=== PATIENT | female | born 1975 | race Caucasian/White ===

== ENCOUNTER 2018-05-02 17:11 | Inpatient (IN) | payer OTHER ==
[~2018-05-02] VITALS: Ht 149.9 cm; Wt 53.5 kg
[2018-05-02 17:30] VITALS: BP 193/86
--- NOTE | 2018-05-02 17:34 | NUR ---
EKG GIVEN TO DR GIANG, PT AMBULATES BACK TO THE LOBBY WITH FAMILY
[2018-05-02 17:59] LABS: BASOPHILS % (AUTO) 0.6 % (0.0-2.0); EOSINOPHILS # (AUTO) 0.2 K/uL (0-0.4); EOSINOPHILS % (AUTO) 3.8 % (0.0-4.0); HEMATOCRIT 40.3 % (36-48); LYMPHOCYTES # (AUTO) 1.2 K/uL (2.5-16.5); LYMPHOCYTES % (AUTO) 20.8 % (20.5-51.1); MEAN CORPUSCULAR HEMOGLOBIN 29 pg (27-31); MEAN CORPUSCULAR HGB CONC 32 g/dL (33-37); MEAN CORPUSCULAR VOLUME 90.2 fL (80-94); MONOCYTES # (AUTO) 0.2 K/uL (0.8-1.0); MONOCYTES % (AUTO) 2.8 % (1.7-9.3); NEUTROPHILS # (AUTO) 4.1 K/uL (1.8-7.7); PLATELET COUNT (AUTO) 260 K/uL (140-450); RED BLOOD CELL COUNT(AUTO) 4.47 MIL/uL (4.20-5.40); RED CELL DISTRIBUTION WIDTH 16.5 % (11.6-13.7); WHITE BLOOD COUNT (AUTO) 5.6 K/uL (4.8-10.8)
[2018-05-02 18:09] LABS: ANION GAP 23.5 (8-16); POTASSIUM 4.5 mmol/L (3.5-5.1)
[2018-05-02 18:14] LABS: CREATININE 8.7 mg/dL (0.6-1.3)
[2018-05-02 18:16] LABS: ALBUMIN 4.2 g/dL (3.4-5.0); TOTAL BILIRUBIN 0.4 mg/dL (0.0-1.0)
--- NOTE | 2018-05-02 18:49 | NUR ---
PT AMBULATES TO BED 1
--- NOTE | 2018-05-02 18:55 | NUR ---
BIB FAMILY WITH C/O MID CP 11/12 RADIATING TO THE BACK SINCE WEDNESDAY WITH NVD AND DIZZINESS AND HEAD ACHE 01/12. SPEAKING FULL SENTENCES, [facility] - FACIAL ASSYMETRY, DROOP, OR SLURRED SPEECH HX; PACEMAKER RX; CLONIDINE, TIZAMIDINE, AMLOPIDINE
--- NOTE | 2018-05-02 19:07 | NUR ---
PT STATES SHE IS HAVING PAIN IN THE VAGINAL REGION BUT CANNOT PEE OR PROVIDE URINE SAMPLE.
--- NOTE | 2018-05-02 19:15 | NUR ---
REPORT GIVEN TO MERRILL CARY AT THIS TIME FOR CONTINUITY OF CARE.
--- NOTE | 2018-05-02 19:20 | NUR ---
ASSUMED CARE FROM RENATO ACRY. PT IS IN 10/10 VAGINAL PAIN AT THIS TIME. DENIES C/P AT THIS TIME. PT STATES SHE HAS BEEN VOMITING SINCE YESTURDAY. MILD SWELLING TO PERINEAL AREA, NO REDNESS AT THIS TIME. LMP: 04/29/18; CURRENT MENSTRATING. AAOX4. SAFETY PRECAUTIONS IN PLACE. AT BEDSIDE. WILL CONTINUE TO MONITOR.
--- NOTE | 2018-05-02 19:34 | NUR ---
DR. BARAJAS AT BEDSIDE FOR EVALUATION.
[2018-05-02] MEDS ORDERED: ONDANSETRON 4 MG/2 ML VIAL IVP ONE (20:10)
[2018-05-02] MEDS ORDERED: MORPHINE SULFATE 4 MG/ML SYR IVP ONE (20:10)
[2018-05-02] MEDS ORDERED: TIZA4CAP PO ×2 (20:10→22:51)
[2018-05-02] MEDS ORDERED: CLON0.2T43 PO ×2 (20:13→22:51)
[2018-05-02] MEDS ORDERED: AMLO10TA PO ×2 (20:13→22:51)
[2018-05-02] MEDS ORDERED: FURO-570 PO ×2 (20:13→22:51)
--- NOTE | 2018-05-02 21:10 | NUR ---
Admited to Tele. Will go to room 114. Belongings list completed. Report to Nova CARY.
[2018-05-02] MEDS ORDERED: LORazepam 2 MG/ML VIAL IM/IVP PRN (21:30)
[2018-05-02] MEDS ORDERED: ZOLPIDEM 5 MG TAB PO PRN (21:30)
[2018-05-02] MEDS ORDERED: DOCUSATE SODIUM 100 MG GELCAP PO PRN (21:30)
[2018-05-02] MEDS ORDERED: ACETAMINOPHEN 325 MG TAB PO PRN (21:30)
[2018-05-02] MEDS ORDERED: HYDROcodone/APAP 5/325 MG 1 TAB TAB PO PRN (21:30)
[2018-05-02] MEDS ORDERED: ONDANSETRON 4 MG/2 ML VIAL IM/IVP PRN (21:30)
[2018-05-02 22:00] VITALS: BP 168/85
--- NOTE | 2018-05-02 22:00 | NUR ---
RECEIVED PT FROM ER VIA RAMSES PT IS AAOX4 AMBULATES WITH GLOBAL SUPPLY CHAIN VICE PRESIDENT LEFT UPPER ARM WITH AV SHUNT FOR HD AND RT AC HL GAUGE # 20 PATENT ON ABD PERITONEAL CATHETER DIALYSIS NOT WORKING PTMRSA KETURAH PROTOCOL DONE AND SENT TO LAB PT ORIENTED TO THE FLOOR CALL LIGHT WITHIN [facility]
[2018-05-02 22:12] LABS: PROTHROMBIN TIME 9.9 secs (10.8-13.4)
[2018-05-02 22:18] LABS: CHOL/HDL RATIO 3.4 (1-4.5); FREE T4 (FREE THYROXINE) 0.98 ng/dL (0.76-1.46); MAGNESIUM 2.5 mg/dL (1.8-2.4); PHOSPHORUS 8.4 mg/dL (2.5-4.9); THYROID STIMULATING HORMONE 2.68 uIU/mL (0.34-3.74)
[2018-05-02] MEDS ORDERED: DEXTROSE 50% 50 ML SYR IVP PRN (22:20)
--- NOTE | 2018-05-02 22:30 | NUR ---
DR FENTON IS HERE AND SEE THE PT
[2018-05-02] MEDS: NACL 0.9% 1,000 ML IV SCH (22:44)
[2018-05-02] MEDS: MORPHINE SULFATE 4 MG/ML SYR IVP PRN (22:46)
[2018-05-02] MEDS ORDERED: GABA100C PO (22:53)
[2018-05-02] MEDS ORDERED: INSU100S22 SUBQ (22:53)
[2018-05-02] MEDS ORDERED: cloNIDine 0.1 MG TAB PO SCH (22:55)
[2018-05-02] MEDS ORDERED: tiZANidine 4 MG TAB PO PRN (22:55)
[2018-05-02] MEDS ORDERED: FUROSEMIDE 40 MG/4 ML VIAL IVP SCH (22:55)
[2018-05-02] MEDS ORDERED: LISINOPRIL 5 MG TAB PO SCH (23:00)
[2018-05-02] MEDS ORDERED: NITROGLYCERIN 0.4 MG TAB SL PRN (23:00)
[2018-05-02] MEDS ORDERED: CALCIUM ACETATE 667 MG TAB PO SCH (23:25)
[2018-05-02] MEDS: GABAPENTIN 100 MG CAP PO SCH (23:31)
[2018-05-02] MEDS: METOPROLOL 25 MG TAB PO SCH (23:31)
[2018-05-02] MEDS: ASPIRIN 81 MG TAB.CHEW PO SCH (23:32)
[2018-05-02] MEDS: SIMVASTATIN 20 MG TAB PO SCH (23:32)
--- NOTE | 2018-05-03 | NUR ---
DR CLARK WAS CALLED TO NOTIFY PT ON HD TO BE ORDER
[2018-05-03 01:00] VITALS: BP 174/80
[2018-05-03 04:00] VITALS: BP 170/74
--- NOTE | 2018-05-03 04:00 | NUR ---
PT HAS BEEN MONITORIN CLOSE RENAL PT HIGH BP DR CLARK WILL COME TO SEE THE PT THIS AM ON TEL[facility]
[2018-05-03] MEDS ORDERED: LIDOCAINE 2% 100 MG/5 ML UJET TP ONE ×2 (04:35→09:00)
[2018-05-03] MEDS: MORPHINE SULFATE 4 MG/ML SYR IVP PRN ×2 (05:47→19:51)
[2018-05-03] MEDS: BLOOD GLUCOSE MONITORING 1 DEV DEV FS SCH ×4 (06:06→21:16)
[2018-05-03] MEDS: INSULIN LISPRO SLIDING SCALE 100 UNITS/ML VIAL SUBQ PRN ×2 (06:07→21:36)
[2018-05-03] MEDS ORDERED: hydrALAZINE 20 MG/ML VIAL IVP SCH (06:30)
--- NOTE | 2018-05-03 06:41 | NUR ---
BLOOD SUGAR TEST 176 COVERAGE WITH 2 UNITS HUMALOG SUBQ FOLLOW PROTOCOL
[2018-05-03 07:37] LABS: BASOPHILS % (AUTO) 0.6 % (0.0-2.0); EOSINOPHILS # (AUTO) 0.3 K/uL (0-0.4); HEMATOCRIT 38.2 % (36-48); HEMOGLOBIN 12.1 g/dL (12.0-16.0); LYMPHOCYTES # (AUTO) 1.4 K/uL (2.5-16.5); LYMPHOCYTES % (AUTO) 24.5 % (20.5-51.1); MEAN CORPUSCULAR HEMOGLOBIN 29 pg (27-31); MEAN CORPUSCULAR HGB CONC 32 g/dL (33-37); MEAN CORPUSCULAR VOLUME 91.6 fL (80-94); MONOCYTES # (AUTO) 0.3 K/uL (0.8-1.0); MONOCYTES % (AUTO) 4.5 % (1.7-9.3); NEUTROPHILS # (AUTO) 3.6 K/uL (1.8-7.7); NEUTROPHILS % (AUTO) 64.4 % (42.2-75.2); PLATELET COUNT (AUTO) 225 K/uL (140-450); RED BLOOD CELL COUNT(AUTO) 4.17 MIL/uL (4.20-5.40); RED CELL DISTRIBUTION WIDTH 16.2 % (11.6-13.7); WHITE BLOOD COUNT (AUTO) 5.6 K/uL (4.8-10.8)
--- NOTE | 2018-05-03 07:50 | NUR ---
PATIENT WAS SLEEPING COMFORTABLY, EASILY AROUSABLE BY NAME. RESPIRATION EVEN, UNLABOR ON ROOM AIR. SKIN DRY AND WARM. IV PATENT AND INTACT. COMPLAINED OF VAGINAL PAIN 10/, WILL MEDICATE PER ORDER. PLAN OF CARE WAS DISCUSSED WITH PATIENT. BED AT LOW POSITION, SIDE RAILS UP. CALL LIGHT WITHIN REACH
[2018-05-03 08:00] VITALS: BP 183/81
--- NOTE | 2018-05-03 08:14 | NUR ---
PATIENT HAS BEEN SCREENED AND CATEGORIZED MODERATE NUTRITION RISK. PATIENT WILL BE SEEN WITHIN 3-5 DAYS OF ADMISSION. 05/05/18SHELBI[address]OW[address]
[2018-05-03] MEDS: amLODIPine 5 MG TAB PO SCH (08:33)
[2018-05-03] MEDS: cloNIDine 0.1 MG TAB PO SCH ×4 (08:34→23:59)
[2018-05-03] MEDS: FUROSEMIDE 40 MG TAB PO SCH ×2 (08:35→21:00)
[2018-05-03] MEDS: ASPIRIN 81 MG TAB.CHEW PO SCH (08:35)
[2018-05-03] MEDS: GABAPENTIN 100 MG CAP PO SCH ×2 (08:35→21:26)
[2018-05-03] MEDS: METOPROLOL 25 MG TAB PO SCH ×3 (08:36→21:26)
[2018-05-03 08:42] LABS: POTASSIUM 5.3 mmol/L (3.5-5.1)
[2018-05-03 08:43] LABS: ANION GAP 22.5 (8-16); CARBON DIOXIDE 23.8 mmol/L (21-32); CREATININE 9.3 mg/dL (0.6-1.3)
[2018-05-03 08:50] LABS: MAGNESIUM 2.5 mg/dL (1.8-2.4); PHOSPHORUS 8.9 mg/dL (2.5-4.9)
--- NOTE | 2018-05-03 10:00 | NUR ---
PATIENT WAS EDUCATED ON STRICT I&O, AND FLUID RESTRICTION OF 1500 ML. PATIENT VERBALIZED UNDERSTANDING
--- NOTE | 2018-05-03 10:15 | NUR ---
PATIENT WAS AWAKE, ALERT. RESPIRATION EVEN, UNLABOR ON ROOM AIR. NO DISTRESS NOTED AT THIS TIME. CALL LIGHT WITHIN REACH.
[2018-05-03] MEDS ORDERED: LACTOBACILLUS RHAMNOSUS GG 1 EACH CAP PO SCH (10:55)
[2018-05-03 12:00] VITALS: BP 166/76
--- NOTE | 2018-05-03 12:00 | NUR ---
PATIENT IS NPO AT THIS TIME. HUMALOG IS HELD, WILL RECHECK BLOOD SUGAR.
--- NOTE | 2018-05-03 12:00 | NUR ---
PATIENT WAS AWAKE, ALERT. RESPIRATION EVEN, UNLABOR ON ROOM AIR. NO DISTRESS NOTED AT THIS TIME. DR. ATKINSON WAS AT BEDSIDE. CALL LIGHT WITHIN REACH
[2018-05-03] MEDS: CEFAZOLIN SODIUM 1 GM/D5W PM 50 ML IV SCH (12:15)
--- NOTE | 2018-05-03 14:10 | NUR ---
PATIENT WAS AWAKE, RESTING COMFORTABLY. RESPIRATION EVEN, UNLABOR ON ROOM AIR. FAMILY WAS AT BEDSIDE. NO DISTRESS NOTED AT THIS TIME. CALL LIGHT WITHIN REACH
[2018-05-03 16:00] VITALS: BP 152/72
--- NOTE | 2018-05-03 16:00 | NUR ---
PATIENT WAS RESTING COMFORTABLY. RESPIRATION EVEN, UNLABOR ON ROOM AIR. DENIED PAIN AT THIS TIME. NO DISTRESS NOTED. CALL LIGHT WITHIN REACH.
--- NOTE | 2018-05-03 18:40 | NUR ---
PATIENT WAS AWAKE, PLAYING WITH PHONE COMFORTABLY. IV PATENT AND INTACT. NO DISTRESS NOTED AT THIS TIME. CALL LIGHT WITHIN REACH
[2018-05-03] MEDS ORDERED: LIDOCAINE 1% 500 MG/50 ML VIAL INJ SCH ×2 (19:15→20:00)
--- NOTE | 2018-05-03 19:35 | NUR ---
ENDORSEMENT GIVEN TO ENVIRONMENTAL HEALTH AND SAFETY MANAGER NURSE. PATIENT IS STABLE AT THIS TIME
--- NOTE | 2018-05-03 19:35 | NUR ---
RECEIVED BEDSIDE REPORT FROM DAY SHIFT RN, PATIENT IN BED, SCHEDULED TO HAVE HD, DIALYSIS NURSE AT BEDSIDE. V/S TAKEN BP 164/84 HR 84. IV IN RIGHT HAND 20G AT 10 ML/HR, NOTED PERITONEAL CATH THAT CURRENTLY NOT BEING USED. PATIENT HAS LEFT UPPER ARM AV SHUNT. BLOOD GLUCOSE 159 WILL MEDICATED ACCORDING TO ORDER. PATIENT REQUEST ID LIDOCAINE FOR DIALYSIS. DIALYSIS NURSE PUT IN ORDER, CALLED PHARMACY TO VERIFY, CALLED HOUSE SUPERVIOSOR TO BRING THE LIDOCAINE TO THE UNIT.
--- NOTE | 2018-05-03 19:51 | NUR ---
PATIENT REQUESTED MORPHINE FOR PAIN, HD NURSE STATED SHE NEEDS TO START DIALYSIS SOON, OFFERED TO GIVE MORPHINE FOR PAIN, PATIENT SAID OKAY. PATIENT STATED OKAY TO START HD WITHOUT LIDOCAINE. STARTED HD.
[2018-05-03] MEDS ORDERED: LIDOCAINE 1% 500 MG/50 ML VIAL ONE (19:58)
[2018-05-03 20:00] VITALS: BP 164/84
--- NOTE | 2018-05-03 20:34 | NUR ---
PATIENT DIFFICULT TO WAKE UP, CHARGE NURSE CALLED RT. BLOOD GLUCOSE 159, DR ADAN AT BEDSIDE. ORDER FOR BIPAP, R/T AT BEDSIDE PLACING BIPAP. O2SAT FLUCTUATING 86-81% RR 14 BP 114/54 PRIOR TO BIPAP ADMINISTRATION. O2SAT NOW 92%-90% RR 30 ON BIPAP. WILL DO CHEST X RAY. Addendum: 05/03/18 at 2043 by Paty Segal RN WRONG PATIENT DISREGARD
--- NOTE | 2018-05-03 21:26 | NUR ---
PATENTS BP INCREASING TO 180'S ACCORDING TO HD NURSE. WILL GIVE METOPROLOL 25 MG. WILL CONTINUE TO MONITOR.
[2018-05-03] MEDS: SIMVASTATIN 20 MG TAB PO SCH (21:27)
[2018-05-03] MEDS: NACL 0.9% 1,000 ML IV SCH (21:27)
[2018-05-03] MEDS: INSULIN LANTUS 100 UNITS/ML 10 ML VIAL SUBQ SCH (21:32)
--- NOTE | 2018-05-03 22:20 | NUR ---
PATIENT C/O VAGINAL SPASMS. MEDICATED WITH ZANAFLEX.
--- NOTE | 2018-05-03 23:49 | NUR ---
HD STOPPED AT 2300 OUTPUT, BP 209/[address] ADAN SAID TO GIVE HELD CLONIDINE AND IVP HYDRALAZINE. WILL GIVE NOW.
[2018-05-04] VITALS: BP 209/75
[2018-05-04] MEDS ORDERED: hydrALAZINE 20 MG/ML VIAL IVP SCH
--- NOTE | 2018-05-04 01:00 | NUR ---
BP 120/75 HR 70. WILL CONTINUE TO MONITOR.
--- NOTE | 2018-05-04 01:30 | NUR ---
BP 116/67 HR 61. PATIENT RESTING COMFORTABLY IN BED. WILL CONTINUE TO MONITOR.
[2018-05-04 04:00] VITALS: BP 147/80
--- NOTE | 2018-05-04 04:00 | NUR ---
V/S TAKEN BP 147/80 HR 69 WILL CONTINUE TO MONITOR.
--- NOTE | 2018-05-04 05:30 | NUR ---
BLOOD SUGAR 54, GAVE APPLE JUICE AND SUGAR, BLOOD SUGAR NOW 80.
[2018-05-04] MEDS: BLOOD GLUCOSE MONITORING 1 DEV DEV FS SCH ×5 (06:18→22:11)
--- NOTE | 2018-05-04 07:21 | NUR ---
RECEIVED BEDSIDE REPORT FROM TOOLS PROGRAMMER RN. PATIENT IN SLEEPING IN BED. IV IN RIGHT HAND 20G AT 10 ML/HR, NOTED PERITONEAL CATH THAT CURRENTLY NOT BEING USED. PATIENT HAS LEFT UPPER ARM AV SHUNT. PT STABLE AT THIS TIME. NO COMPLAINTS OF PAIN. NO SOB OR DISTRESS NOTED. BED IN LOW POSITION, CALL LIGHT WITHIN REACH. WILL ROUND FREQUENTLY.
--- NOTE | 2018-05-04 07:29 | NUR ---
ENDORSED PATIENT TO DAY SHIFT NURSE. PATIENT STABLE.
[2018-05-04 07:33] LABS: BASOPHILS # (AUTO) 0.1 K/uL (0.00-0.22); BASOPHILS % (AUTO) 1.5 % (0.0-2.0); EOSINOPHILS # (AUTO) 0.3 K/uL (0-0.4); EOSINOPHILS % (AUTO) 7.2 % (0.0-4.0); HEMATOCRIT 40.3 % (36-48); LYMPHOCYTES # (AUTO) 0.8 K/uL (2.5-16.5); MEAN CORPUSCULAR HEMOGLOBIN 29 pg (27-31); MEAN CORPUSCULAR HGB CONC 32 g/dL (33-37); MEAN CORPUSCULAR VOLUME 91.2 fL (80-94); MONOCYTES # (AUTO) 0.1 K/uL (0.8-1.0); MONOCYTES % (AUTO) 3.3 % (1.7-9.3); NEUTROPHILS # (AUTO) 2.8 K/uL (1.8-7.7); PLATELET COUNT (AUTO) 236 K/uL (140-450); RED BLOOD CELL COUNT(AUTO) 4.42 MIL/uL (4.20-5.40); RED CELL DISTRIBUTION WIDTH 16.1 % (11.6-13.7); WHITE BLOOD COUNT (AUTO) 4.1 K/uL (4.8-10.8)
[2018-05-04 07:43] LABS: ANION GAP 9.7 (8-16); CARBON DIOXIDE 33.9 mmol/L (21-32); POTASSIUM 3.6 mmol/L (3.5-5.1)
[2018-05-04 07:46] LABS: PHOSPHORUS 5.6 mg/dL (2.5-4.9)
[2018-05-04 08:00] VITALS: BP 167/69
[2018-05-04 08:39] LABS: CREATININE 5.2 mg/dL (0.6-1.3)
[2018-05-04] MEDS ORDERED: cloNIDine 0.1 MG TAB PO SCH (08:56)
[2018-05-04] MEDS: ASPIRIN 81 MG TAB.CHEW PO SCH (08:59)
[2018-05-04] MEDS: amLODIPine 5 MG TAB PO SCH (09:00)
[2018-05-04] MEDS: GABAPENTIN 100 MG CAP PO SCH ×2 (09:01→20:10)
[2018-05-04] MEDS: LACTOBACILLUS RHAMNOSUS GG 1 EACH CAP PO SCH (09:02)
[2018-05-04] MEDS: FUROSEMIDE 40 MG TAB PO SCH (09:02)
[2018-05-04] MEDS: METOPROLOL 25 MG TAB PO SCH (09:03)
[2018-05-04] MEDS: VITAMIN B COMPLEX W/C 1 TAB PO SCH (09:03)
[2018-05-04] MEDS: MORPHINE SULFATE 4 MG/ML SYR IVP PRN ×3 (09:04→19:58)
--- NOTE | 2018-05-04 09:05 | NUR ---
ADMINISTERED SCHEDULED MEDS TO PT. PT TOLERATED MEDS WELL. PT ALSO COMPLAINING OF VAGINAL PAIN OF 7/10. MORPHINE GIVEN FOR RELIEF. WILL REASSESS FOR MED EFFECTIVENESS.
--- NOTE | 2018-05-04 11:23 | NUR ---
PT RESTING IN BED WATCHING TV. ALL NEEDS MET AT THIS TIME. BED IN LOW POSITION, CALL LIGHT WITHIN REACH.
[2018-05-04 12:00] VITALS: BP 171/71
--- NOTE | 2018-05-04 12:54 | NUR ---
PT COMPLAINING OF PAIN 10/12. GAVE MORPHINE 2MG ORDERED. WILL REASSESS FOR MED EFFECTIVENESS.
[2018-05-04] MEDS: CEFAZOLIN SODIUM 1 GM/D5W PM 50 ML IV SCH (12:55)
[2018-05-04] MEDS: cloNIDine 0.1 MG TAB PO SCH ×2 (12:55→18:03)
[2018-05-04 16:00] VITALS: BP 163/70
[2018-05-04] MEDS ORDERED: ATENOLOL 25 MG TAB PO SCH (17:00)
[2018-05-04] MEDS: CALCIUM ACETATE 667 MG TAB PO SCH (18:02)
[2018-05-04] MEDS: INSULIN LISPRO SLIDING SCALE 100 UNITS/ML VIAL SUBQ PRN (18:08)
--- NOTE | 2018-05-04 19:08 | NUR ---
DIALYSIS NURSE WAS PAGED TO NOTIFY ABOUT DIALYSIS TOMORROW MORNING. AWAITING CALL BACK
--- NOTE | 2018-05-04 19:45 | NUR ---
ENDORSED PT TO MAKE READY WORKER FOR CONTINUITY OF CARE. PT IN STABLE CONDITION.
--- NOTE | 2018-05-04 19:46 | NUR ---
RECEIVED REPORT FROM [facility] NURSE AT BEDSIDE FOR CONTINUITY OF CARE. PT AAOX4. PT IV NOTED RAC 20G NS 10ML/HR. NO SOB NO S/S OF DISTRESS ON RA. SHANEL AV SHUNT. DIALYSIS T TH S. DIALYSIS DUE TOMORROW. AMBULATORY. FLUID RESTRICTION 1500ML/DAY. BED LOWERED CALL LIGHT WITHIN REACH WILL CONTINUE TO MONITOR.
[2018-05-04 20:00] VITALS: BP 161/72
[2018-05-04] MEDS: SIMVASTATIN 20 MG TAB PO SCH (20:10)
[2018-05-04] MEDS: NACL 0.9% 1,000 ML IV SCH (21:29)
[2018-05-04] MEDS: INSULIN LANTUS 100 UNITS/ML 10 ML VIAL SUBQ SCH (22:11)
[2018-05-05] VITALS: BP 118/67
[2018-05-05] MEDS: MORPHINE SULFATE 4 MG/ML SYR IVP PRN ×4 (01:39→17:26)
[2018-05-05 04:00] VITALS: BP 160/67
[2018-05-05] MEDS: INSULIN LISPRO SLIDING SCALE 100 UNITS/ML VIAL SUBQ PRN ×2 (05:24→13:13)
[2018-05-05] MEDS: BLOOD GLUCOSE MONITORING 1 DEV DEV FS SCH ×3 (06:13→17:16)
--- NOTE | 2018-05-05 07:28 | NUR ---
ENDORSED REPORT TO DAYSHIFT NURSE AT BEDSIDE FOR CONTINUITY OF CARE.
--- NOTE | 2018-05-05 07:31 | NUR ---
RECEIVED BEDSIDE REPORT FROM VIDEO CAMERA OPERATOR RN. PATIENT IS RESTING IN BED. IV IN RIGHT HAND 20G AT 10 ML/HR, NOTED PERITONEAL CATH THAT CURRENTLY NOT BEING USED. PATIENT HAS LEFT UPPER ARM AV SHUNT, RESTRICTED LEFT LIMB SIGN POSTED. PT STABLE AT THIS TIME. NO COMPLAINTS OF PAIN. NO SOB OR DISTRESS NOTED. BED IN LOW POSITION, CALL LIGHT WITHIN REACH. WILL ROUND FREQUENTLY.
--- NOTE | 2018-05-05 07:56 | NUR ---
PT STATED THAT SHE'S FEELING DIZZY. BS CHECKED AND RESULT WAS 49. GAVE DEXTROSE NOW. WILL REASSESS BS IN 15MINS. FOR EFFECTIVENESS OF MED. NOTIFIED OF FINDING. PER 'S ORDER, IF HUMALOG NEEDED ONCE BS IS RECHECKED, ONLY HALF OF THE SLIDING SCALE IS TO BE GIVEN.
[2018-05-05 08:00] VITALS: BP 162/73
[2018-05-05 08:04] LABS: BASOPHILS % (AUTO) 0.5 % (0.0-2.0); EOSINOPHILS # (AUTO) 0.3 K/uL (0-0.4); HEMATOCRIT 38.6 % (36-48); HEMOGLOBIN 12.3 g/dL (12.0-16.0); LYMPHOCYTES # (AUTO) 1.4 K/uL (2.5-16.5); LYMPHOCYTES % (AUTO) 34.4 % (20.5-51.1); MEAN CORPUSCULAR HEMOGLOBIN 29 pg (27-31); MEAN CORPUSCULAR HGB CONC 32 g/dL (33-37); MEAN CORPUSCULAR VOLUME 91.2 fL (80-94); MONOCYTES # (AUTO) 0.2 K/uL (0.8-1.0); MONOCYTES % (AUTO) 5.1 % (1.7-9.3); NEUTROPHILS # (AUTO) 2.2 K/uL (1.8-7.7); PLATELET COUNT (AUTO) 224 K/uL (140-450); RED BLOOD CELL COUNT(AUTO) 4.23 MIL/uL (4.20-5.40); RED CELL DISTRIBUTION WIDTH 16.3 % (11.6-13.7); WHITE BLOOD COUNT (AUTO) 4.1 K/uL (4.8-10.8)
--- NOTE | 2018-05-05 08:17 | NUR ---
BS RECHECKED WITH RESULT OF 154. WILL GIVE 1 UNIT OF HUMALOG FOR COVERAGE.
[2018-05-05 08:18] LABS: CARBON DIOXIDE 29.4 mmol/L (21-32); POTASSIUM 4.4 mmol/L (3.5-5.1)
[2018-05-05 08:22] LABS: CREATININE 7.6 mg/dL (0.6-1.3)
--- NOTE | 2018-05-05 08:22 | NUR ---
RECEIVED CRITICAL VALUE OF CREATININE: 7.6. NOTIFIED BUT ELEVATED LEVEL EXPECTED DUE TO DIALYSIS DUE TODAY.
[2018-05-05 08:25] LABS: MAGNESIUM 2.1 mg/dL (1.8-2.4); PHOSPHORUS 8.2 mg/dL (2.5-4.9)
[2018-05-05] MEDS: LACTOBACILLUS RHAMNOSUS GG 1 EACH CAP PO SCH (08:39)
[2018-05-05] MEDS: GABAPENTIN 100 MG CAP PO SCH (08:40)
[2018-05-05] MEDS: VITAMIN B COMPLEX W/C 1 TAB PO SCH (08:40)
[2018-05-05] MEDS: ASPIRIN 81 MG TAB.CHEW PO SCH (08:41)
[2018-05-05] MEDS: cloNIDine 0.1 MG TAB PO SCH ×3 (08:41→16:18)
--- NOTE | 2018-05-05 08:41 | NUR ---
ADMINISTERED SCHEDULED MEDS TO PT. PT TOLERATED MEDS WELL. PT IS HAVING DIALYSIS TODAY SO i NOTIFIED THAT i WOULD HOLD ALL BP MEDS PER PROTOCOL. PER 'S ORDERS, HOLD ALL BP MEDS EXCEPT CLONIDINE. CLONIDINE GIVEN WITH OTHER SCHEDULED MEDS. ALL NEEDS MET AT THIS TIME. BED IN LOW POSITION, CALL LIGHT WITHIN REACH.
[2018-05-05] MEDS: amLODIPine 5 MG TAB PO SCH (08:42)
[2018-05-05] MEDS: CALCIUM ACETATE 667 MG TAB PO SCH ×2 (08:42→16:19)
[2018-05-05] MEDS ORDERED: ATENOLOL 50 MG TAB PO SCH (09:00)
[2018-05-05] MEDS ORDERED: ATENOLOL 25 MG TAB PO SCH (09:00)
[2018-05-05 12:00] VITALS: BP 171/69
--- NOTE | 2018-05-05 12:45 | NUR ---
PT STARTING DIALYSIS WITH SOOD DIALYSIS NURSE. PT STABLE AT THIS TIME. BP MEDS GIVEN PER 'S ORDERS.
[2018-05-05 16:00] VITALS: BP 187/84
[2018-05-05] MEDS ORDERED: ATEN50TA2 PO (16:04)
[2018-05-05] MEDS ORDERED: CLON0.2T43 PO (16:04)
[2018-05-05] MEDS ORDERED: EMLAC TP (16:04)
[2018-05-05] MEDS ORDERED: ATOR40TA PO (16:04)
[2018-05-05] MEDS ORDERED: ASPI81CT95 PO (16:04)
--- NOTE | 2018-05-05 16:28 | NUR ---
PT DIALYSIS COMPLETE. PT TOLERATED WELL. PT WILL BE DISCHARGED AFTER SHE HAS DINNER. ALL NEEDS MET AT THIS TIME. WILL CONTINUE TO MONITOR.
[2018-05-05] MEDS: CEFAZOLIN SODIUM 1 GM/D5W PM 50 ML IV SCH (17:26)
[2018-05-05 17:48] VITALS: BP 174/64
--- NOTE | 2018-05-05 19:34 | NUR ---
PT DISCHARGED HOME VIA PRIVATE VEHICLE. PT LEFT WITH FAMILY. PT IV REMOVED WITH TIP INTACT. WRISTBAND REMOVED. DISCHARGE PAPERWORK SIGNED BY PT. PT VERBALIZED UNDERSTANDING OF TEACHING AND FOLLOW-UP APPT. WITH HER PCP. PT TOOK ALL PERSONAL BELONGINGS WITH HER. PT IN STABLE CONDITION AT TIME OF DISCHARGE.
== END 2018-05-05 18:35 | disposition home or self-care (01) | DRG 682 ==
LOC: MED 17:11 → MTU 21:29
PROVIDERS: ADMIT General Practice; ATTEND General Practice
PROC: 5A1D70Z Performance of Urinary Filtration, Intermittent, Less than 6 Hours Per Day (ICD-10-PCS; principal; 2018-05-03)
PROC: 5A1D70Z Performance of Urinary Filtration, Intermittent, Less than 6 Hours Per Day (ICD-10-PCS; 2018-05-05)
DX: N17.0 Acute kidney failure with tubular necrosis (principal); I50.43 Acute on chronic combined systolic (congestive) and diastolic (congestive) heart failure; I13.2 Hypertensive heart and chronic kidney disease with heart failure and with stage 5 chronic kidney disease, or end stage renal disease; I16.1 Hypertensive emergency; D68.59 Other primary thrombophilia; M94.0 Chondrocostal junction syndrome [Tietze]; N18.6 End stage renal disease; E11.22 Type 2 diabetes mellitus with diabetic chronic kidney disease; E11.69 Type 2 diabetes mellitus with other specified complication; E87.8 Other disorders of electrolyte and fluid balance, not elsewhere classified; E87.5 Hyperkalemia; E11.40 Type 2 diabetes mellitus with diabetic neuropathy, unspecified; E83.51 Hypocalcemia; E83.39 Other disorders of phosphorus metabolism; E83.41 Hypermagnesemia; I25.10 Atherosclerotic heart disease of native coronary artery without angina pectoris; E78.00 Pure hypercholesterolemia, unspecified; N90.89 Other specified noninflammatory disorders of vulva and perineum; Z99.2 Dependence on renal dialysis; Z91.19 Patient's noncompliance with other medical treatment and regimen; Z79.4 Long term (current) use of insulin; Z79.899 Other long term (current) drug therapy; Z90.49 Acquired absence of other specified parts of digestive tract; Z98.51 Tubal ligation status
CPT/HCPCS: 36415; 71045; 80048; 80053; 82150; 82948; 83036; 83690; 83735; 83880; 84100; 84439; 84443; 84484; 85025; 85610; 85730; 87081; 90935; 96374; 96375; 99285; J0360; J0690; J1815; J1940; J2001; J2270; J2405; J7030; J7060

== ENCOUNTER 2018-06-21 08:44 | Inpatient (IN) | payer OTHER ==
[~2018-06-21] VITALS: Ht 152.4 cm; Wt 55.3 kg
[~2018-06-21 08:44] MED LIST: AMLO10TA PO; ASPI81CT95 PO; ATEN50TA2 PO; ATOR40TA PO; CLON0.2T43 PO; EMLAC TP; GABA100C PO; INSU100S22 SUBQ; TIZA4CAP PO
--- NOTE | 2018-06-21 08:50 | NUR ---
Patient ambulated to bed 2 at this time.
[2018-06-21 09:00] VITALS: BP 188/86
--- NOTE | 2018-06-21 09:08 | NUR ---
PT BIB SELF C/O N/V/D X6 DAYS. PT REPORTS 4 EPISODES OF BRIGHT GREEN EMESIS IN 24 HOUR PEROID, AND "NON-STOP WATERY DIARRHEA". PT REPORTS 8/10 CRAMPING PAIN TRHOOUGHOUT ENTIRE ABD. ABD IS SOFT, FLAT, NON-TENDER, AND BOWEL SOUNDS ACTIVE X4 QUADRANTS. PT STATES SHE HAS BEEN UNABLE TO KEEP MEDICATIONS DOWN. PT REPORTS PRESSURE HEADACHE AND BODY ACHES X6 DAYS. PT DENIES FEVER. PT HAS AV SHUNT ON L ARM. DIALYSIS ON TUESDAYS, THURSDAYS, AND SATURDAYS MEDHX:RENAL FAILURE, DIALYSIS, HTN, DM
--- NOTE | 2018-06-21 09:11 | NUR ---
DANIEL HERRERA AT BEDSIDE AT THIS TIME.
[2018-06-21] MEDS ORDERED: NACL 0.9% 500 ML IV SCH (09:16)
[2018-06-21] MEDS ORDERED: ONDANSETRON 4 MG/2 ML VIAL IVP ONE ×2 (09:20→11:35)
[2018-06-21] MEDS ORDERED: FAMOTIDINE 20 MG/2 ML VIAL IVP ONE (09:20)
[2018-06-21 09:38] LABS: BASOPHILS % (AUTO) 0.7 % (0.0-2.0); EOSINOPHILS # (AUTO) 0.4 K/uL (0-0.4); EOSINOPHILS % (AUTO) 7.8 % (0.0-4.0); HEMATOCRIT 42.1 % (36-48); HEMOGLOBIN 13.7 g/dL (12.0-16.0); LYMPHOCYTES % (AUTO) 21.3 % (20.5-51.1); MEAN CORPUSCULAR HEMOGLOBIN 30 pg (27-31); MEAN CORPUSCULAR HGB CONC 33 g/dL (33-37); MEAN CORPUSCULAR VOLUME 91.9 fL (80-94); MONOCYTES # (AUTO) 0.2 K/uL (0.8-1.0); MONOCYTES % (AUTO) 3.7 % (1.7-9.3); NEUTROPHILS # (AUTO) 3.2 K/uL (1.8-7.7); NEUTROPHILS % (AUTO) 66.5 % (42.2-75.2); PLATELET COUNT (AUTO) 213 K/uL (140-450); RED BLOOD CELL COUNT(AUTO) 4.59 MIL/uL (4.20-5.40); RED CELL DISTRIBUTION WIDTH 15.8 % (11.6-13.7); WHITE BLOOD COUNT (AUTO) 4.7 K/uL (4.8-10.8)
--- NOTE | 2018-06-21 09:42 | NUR ---
PT GOING TO CT AND X-RAY AT THIS TIME
[2018-06-21 09:56] LABS: ALBUMIN 3.7 g/dL (3.4-5.0); ANION GAP 23.6 (8-16); CARBON DIOXIDE 21.2 mmol/L (21-32); TOTAL BILIRUBIN 0.4 mg/dL (0.0-1.0)
[2018-06-21 10:00] LABS: CREATININE 9.2 mg/dL (0.6-1.3)
[2018-06-21 10:01] LABS: POTASSIUM 5.8 mmol/L (3.5-5.1)
[2018-06-21] MEDS ORDERED: SODIUM BICARBONATE 8.4% PFS 50 MEQ/50 ML SYR IVP ONE (10:10)
[2018-06-21] MEDS ORDERED: INSULIN REGULAR, HUMAN 100 UNIT/ML VIAL IVP ONE (10:10)
[2018-06-21] MEDS ORDERED: DEXTROSE 50% 50 ML SYR IVP ONE ×2 (10:10→11:45)
[2018-06-21 10:32] LABS: PROTHROMBIN TIME 9.9 secs (10.8-13.4)
[2018-06-21] MEDS ORDERED: NACL 0.9% 1,000 ML IV SCH (11:12)
[2018-06-21] MEDS ORDERED: HYDROcodone/APAP 5/325 MG 1 TAB TAB PO PRN (11:15)
[2018-06-21] MEDS ORDERED: MORPHINE SULFATE 2 MG/ML SYR IVP PRN (11:15)
[2018-06-21] MEDS ORDERED: DOCUSATE SODIUM 100 MG GELCAP PO PRN (11:15)
[2018-06-21] MEDS ORDERED: ACETAMINOPHEN 325 MG TAB PO PRN (11:15)
[2018-06-21] MEDS ORDERED: LORazepam 2 MG/ML VIAL IM/IVP PRN (11:15)
[2018-06-21] MEDS ORDERED: ONDANSETRON 4 MG/2 ML VIAL IM/IVP PRN (11:15)
[2018-06-21] MEDS ORDERED: DEXTROSE 50% 50 ML SYR IVP PRN (11:50)
--- NOTE | 2018-06-21 11:55 | NUR ---
Patient will be admitted to care of [facility]. Admited to TELE VIA TERI WITH VSS. Will go to room 114. Belongings list completed. Report to ANTONIO RN.
[2018-06-21 12:00] VITALS: BP 150/75
--- NOTE | 2018-06-21 12:00 | NUR ---
Admitted from ED, with chief complaint of N&V X3 DAYS, DIARRHEA 3X AT HOME, LIQUID STOOLS PER PT. PT IS A 43 y/o ,Female, Cooperative,oriented to call light, bed, phone,television, bathroom, smoking policy,visiting hours, procedures, ID bracelet on. Belongings list checked. PT AAOX4. NO SOB NOTED. NO C/O PAIN AT THIS TIME. IV TO RT AC PATENT AND INTACT. WITH LEFT UPPER ARM AV SHUNT, BRUITS AND THRILL FELT. CHEST CLEAR. ABDOMEN SOFT, BOWEL SOUNDS PRESENT. NO EDEMA NOTED. INSTRUCTED PT TO CALL FOR ASSISTANCE, CALL LIGHT WITHIN REACH, VERBALIZED UNDERSTANDING.
--- NOTE | 2018-06-21 13:00 | NUR ---
NO N&V NOTED. NPO MAINTAINED, PT VERBALIZED UNDERSTANDING.
[2018-06-21] MEDS: DEXT 5% / NACL 0.45% 1,000 ML IV SCH (13:07)
[2018-06-21] MEDS: metroNIDAZOLE 500 MG/NS PREMIX 100 ML IV SCH ×2 (13:07→20:05)
[2018-06-21] MEDS ORDERED: tiZANidine 4 MG TAB PO PRN (13:25)
[2018-06-21] MEDS ORDERED: LIDOCAINE/PRILOCAINE 2.5% 30 GM TUBE TP PRN (13:25)
[2018-06-21] MEDS ORDERED: LABETALOL 100 MG/20 ML VIAL IV SCH ×2 (13:52→13:56)
[2018-06-21 14:21] LABS: CHOL/HDL RATIO 2.8 (1-4.5); MAGNESIUM 2.6 mg/dL (1.8-2.4); THYROID STIMULATING HORMONE 5.61 uIU/mL (0.34-3.74)
--- NOTE | 2018-06-21 14:30 | NUR ---
HEMODIALYSIS CONSENT SIGNED BY PT. RISKS AND BENEFITS EXPLAINED, VERBALIZED UNDERSTANDING.
--- NOTE | 2018-06-21 15:20 | NUR ---
PT AWAKE. NO SOB NOTED. COMPLAINTS MADE. HD ON GOING AT THE BEDSIDE.
--- NOTE | 2018-06-21 15:20 | NUR ---
PATIENT HAS BEEN SCREENED AND CATEGORIZED HIGH NUTRITION RISK. PATIENT WILL BE SEEN WITHIN 1-2 DAYS OF ADMISSION. 06/21/18-06/22/[address]
[2018-06-21 16:50] VITALS: BP 202/91
--- NOTE | 2018-06-21 16:53 | NUR ---
PT BP IS ELEVATED 202/91 MMHG, HR 82/MIN, WITH ON GOING HD AT THE BEDSIDE. WILL ADMINISTER SCHEDULED CLONIDINE PO. WILL CONTINUE TO MONITOR PT.
[2018-06-21] MEDS: LACTOBACILLUS RHAMNOSUS GG 1 EACH CAP PO SCH (16:54)
[2018-06-21] MEDS: BLOOD GLUCOSE MONITORING 1 DEV DEV FS SCH ×2 (16:55→20:08)
[2018-06-21] MEDS: cloNIDine 0.1 MG TAB PO SCH (16:55)
--- NOTE | 2018-06-21 17:30 | NUR ---
HD COMPLETED. PT STABLE. NO SOB NOTED. NO COMPLAINTS MADE. 3 LITERS OUT PER HD NURSE.
--- NOTE | 2018-06-21 19:00 | NUR ---
PT AWAKE, ON THE PHONE. NO SOB NOTED. NO COMPLAINTS MADE. WILL ENDORSE TO NEXT SHIFT NURSE FOR CONTINUITY OF CARE.
--- NOTE | 2018-06-21 19:30 | NUR ---
RECEIVED BEDSIDE REPORT FROM RN YUNI, PATIENT IN BED NO SIGNS OF ACUTE DISTRESS, DENIES PAIN, ON RA, V/S TAKEN NOTED BP 180/91 HR 82. REPORTED THAT BP WAS IN THE 200'S DURING HD AND CLONIDINE WAS GIVEN. BG 192 WITH GIVE 2 UNITS HUMALOG. REPORTED THAT PATIENT DID NOT HAVE BM DURING DAY SHIFT. EXPLAINED PLAN OF CARE.
[2018-06-21 20:00] VITALS: BP 180/91
--- NOTE | 2018-06-21 20:00 | NUR ---
PATIENT C/O HAVING DIFFICULTY SLEEPING, WILL MEDICATE WITH AMBIEN.
[2018-06-21] MEDS: ZOLPIDEM 5 MG TAB PO PRN (20:04)
[2018-06-21] MEDS: INSULIN LANTUS 100 UNITS/ML 10 ML VIAL SUBQ SCH (20:08)
[2018-06-21] MEDS: INSULIN LISPRO SLIDING SCALE 100 UNITS/ML VIAL SUBQ PRN (20:08)
--- NOTE | 2018-06-21 20:23 | NUR ---
DR CLARK AT BEDSIDE. ORDER TO COLLECT C-DIFF. PUT IN ORDER, PLACED HAT IN TOILET. COLLECTION CUP AND COLLECTION SIGN AT BEDSIDE.
--- NOTE | 2018-06-21 21:20 | NUR ---
PATIENT RESTING IN BED NO SIGNS OF DISTRESS.
[2018-06-22] VITALS: BP 170/89
[2018-06-22] MEDS ORDERED: hydrALAZINE 20 MG/ML VIAL IVP ONE
[2018-06-22] MEDS ORDERED: cloNIDine 0.1 MG TAB PO ONE
--- NOTE | 2018-06-22 00:01 | NUR ---
BP 170/89 HR [address] MARTINS, WILL FOLLOW WITH MD ORDERS.
--- NOTE | 2018-06-22 00:24 | NUR ---
ADMINISTERED IVP HYDRALAZINE AND PO CLONIDINE. WILL REASSESS.
--- NOTE | 2018-06-22 01:25 | NUR ---
BP 152/62 HR 70 AFTER HYDRALAZINE AND CLONIDINE ADMINISTRATION.
--- NOTE | 2018-06-22 02:33 | NUR ---
CALL FROM SALES TRAINING MANAGER GLORIA. TOLD PATIENT SHOWS V-TACK ON TELE. PATIENT ASLEEP IN BED, BP 155/92 TOOK APICAL PULSE [address] MARTINS ORDERS FOR EKG TO R/O V-TACK
--- NOTE | 2018-06-22 03:00 | NUR ---
PATIENT SHOWS SR ON EKG. NOTIFIED DR MARTINS. TOLD PATIENT WILL FOLLOW UP OUTPATIENT FOR CHANGE IN CARDIAC RHYTHM.
[2018-06-22 03:51] VITALS: BP 155/92
--- NOTE | 2018-06-22 03:55 | NUR ---
PATIENT RESTING IN BED, SR ON MONITOR, HR IN LOW 70'S. WILL CONTINUE TO MONITOR.
[2018-06-22] MEDS: metroNIDAZOLE 500 MG/NS PREMIX 100 ML IV SCH ×3 (04:09→21:24)
--- NOTE | 2018-06-22 04:13 | NUR ---
DUE FLAGYL GIVEN
[2018-06-22 07:10] LABS: BASOPHILS % (AUTO) 0.8 % (0.0-2.0); EOSINOPHILS # (AUTO) 0.3 K/uL (0-0.4); EOSINOPHILS % (AUTO) 7.3 % (0.0-4.0); HEMATOCRIT 36.2 % (36-48); LYMPHOCYTES # (AUTO) 0.7 K/uL (2.5-16.5); LYMPHOCYTES % (AUTO) 19.3 % (20.5-51.1); MEAN CORPUSCULAR HEMOGLOBIN 31 pg (27-31); MEAN CORPUSCULAR HGB CONC 33 g/dL (33-37); MONOCYTES # (AUTO) 0.2 K/uL (0.8-1.0); MONOCYTES % (AUTO) 5.7 % (1.7-9.3); NEUTROPHILS # (AUTO) 2.6 K/uL (1.8-7.7); NEUTROPHILS % (AUTO) 66.9 % (42.2-75.2); PLATELET COUNT (AUTO) 189 K/uL (140-450); RED BLOOD CELL COUNT(AUTO) 3.93 MIL/uL (4.20-5.40); RED CELL DISTRIBUTION WIDTH 15.6 % (11.6-13.7); WHITE BLOOD COUNT (AUTO) 3.9 K/uL (4.8-10.8)
--- NOTE | 2018-06-22 07:21 | NUR ---
RECEIVED BEDSIDE REPORT FROM TOWER CRANE OPERATOR RN. PATIENT IN BED NO SIGNS OF ACUTE DISTRESS, DENIES PAIN, ON RA. REPORTED THAT PATIENT DID NOT HAVE BM DURING TOWER CRANE OPERATOR. EXPLAINED PLAN OF CARE TO PT. PT VERBALIZED UNDERSTANDING. WILL ROUND FREQUENTLY ON PT.
[2018-06-22] MEDS: BLOOD GLUCOSE MONITORING 1 DEV DEV FS SCH ×4 (07:30→21:22)
[2018-06-22 07:50] LABS: ANION GAP 13.7 (8-16); CARBON DIOXIDE 27.2 mmol/L (21-32); POTASSIUM 3.9 mmol/L (3.5-5.1)
[2018-06-22 08:00] VITALS: BP 161/70
--- NOTE | 2018-06-22 09:24 | NUR ---
ADMINISTERED MORNING MEDS TO PT. PT TOLERATED THEM WELL. ALL NEEDS MET AT THIS TIME. WILL CONTINUE T OROUND FREQUENTLY.
[2018-06-22] MEDS: ECOTRIN 81 MG TABEC PO SCH (09:31)
[2018-06-22] MEDS: amLODIPine 5 MG TAB PO SCH (09:31)
[2018-06-22] MEDS: GABAPENTIN 100 MG CAP PO SCH (09:32)
[2018-06-22] MEDS: VIT-B COMP/VIT-C/FOLIC ACID 1 TAB PO SCH (09:34)
[2018-06-22] MEDS: ATORVASTATIN 20 MG TAB PO SCH (09:34)
[2018-06-22] MEDS: cloNIDine 0.1 MG TAB PO SCH ×3 (09:34→16:44)
[2018-06-22] MEDS: ATENOLOL 50 MG TAB PO SCH (09:34)
[2018-06-22] MEDS: LACTOBACILLUS RHAMNOSUS GG 1 EACH CAP PO SCH ×2 (09:35→16:45)
[2018-06-22] MEDS: INSULIN LISPRO SLIDING SCALE 100 UNITS/ML VIAL SUBQ PRN ×2 (09:43→16:50)
--- NOTE | 2018-06-22 11:47 | NUR ---
PT RESTING IN BED. PT BS AT 55. MEAL TRAY WAS BROUGHT SO DR NOTIFIED AND BS WAS CONTROLLED WITH JUICE AND CRACKERS. PT BS CAME UP TO 100. ALL NEEDS MET A THIS TIME. WILL CONTINUE TO ROUND FREQUENTLY ON PT.
[2018-06-22 12:00] VITALS: BP 144/76
[2018-06-22] MEDS: DEXT 5% / NACL 0.45% 1,000 ML IV SCH (12:20)
--- NOTE | 2018-06-22 13:31 | NUR ---
06/22/18 RD INITIAL ASSESSMENT COMPLETED PLEASE REFER TO NUTRITION ASSESSMENT UNDER CARE ACTIVITY FOR ESTIMATED NUTRITIONAL NEEDS. 1. RECOMMEND RENAL CCHO DIET TOLERATED 2. RENAL DIET EDUCATION WAS PROVIDED 3. RD TO FOLLOW-UP 3-5 DAYS, MODERATE RISK SHELBIE BERKOWITZ RD
--- NOTE | 2018-06-22 14:26 | NUR ---
PT RESTING IN BED. SHE HAD ONE FORMED BM. NO SIGNS OF DIARRHEA FROM PT. PT STATES THAT SHE HAS NO DISCOMFORT. ALL NEEDS MET AT THIS TIME. WILL CONTINUE TO ROUND FREQUENTLY
[2018-06-22 16:00] VITALS: BP 146/70
--- NOTE | 2018-06-22 18:39 | NUR ---
PATIENT HD ORDERED BY FOR 06/23 AT 0800. SOOD THE DIALYSIS NURSE WAS PAGED AND NOTIFIED OF HD ORDER. PER SOOD, SHE WILL BE HERE IN THE MORNING FOR PATIENT SCHEDULED HD.
--- NOTE | 2018-06-22 19:23 | NUR ---
ENDORSED PT TO INTERNET DATABASE SPECIALIST FOR CONTINUITY OF CARE. PT IN STABLE CONDITION AT THIS TIME.
--- NOTE | 2018-06-22 19:23 | NUR ---
RECEIVED REPORT FROM ANTOINE CARY DAY SHIFT AT BEDSIDE FOR CONTINUITY OF CARE, PT IN STABLE CONDITION.
[2018-06-22 20:00] VITALS: BP 135/61
--- NOTE | 2018-06-22 20:00 | NUR ---
PT IS AOX4 IN LOW BED WITH SIDE RAILS UP X2. AV SHUNT ON LEFT ARM INTACT WITH THRILL AND BRUIT FELT. PT V/S FOLLOWS T 98.0 P 66 R 18 B/P 135/61 02 93% ON ROOM AIR. PT HAS NO C/O VOICED RIGHT AC 20 GUAGE INTACT AND FLUSHED PATENT.WILL CONTINUE TO MONITOR PT FOR ANY NEEDS /CONCERNS.
--- NOTE | 2018-06-22 21:00 | NUR ---
PT FINGERSTICK IS 129. PT CONCERNED THAT HER BLOOD SUGAR MAY BE DROPPING. PT HAD FINISHED ALL HER MEAL. PT REQUEST BLOOD SUGAR RETAKEN IN ABOUT AN HOUR AND 1/2. PRIMARY NURSE VERBALIZED AGREEMENT. PT GIVEN DUE MEDS OF LANTUS 20 UNITS ORDERED, WELL FLAGYL IV.
[2018-06-22] MEDS: INSULIN LANTUS 100 UNITS/ML 10 ML VIAL SUBQ SCH (21:37)
[2018-06-22] MEDS: ZOLPIDEM 5 MG TAB PO PRN (21:46)
--- NOTE | 2018-06-22 21:50 | NUR ---
PT REQUEST AND WAS GIVEN SLEEPING PILL AMBIEN 5MG PO/PRN . WILL MONITOR FOR EFFECT.
--- NOTE | 2018-06-22 22:30 | NUR ---
RETAKE OF FINGERSTICK IS 149. WILL CONTINUE TO MONITOR PT BLOOD SUGAR.
--- NOTE | 2018-06-22 23:30 | NUR ---
PT OFFERED SNACK , BUT WAS SLEEPING PEACEFULLY. POSITIVE EFFECT OF AMBIEN NOTED.
[2018-06-23] VITALS: BP 122/71
--- NOTE | 2018-06-23 01:15 | NUR ---
PT IN BED AWOKEN FROM IV PUMP BEEPING. PT IV SITE FLUSHED PATENT. PT GIVEN SNACK OF CRACKERS AND AND JUICE. V/S FOLLOWS T 98.3 P 60 R 18 B/P 103/64 02 97 % ON ROOM AIR. PT HAS NO C/O OF PAIN OR DISTRESS NOTED.
[2018-06-23] MEDS: metroNIDAZOLE 500 MG/NS PREMIX 100 ML IV SCH ×3 (05:00→13:58)
--- NOTE | 2018-06-23 05:49 | NUR ---
PT IN BED SLEEPING BUT AROUSABLE TO NAME. NO S/S OF PAIN OR DISTRESS NOTED. PT GIVEN ORDERED FLAGYL. PT MEDICATION EDUCATION PROVIDED. IV SITE ON RIGHT AC FLUSHED PATENT. BED LOW CALL MALDONADO IN REACH AND SIDE RAILS UP X2. PT DID NOT HAVE A BM OR HAS NO C/O OF NAUSEA AND VOMITING ALL SHIFT.
--- NOTE | 2018-06-23 05:53 | NUR ---
LABS DRAWN AT AT BEDSIDE.
--- NOTE | 2018-06-23 06:37 | NUR ---
PT F/S IS 53. PT SITTING UP AOX4 WITH NO C/O VOICED. PT GIVEN 2 APPLE JUICES AND CRACKERS, WILL RETAKE F/S SHORTLY. FLAGYL STILL RUNNING IV NEEDED TO BE FLUSHED X2.
[2018-06-23 06:59] LABS: BASOPHILS % (AUTO) 0.9 % (0.0-2.0); EOSINOPHILS # (AUTO) 0.3 K/uL (0-0.4); EOSINOPHILS % (AUTO) 8.8 % (0.0-4.0); HEMATOCRIT 37.4 % (36-48); HEMOGLOBIN 11.9 g/dL (12.0-16.0); LYMPHOCYTES # (AUTO) 1.1 K/uL (2.5-16.5); MEAN CORPUSCULAR HEMOGLOBIN 29 pg (27-31); MEAN CORPUSCULAR HGB CONC 32 g/dL (33-37); MONOCYTES # (AUTO) 0.3 K/uL (0.8-1.0); MONOCYTES % (AUTO) 7.3 % (1.7-9.3); NEUTROPHILS # (AUTO) 1.8 K/uL (1.8-7.7); PLATELET COUNT (AUTO) 177 K/uL (140-450); RED BLOOD CELL COUNT(AUTO) 4.06 MIL/uL (4.20-5.40); RED CELL DISTRIBUTION WIDTH 15.9 % (11.6-13.7); WHITE BLOOD COUNT (AUTO) 3.5 K/uL (4.8-10.8)
[2018-06-23] MEDS: BLOOD GLUCOSE MONITORING 1 DEV DEV FS SCH ×2 (06:59→11:55)
--- NOTE | 2018-06-23 07:11 | NUR ---
RECEIVED BEDSIDE REPORT FROM RAEANN DOE. PT STABLE, AWAKE, AND ALERT AND ORIENTED X4. NO SIGNS OF DISTRESS NOTED. DENIES PAIN OR SOB. NO REDNESS, SWELLING, OR INFLAMMATION NOTED ON IV SITE. CALL MALDONADO WITHIN REACH. BED IN LOWEST POSITION. SAFETY MEASURES IN PLACE. PLAN OF CARE REVIEWED.
--- NOTE | 2018-06-23 07:12 | NUR ---
F/S RETAKEN AND IS 106.
[2018-06-23 07:35] LABS: ANION GAP 18.6 (8-16); CARBON DIOXIDE 24.7 mmol/L (21-32); POTASSIUM 4.3 mmol/L (3.5-5.1)
--- NOTE | 2018-06-23 07:35 | NUR ---
CARE ENDORSED TO BISHOP AT BEDSIDE FOR CONTINUITY OF CARE, PT IN STABLE CONDITION.
[2018-06-23 07:37] LABS: CREATININE 7.3 mg/dL (0.6-1.3)
[2018-06-23 08:00] VITALS: BP 121/61
[2018-06-23] MEDS: GABAPENTIN 100 MG CAP PO SCH (08:28)
[2018-06-23] MEDS: VIT-B COMP/VIT-C/FOLIC ACID 1 TAB PO SCH (08:29)
[2018-06-23] MEDS: ATORVASTATIN 20 MG TAB PO SCH (08:29)
[2018-06-23] MEDS: CALCIUM ACETATE 667 MG TAB PO SCH ×2 (08:29→12:12)
[2018-06-23] MEDS: LACTOBACILLUS RHAMNOSUS GG 1 EACH CAP PO SCH (08:30)
[2018-06-23] MEDS: cloNIDine 0.1 MG TAB PO SCH ×2 (08:30→12:16)
[2018-06-23] MEDS: ECOTRIN 81 MG TABEC PO SCH (08:30)
[2018-06-23] MEDS: amLODIPine 5 MG TAB PO SCH (08:31)
[2018-06-23] MEDS: ATENOLOL 50 MG TAB PO SCH (08:31)
--- NOTE | 2018-06-23 08:33 | NUR ---
HELD SCHEDULED BP MEDICATIONS DUE TO PLANNED DIALYSIS TODAY, ADMINISTERED OTHER SCHEDULED MEDICATIONS. PT TOLERATED WELL. NO OTHER NEEDS AT THIS TIME.
--- NOTE | 2018-06-23 10:30 | NUR ---
DIALYSIS NURSE AT THE BEDSIDE.
[2018-06-23] MEDS ORDERED: ONDA8TAB PO (10:49)
[2018-06-23] MEDS: INSULIN LISPRO SLIDING SCALE 100 UNITS/ML VIAL SUBQ PRN (12:14)
[2018-06-23] MEDS: DEXT 5% / NACL 0.45% 1,000 ML IV SCH (12:17)
--- NOTE | 2018-06-23 12:22 | NUR ---
ADMINISTERED SCHEDULED MEDICATION AND 2 UNITS OF HUMALOG FOR BG 157. PT TOLERATED WELL.
--- NOTE | 2018-06-23 14:00 | NUR ---
DIALYSIS DONE, ADMINISTERED SCHEDULED FLAGYL. PT TOLERATED WELL.
--- NOTE | 2018-06-23 14:10 | NUR ---
PER DIALYSIS NURSE, 3L OUTPUT IN 3 HRS.
[2018-06-23] MEDS ORDERED: FAMOTIDINE 20 MG/2 ML VIAL IV SCH (15:30)
--- NOTE | 2018-06-23 15:38 | NUR ---
ADMINISTERED SCHEDULED MEDICATION, PT TOLERATED WELL.
--- NOTE | 2018-06-23 16:10 | NUR ---
D/C INSTRUCTIONS AND PAPERWORK GIVEN. PT VERBALIZED UNDERSTANDING. QUESTIONS AND CONCERNS WERE ANSWERED. D/C IV, CATHETER TIP INTACT, BLEEDING CONTROLLED. PT STABLE, BP 144/72 HR 67. VACCINES UP TO DATE, SKIN INTACT. PT AMBULATED WITH STEADY GAIT. PT ESCORTED TO THE LOBBY.
== END 2018-06-23 16:10 | disposition home or self-care (01) | DRG 917 ==
LOC: MED 08:44 → MTU 11:06
PROVIDERS: ADMIT Family Medicine; ATTEND Family Medicine
PROC: 5A1D70Z Performance of Urinary Filtration, Intermittent, Less than 6 Hours Per Day (ICD-10-PCS; principal; 2018-06-21)
PROC: 5A1D70Z Performance of Urinary Filtration, Intermittent, Less than 6 Hours Per Day (ICD-10-PCS; 2018-06-23)
DX: T62.91XA Toxic effect of unspecified noxious substance eaten as food, accidental (unintentional), initial encounter (principal); N17.0 Acute kidney failure with tubular necrosis; N18.6 End stage renal disease; I50.43 Acute on chronic combined systolic (congestive) and diastolic (congestive) heart failure; E87.1 Hypo-osmolality and hyponatremia; I13.2 Hypertensive heart and chronic kidney disease with heart failure and with stage 5 chronic kidney disease, or end stage renal disease; A04.9 Bacterial intestinal infection, unspecified; E87.5 Hyperkalemia; E11.65 Type 2 diabetes mellitus with hyperglycemia; E78.00 Pure hypercholesterolemia, unspecified; E83.39 Other disorders of phosphorus metabolism; I25.10 Atherosclerotic heart disease of native coronary artery without angina pectoris; E86.0 Dehydration; I16.0 Hypertensive urgency; E83.51 Hypocalcemia; M62.838 Other muscle spasm; I49.5 Sick sinus syndrome; A08.4 Viral intestinal infection, unspecified; E11.22 Type 2 diabetes mellitus with diabetic chronic kidney disease; Z99.2 Dependence on renal dialysis; Z79.82 Long term (current) use of aspirin; Z79.899 Other long term (current) drug therapy; Z79.4 Long term (current) use of insulin; Z90.49 Acquired absence of other specified parts of digestive tract; Z98.51 Tubal ligation status; Z83.3 Family history of diabetes mellitus; Z82.49 Family history of ischemic heart disease and other diseases of the circulatory system; Y92.89 Other specified places as the place of occurrence of the external cause
CPT/HCPCS: 36415; 71045; 80048; 80053; 82948; 83036; 83605; 83690; 83735; 83880; 84100; 84134; 84443; 84484; 85025; 85610; 85730; 87040; 87081; 90935; 93005; 96361; 96374; 96375; 96376; 99285; J0360; J1815; J2405; J3490; J7030; Q0092

== ENCOUNTER 2018-07-02 09:11 | Inpatient (IN) | payer OTHER ==
[~2018-07-02] VITALS: Ht 152.4 cm; Wt 62.1 kg
[~2018-07-02 09:11] MED LIST changes: +ONDA8TAB PO
--- NOTE | 2018-07-02 09:13 | NUR ---
PT BIBA ALS TO BED 10
[2018-07-02 09:15] VITALS: BP 192/95
--- NOTE | 2018-07-02 09:15 | NUR ---
BIBA FOR ALTERED MENTAL STATUS. PER [facility], FAMILY MEMBER FOUND HER COLLAPSED ON THE FLOOR. PT IS A&0X4. PT HAS PACEMAKER TO R SIDE AND DIALYSIS SHUNT TO L UPPER ARM, PT ALSO HAS PERITONEAL DIALYSIS CATHETER TO LLQ OF ABDOMEN. SKIN IS PINK/WARM/DRY; AAOX4, UNABLE TO AMBULATE. BS 172 UPON ARRIVAL. LUNGS CLEAR BL; HR EVEN AND REGULAR; PT DENIES ANY FEVER, CP, SOB, OR COUGH AT THIS TIME; PATIENT STATES PAIN OF 0/10 AT THIS TIME; PT BP IS ELEVATED 192/95, PER PT SHE TOOK HER PRESCRIBED AMLODIPINE TODAY, ERMD AWARE. PATIENT POSITIONED FOR COMFORT; HOB ELEVATED; BEDRAILS UP X2; BED DOWN. ER MD MADE AWARE OF PT STATUS.
[2018-07-02] MEDS ORDERED: NACL 0.9% 1,000 ML IV SCH (09:28)
[2018-07-02] MEDS ORDERED: PIPERACILLIN/TAZOBACTAM 3.375 GM in DEXT 5% MINI-BAG PLUS 50 ML IV ONE (09:30)
--- NOTE | 2018-07-02 09:36 | NUR ---
XRAY AT BEDSIDE
--- NOTE | 2018-07-02 09:40 | NUR ---
XRAY, LAB AND RESPIRATORY AT BEDSIDE
[2018-07-02] MEDS ORDERED: PIPERACILLIN/TAZOBACTAM 3.375 GM VIAL IV ONE (09:49)
--- NOTE | 2018-07-02 10:00 | NUR ---
PT IS ANURIC, UNABLE TO COLLECT URINE, ERMD AND CHARGE NURSE MADE AWARE
[2018-07-02 10:09] LABS: BASOPHILS % (AUTO) 0.6 % (0.0-2.0); EOSINOPHILS # (AUTO) 0.5 K/uL (0-0.4); EOSINOPHILS % (AUTO) 7.1 % (0.0-4.0); HEMATOCRIT 38.6 % (36-48); HEMOGLOBIN 12.2 g/dL (12.0-16.0); LYMPHOCYTES # (AUTO) 0.9 K/uL (2.5-16.5); LYMPHOCYTES % (AUTO) 14.1 % (20.5-51.1); MEAN CORPUSCULAR HEMOGLOBIN 30 pg (27-31); MEAN CORPUSCULAR HGB CONC 32 g/dL (33-37); MEAN CORPUSCULAR VOLUME 93.3 fL (80-94); MONOCYTES # (AUTO) 0.2 K/uL (0.8-1.0); MONOCYTES % (AUTO) 2.9 % (1.7-9.3); NEUTROPHILS # (AUTO) 4.8 K/uL (1.8-7.7); NEUTROPHILS % (AUTO) 75.3 % (42.2-75.2); PLATELET COUNT (AUTO) 234 K/uL (140-450); RED BLOOD CELL COUNT(AUTO) 4.14 MIL/uL (4.20-5.40); RED CELL DISTRIBUTION WIDTH 15.5 % (11.6-13.7); WHITE BLOOD COUNT (AUTO) 6.4 K/uL (4.8-10.8)
[2018-07-02 10:22] LABS: PROTHROMBIN TIME 10.2 secs (10.8-13.4)
[2018-07-02 10:36] LABS: ACETONE, SERUM NEGATIVE (NEGATIVE); ALBUMIN 3.6 g/dL (3.4-5.0); ANION GAP 19.9 (8-16); CARBON DIOXIDE 24.8 mmol/L (21-32); MAGNESIUM 2.2 mg/dL (1.8-2.4); POTASSIUM 5.7 mmol/L (3.5-5.1); TOTAL BILIRUBIN 0.4 mg/dL (0.0-1.0); URIC ACID 5.8 mg/dL (2.6-7.2)
[2018-07-02 10:38] LABS: CREATININE 7.7 mg/dL (0.6-1.3)
[2018-07-02] MEDS ORDERED: SODIUM POLYSTYRENE 15 GM/60 ML UDBTL PO ONE (10:40)
--- NOTE | 2018-07-02 11:02 | NUR ---
ERMD AT BEDSIDE
[2018-07-02] MEDS ORDERED: ACETAMINOPHEN 325 MG TAB PO PRN (11:55)
[2018-07-02] MEDS ORDERED: HYDROcodone/APAP 5/325 MG 1 TAB TAB PO PRN (11:55)
[2018-07-02] MEDS ORDERED: MORPHINE SULFATE 2 MG/ML SYR IVP PRN (11:55)
[2018-07-02] MEDS ORDERED: ONDANSETRON 4 MG/2 ML VIAL IM/IVP PRN (11:55)
[2018-07-02] MEDS ORDERED: LORazepam 2 MG/ML VIAL IM/IVP PRN (11:55)
[2018-07-02 12:12] LABS: MAGNESIUM 2.5 mg/dL (1.8-2.4); PHOSPHORUS 8.4 mg/dL (2.5-4.9)
--- NOTE | 2018-07-02 12:18 | NUR ---
PT RESTING IN BED, NO PAIN AT THIS TIME. FAMILY MEMBER AT BEDSIDE
[2018-07-02 12:55] LABS: THYROID STIMULATING HORMONE 5.39 uIU/mL (0.34-3.74)
[2018-07-02 13:10] VITALS: BP 159/69
--- NOTE | 2018-07-02 13:10 | NUR ---
Patient will be admitted to care of Kaleigh CARY. Admited to [facility]. Will go to room 114. Belongings list completed. Report to Kaleigh CARY.
--- NOTE | 2018-07-02 13:10 | NUR ---
RECEIVED PT FROM ER NURSE, ROBYN, PT IS AWAKE AND ALERT AND WEAK AND WAS PLACED ON A FALL RISK, SIDE RAILS WERE UP AND CALL LIGHT WITHIN REACH, BED ALARM ACTIVATED, ASSISTED TO THE BED AND MADE COMFORTABLE, INITIAL VITAL SIGNS TAKEN BP IS 159/69, TEMP IS 97.1, O2 SATURATION IS 100%, PULSE IS 62 AND RESPIRATION IS 18/MIN, PT HAS AN IV LINE ON THE RT AC G. 20 ON SALINE LOCK, PERITONEAL CATHETER IN PLACE ON THE LEFT LOWER ABDOMEN, INTACT. PT DENIES PAIN AND NO SOB NOTED. WILL CONTINUE TO MONITOR PT.
[2018-07-02] MEDS ORDERED: LIDOCAINE/PRILOCAINE 2.5% 30 GM TUBE TP PRN (14:20)
[2018-07-02] MEDS ORDERED: tiZANidine 4 MG TAB PO PRN (14:20)
[2018-07-02] MEDS ORDERED: ATORVASTATIN 20 MG TAB PO SCH (14:43)
[2018-07-02] MEDS ORDERED: LIDOCAINE/PRILOCAINE 2.5% 5 GM TUBE TP PRN (14:55)
--- NOTE | 2018-07-02 15:04 | NUR ---
CALLED DIALYSIS NURSEBARRIE AND INFORMED THAT PT HAS AN ORDER FOR DIALYSIS TODAY BY DR. BATISTA.
--- NOTE | 2018-07-02 15:07 | NUR ---
PT IS AWAKE AND LYING ON THE BED, ORAL MEDICATION WAS GIVEN AND PT TOLERATED IT, NO SIGN OF DISTRESS NOTED, WILL MONITOR PT.
[2018-07-02] MEDS ORDERED: DEXTROSE 50% 50 ML SYR IVP PRN (15:35)
[2018-07-02 16:00] VITALS: BP 146/76
[2018-07-02] MEDS: BLOOD GLUCOSE MONITORING 1 DEV DEV FS SCH ×2 (16:30→20:53)
--- NOTE | 2018-07-02 16:45 | NUR ---
PT IS AWAKE AND BLOOD GLUCOSE CHECK IS DONE AND RESULT IS 189 AND INSULIN 2 UNITS WAS GIVEN AND PT TOLERATED IT. NO SIGN OF DISTRESS, AND WILL MONITOR PT.
[2018-07-02] MEDS: cloNIDine 0.1 MG TAB PO SCH (17:00)
--- NOTE | 2018-07-02 17:00 | NUR ---
PT WAS OFF THE UNIT FOR A CT.
[2018-07-02] MEDS: INSULIN LISPRO SLIDING SCALE 100 UNITS/ML VIAL SUBQ PRN (17:37)
[2018-07-02] MEDS: CALCIUM ACETATE 667 MG TAB PO SCH (18:26)
--- NOTE | 2018-07-02 18:30 | NUR ---
CALLED DIALYSIS NURSEBARRIE AGAIN TO VERIFY THE TIME OF ARRIVAL OF DIALYSIS NURSE.
[2018-07-02] MEDS: NACL 0.9% 1,000 ML IV SCH (18:45)
--- NOTE | 2018-07-02 18:45 | NUR ---
IVF WAS STARTED TO PT NOW AT A RATE OF 10ML/HR OF NS.
--- NOTE | 2018-07-02 19:15 | NUR ---
ENDORSED PT TONIGHT SHIFT NURSELUCY FOR CONTINUITY OF CARE, PT IS STABLE WITH ON THE BEDSIDE.
--- NOTE | 2018-07-02 19:16 | NUR ---
RECEIVED BEDSIDE REPORT FROM HAN CARY. PT AAO X 4. ON BEDSIDE. DENIES ANY SOB OR PAIN. ON ROOM AIR. LEFT UPPER ARM FISTULA. HD TODAY MARINA ON HIS WAY. PT WITH DM ULCER ON 1ST DIGIT ON BOTH FEETS. GURWINDER. WOUND EVAL PENDING. IV ON R AC 20G NS AT 10ML/H. PLAN OF CARE DISCUSSED WITH PT. CALL LIGHT WITHIN REACH.
--- NOTE | 2018-07-02 19:45 | NUR ---
VS: 160/80 HR 65 94% ON ROOM AIR. DIALYSIS NURSE HERE. WILL CONTINUE TO MONITOR. Addendum: 07/02/18 at 2217 by Jacqueline Calles RN BLOOD GLUCOSE 152. WILL HOLD COVERAGE PT JUST FINISHED EATING WILL RECHECK IN MORNING.
[2018-07-02 20:00] VITALS: BP 160/80
--- NOTE | 2018-07-02 22:04 | NUR ---
PT IN STABLE CONDITION. STILL ON HD WITH DIALYSIS NURSE AT BEDSIDE. CALL LIGHT WITHIN REACH.
[2018-07-02] MEDS ORDERED: cloNIDine 0.1 MG TAB PO ONE (23:15)
[2018-07-02] MEDS: GABAPENTIN 100 MG CAP PO SCH (23:19)
[2018-07-02] MEDS ORDERED: amLODIPine 5 MG TAB PO SCH (23:25)
[2018-07-02] MEDS ORDERED: cloNIDine 0.1 MG TAB ONE (23:35)
--- NOTE | 2018-07-02 23:44 | NUR ---
ADMINISTERED CATAPRES AND NORVASC FOR HIGH B/P : 187/77 HR79. SAFETY MEASURES ARE IN PLACE. WILL CONTINUE TO MONITOR.
[2018-07-03] VITALS (8 sets, daily range): BP systolic 109–191; BP diastolic 67–89
[2018-07-03] MEDS ORDERED: ATENOLOL 50 MG TAB PO ONE (00:45)
[2018-07-03] MEDS ORDERED: hydrALAZINE 20 MG/ML VIAL IVP PRN (00:50)
--- NOTE | 2018-07-03 01:10 | NUR ---
ATENOLOL GIVEN. B/P: 176/73 HR 81 95%. ALL NEEDS MET AT THIS TIME. CALL LIGHT WITHIN REACH
--- NOTE | 2018-07-03 04:00 | NUR ---
PT RESTING COMFORTABLY IN BED. RESPIRATIONS ARE EQUAL AND UNLABORED. B/P ELEVATED 191/85 HR 75 WILL ADMINISTER PRN HYDRALAZINE.
--- NOTE | 2018-07-03 05:05 | NUR ---
RECHECKED B/P 154/89 HR 72. PT IN STABLE CONDITION. CALL LIGHT WITHIN REACH. WILL CONTINUE TO MONITOR.
[2018-07-03] MEDS: INSULIN LISPRO SLIDING SCALE 100 UNITS/ML VIAL SUBQ PRN ×2 (06:11→20:24)
[2018-07-03] MEDS: BLOOD GLUCOSE MONITORING 1 DEV DEV FS SCH ×4 (06:17→20:22)
[2018-07-03 06:40] LABS: BASOPHILS % (AUTO) 0.6 % (0.0-2.0); EOSINOPHILS # (AUTO) 0.4 K/uL (0-0.4); EOSINOPHILS % (AUTO) 8.7 % (0.0-4.0); HEMATOCRIT 35.9 % (36-48); HEMOGLOBIN 11.6 g/dL (12.0-16.0); LYMPHOCYTES % (AUTO) 22.2 % (20.5-51.1); MEAN CORPUSCULAR HEMOGLOBIN 30 pg (27-31); MEAN CORPUSCULAR HGB CONC 32 g/dL (33-37); MEAN CORPUSCULAR VOLUME 92.5 fL (80-94); MONOCYTES # (AUTO) 0.1 K/uL (0.8-1.0); NEUTROPHILS % (AUTO) 65.5 % (42.2-75.2); PLATELET COUNT (AUTO) 194 K/uL (140-450); RED BLOOD CELL COUNT(AUTO) 3.88 MIL/uL (4.20-5.40); RED CELL DISTRIBUTION WIDTH 15.5 % (11.6-13.7); WHITE BLOOD COUNT (AUTO) 4.6 K/uL (4.8-10.8)
[2018-07-03 06:55] LABS: ANION GAP 14.7 (8-16); POTASSIUM 3.7 mmol/L (3.5-5.1)
[2018-07-03 07:00] LABS: MAGNESIUM 2.1 mg/dL (1.8-2.4); PHOSPHORUS 6.3 mg/dL (2.5-4.9)
[2018-07-03 07:09] LABS: CHOL/HDL RATIO 2.7 (1-4.5)
--- NOTE | 2018-07-03 07:19 | NUR ---
GAVE BEDSIDE REPORT TO CORNELL CARY. PT ENDORSED IN STABLE CONDITION.
--- NOTE | 2018-07-03 07:21 | NUR ---
RECEIVED BEDSIDE REPORT FROM HAND SCREEN PRINTER NURSE. PT WAS SLEEPING IN THE BED, ROUSED BY NAME, OX4. NO SOB OR RESPIRATORY DISTRESS NOTED ON ROOM AIR. CAPILLARY CHECK LESS THAN 2SEC. LEFT UPPER ARM FISTULA FOR HD. PERITONEAL CATHETER IN PLACE ON THE LEFT LOWER ABDOMEN, INTACT. PT WITH BLACK SCAB ON 1ST DIGIT ON BOTH FEET, GURWINDER. IV ON R AC 20G NS AT 10ML/HR, PATENT AND ASYMPTOMATIC. POC DISCUSSED, PT VERBALIZED UNDERSTANDING. BOARD UPDATED. CALL LIGHT WITHIN REACH.
[2018-07-03 07:27] LABS: CREATININE 5.3 mg/dL (0.6-1.3)
[2018-07-03] MEDS: CALCIUM ACETATE 667 MG TAB PO SCH ×3 (08:35→16:37)
[2018-07-03] MEDS: ATORVASTATIN 20 MG TAB PO SCH (08:35)
[2018-07-03] MEDS: amLODIPine 5 MG TAB PO SCH (08:39)
[2018-07-03] MEDS: cloNIDine 0.1 MG TAB PO SCH ×3 (08:39→16:12)
[2018-07-03] MEDS: GABAPENTIN 100 MG CAP PO SCH ×2 (08:40→20:26)
[2018-07-03] MEDS: ASPIRIN 81 MG TAB.CHEW PO SCH (08:40)
[2018-07-03] MEDS: ATENOLOL 50 MG TAB PO SCH (08:40)
[2018-07-03] MEDS: INSULIN LANTUS 100 UNITS/ML 10 ML VIAL SUBQ SCH (08:49)
[2018-07-03] MEDS: NACL 0.9% 1,000 ML IV SCH (16:00)
--- NOTE | 2018-07-03 16:38 | NUR ---
PT IS AWAKE AND BLOOD GLUCOSE CHECK IS DONE AND RESULT IS 133 AND NO INSULIN GIVEN BASED ON SLIDING SCALE. PT TOLERATED IT. NO SIGN OF DISTRESS, AND WILL MONITOR PT.
--- NOTE | 2018-07-03 17:00 | NUR ---
PT SAT ON THE CHAIR. NO C/O. DENIES DIZZINESS. NO S/S OF DISTRESS ON RM AIR
[2018-07-03] MEDS ORDERED: CALCIUM ACETATE 667 MG TAB PO SCH (17:25)
[2018-07-03] MEDS ORDERED: CALCIUM GLUCONATE 10% 1,000 MG in NACL 0.9% 50 ML IV SCH (18:00)
[2018-07-03] MEDS ORDERED: CALCIUM GLUCONATE 10% 1000 MG/10 ML VIAL ONE (18:20)
--- NOTE | 2018-07-03 19:25 | NUR ---
ENDORSED PT TO RN MEDICARE RN. PT IN STABLE CONDITION.
--- NOTE | 2018-07-03 19:26 | NUR ---
RECEIVED BEDSIDE REPORT FROM CORNELL CARY. PT AAO X 4. ON BEDSIDE. DENIES ANY SOB OR PAIN. ON ROOM AIR. LEFT UPPER ARM FISTULA. HD YESTERDAY 07/02 3000ML OUTPUT. PT WITH DM ULCER ON 1ST DIGIT ON LEFT FOOT. R DM ULCER ON BOTTOM OF FOOT. GURWINDER. WOUND EVAL PENDING. IV ON R AC 20G CA GLUCONATE INFUSING PER ORDERS. PLAN OF CARE DISCUSSED WITH PT. CALL LIGHT WITHIN REACH. WILL CONTINUE TO MONITOR.
--- NOTE | 2018-07-03 20:26 | NUR ---
VITAL SIGNS ARE STABLE. ADMINISTERED 2U HUMALOG FOR BLOOD SUGAR 199. PT WITH SNACK AT BEDSIDE. DUE MEDICATIONS GIVEN PT TOLERATED. CALL LIGHT WITHIN REACH.
--- NOTE | 2018-07-03 22:04 | NUR ---
PT RESTING COMFORTABLY IN BED USING CELLPHONE. NO S/S OF DISTRESS. ALL NEEDS MET AT THIS TIME. CALL LIGHT WITHIN REACH.
[2018-07-04] VITALS: BP 141/80
--- NOTE | 2018-07-04 00:03 | NUR ---
VITAL SIGNS ARE STABLE: 141/80 HR 63 98% ON ROOM AIR. DENIES ANY SOB OR PAIN. ALL NEEDS MET AT THIS TIME. CALL LIGHT WITHIN REACH.
--- NOTE | 2018-07-04 02:00 | NUR ---
PT SLEEPING COMFORTABLY IN BED. NO S/S OF DISTRESS NOTED. CALL LIGHT WITHIN REACH. WILL CONTINUE TO MONITOR.
[2018-07-04 04:00] VITALS: BP 134/74
--- NOTE | 2018-07-04 04:00 | NUR ---
VITAL SIGNS ARE WITHIN NORMAL LIMITS. PT WITH HEADACHE 09/12 NORCO GIVEN. IV LINE INFILTRATED. WILL ATTEMPT TO START NEW IV. CALL LIGHT WITHIN REACH.
--- NOTE | 2018-07-04 04:47 | NUR ---
PT WITH ELEVATED HEART RATE FOR APPROX. ONE MINUTE. HIGHEST 200. CHECKED ON PT. WAS WASHING HER FACE. DENIES ANY PAIN OR DIZZINESS. PT WITH PACEMAKER HEART RATE BACK IN THE 60S BPM DR ZENDEJAS MADE AWARE. WILL CONTINUE TO MONITOR.
[2018-07-04] MEDS: BLOOD GLUCOSE MONITORING 1 DEV DEV FS SCH ×4 (05:51→20:14)
[2018-07-04 07:04] LABS: BASOPHILS % (AUTO) 0.8 % (0.0-2.0); EOSINOPHILS # (AUTO) 0.4 K/uL (0-0.4); HEMATOCRIT 38.2 % (36-48); HEMOGLOBIN 12.5 g/dL (12.0-16.0); LYMPHOCYTES % (AUTO) 23.4 % (20.5-51.1); MEAN CORPUSCULAR HEMOGLOBIN 30 pg (27-31); MEAN CORPUSCULAR HGB CONC 33 g/dL (33-37); MEAN CORPUSCULAR VOLUME 92.3 fL (80-94); MONOCYTES # (AUTO) 0.1 K/uL (0.8-1.0); MONOCYTES % (AUTO) 3.4 % (1.7-9.3); NEUTROPHILS # (AUTO) 2.7 K/uL (1.8-7.7); NEUTROPHILS % (AUTO) 63.4 % (42.2-75.2); PLATELET COUNT (AUTO) 219 K/uL (140-450); RED BLOOD CELL COUNT(AUTO) 4.14 MIL/uL (4.20-5.40); RED CELL DISTRIBUTION WIDTH 15.2 % (11.6-13.7); WHITE BLOOD COUNT (AUTO) 4.3 K/uL (4.8-10.8)
[2018-07-04 07:06] LABS: ANION GAP 17.3 (8-16); CARBON DIOXIDE 25.9 mmol/L (21-32); POTASSIUM 4.2 mmol/L (3.5-5.1)
[2018-07-04 07:10] LABS: MAGNESIUM 2.3 mg/dL (1.8-2.4); PHOSPHORUS 8.7 mg/dL (2.5-4.9)
--- NOTE | 2018-07-04 07:14 | NUR ---
GAVE BEDSIDE REPORT TO SHELLY AND BIENVENIDO CARY. PT ENDORSED IN STABLE CONDITION.
--- NOTE | 2018-07-04 07:20 | NUR ---
RECEIVED BEDSIDE REPORT FROM REGISTERED NURSE CARDIOVASCULAR ICU NURSE. PT AWAKE IN BED. RESTING. APPEARS IN NO APPARENT DISTRESS. WILL CONTINUE TO MONITOR.
[2018-07-04 08:00] VITALS: BP 165/76
--- NOTE | 2018-07-04 08:00 | NUR ---
PERFORMED MORNING ASSESSMENT AND VITALS, ADMINISTERED PTS MORNING MEDS. FAMILY AT BEDSIDE, PT STATED NO PAIN. PT APPEARED IN NO APPARENT DISTRESS, WILL CONTINUE TO MONITOR.
[2018-07-04] MEDS: cloNIDine 0.1 MG TAB PO SCH ×3 (08:14→16:19)
[2018-07-04] MEDS: ATORVASTATIN 20 MG TAB PO SCH (08:14)
[2018-07-04] MEDS: CALCIUM ACETATE 667 MG TAB PO SCH ×3 (08:14→16:19)
[2018-07-04] MEDS: ATENOLOL 50 MG TAB PO SCH (08:15)
[2018-07-04] MEDS: ASPIRIN 81 MG TAB.CHEW PO SCH (08:15)
[2018-07-04] MEDS: GABAPENTIN 100 MG CAP PO SCH ×2 (08:16→20:11)
[2018-07-04] MEDS: amLODIPine 5 MG TAB PO SCH (08:18)
--- NOTE | 2018-07-04 08:43 | NUR ---
PATIENT HAS BEEN SCREENED AND CATEGORIZED HIGH NUTRITION RISK. PATIENT WILL BE SEEN WITHIN 1-2 DAYS OF ADMISSION. 07/04/[address]
--- NOTE | 2018-07-04 09:05 | NUR ---
PT AMBULATING AROUND THE HALLWAY WITH PHYSICAL THERAPY.
--- NOTE | 2018-07-04 10:18 | NUR ---
PT AMBULATING IN HALLS WITH ASSISTANCE OF [employer]. STATED WEAKNESS BUT TOLERATED WALKING
--- NOTE | 2018-07-04 10:30 | NUR ---
WOUND CARE EVALUATION NOTES: REASON FOR EVALUATION: FOOT ULCERS SKIN ASSESSMENT DONE ON WITH THIS 43 Y/O FEMALE PATIENT TO [facility] WITH INITIAL DIAGNOSIS AMS. PAST MEDICAL HX INCLUDES ESRD WITH HD, HTN AND DM. PT IS AAX4, PT STATED FOOT WOUNDS STARTED WITH BLISTERS FROM NEW SHOES. PT. ALSO STATED THAT SHE FOLLOW HER PODIATRY CARE REGULARLY. PT. SKIN IS WARM TO TOUCH, NO EDEMA TO BLE AND PENDING STUDY PAD. INITIAL PLAN OF CARE DISCUSSED WITH PRIMARY RN AND PT. PT. VERBALIZES UNDERSTANDING INTEGUMENTARY: -DIABETIC ULCER UN-STAGEABLE TO LEFT FIRST METATARSAL 1X1CM 100 % BROWN ESCHAR TISSUE, MADISON-WOUND SKIN INTACT -DIABETIC ULCER UN-STAGEABLE TO LEFT 3RD DIGIT TOE 0.3X0.3 CM 100 % BROWN DRY SCAB, MADISON-WOUND SKIN INTACT -DIABETIC ULCER UN-STAGEABLE TO RIGHT FIRST METATARSAL 3X2CM 100 % DRY BROWN ESCHAR TISSUE MADISON-WOUND SKIN WITH HYPERKERATOTIC BORDER RECOMMENDATIONS: -PODIATRY CONSULT TO DIABETIC ULCER UN-STAGEABLE -X-RAY/ BONE SCAN TO RIGHT FIRST METATARSAL -PENDING PAD STUDY -APPLY SOAKED BETADINE 2X2 TO RIGHT AND LEFT FIRST METATARSALS COVER WITH DRY DRESSING OD AND PRN IF SOILING -PAINT LEFT 3RE DIGI TOE BROWN SCAB WITH BETADINE SOLUTION BID AND LEAVE IT OPEN TO AIR -OFFLOAD BILATERAL HEELS BY PLACING PILLOWS UNDER CALVES AT ALL TIMES, UNLESS OTHERWISE CONTRAINDICATED -KEEP SKIN CLEAN AND DRY AT ALL TIMES. RECOMMENDATIONS DISCUSSED WITH PRIMARY RN. WILL FOLLOW UP PATIENT Q 10 DAYS AND PRN. PLEASE CONTACT WOUND CARE NURSE FOR ANY QUESTIONS AND CHANGES IN SKIN CONDITION.
[2018-07-04] MEDS: INSULIN LANTUS 100 UNITS/ML 10 ML VIAL SUBQ SCH (10:44)
[2018-07-04 12:00] VITALS: BP 109/70
--- NOTE | 2018-07-04 12:00 | NUR ---
FINGER STICK GLUCOSE 198 2 UNITS HUMALOG GIVEN PER ORDERS PT ATE 90% OF HER LUNCH FAMILY AT BEDSIDE. PT APPEARS IN NO APPARENT DISTRESS WILL CONTINUE TO MONITOR
[2018-07-04] MEDS: INSULIN LISPRO SLIDING SCALE 100 UNITS/ML VIAL SUBQ PRN (12:21)
--- NOTE | 2018-07-04 13:00 | NUR ---
WOUND CARE ADMINISTERED TO BOTH GREAT TOES. SKIN INTACT BROWNISH/BLACK ESCHAR. CLEANSED WITH NS AND PROVIDED WOUND CARE PER ORDERED. PT TOLERATED WOUND CARE WITH NO PAIN. WILL CONTINUE TO MONITOR
[2018-07-04] MEDS: GAUZE TP SCH ×2 (13:28→13:29)
--- NOTE | 2018-07-04 13:45 | NUR ---
DR BATISTA PAGED AND CALLED BACK, HD ORDER CLARIFIED, HD TO BE DONE TOMORROW (WEDNESDAY) PER PT'S REGULAR SCHEDULE
--- NOTE | 2018-07-04 14:42 | NUR ---
07/04/18 RD INITIAL ASSESSMENT COMPLETED PLEASE REFER TO NUTRITION ASSESSMENT UNDER CARE ACTIVITY FOR ESTIMATED NUTRITIONAL NEEDS. 1. CONTINUE [facility] RENAL DIET TOLERATED 2. RECOMMEND VITAMIN C FOR WOUND HEALING 3. DIABETES EDUCATION WAS PROVIDED 4. RD TO FOLLOW-UP 5-7 DAYS, LOW RISK SHELBIE BERKOWITZ RD
--- NOTE | 2018-07-04 15:10 | NUR ---
SOOD CALLED AT [phone] TO INFORM HER OF HD ORDER FOR TOMORROW (07/05/2018).
--- NOTE | 2018-07-04 15:15 | NUR ---
FREQUENT ROUNDING ON PT PT STANDING AND WALKING AROUND ROOM. REPLACED TELE LEADS. PT APPEARS IN NO APPARENT DISTRESS, WILL CONTINUE TO MONITOR.
[2018-07-04 16:00] VITALS: BP 13/73
[2018-07-04] MEDS: NACL 0.9% 1,000 ML IV SCH (16:18)
--- NOTE | 2018-07-04 17:20 | NUR ---
FREQUENT ROUNDING PT SITTING IN BED FEET OVER SIDE OF BED. PT EATING DINNER. ON PHONE WITH FAMILY. PT APPEARS IN APPARENT DISTRESS. WILL CONTINUE TO MONITOR
--- NOTE | 2018-07-04 19:35 | NUR ---
RECEIVED PT SITTING ON BEDSIDE CHAIR TALKING TO FAMILY MEMBERS AT BEDSIDE, VITAL SIGNS STABLE, DENIES ANY PAIN, NO SOB NOTED, BILATERAL FOOT DRESSING DRY AND INTACT, LEFT AV SHUNT INTACT, PLAN OF CARE DISCUSS, FOR HEMODIALYSIS TOMORROW, AM NURSE ALREADY NOTIFIED SOOD, SAFETY MEASURES IN PLACE, CALL LIGHT WITHIN REACH.
--- NOTE | 2018-07-04 19:39 | NUR ---
ENDORSED BAR EXAMINER NURSE. PT SITTING IN CHAIR IN ROOM FAMILY IN THE BED. PATIENT APPEARS STABLE AND IN NO APPARENT DISTRESS.
[2018-07-04 20:00] VITALS: BP 148/70
--- NOTE | 2018-07-04 20:15 | NUR ---
BLOOD SUGAR CHECKED WITH 104 RESULT, SNACK PROVIDED, REINFORCE FLUID RESTRICTION 1L/DAILY, VERBALIZED UNDERSTANDING, ALL NEEDS ATTENDED.
--- NOTE | 2018-07-04 22:00 | NUR ---
PT SLEEPING, NO SIGNS OF DISTRESS, MONITORED CLOSELY.
[2018-07-05] VITALS: BP 155/71
[2018-07-05] MEDS: GAUZE TP SCH ×3 (00:25→13:00)
--- NOTE | 2018-07-05 00:25 | NUR ---
PT REQUESTING SLEEPING, DR MILLER WITH NEW ORDER, TRAZODONE PO GIVEN ORDERED, DRESSING TO BOTH FEET DRY AND INTACT, PER STUDIO CAMERA OPERATOR DRESSING CHANGE TO BE DONE DAILY STARTING 07/05/18, CONTINUE TO MONITOR CLOSELY.
[2018-07-05] MEDS ORDERED: traZODone 50 MG TAB PO SCH (01:00)
[2018-07-05 04:30] VITALS: BP 147/68
--- NOTE | 2018-07-05 04:30 | NUR ---
PT SLEEPING, EASILY AROUSABLE, VITAL SIGNS STABLE, DENIES ANY PAIN, PT WENT BACK TO SLEEP, MONITORED CLOSELY.
--- NOTE | 2018-07-05 05:48 | NUR ---
BLOOD SUGAR CHECKED WITH 75 RESULT, ASYMPTOMATIC, PT AAOX4, APPLE JUICE GIVEN, TOLERATED WELL, MONITORED CLOSELY.
[2018-07-05] MEDS: BLOOD GLUCOSE MONITORING 1 DEV DEV FS SCH ×2 (06:32→11:30)
[2018-07-05 06:47] LABS: BASOPHILS % (AUTO) 0.8 % (0.0-2.0); EOSINOPHILS # (AUTO) 0.4 K/uL (0-0.4); EOSINOPHILS % (AUTO) 8.5 % (0.0-4.0); HEMATOCRIT 35.5 % (36-48); HEMOGLOBIN 11.3 g/dL (12.0-16.0); LYMPHOCYTES # (AUTO) 1.3 K/uL (2.5-16.5); LYMPHOCYTES % (AUTO) 27.5 % (20.5-51.1); MEAN CORPUSCULAR HEMOGLOBIN 29 pg (27-31); MEAN CORPUSCULAR HGB CONC 32 g/dL (33-37); MEAN CORPUSCULAR VOLUME 92.3 fL (80-94); MONOCYTES # (AUTO) 0.2 K/uL (0.8-1.0); MONOCYTES % (AUTO) 3.7 % (1.7-9.3); NEUTROPHILS # (AUTO) 2.8 K/uL (1.8-7.7); NEUTROPHILS % (AUTO) 59.5 % (42.2-75.2); PLATELET COUNT (AUTO) 192 K/uL (140-450); RED BLOOD CELL COUNT(AUTO) 3.85 MIL/uL (4.20-5.40); RED CELL DISTRIBUTION WIDTH 15.6 % (11.6-13.7); WHITE BLOOD COUNT (AUTO) 4.8 K/uL (4.8-10.8)
[2018-07-05 07:06] LABS: ANION GAP 20.1 (8-16); CARBON DIOXIDE 22.3 mmol/L (21-32); POTASSIUM 4.4 mmol/L (3.5-5.1)
[2018-07-05 07:09] LABS: MAGNESIUM 2.4 mg/dL (1.8-2.4)
--- NOTE | 2018-07-05 07:20 | NUR ---
RECEIVED HAND OFF REPORT FROM NEWBORN HEARING SCREENER NURSE. PT AWAKE AND ALERT SITTING AT SIDE OF BED. PT IS AWARE OF CARE OF PLAN. WILL CONTINUE TO MONITOR
--- NOTE | 2018-07-05 07:26 | NUR ---
PT AWAKE SITTING ON SIDE OF BED, NO DISTRESS NOTED, REPORT GIVEN TO RN YUNI FOR CONTINUITY OF CARE.
[2018-07-05 07:31] LABS: CREATININE 8.5 mg/dL (0.6-1.3); PHOSPHORUS 9.6 mg/dL (2.5-4.9)
[2018-07-05 08:00] VITALS: BP 137/69
--- NOTE | 2018-07-05 08:02 | NUR ---
PT STATED SHE WAS EXPERIENCING SHAKINESS REQUESTED BLOOD GLUCOSE FINGERSTICK. BLOOD GLUCOSE WAS 57. BREAKFAST SERVED AND GAVE D50 PER PROTOCOL.
--- NOTE | 2018-07-05 08:40 | NUR ---
blood sugar rechecked: 152 mg/dl. no coverage given.
[2018-07-05] MEDS: ASPIRIN 81 MG TAB.CHEW PO SCH (08:45)
[2018-07-05] MEDS: CALCIUM ACETATE 667 MG TAB PO SCH ×2 (08:45→12:22)
[2018-07-05] MEDS: GABAPENTIN 100 MG CAP PO SCH (08:45)
[2018-07-05] MEDS: ATORVASTATIN 20 MG TAB PO SCH (08:45)
[2018-07-05] MEDS: cloNIDine 0.1 MG TAB PO SCH ×2 (08:46→12:22)
[2018-07-05] MEDS: amLODIPine 5 MG TAB PO SCH ×2 (08:50→13:38)
[2018-07-05] MEDS: INSULIN LANTUS 100 UNITS/ML 10 ML VIAL SUBQ SCH (08:50)
[2018-07-05] MEDS: ATENOLOL 50 MG TAB PO SCH (08:50)
--- NOTE | 2018-07-05 08:51 | NUR ---
ADMINISTERED MORNING MEDICATIONS. PT SITTING IN BED OH THE PHONE. PT FINGERSTICK GLUCOSE CHECK WAS 152. WITHHELD MORNING DOSE OF LANTUS BECAUSE OF THE 0730 GLUCOSE CHECK OF 57. WITHHELD MORNING DOSE OF ATENOLOL AND AMLODIPINE BECAUSE THE PT IS SCHEDULED TO HAVE DIALYSIS TODAY. MORNING BLOOD PRESSURE WAS 137/69. WILL CONTINUE TO MONITOR PT.
[2018-07-05] MEDS ORDERED: ASCORBIC ACID 500 MG TAB PO SCH (09:30)
--- NOTE | 2018-07-05 10:10 | NUR ---
DIALYSIS NURSE AT BEDSIDE PROVIDING LIDOCAINE AND ACCESSING THE PT RT AV SHUNT. Addendum: 07/05/18 at 1820 by Makenna Shah RN LEFT AV SHUNT
[2018-07-05] MEDS ORDERED: MELA5SGL PO (10:19)
[2018-07-05] MEDS ORDERED: LIDOCAINE/PRILOCAINE 2.5% 30 GM TUBE TP SCH (11:00)
[2018-07-05] MEDS ORDERED: LIDOCAINE/PRILOCAINE 2.5% 5 GM TUBE TP SCH (11:00)
[2018-07-05 12:00] VITALS: BP 182/72
--- NOTE | 2018-07-05 13:10 | NUR ---
DIALYSIS IS COMPLETE 2L REMOVED. PT IS STABLE BLOOD PRESSURE IS 182/72 WILL PROVIDE MORNING BLOOD PRESSURE MEDICATIONS.
--- NOTE | 2018-07-05 13:42 | NUR ---
PT BLOOD PRESSURE WAS 189/75 POST DIALYSIS. ADMINISTERED PTS MORNING MEDICATION OF AMLODIPINE 10MG WILL CONTINUE TO ASSESS.
--- NOTE | 2018-07-05 14:59 | NUR ---
PROVIDED WOUND CARE TO BOTH FOOT WOUNDS, TOOK PICTURES FOR DISCHARGE. REASSESSED PTS BLOOD PRESSURE. BP 191/75. WILL CONTINUE TO MONITOR Addendum: 07/05/18 at 1805 by Makenna Shah RN PT ASYMPTOMATIC WITH THE INCREASED BLOOD PRESSURE. PT STATED SHE HAD NO PAIN
--- NOTE | 2018-07-05 15:05 | NUR ---
PT DRESSED. REMOVED PTS ARM BANDS. REMOVED PT IV IN LEFT FOREARM. CATH TIP INTACT. PT WAS STABLE AND APPEARED TO BE IN NO DISTRESS. WENT OVER DISCHARGE INFORMATION AND INFORMED PT OF HER NEW PRESCRIPTION AND WHERE TO PICK IT UP. PT FAMILY PICKED HER UP AT THE FRONT OF THE HOSPITAL PT WAS ESCORTED VIA WHEELCHAIR BY RETAIL BUSINESS ANALYST. PT LEFT WITH ALL BELONGINGS Addendum: 07/05/18 at 1823 by Makenna Shah RN IV RT FOREARM
[2018-07-05 15:10] VITALS: BP 191/75
[2018-07-06] MEDS ORDERED: ASCORBIC ACID 500 MG TAB PO SCH (09:00)
== END 2018-07-05 16:25 | disposition home or self-care (01) | DRG 73 ==
LOC: MED 09:11 → MTU 11:55
PROVIDERS: ADMIT General Practice; ATTEND General Practice
DX: G90.8 Other disorders of autonomic nervous system (principal); N17.0 Acute kidney failure with tubular necrosis; N18.6 End stage renal disease; I12.0 Hypertensive chronic kidney disease with stage 5 chronic kidney disease or end stage renal disease; E87.1 Hypo-osmolality and hyponatremia; E11.22 Type 2 diabetes mellitus with diabetic chronic kidney disease; E11.65 Type 2 diabetes mellitus with hyperglycemia; E87.5 Hyperkalemia; E83.39 Other disorders of phosphorus metabolism; E83.51 Hypocalcemia; I16.0 Hypertensive urgency; E11.621 Type 2 diabetes mellitus with foot ulcer; L97.529 Non-pressure chronic ulcer of other part of left foot with unspecified severity; L97.519 Non-pressure chronic ulcer of other part of right foot with unspecified severity; E11.42 Type 2 diabetes mellitus with diabetic polyneuropathy; E11.51 Type 2 diabetes mellitus with diabetic peripheral angiopathy without gangrene; L84 Corns and callosities; E83.41 Hypermagnesemia; E02 Subclinical iodine-deficiency hypothyroidism; E87.6 Hypokalemia; D64.9 Anemia, unspecified; Z99.2 Dependence on renal dialysis; Z79.82 Long term (current) use of aspirin; Z79.899 Other long term (current) drug therapy; Z83.3 Family history of diabetes mellitus; Z79.4 Long term (current) use of insulin; Z90.49 Acquired absence of other specified parts of digestive tract; Z82.49 Family history of ischemic heart disease and other diseases of the circulatory system; Z98.51 Tubal ligation status
CPT/HCPCS: 36415; 36600; 70450; 71045; 73630; 74018; 80048; 80053; 82009; 82140; 82150; 82550; 82553; 82803; 82948; 83036; 83605; 83690; 83735; 83874; 83880; 84100; 84439; 84443; 84484; 84550; 85025; 85379; 85610; 85730; 87040; 87081; 90935; 93005; 93880; 93925; 93970; 96365; 97116; 99285; J0360; J0610; J1815; J2543; J7030; Q0092

== ENCOUNTER 2018-08-08 14:37 | Emergency (ER) | payer OTHER ==
[~2018-08-08] VITALS: Ht 157.5 cm; Wt 56.7 kg
[~2018-08-08 14:37] MED LIST changes: -EMLAC TP; +MELA5SGL PO
[2018-08-08 14:49] VITALS: BP 185/80
--- NOTE | 2018-08-08 14:58 | NUR ---
PT AMBULATED TO ER BED 07
[2018-08-08] MEDS ORDERED: ONDANSETRON 4 MG/2 ML VIAL IVP ONE (15:20)
--- NOTE | 2018-08-08 15:20 | NUR ---
PT BIB SELF FOR N/V/D X 5 DAYS. PT REPORTS 3 EPISODES OF YELLOW EMISES TODAY AND 3 EPISODES OF YELLOW WATERY DIARRHEA TODAY. PT REPORTS THROBING CONSTANT HEADACHE T 11/12. PT REPORTS ABD PAIN ONLY WHEN VOMITING. VSS. ER MD TO SEE PT. MEDHX:DM, KIDNEY FAILURE, HEMODIALYSIS (//WED), SARAHI
[2018-08-08 15:44] LABS: BASOPHILS % (AUTO) 0.7 % (0.0-2.0); EOSINOPHILS # (AUTO) 0.3 K/uL (0-0.4); EOSINOPHILS % (AUTO) 5.4 % (0.0-4.0); HEMOGLOBIN 14.5 g/dL (12.0-16.0); LYMPHOCYTES # (AUTO) 1.1 K/uL (2.5-16.5); LYMPHOCYTES % (AUTO) 21.7 % (20.5-51.1); MEAN CORPUSCULAR HEMOGLOBIN 30 pg (27-31); MEAN CORPUSCULAR HGB CONC 33 g/dL (33-37); MONOCYTES # (AUTO) 0.2 K/uL (0.8-1.0); MONOCYTES % (AUTO) 3.2 % (1.7-9.3); NEUTROPHILS # (AUTO) 3.5 K/uL (1.8-7.7); PLATELET COUNT (AUTO) 223 K/uL (140-450); RED BLOOD CELL COUNT(AUTO) 4.84 MIL/uL (4.20-5.40); RED CELL DISTRIBUTION WIDTH 15.6 % (11.6-13.7); WHITE BLOOD COUNT (AUTO) 5.1 K/uL (4.8-10.8)
--- NOTE | 2018-08-08 15:44 | NUR ---
PT IS ON DIALYSIS X3 PER WEEK, UNABLE TO MAKE URINE, DANIEL HERRERA NOTIFIED
[2018-08-08 15:53] LABS: ACETONE, SERUM NEGATIVE (NEGATIVE)
[2018-08-08 15:55] LABS: ANION GAP 17.6 (8-16); CARBON DIOXIDE 28.1 mmol/L (21-32); CHLORIDE 92 mmol/L (98-107); GFR ARICAN-AMERICAN 6 mL/min (>90); GLUCOSE 148 mg/dL (74-106); POTASSIUM 3.7 mmol/L (3.5-5.1); SODIUM SERUM 134 mmol/L (136-145); UREA NITROGEN, BLOOD 34 mg/dL (7-18)
[2018-08-08 16:01] LABS: CREATININE 9.1 mg/dL (0.6-1.3)
[2018-08-08 16:04] LABS: URIC ACID 5.2 mg/dL (2.6-7.2)
[2018-08-08 16:09] LABS: ALBUMIN 4.4 g/dL (3.4-5.0); AMYLASE 19 U/L (25-115); ASPARTATE AMINOTRANSFERASE 9 U/L (15-37); LIPASE 109 U/L (73-393); MAGNESIUM 2.4 mg/dL (1.8-2.4); TOTAL BILIRUBIN 0.6 mg/dL (0.0-1.0)
--- NOTE | 2018-08-08 17:30 | NUR ---
ABG DONE INSUFFICIENT AMOUNT OBTAINED FOR PROCESSING CARDIAC MONITOR TECHNICIAN TO ATTEMPT AT A LATER TIME
--- NOTE | 2018-08-08 17:50 | NUR ---
PATIENT REFUSED ABG AT THIS TIME, NOTIFY DR. ESTEVES OF PATIENT REFUSAL, PHYSICIAN STATED UNDERSTANDING
[2018-08-08] MEDS ORDERED: DEXT 5% /NACL 0.9% 1,000 ML IV SCH (19:19)
[2018-08-08] MEDS ORDERED: HYDROcodone/APAP 5/325 MG 1 TAB TAB PO PRN (19:20)
[2018-08-08] MEDS ORDERED: ONDANSETRON 4 MG/2 ML VIAL IM/IVP PRN (19:20)
[2018-08-08] MEDS ORDERED: LORazepam 2 MG/ML VIAL IM/IVP PRN (19:20)
[2018-08-08] MEDS ORDERED: ACETAMINOPHEN 325 MG TAB PO PRN (19:20)
[2018-08-08] MEDS ORDERED: MORPHINE SULFATE 2 MG/ML SYR IVP PRN (19:20)
[2018-08-08] MEDS ORDERED: INSULIN LISPRO SLIDING SCALE 100 UNITS/ML VIAL SUBQ PRN (19:20)
[2018-08-08] MEDS ORDERED: ZOLPIDEM 5 MG TAB PO PRN (19:20)
[2018-08-08] MEDS ORDERED: DEXTROSE 50% 50 ML SYR IVP PRN (19:20)
[2018-08-08] MEDS ORDERED: DOCUSATE SODIUM 100 MG GELCAP PO PRN (19:20)
[2018-08-08 19:43] VITALS: BP 190/91
--- NOTE | 2018-08-08 19:43 | NUR ---
Patient discharged with v/s stable. Patient acting appropriatly, patient states she is ready to go home. Patient states she is having dialysis tmrw and knows she will feel better after that, "I just want to go home now". Patient speaking in clear and complete sentences. TIP INTACT, PRESSURE AND BANDAGE APPLIED. BLEEDING CONTROLLED. SIGHT BENIGN. Written and verbal after care instructions given and explained. Patient alert, oriented and verbalized understanding of instructions. Ambulatory with steady gait. All questions addressed prior to discharge. ID band removed. Patient advised to follow up with PMD. Rx of Zofran given. Patient educated on indication of medication including possible reaction and side effects. Opportunity to ask questions provided and answered.
[2018-08-08] MEDS ORDERED: BLOOD GLUCOSE MONITORING 1 DEV DEV FS SCH (21:00)
== END 2018-08-08 19:43 | disposition home or self-care (01) ==
LOC: MED 14:37
DX: R11.10 Vomiting, unspecified (principal); R19.7 Diarrhea, unspecified; E86.0 Dehydration; N19 Unspecified kidney failure; E87.8 Other disorders of electrolyte and fluid balance, not elsewhere classified; E11.22 Type 2 diabetes mellitus with diabetic chronic kidney disease; I12.0 Hypertensive chronic kidney disease with stage 5 chronic kidney disease or end stage renal disease; N18.6 End stage renal disease; Z99.2 Dependence on renal dialysis; Z79.4 Long term (current) use of insulin; Z79.82 Long term (current) use of aspirin; Z79.899 Other long term (current) drug therapy
CPT/HCPCS: 36415; 80053; 82009; 82150; 83036; 83605; 83690; 83735; 84484; 84550; 84703; 85025; 93005; 96374; 99284; J2405

== ENCOUNTER 2018-09-23 08:12 | Emergency (ER) | payer OTHER ==
[~2018-09-23] VITALS: Ht 152.4 cm; Wt 55.3 kg
[2018-09-23 08:20] VITALS: BP 141/66
--- NOTE | 2018-09-23 08:21 | NUR ---
Patient ambulated to bed 4. RN evaluating patient at bedside.
--- NOTE | 2018-09-23 08:35 | NUR ---
BIB SELF. C/O COUGH WITH GREEN MUCUS PHLEGM X 2 DAYS, VOMITED X1 TODAY, R EAR PAIN 8/10. DIALYSIS- T, TH, SAT ---AV FISTULA TO L ARM PMH: HTN, DIALYSIS, DM . DENIES N/D; SKIN IS PINK/WARM/DRY; AAOX4 WITH EVEN AND STEADY GAIT; LUNGS CLEAR BL; HR EVEN AND REGULAR; PT DENIES ANY FEVER, CP, SOB, AT THIS TIME; PATIENT STATES PAIN OF RIGHT EAR 8/10 AT THIS TIME; VSS; PATIENT POSITIONED FOR COMFORT; HOB ELEVATED; BEDRAILS UP X2; BED DOWN. ER MD MADE AWARE OF PT STATUS.
[2018-09-23 09:00] VITALS: BP 135/67
--- NOTE | 2018-09-23 09:00 | NUR ---
Patient discharged with v/s stable. Written and verbal after care instructions given and explained. Patient alert, oriented and verbalized understanding of instructions. Ambulatory with steady gait. All questions addressed prior to discharge. ID band removed. Patient advised to follow up with PMD. Rx of MOTRIN,MUCINEX, AND PREDNISONE given. Patient educated on indication of medication including possible reaction and side effects. Opportunity to ask questions provided and answered.
== END 2018-09-23 09:00 | disposition home or self-care (01) ==
LOC: MED 08:12
DX: R05 Cough (principal); R50.9 Fever, unspecified; R07.9 Chest pain, unspecified; E11.9 Type 2 diabetes mellitus without complications; I10 Essential (primary) hypertension; Z90.49 Acquired absence of other specified parts of digestive tract; Z79.82 Long term (current) use of aspirin; Z79.899 Other long term (current) drug therapy; Z79.4 Long term (current) use of insulin; Z86.79 Personal history of other diseases of the circulatory system; Z87.448 Personal history of other diseases of urinary system
CPT/HCPCS: 82948; 99283

== ENCOUNTER 2018-10-02 13:14 | Inpatient (IN) | payer OTHER, MEDICAID ==
[~2018-10-02] VITALS: Ht 152.4 cm; Wt 58.1 kg
[2018-10-02 13:14] VITALS: BP 135/53
--- NOTE | 2018-10-02 13:14 | NUR ---
PATIENT AMBULATED TO ER BED 12.
--- NOTE | 2018-10-02 13:16 | NUR ---
43 Y FEMALE PT C/O CHEST PAIN X3 WEEKS NON-RADIATING AT REST. ALSO REPORTS NON-PRODUCTIVE COUGH. LUNGS CLEAR BILATERALLY. RR EVEN AND UNLABORED. R EAR PAIN AND VOMITING. WAS SEEN IN ED X2 WEEKS AGO AND GIVEN ANTIBIOTICS WITH NO RELIEF. PT SPEAKING IN FULL AND COMPLETE SENTENCES. VSS AT THIS TIME. PAIN 10/10, FACIAL GRIMACING. PT AA0X4. BED IS DOWN, LOCKED, BED RAIL X 1, ERMD TO SEE PT. PMH---DIALYSIS, L ARM SHUNT (//WED), HTN, PACEMAKER, DM NKA
--- NOTE | 2018-10-02 13:33 | NUR ---
DARIO EMT AT BEDSIDE FOR EKG
[2018-10-02] MEDS ORDERED: ONDA8TAB PO (13:49)
--- NOTE | 2018-10-02 13:59 | NUR ---
XRAY AT BEDSIDE.
[2018-10-02 14:03] LABS: BASOPHILS % (AUTO) 0.5 % (0.0-2.0); EOSINOPHILS # (AUTO) 0.3 K/uL (0-0.4); EOSINOPHILS % (AUTO) 3.9 % (0.0-4.0); HEMATOCRIT 32.7 % (36-48); HEMOGLOBIN 10.6 g/dL (12.0-16.0); LYMPHOCYTES % (AUTO) 15.8 % (20.5-51.1); MEAN CORPUSCULAR HEMOGLOBIN 29 pg (27-31); MEAN CORPUSCULAR HGB CONC 32 g/dL (33-37); MEAN CORPUSCULAR VOLUME 89.3 fL (80-94); MONOCYTES # (AUTO) 0.3 K/uL (0.8-1.0); MONOCYTES % (AUTO) 4.8 % (1.7-9.3); NEUTROPHILS # (AUTO) 4.9 K/uL (1.8-7.7); PLATELET COUNT (AUTO) 224 K/uL (140-450); RED BLOOD CELL COUNT(AUTO) 3.66 MIL/uL (4.20-5.40); RED CELL DISTRIBUTION WIDTH 15.4 % (11.6-13.7); WHITE BLOOD COUNT (AUTO) 6.5 K/uL (4.8-10.8)
--- NOTE | 2018-10-02 14:10 | NUR ---
RT AT BEDSIDE FOR INTERVENTION.
[2018-10-02 14:20] LABS: ANION GAP 19.3 (8-16); CARBON DIOXIDE 24.7 mmol/L (21-32); TOTAL BILIRUBIN 0.7 mg/dL (0.0-1.0)
[2018-10-02 14:23] LABS: CREATININE 6.1 mg/dL (0.6-1.3)
[2018-10-02 14:27] LABS: PROTHROMBIN TIME 9.8 secs (10.8-13.4)
[2018-10-02 14:30] LABS: ALBUMIN 3.7 g/dL (3.4-5.0)
--- NOTE | 2018-10-02 14:33 | NUR ---
DR SHEA ESTEVES REVIEWD ABG SAMPLE REPORT V.OGladys SANCHEZ MD SUPPLEMENTAL OXYGEN AT 15 LPM VIA NON REBREATHER
[2018-10-02] MEDS ORDERED: METO-485 PO (14:36)
[2018-10-02] MEDS ORDERED: BUMETANIDE (14:36)
[2018-10-02] MEDS ORDERED: METO100T14 PO (14:36)
[2018-10-02] MEDS ORDERED: ALEN70TA1 PO (14:36)
[2018-10-02] MEDS ORDERED: BUME1TAB92 PO (14:36)
[2018-10-02] MEDS ORDERED: METF500T PO (14:36)
[2018-10-02] MEDS ORDERED: AMOX500C25 PO (14:36)
[2018-10-02] MEDS ORDERED: FURO-570 PO (14:36)
[2018-10-02] MEDS ORDERED: SENN25TA PO (14:36)
[2018-10-02] MEDS ORDERED: VITD1000 PO (14:37)
[2018-10-02] MEDS ORDERED: CITA20TA15 PO (14:37)
[2018-10-02] MEDS ORDERED: CETI-32 PO (14:37)
[2018-10-02] MEDS ORDERED: ASPI-1718 PO (14:37)
[2018-10-02] MEDS ORDERED: NITR0.4T2 SL (14:37)
[2018-10-02] MEDS ORDERED: ATOR40TA PO (14:37)
[2018-10-02] MEDS ORDERED: MELO15TA11 PO (14:37)
[2018-10-02] MEDS ORDERED: ALBUTEROL 0.083% 2.5 MG/3 ML NEBU INH ONE (14:50)
[2018-10-02] MEDS ORDERED: methylPREDNISolone SS 125 MG/2 ML VIAL IVP ONE (14:50)
[2018-10-02 15:04] LABS: URIC ACID 4.3 mg/dL (2.6-7.2)
--- NOTE | 2018-10-02 15:15 | NUR ---
[facility] THERAPY AND RESPIRATORY GIVEN ORDERED ENCOURAGED PATIENT FOR INTERMITTENT DEEP BREATHING DURING THERAPY
--- NOTE | 2018-10-02 15:27 | NUR ---
PT ON 15 L NON-REBREATHER PER DR ESTEVES ORDER DUE TO ABG RESULTS. PT AA0X4.
--- NOTE | 2018-10-02 15:34 | NUR ---
PT ACTIVELY VOMITING GREEN EMESIS. REQUESTED ZOFRAN FROM DR ESTEVES
[2018-10-02] MEDS ORDERED: ONDANSETRON 4 MG/2 ML VIAL IVP ONE (15:40)
--- NOTE | 2018-10-02 15:46 | NUR ---
4 MG ZOFRAN ADMINISTERED IVP
[2018-10-02] MEDS ORDERED: ONDANSETRON 4 MG/2 ML VIAL ONE (15:51)
[2018-10-02] MEDS ORDERED: NACL 0.9% 1,000 ML IV SCH (15:59)
[2018-10-02] MEDS ORDERED: HYDROcodone/APAP 5/325 MG 1 TAB TAB PO PRN (16:00)
[2018-10-02] MEDS ORDERED: DOCUSATE SODIUM 100 MG GELCAP PO PRN (16:00)
[2018-10-02] MEDS ORDERED: ZOLPIDEM 5 MG TAB PO PRN (16:00)
[2018-10-02] MEDS ORDERED: ONDANSETRON 4 MG/2 ML VIAL IM/IVP PRN (16:00)
[2018-10-02] MEDS ORDERED: MORPHINE SULFATE 2 MG/ML SYR IVP PRN (16:00)
[2018-10-02] MEDS ORDERED: LORazepam 2 MG/ML VIAL IM/IVP PRN (16:00)
--- NOTE | 2018-10-02 16:28 | NUR ---
Patient will be admitted to care of DR JEAN-BAPTISTE. Admited to TELE. Will go to room 113. Belongings list completed. Report to PACO CARY. ASIM NOTIFIED OF PTS CRITICAL LABS. PER DR ESTEVES PT TO BE ON 15 L NON-REBREATHER. ASIM NOTIFIED OF PT BLOOD SUGAR. NO ORDERS PLACED BEFORE TRANSFR TO FLOOR TO CORRECT BS.
--- NOTE | 2018-10-02 16:30 | NUR ---
RECEIVED REPORT FROM ER NURSE PT IS BREATHING ON 15 L NON REBREATHER SHALLOW BUT NON LABORED BREATHING. PT AOX4 WITH 20 GAUGE RIGHT ANTECUBITAL IV THAT IS ASYMPTOMATIC AND PATENT. SAFETY MEASURES IN PLACE AND CALL LIGHT WITHIN REACH. PT FAMILY AT BEDSIDE INCLUDING . CONSENT FOR DIALYSIS SIGNED AND SPOKE TO DIALYSIS CENTER WHO ASKED ME TO HAVE CONSENT SIGNED.
[2018-10-02] MEDS ORDERED: DEXTROSE 50% 50 ML SYR IVP PRN (16:50)
[2018-10-02 16:55] LABS: CHOL/HDL RATIO 2.3 (1-4.5); FREE T4 (FREE THYROXINE) 1.03 ng/dL (0.76-1.46); PHOSPHORUS 5.2 mg/dL (2.5-4.9); THYROID STIMULATING HORMONE 7.25 uIU/mL (0.34-3.74)
[2018-10-02] MEDS ORDERED: NON-FORMULARY ITEM (Tizanidine HCl* (Zanaflex*) 4 MG) PO PRN (17:15)
[2018-10-02] MEDS: INSULIN LISPRO SLIDING SCALE 100 UNITS/ML VIAL SUBQ PRN ×2 (17:55→21:53)
--- NOTE | 2018-10-02 17:55 | NUR ---
GAVE INSULIN FOR BLOOD SUGAR 317 8 UNITS PER SLIDING SCALE. PT RESTING IN BED BREATHING UNLABORED
[2018-10-02] MEDS: ACETAMINOPHEN 325 MG TAB PO PRN ×2 (18:31→23:27)
[2018-10-02] MEDS: ALBUTEROL SULFATE/IPRATROPIU 3 ML SOL IH SCH (19:13)
--- NOTE | 2018-10-02 19:21 | NUR ---
GAVE BEDSIDE REPORT TO NIGHT NURSE PT IN STABLE CONDITION. ENDORSED WHAT DIALYSIS NURSE TOLD ME AT SAME TIME AN ORDER WILL BE PLACED TO DC FOR IV FLUIDS. Addendum: 10/02/18 at 1923 by Rob Toth RN ALSO ENDORSED NEED FOR PAIN REASSESSMENT
--- NOTE | 2018-10-02 19:22 | NUR ---
RECEIVED REPORT FROM DAY SHIFT NURSE ASIM-RN AT BEDSIDE. PT RESTING IN BED WITH HD IN PROGRESS AND FAMILY AT BEDSIDE. PT AOX4, ON NON-REBREATHER 15L, WITH LEFT ARM FISTULA AND RIGHT AC #20G- SL. DISCUSSED PLAN OF CARE AND PT VERBALIZED UNDERSTANDING. NO S/S OF RESPIRATORY DISTRESS OR DISCOMFORT NOTED AT THIS TIME. BED IN LOWEST POSITION, BED BREAKS ON, BOTH SIDE RAILS UP. BEDSIDE TABLE AND CALL LIGHT ARE WITHIN REACH. WILL CONTINUE TO MONITOR.
[2018-10-02 20:00] VITALS: BP 152/64
--- NOTE | 2018-10-02 20:32 | NUR ---
ENDORSED PT CARE TO CREATIVE SERVICES DESIGNER NURSE ANTHONY FOR CONTINUITY OF CARE. PT IN STABLE CONDITION.
--- NOTE | 2018-10-02 20:35 | NUR ---
RECEIVED PT SLEEPING, EASILY AROUSABLE TO VERBAL STIMULI, HEMODIALYSIS ON GOING, VITAL SIGNS TAKEN, BP SLIGHTLY ELEVATED, DENIES PAIN, SAT-100% ON O2 3L NC, SAFETY MEASURES IN PLACE AND CALL LIGHT WITHIN REACH.
[2018-10-02] MEDS ORDERED: SIMVASTATIN 40 MG TAB PO SCH (21:00)
[2018-10-02] MEDS: GABAPENTIN 100 MG CAP PO SCH (21:13)
[2018-10-02] MEDS: BLOOD GLUCOSE MONITORING 1 DEV DEV FS SCH (21:14)
--- NOTE | 2018-10-02 21:20 | NUR ---
PT'S HEART RHYTHM CHANGED FROM SR TO ACCELERATED IVR AT 103 BPM, PT SEEN SLEEPING, EASILY AROUSABLE, DENIES PAIN, NO SOB NOTED, VITAL SIGNS TAKEN:BP-148/66, HR-102, RR-18, SAT-99%, DR ADAN MADE AWARE, NO NEW ORDER AT THIS TIME AND STATED TO CONTINUE MONITOR PT, HEMODIALYSIS ON-GOING AT THIS TIME.
--- NOTE | 2018-10-02 21:38 | NUR ---
PT'S RHYTHM BACK TO SR-89 BPM, PT REQUESTING FOR SOMETHING TO EAT,DR ADAN ORDERED [facility], [place] [facility], WILL PROVIDE SANDWICH, BLOOD SUGAR CHECKED WITH 199 RESULT, COVERAGE WILL BE GIVEN, ALL NEEDS ATTENDED.
--- NOTE | 2018-10-02 22:20 | NUR ---
HEMODIALYSIS DONE WITH 3L OUTPUT, BP-161/64, HR-89, SAT-100%, ASYMPTOMATIC, DENIES ANY PAIN, NO SOB NOTED, MONITORED CLOSELY.
[2018-10-03] VITALS: BP 139/48
--- NOTE | 2018-10-03 | NUR ---
PT SLEEPING, EASILY AROUSABLE, VITAL SIGNS STABLE, COMPLAINING OF HEADACHE, MEDICATED PRN WITH TYLENOL, DRESSING TO LEFT UA SHUNT DRY AND INTACT, CONTINUE TO MONITOR CLOSELY.
[2018-10-03 04:00] VITALS: BP 147/55
--- NOTE | 2018-10-03 04:00 | NUR ---
PT SLEEPING, EASILY AROUSABLE, VITAL SIGNS STABLE, DENIES ANY PAIN, 97% ON 2L NC, NO SOB NOTED, CRACKERS PROVIDED PER REQUEST, MONITORED CLOSELY.
--- NOTE | 2018-10-03 05:50 | NUR ---
PT SEEN SITTING ON SIDE OF BED, DENIES ANY PAIN, BLOOD SUGAR CHECKED WITH 358 RESULT, ASYMPTOMATIC, COVERAGE WILL BE GIVEN, ORAL CARE DONE INDEPENDENTLY, MONITORED CLOSELY.
[2018-10-03] MEDS: INSULIN LISPRO SLIDING SCALE 100 UNITS/ML VIAL SUBQ PRN ×4 (05:58→20:18)
[2018-10-03] MEDS: BLOOD GLUCOSE MONITORING 1 DEV DEV FS SCH ×4 (06:33→20:11)
[2018-10-03 07:09] LABS: BASOPHILS % (AUTO) 0.1 % (0.0-2.0); HEMOGLOBIN 12.1 g/dL (12.0-16.0); LYMPHOCYTES # (AUTO) 0.8 K/uL (2.5-16.5); MEAN CORPUSCULAR HEMOGLOBIN 29 pg (27-31); MEAN CORPUSCULAR HGB CONC 33 g/dL (33-37); MEAN CORPUSCULAR VOLUME 89.7 fL (80-94); MONOCYTES # (AUTO) 0.2 K/uL (0.8-1.0); MONOCYTES % (AUTO) 1.6 % (1.7-9.3); NEUTROPHILS # (AUTO) 8.7 K/uL (1.8-7.7); NEUTROPHILS % (AUTO) 90.3 % (42.2-75.2); PLATELET COUNT (AUTO) 260 K/uL (140-450); RED BLOOD CELL COUNT(AUTO) 4.13 MIL/uL (4.20-5.40); RED CELL DISTRIBUTION WIDTH 15.9 % (11.6-13.7); WHITE BLOOD COUNT (AUTO) 9.7 K/uL (4.8-10.8)
[2018-10-03 07:16] LABS: ANION GAP 18.9 (8-16); CARBON DIOXIDE 27.9 mmol/L (21-32); POTASSIUM 3.8 mmol/L (3.5-5.1)
--- NOTE | 2018-10-03 07:16 | NUR ---
PT AWAKE, NO DISTRESS NOTED, REPORT GIVEN TO RAEANN FOOTE FOR CONTINUITY OF CARE. Addendum: 10/03/18 at 0724 by Min Hamm RN THIS IS RAEANN SCHAEFER
--- NOTE | 2018-10-03 07:20 | NUR ---
RECEIVED REPORT FROM MATERIALS TECHNICIAN NURSE. PT AWAKE, LYING IN BED, ORIENTED X4. RESPIRATIONS EVEN AND UNLABORED ON O2 2L VIA N/C. NO C/O PAIN AT THIS TIME. IV ON RT AC 20 GA ON HEPARIN LOCK, DRESSING CLEAN, INTACT AND DRY. RADIAL PULSE 78 REGULAR AND EVEN. BOWEL SOUNDS ACTIVE. SKIN COLOR IS APPROPRIATE TO ETHNICITY, WARM TO TOUCH, SKIN IS INTACT. NO EDEMA TO EXTREMITIES. REVIEWED POC WITH PT, PT VERBALIZED UNDERSTANDING. WILL CONTINUE TO MONITOR.
[2018-10-03 07:22] LABS: MAGNESIUM 2.1 mg/dL (1.8-2.4); PHOSPHORUS 4.1 mg/dL (2.5-4.9)
[2018-10-03 07:28] LABS: CREATININE 4.5 mg/dL (0.6-1.3)
[2018-10-03] MEDS: ALBUTEROL SULFATE/IPRATROPIU 3 ML SOL IH SCH ×3 (07:37→19:38)
[2018-10-03] MEDS ORDERED: tiZANidine 4 MG TAB PO PRN (07:40)
[2018-10-03 08:00] VITALS: BP 162/70
[2018-10-03] MEDS ORDERED: ATENOLOL 50 MG PO SCH (09:00)
[2018-10-03] MEDS ORDERED: NON-FORMULARY ITEM (Aspirin 81 MG) PO SCH (09:00)
[2018-10-03] MEDS: GABAPENTIN 100 MG CAP PO SCH ×2 (09:08→20:11)
[2018-10-03] MEDS: ATENOLOL 50 MG TAB PO SCH (09:09)
[2018-10-03] MEDS: ATORVASTATIN 20 MG TAB PO SCH (09:09)
[2018-10-03] MEDS: cloNIDine 0.1 MG TAB PO SCH ×4 (09:10→16:14)
[2018-10-03] MEDS: ASPIRIN 81 MG TAB.CHEW PO SCH (09:10)
[2018-10-03] MEDS: VIT-B COMP/VIT-C/FOLIC ACID 1 TAB PO SCH (09:10)
[2018-10-03] MEDS: amLODIPine 5 MG TAB PO SCH (09:19)
--- NOTE | 2018-10-03 09:23 | NUR ---
BS CHECKED AT 285. NO COVERAGE GIVEN, PT RECEIVED 10U OF HUMALOG AT 0558. NO NEW ORDERS RECEIVED.
--- NOTE | 2018-10-03 09:40 | NUR ---
PATIENT HAS BEEN SCREENED AND CATEGORIZED HIGH NUTRITION RISK. PATIENT WILL BE SEEN WITHIN 1-2 DAYS OF ADMISSION. 10/03/18-10/04/[address]
--- NOTE | 2018-10-03 11:25 | NUR ---
CHECKED BS AT 327, WILL PROVIDE COVERAGE PER ORDER. PT IS LYING IN BED WATCHING TV, NO SIGNS OF DISTRESS AT THIS TIME.
[2018-10-03 12:00] VITALS: BP 160/67
--- NOTE | 2018-10-03 15:50 | NUR ---
RADIOLOGY PERFORMED ULTRASOUND, PT TOLERATED PROCEDURE WELL. WILL CONTINUE TO MONITOR.
[2018-10-03 16:00] VITALS: BP 147/73
--- NOTE | 2018-10-03 16:37 | NUR ---
10/03/18 RD INITIAL ASSESSMENT COMPLETED 1. PATIENT WILL CONSUME >75% OF ESTIMATED KCAL AND PROTEIN NEEDS WITHIN 3-5 DAYS DIETITIAN WILL MONITOR PO INTAKE, NUTRITION-RELATED LABS TRENDING WNL, SKIN INTEGRITY, WEIGHTS, GI FUNCTION. DISCHARGE PLAN: PATIENT SHOULD BE ABLE TO CONTINUE WITH CCHO 60 GM, RENAL ,CARDIAC AND FLUID RESTRICTED 2,000 ML DIET UPON DISCHARGE. DEBBY SALINAS RD
--- NOTE | 2018-10-03 19:30 | NUR ---
ENDORSED PT TO CURTAIN STITCHER NURSE. NO SIGNS OF DISTRESS OR C/O PAIN AT THIS TIME.
[2018-10-03 20:02] VITALS: BP 145/66
--- NOTE | 2018-10-03 23:30 | NUR ---
PT INQUIRING IF PARACENTESIS WILL BE PERFORMED TOMORROW. PER DR. AVILA, PT WILL RECEIVE HEMODIALYSIS TOMORROW AND WILL BE ASSESSED FOR NEED OF PARACENTESIS. WILL ENDORSE TO AM NURSE.
[2018-10-04 00:02] VITALS: BP 146/71
--- NOTE | 2018-10-04 02:20 | NUR ---
ROUNDED ON PT. PT SLEEPING, BREATHING EQUAL AND UNLABORED. NO VISIBLE SIGNS OF DISCOMFORT. CALL LIGHT WITHIN REACH.
[2018-10-04 04:05] VITALS: BP 158/71
--- NOTE | 2018-10-04 04:20 | NUR ---
VITALS TAKEN. PT SLEEPING BUT AROUSABLE BY NAME. NO C/O DISCOMFORT. CALL LIGHT WITHIN REACH.
[2018-10-04] MEDS: INSULIN LISPRO SLIDING SCALE 100 UNITS/ML VIAL SUBQ PRN ×4 (05:57→20:58)
[2018-10-04] MEDS: BLOOD GLUCOSE MONITORING 1 DEV DEV FS SCH ×4 (06:00→20:54)
--- NOTE | 2018-10-04 06:06 | NUR ---
BLOOD GLUCOSE TAKEN 265 AT THIS TIME. INSULIN ADMINISTERED PER SLIDING SCALE. PT TOLERATED WELL.
[2018-10-04] MEDS: ALBUTEROL SULFATE/IPRATROPIU 3 ML SOL IH SCH ×3 (06:41→19:04)
--- NOTE | 2018-10-04 06:53 | NUR ---
RECEIVED PATIENT ON ROOM AIR, PULSE OX SAT 96%. SCHEDULED BREATHING TREATMENT ADMINISTERED. TOLERATED TX WELL; NO ADVERSE SIDE EFFECTS. NO RESPIRATORY DISTRESS NOTED AT THIS TIME. WILL CONTINUE TO MONITOR.
--- NOTE | 2018-10-04 07:20 | NUR ---
ENDORSED PT TO AM NURSE. PT IN STABLE CONDITION AT THIS TIME.
--- NOTE | 2018-10-04 07:21 | NUR ---
RECEIVED REPORT FROM SOFTWARE APPLICATIONS ENGINEER RN, JULY. PATIENT IN STABLE CONDITION. NO SIGNS OF DISTRESS ON RA. PATIENT SITTING AT EDGE OF BED, SPEECH CLEAR, NO C/O PAIN. ALL NEEDS MET AT THIS TIME.
[2018-10-04 08:00] VITALS: BP 145/62
[2018-10-04] MEDS: amLODIPine 5 MG TAB PO SCH (09:00)
[2018-10-04] MEDS: cloNIDine 0.1 MG TAB PO SCH ×3 (09:00→16:53)
[2018-10-04] MEDS: ATENOLOL 50 MG TAB PO SCH (09:00)
--- NOTE | 2018-10-04 09:09 | NUR ---
HELD BP MEDS, DIALYSIS IN PROGRESS, WILL RECHECK AFTER DIALYSIS FINISHES.
[2018-10-04] MEDS: ASPIRIN 81 MG TAB.CHEW PO SCH (09:13)
[2018-10-04] MEDS: VIT-B COMP/VIT-C/FOLIC ACID 1 TAB PO SCH (09:13)
[2018-10-04] MEDS: ATORVASTATIN 20 MG TAB PO SCH (09:13)
[2018-10-04] MEDS: CALCIUM ACETATE 667 MG TAB PO SCH ×3 (09:13→16:52)
[2018-10-04] MEDS: GABAPENTIN 100 MG CAP PO SCH ×2 (09:14→20:52)
[2018-10-04] MEDS: INSULIN LANTUS 100 UNITS/ML 10 ML VIAL SUBQ SCH (09:22)
--- NOTE | 2018-10-04 09:25 | NUR ---
GAVE SCHEDULED MEDICATIONS EXCEPT BP MEDS. DIALYSIS IN PROGRESS.
[2018-10-04 10:04] LABS: BASOPHILS % (AUTO) 0.5 % (0.0-2.0); EOSINOPHILS # (AUTO) 0.2 K/uL (0-0.4); EOSINOPHILS % (AUTO) 2.4 % (0.0-4.0); HEMATOCRIT 33.6 % (36-48); HEMOGLOBIN 10.9 g/dL (12.0-16.0); LYMPHOCYTES # (AUTO) 1.6 K/uL (2.5-16.5); LYMPHOCYTES % (AUTO) 19.6 % (20.5-51.1); MEAN CORPUSCULAR HEMOGLOBIN 29 pg (27-31); MEAN CORPUSCULAR HGB CONC 32 g/dL (33-37); MONOCYTES # (AUTO) 0.5 K/uL (0.8-1.0); MONOCYTES % (AUTO) 6.3 % (1.7-9.3); NEUTROPHILS # (AUTO) 5.6 K/uL (1.8-7.7); NEUTROPHILS % (AUTO) 71.2 % (42.2-75.2); PLATELET COUNT (AUTO) 247 K/uL (140-450); RED BLOOD CELL COUNT(AUTO) 3.74 MIL/uL (4.20-5.40); RED CELL DISTRIBUTION WIDTH 15.7 % (11.6-13.7); WHITE BLOOD COUNT (AUTO) 7.9 K/uL (4.8-10.8)
[2018-10-04 10:18] LABS: ALBUMIN 3.7 g/dL (3.4-5.0); ANION GAP 12.9 (8-16); CARBON DIOXIDE 28.8 mmol/L (21-32); CREATININE 3.6 mg/dL (0.6-1.3); PHOSPHORUS 2.7 mg/dL (2.5-4.9); POTASSIUM 3.7 mmol/L (3.5-5.1); TOTAL BILIRUBIN 0.5 mg/dL (0.0-1.0)
--- NOTE | 2018-10-04 11:30 | NUR ---
PATIENT RECEIVING HEMODIALYSIS, PATIENT RESTING, BUT WAKES EASILY. NO SIGNS OF DISTRESS ON RA. WILL CONTINUE TO MONITOR.
[2018-10-04 12:00] VITALS: BP 154/44
--- NOTE | 2018-10-04 13:00 | NUR ---
DIALYSIS COMPLETE 4L OUTPUT. BLOOD PRESSURE 158/81, HR 74. PARACENTESIS PENDING. WILL CONTINUE TO HOLD BP MEDS UNTIL ALL FLUID REMOVAL IS COMPLETE. PATIENT SHOWING NO SIGNS OF DISTRESS AND HAS NO C/O PAIN
--- NOTE | 2018-10-04 14:29 | NUR ---
SCHEDULED BREATHING TX ADMINISTERED. TOLERATED TX WELL WITHOUT ADVERSE SIDE EFFECTS. NO RESPIRATORY DISTRESS AT THIS TIME. WILL CONTINUE TO MONITOR
[2018-10-04 15:15] LABS: PROTHROMBIN TIME 10.1 secs (10.8-13.4)
[2018-10-04 16:00] VITALS: BP 145/68
--- NOTE | 2018-10-04 16:52 | NUR ---
ADMINISTERED SCHEDULED MEDICATIONS. PATIENT TOLERATED WELL.
[2018-10-04 17:19] LABS: BASOPHILS % (AUTO) 0.5 % (0.0-2.0); EOSINOPHILS # (AUTO) 0.2 K/uL (0-0.4); EOSINOPHILS % (AUTO) 2.6 % (0.0-4.0); HEMATOCRIT 38.4 % (36-48); HEMOGLOBIN 12.4 g/dL (12.0-16.0); LYMPHOCYTES # (AUTO) 1.7 K/uL (2.5-16.5); MEAN CORPUSCULAR HEMOGLOBIN 29 pg (27-31); MEAN CORPUSCULAR HGB CONC 32 g/dL (33-37); MEAN CORPUSCULAR VOLUME 90.3 fL (80-94); MONOCYTES # (AUTO) 0.5 K/uL (0.8-1.0); NEUTROPHILS # (AUTO) 5.8 K/uL (1.8-7.7); NEUTROPHILS % (AUTO) 69.9 % (42.2-75.2); PLATELET COUNT (AUTO) 281 K/uL (140-450); RED BLOOD CELL COUNT(AUTO) 4.25 MIL/uL (4.20-5.40); WHITE BLOOD COUNT (AUTO) 8.3 K/uL (4.8-10.8)
[2018-10-04 18:49] LABS: GLUCOSE,BODY FLUID 191 mg/dL
--- NOTE | 2018-10-04 19:15 | NUR ---
GAVE REPORT TO SURVEY INSTRUMENT OPERATOR RN, PATIENT IN STABLE CONDITION.
--- NOTE | 2018-10-04 19:16 | NUR ---
RECEIVED REPORT FROM AM NURSE. PT IN BED TALKING ON PHONE. NO C/O DISCOMFORT. PT ON ROOM AIR BREATHING EQUAL AND UNLABORED. SAFETY PRECAUTIONS IN PLACE, BED IN LOW POSITION. CALL LIGHT WITHIN REACH.
[2018-10-04 20:00] VITALS: BP 112/76
--- NOTE | 2018-10-04 20:52 | NUR ---
MEDICATIONS GIVEN, PT TOLERATED WELL.
[2018-10-04 21:14] LABS: ALBUMIN 2.8 g/dL (3.4-5.0); ALBUMIN,BODY FLUID 5.6 g/dL
[2018-10-05 00:15] VITALS: BP 163/64
--- NOTE | 2018-10-05 00:15 | NUR ---
VITALS TAKEN. PT SLEEPING BUT EASILY AWAKEN BY NAME. PT STATING THAT IV IN RIGHT AC BOTHERING HER. IV FLUSHED AND PATENT. PT ENCOURAGED TO KEEP HER ARM STRAIGHT. PT VERBALIZED THAT SHE WILL WAIT TILL 0400 VITALS TO SEE IF THE IV IS STILL BOTHERING HER.
[2018-10-05 04:30] VITALS: BP 169/76
[2018-10-05] MEDS: ACETAMINOPHEN 325 MG TAB PO PRN ×2 (04:39→23:36)
--- NOTE | 2018-10-05 04:39 | NUR ---
GAVE PT TYLENOL FOR HEADACHE 06/12
[2018-10-05] MEDS: INSULIN LISPRO SLIDING SCALE 100 UNITS/ML VIAL SUBQ PRN ×3 (05:50→20:49)
[2018-10-05] MEDS: BLOOD GLUCOSE MONITORING 1 DEV DEV FS SCH ×4 (06:18→20:47)
[2018-10-05] MEDS: ALBUTEROL SULFATE/IPRATROPIU 3 ML SOL IH SCH (06:49)
[2018-10-05 07:01] LABS: BASOPHILS % (AUTO) 0.5 % (0.0-2.0); EOSINOPHILS # (AUTO) 0.2 K/uL (0-0.4); EOSINOPHILS % (AUTO) 2.8 % (0.0-4.0); HEMATOCRIT 39.6 % (36-48); HEMOGLOBIN 12.9 g/dL (12.0-16.0); LYMPHOCYTES # (AUTO) 1.6 K/uL (2.5-16.5); LYMPHOCYTES % (AUTO) 22.5 % (20.5-51.1); MEAN CORPUSCULAR HEMOGLOBIN 29 pg (27-31); MEAN CORPUSCULAR HGB CONC 33 g/dL (33-37); MEAN CORPUSCULAR VOLUME 89.8 fL (80-94); MONOCYTES # (AUTO) 0.4 K/uL (0.8-1.0); MONOCYTES % (AUTO) 5.6 % (1.7-9.3); NEUTROPHILS # (AUTO) 4.8 K/uL (1.8-7.7); NEUTROPHILS % (AUTO) 68.6 % (42.2-75.2); PLATELET COUNT (AUTO) 252 K/uL (140-450); RED BLOOD CELL COUNT(AUTO) 4.41 MIL/uL (4.20-5.40); RED CELL DISTRIBUTION WIDTH 15.8 % (11.6-13.7)
--- NOTE | 2018-10-05 07:29 | NUR ---
ENDORSED PT TO AM NURSE. PT IN STABLE CONDITION AT THIS TIME.
--- NOTE | 2018-10-05 07:30 | NUR ---
RECEIVED REPORT FROM COOK MANAGER RN, JULY. PATIENT IN STABLE CONDITION, SITTING AT BEDSIDE SPEECH CLEAR, NO SIGNS OF DISTRESS, BED LOW, CALL LIGHT IN REACH. NO C/O PAIN AT THIS TIME. UPDATED PATIENT ON PLAN OF CARE. WILL CONTINUE TO MONITOR.
[2018-10-05] MEDS: CALCIUM ACETATE 667 MG TAB PO SCH ×3 (07:43→17:14)
[2018-10-05 08:00] VITALS: BP 141/68
[2018-10-05 08:12] LABS: ANION GAP 14.9 (8-16); CARBON DIOXIDE 29.5 mmol/L (21-32); POTASSIUM 4.4 mmol/L (3.5-5.1)
[2018-10-05 08:54] LABS: CREATININE 5.4 mg/dL (0.6-1.3)
[2018-10-05] MEDS ORDERED: ALBUTEROL SULFATE/IPRATROPIU 3 ML SOL IH PRN (09:55)
[2018-10-05] MEDS: ATORVASTATIN 20 MG TAB PO SCH (09:57)
[2018-10-05] MEDS: ASPIRIN 81 MG TAB.CHEW PO SCH (09:57)
[2018-10-05] MEDS: amLODIPine 5 MG TAB PO SCH (09:58)
[2018-10-05] MEDS: VIT-B COMP/VIT-C/FOLIC ACID 1 TAB PO SCH (09:58)
[2018-10-05] MEDS: ATENOLOL 50 MG TAB PO SCH (09:58)
[2018-10-05] MEDS: GABAPENTIN 100 MG CAP PO SCH ×2 (09:58→20:43)
[2018-10-05] MEDS: cloNIDine 0.1 MG TAB PO SCH ×3 (09:59→17:13)
--- NOTE | 2018-10-05 10:00 | NUR ---
ADMINISTERED SCHEDULED MEDICATIONS. PATIENT TOLERATED WELL. PATIENT C/O PAIN AT IV SITE, IT IS FLUSHING WELL, BUT PATIENT COMPLAINS OF PAIN AND WOULD LIKE A NEW IV INSERTED. WILL INSERT NEW IV AND DISCONTINUE CURRENT SITE.
[2018-10-05] MEDS: INSULIN LANTUS 100 UNITS/ML 10 ML VIAL SUBQ SCH (10:07)
[2018-10-05 10:20] LABS: LACTATE DEHYDROGENASE 226 IU/L (119-226)
[2018-10-05 12:00] VITALS: BP 163/75
--- NOTE | 2018-10-05 12:13 | NUR ---
WOUND CARE EVALUATION NOTES: REASON FOR EVALUATION: FOOT ULCERS SKIN ASSESSMENT DONE ON WITH THIS 43 Y/O FEMALE PATIENT TO [facility] WITH HX OF DIABETIC ULCER. PT. SKIN IS WARM TO TOUCH, NO EDEMA TO BLE. INITIAL PLAN OF CARE DISCUSSED WITH DR. MARTINEZ, PT. VERBALIZES UNDERSTANDING INTEGUMENTARY: -DIABETIC ULCER UN-STAGEABLE TO LEFT FIRST METATARSAL 1X1CM 100 % BROWN ESCHAR TISSUE, MADISON-WOUND SKIN INTACT -DIABETIC ULCER UN-STAGEABLE TO RIGHT FIRST METATARSAL 2X1CM 100 % DRY BROWN ESCHAR TISSUE MADISON-WOUND SKIN WITH HYPERKERATOTIC BORDER RECOMMENDATIONS: -PODIATRY CONSULT TO DIABETIC ULCER UN-STAGEABLE -APPLY SOAKED BETADINE 2X2 TO RIGHT AND LEFT FIRST METATARSALS COVER WITH DRY DRESSING OD AND PRN IF SOILING -OFFLOAD BILATERAL HEELS BY PLACING PILLOWS UNDER CALVES AT ALL TIMES, UNLESS OTHERWISE CONTRAINDICATED -KEEP SKIN CLEAN AND DRY AT ALL TIMES. RECOMMENDATIONS DISCUSSED WITH PRIMARY RN. WILL FOLLOW UP PATIENT Q 10 DAYS AND PRN. PLEASE CONTACT WOUND CARE NURSE FOR ANY QUESTIONS AND CHANGES IN SKIN CONDITION.
--- NOTE | 2018-10-05 12:34 | NUR ---
ADMINISTERED SCHEDULED MEDICATIONS. NO SIGNS FO DISTRESS OR C/O PAIN. PATIENT EAGER TO GO HOME.
--- NOTE | 2018-10-05 15:40 | NUR ---
PATIENT RESTING IN BED. WANTS TO GO HOME. NO DISTRESS. ALL NEEDS MET AT THIS TIME. WILL CONTINUE TO MONITOR.
[2018-10-05 16:00] VITALS: BP 120/64
--- NOTE | 2018-10-05 16:30 | NUR ---
GLUCOSE 149, NO COVERAGE NEEDED.
--- NOTE | 2018-10-05 17:13 | NUR ---
ADMINISTERED SCHEDULED MEDICATIONS. PATIENT TOLERATED WELL. BP ELEVATED BUT ADMINISTERING CATAPRES A T THIS TIME. WILL REASSESS IN 1 HR. NO SIGNS OF DISTRESS OR C/O PAIN.
--- NOTE | 2018-10-05 19:10 | NUR ---
ENDORSED PATIENT TO MOTOR ROOM CONTROLLER RNDENVER FOR CONTINUITY OF CARE. PATIENT IN STABLE CONDITION.
--- NOTE | 2018-10-05 19:15 | NUR ---
RECEIVED PT ON BED , AAOX4, ABLE TO MAKE NEEDS KNOWN, VITAL SIGNS STABLE, DENIES ANY PAIN, NO SOB NOTED, LEFT UA AV SHUNT INTACT, FOR HEMODIALYSIS TOMORROW, PT AWARE, DRESSING TO BOTH FEET DRY AND INTACT, PLAN OF CARE DISCUSSED, SAFETY MEASURES IN PLACE, CALL LIGHT WITHIN REACH.
[2018-10-05 20:00] VITALS: BP 128/64
--- NOTE | 2018-10-05 21:00 | NUR ---
BLOOD SUGAR CHECKED WITH 199 RESULT, COVERAGE GIVEN, SNACK PROVIDED, DUE MEDICATION ADMINISTERED, ALL NEEDS ATTENDED.
--- NOTE | 2018-10-05 23:40 | NUR ---
PT COMPLAINING OF HEADACHE, VITAL SIGNS STABLE, NO SOB NOTED, TYLENOL PO GIVEN, CONTINUE TO MONITOR CLOSELY.
[2018-10-06] VITALS: BP 127/68
[2018-10-06 04:00] VITALS: BP 150/68
--- NOTE | 2018-10-06 04:00 | NUR ---
PT SLEEPING, EASILY AROUSABLE, VITAL TAKEN, BP SLIGHTLY ELEVATED, DENIES ANY PAIN, NO SOB NOTED, MONITORED CLOSELY.
[2018-10-06] MEDS: INSULIN LISPRO SLIDING SCALE 100 UNITS/ML VIAL SUBQ PRN ×2 (06:03→12:58)
--- NOTE | 2018-10-06 06:05 | NUR ---
PT AWAKE, NO DISTRESS NOTED, BLOOD SUGAR CHECKED WITH 209 RESULT, COVER WITH SLIDING SCALE, FOR HEMODIALYSIS TODAY, MONITORED CLOSELY.
[2018-10-06] MEDS: BLOOD GLUCOSE MONITORING 1 DEV DEV FS SCH ×2 (06:36→11:30)
--- NOTE | 2018-10-06 07:10 | NUR ---
PT AWAKE, NO SIGNS OF DISTRESS, REPORT GIVEN TO RAEANN ROBERT FOR CONTINUITY OF CARE.
--- NOTE | 2018-10-06 07:13 | NUR ---
RECEIVED BEDSIDE REPORT FROM REVISING CLERK RNALEXANDREA. PATIENT AWAKE SITTING UP IN BED, NO DISTRESS NOTED, CALL LIGHT IN REACH. PATIENT EAGER TO GO HOME. DISCHARGE PENDING AFTER MORNING DIALYSIS. Addendum: 10/06/18 at 0715 by Erika Contreras RN REPORT RECEIVED FROM RAEANN GOFF.
[2018-10-06 07:28] LABS: ANION GAP 19.1 (8-16); CARBON DIOXIDE 26.7 mmol/L (21-32); POTASSIUM 4.8 mmol/L (3.5-5.1)
[2018-10-06 07:30] LABS: PHOSPHORUS 5.8 mg/dL (2.5-4.9)
[2018-10-06 07:31] LABS: BASOPHILS % (AUTO) 0.5 % (0.0-2.0); EOSINOPHILS # (AUTO) 0.3 K/uL (0-0.4); EOSINOPHILS % (AUTO) 4.3 % (0.0-4.0); HEMATOCRIT 36.3 % (36-48); HEMOGLOBIN 11.9 g/dL (12.0-16.0); LYMPHOCYTES # (AUTO) 1.6 K/uL (2.5-16.5); MEAN CORPUSCULAR HEMOGLOBIN 29 pg (27-31); MEAN CORPUSCULAR HGB CONC 33 g/dL (33-37); MEAN CORPUSCULAR VOLUME 89.7 fL (80-94); MONOCYTES # (AUTO) 0.3 K/uL (0.8-1.0); MONOCYTES % (AUTO) 4.9 % (1.7-9.3); NEUTROPHILS # (AUTO) 4.5 K/uL (1.8-7.7); NEUTROPHILS % (AUTO) 66.3 % (42.2-75.2); PLATELET COUNT (AUTO) 249 K/uL (140-450); RED BLOOD CELL COUNT(AUTO) 4.05 MIL/uL (4.20-5.40); RED CELL DISTRIBUTION WIDTH 15.7 % (11.6-13.7); WHITE BLOOD COUNT (AUTO) 6.8 K/uL (4.8-10.8)
[2018-10-06 08:00] VITALS: BP 125/64
[2018-10-06 08:21] LABS: CREATININE 7.5 mg/dL (0.6-1.3)
[2018-10-06] MEDS: ASPIRIN 81 MG TAB.CHEW PO SCH (08:35)
[2018-10-06] MEDS: VIT-B COMP/VIT-C/FOLIC ACID 1 TAB PO SCH (08:35)
[2018-10-06] MEDS: CALCIUM ACETATE 667 MG TAB PO SCH ×2 (08:35→12:50)
[2018-10-06] MEDS: ATORVASTATIN 20 MG TAB PO SCH (08:35)
[2018-10-06] MEDS: GABAPENTIN 100 MG CAP PO SCH (08:35)
[2018-10-06] MEDS: INSULIN LANTUS 100 UNITS/ML 10 ML VIAL SUBQ SCH (08:42)
--- NOTE | 2018-10-06 08:42 | NUR ---
ADMINISTERED SCHEDULED MEDICATIONS. HELD ALL BP MEDICATIONS. DIALYSIS IN PROGRESS. VITALS STABLE. CALL LIGHT IN REACH. WILL CONTINUE TO MONITOR.
[2018-10-06] MEDS: cloNIDine 0.1 MG TAB PO SCH (09:00)
[2018-10-06] MEDS: amLODIPine 5 MG TAB PO SCH (09:00)
[2018-10-06] MEDS: ATENOLOL 50 MG TAB PO SCH (09:00)
[2018-10-06] MEDS ORDERED: LANTUS SUBQ (09:22)
--- NOTE | 2018-10-06 10:30 | NUR ---
PATIENT RESTING IN BED, RECEIVING DIALYSIS. NO SIGNS OF DISTRESS ON RA, VITALS STABLE. CALL LIGHT IN REACH. BIOLOGY LECTURER AT BEDSIDE.
[2018-10-06 11:20] VITALS: BP 136/71
[2018-10-06 12:00] VITALS: BP 136/71
--- NOTE | 2018-10-06 12:00 | NUR ---
DIALYSIS COMPLETE, VITALS STABLE. NO SINGS OF DISTRESS OR C/O PAIN. WILL PROCESS DISCHARGER ORDER. PATIENT WILL CALL FAMILY FOR TRANSPORTATION.
--- NOTE | 2018-10-06 12:58 | NUR ---
ADMINISTERED SCHEDULED PHOS-LO AND PRN HUMALOG FOR GLUCOSE OF 253. PATIENT ATE LUNCH. PATIENT REFUSED CATAPRES, STATING SHE WILL CHECK HER BP AT HOME AND TAKE IT IF NEEDED. PATIENT EAGER TO DISCHARGE AND DOES NOT WANT TO STAY FOR THE REASSESSMENT. CURRENT BP IS 136/71. VITALS ARE STABLE.
--- NOTE | 2018-10-06 13:15 | NUR ---
PATIENT DISCHARGED HOME TRANSPORTED IN PRIVATE VEHICLE BY . PATIENT AMBULATED WITH STEADY GAIT. PATIENT WAS PROVIDED AN ORTHOPEDIC BOOT FOR DIABETIC FOOT ULCER BUT WAS NOT WEARING IT AT DISCHARGER. EDUCATED PATIENT ON PURPOSE OF THE BOOT, PATIENT STATED SHE WOULD PUT IT ON LATER. EDUCATED PATIENT ON FOLLOW UP APPOINTMENTS WITH PCP AND PODIATRY, AND DIABETIC FOOT CARE, PATIENT VERBALIZED UNDERSTANDING. NO SIGNS OF DISTRESS ON RA. REMOVED 22 G IV CATHETER FROM RIGHT FOREARM, TIP INTACT. REMOVED WRIST BANDS AND ESCORTED PATIENT OUT OF HOSPITAL.
[2018-10-08 10:08] LABS: LD1 FRACTION 24 % (17-32); LD2 FRACTION 32 % (25-40); LD3 FRACTION 22 % (17-27); LD4 FRACTION 9 % (5-13); LD5 FRACTION 13 % (4-20)
== END 2018-10-06 13:15 | disposition home or self-care (01) | DRG 166 ==
LOC: MED 13:14 → MTU 16:03
PROVIDERS: ADMIT General Practice; ATTEND General Practice
PROC: 5A1D70Z Performance of Urinary Filtration, Intermittent, Less than 6 Hours Per Day (ICD-10-PCS; 2018-10-02)
PROC: 5A1D70Z Performance of Urinary Filtration, Intermittent, Less than 6 Hours Per Day (ICD-10-PCS; 2018-10-04)
PROC: 0W9G3ZZ Drainage of Peritoneal Cavity, Percutaneous Approach (ICD-10-PCS; 2018-10-04)
PROC: 0JBQ0ZZ Excision of Right Foot Subcutaneous Tissue and Fascia, Open Approach (ICD-10-PCS; principal; 2018-10-05)
PROC: 5A1D70Z Performance of Urinary Filtration, Intermittent, Less than 6 Hours Per Day (ICD-10-PCS; 2018-10-06)
DX: J96.01 Acute respiratory failure with hypoxia (principal); N17.0 Acute kidney failure with tubular necrosis; I50.43 Acute on chronic combined systolic (congestive) and diastolic (congestive) heart failure; N18.6 End stage renal disease; I13.2 Hypertensive heart and chronic kidney disease with heart failure and with stage 5 chronic kidney disease, or end stage renal disease; I42.0 Dilated cardiomyopathy; E87.0 Hyperosmolality and hypernatremia; R18.8 Other ascites; D68.59 Other primary thrombophilia; M94.0 Chondrocostal junction syndrome [Tietze]; D63.8 Anemia in other chronic diseases classified elsewhere; E87.8 Other disorders of electrolyte and fluid balance, not elsewhere classified; E11.22 Type 2 diabetes mellitus with diabetic chronic kidney disease; E11.21 Type 2 diabetes mellitus with diabetic nephropathy; E11.51 Type 2 diabetes mellitus with diabetic peripheral angiopathy without gangrene; I25.10 Atherosclerotic heart disease of native coronary artery without angina pectoris; M62.838 Other muscle spasm; E11.40 Type 2 diabetes mellitus with diabetic neuropathy, unspecified; I50.9 Heart failure, unspecified; E78.00 Pure hypercholesterolemia, unspecified; L89.152 Pressure ulcer of sacral region, stage 2; E83.39 Other disorders of phosphorus metabolism; Z96.641 Presence of right artificial hip joint; Z99.2 Dependence on renal dialysis; Z90.49 Acquired absence of other specified parts of digestive tract; Z79.899 Other long term (current) drug therapy; Z79.82 Long term (current) use of aspirin; Z83.3 Family history of diabetes mellitus; Z82.49 Family history of ischemic heart disease and other diseases of the circulatory system
CPT/HCPCS: 36415; 36600; 49083; 71045; 73630; 76705; 80048; 80053; 82009; 82040; 82150; 82803; 82945; 82948; 83036; 83605; 83615; 83625; 83690; 83735; 83880; 84100; 84439; 84443; 84484; 84550; 85025; 85610; 85730; 87070; 87075; 87081; 87186; 87205; 90935; 93005; 93925; 93970; 94640; 96374; 96375; 99285; J1815; J2001; J2405; J2930; J7030; J7613; J7620; Q0092

== ENCOUNTER 2018-12-24 11:54 | Inpatient (IN) | payer MEDICAID, OTHER ==
[~2018-12-24] VITALS: Ht 152.4 cm; Wt 63.5 kg
[~2018-12-24 11:54] MED LIST changes: -INSU100S22 SUBQ; +LANTUS SUBQ; -MELA5SGL PO; -ONDA8TAB PO
[2018-12-24 11:57] VITALS: BP 157/53
[2018-12-24] MEDS ORDERED: ACETAMINOPHEN EXTRA STRENGTH 500 MG TAB PO ONE (12:25)
[2018-12-24] MEDS ORDERED: VANCOMYCIN 1,000 MG in DEXTROSE 5% 250 ML IV ONE (12:40)
[2018-12-24] MEDS ORDERED: PIPERACILLIN/TAZOBACTAM 2.25 GM in DEXTROSE 5% 50 ML IV ONE (12:40)
[2018-12-24] MEDS ORDERED: PIPERACILLIN/TAZOBACTAM 2.25 GM VIAL IV ONE (12:46)
[2018-12-24] MEDS ORDERED: VANCOMYCIN 1,000 MG VIAL ONE (12:47)
[2018-12-24 12:56] LABS: ANION GAP 18.7 (8-16); CARBON DIOXIDE 26.9 mmol/L (21-32); POTASSIUM 3.6 mmol/L (3.5-5.1); PROTHROMBIN TIME 11.1 secs (10.8-13.4)
[2018-12-24 13:02] LABS: ALBUMIN 3.6 g/dL (3.4-5.0); TOTAL BILIRUBIN 0.9 mg/dL (0.0-1.0)
[2018-12-24] MEDS: NACL 0.9% 1,000 ML IV SCH (13:26)
[2018-12-24] MEDS ORDERED: DOCUSATE SODIUM 100 MG GELCAP PO PRN (13:30)
[2018-12-24 13:34] LABS: BASOPHILS % (AUTO) 0.2 % (0.0-2.0); EOSINOPHILS % (AUTO) 0.3 % (0.0-4.0); HEMATOCRIT 35.2 % (36-48); HEMOGLOBIN 11.6 g/dL (12.0-16.0); LYMPHOCYTES # (AUTO) 0.4 K/uL (2.5-16.5); LYMPHOCYTES % (AUTO) 3.5 % (20.5-51.1); MEAN CORPUSCULAR HEMOGLOBIN 31 pg (27-31); MEAN CORPUSCULAR HGB CONC 33 g/dL (33-37); MEAN CORPUSCULAR VOLUME 95.7 fL (80-94); MONOCYTES # (AUTO) 0.1 K/uL (0.8-1.0); MONOCYTES % (AUTO) 1.4 % (1.7-9.3); NEUTROPHILS # (AUTO) 9.6 K/uL (1.8-7.7); NEUTROPHILS % (AUTO) 94.6 % (42.2-75.2); PLATELET COUNT (AUTO) 243 K/uL (140-450); RED BLOOD CELL COUNT(AUTO) 3.68 MIL/uL (4.20-5.40); RED CELL DISTRIBUTION WIDTH 14.2 % (11.6-13.7); WHITE BLOOD COUNT (AUTO) 10.2 K/uL (4.8-10.8)
[2018-12-24] MEDS ORDERED: VANCOMYCIN PER PHARMACY MC PRN (13:50)
[2018-12-24] MEDS ORDERED: DEXTROSE 50% 50 ML SYR IVP PRN (14:40)
[2018-12-24] MEDS ORDERED: tiZANidine 4 MG TAB PO PRN (14:40)
[2018-12-24] MEDS ORDERED: fentaNYL 0.05 MG/ML VIAL IVP SCH (14:43)
[2018-12-24 15:17] LABS: MAGNESIUM 1.9 mg/dL (1.8-2.4); PHOSPHORUS 4.3 mg/dL (2.5-4.9); THYROID STIMULATING HORMONE 4.08 uIU/mL (0.34-3.74)
[2018-12-24] MEDS ORDERED: SKINTEGRITY HYDROGEL TP SCH (15:53)
[2018-12-24] MEDS ORDERED: THERAHONEY GEL 42.5 GM TP SCH (15:53)
[2018-12-24 16:00] VITALS: BP 125/67
[2018-12-24] MEDS: BLOOD GLUCOSE MONITORING 1 DEV DEV FS SCH ×2 (16:49→21:00)
[2018-12-24] MEDS: cloNIDine 0.1 MG TAB PO SCH (17:06)
[2018-12-24] MEDS: INSULIN LISPRO SLIDING SCALE 100 UNITS/ML VIAL SUBQ PRN ×2 (17:06→22:10)
[2018-12-24 20:00] VITALS: BP 120/56
[2018-12-24] MEDS: HYDROcodone/APAP 5/325 MG 1 TAB TAB PO PRN (22:18)
[2018-12-24] MEDS: GABAPENTIN 100 MG CAP PO SCH (22:19)
[2018-12-24] MEDS: PIPERACILLIN/TAZOBACTAM 2.25 GM in DEXTROSE 5% 50 ML IV SCH (22:28)
[2018-12-25] VITALS (7 sets, daily range): BP systolic 106–135; BP diastolic 44–61
[2018-12-25] MEDS: ACETAMINOPHEN 325 MG TAB PO PRN ×3 (01:17→20:43)
[2018-12-25] MEDS: BLOOD GLUCOSE MONITORING 1 DEV DEV FS SCH ×4 (06:34→21:00)
[2018-12-25] MEDS: INSULIN LISPRO SLIDING SCALE 100 UNITS/ML VIAL SUBQ PRN ×3 (06:39→21:01)
[2018-12-25 07:31] LABS: BASOPHILS # (AUTO) 0.1 K/uL (0.00-0.22); BASOPHILS % (AUTO) 0.8 % (0.0-2.0); EOSINOPHILS # (AUTO) 0.1 K/uL (0-0.4); EOSINOPHILS % (AUTO) 1.4 % (0.0-4.0); HEMATOCRIT 30.5 % (36-48); HEMOGLOBIN 9.9 g/dL (12.0-16.0); LYMPHOCYTES # (AUTO) 1.2 K/uL (2.5-16.5); LYMPHOCYTES % (AUTO) 12.3 % (20.5-51.1); MEAN CORPUSCULAR HEMOGLOBIN 31 pg (27-31); MEAN CORPUSCULAR HGB CONC 32 g/dL (33-37); MEAN CORPUSCULAR VOLUME 96.7 fL (80-94); MONOCYTES # (AUTO) 0.5 K/uL (0.8-1.0); MONOCYTES % (AUTO) 5.2 % (1.7-9.3); NEUTROPHILS # (AUTO) 7.8 K/uL (1.8-7.7); NEUTROPHILS % (AUTO) 80.3 % (42.2-75.2); PLATELET COUNT (AUTO) 223 K/uL (140-450); RED BLOOD CELL COUNT(AUTO) 3.16 MIL/uL (4.20-5.40); RED CELL DISTRIBUTION WIDTH 14.1 % (11.6-13.7); WHITE BLOOD COUNT (AUTO) 9.8 K/uL (4.8-10.8)
[2018-12-25 07:59] LABS: ANION GAP 15.3 (8-16); CARBON DIOXIDE 26.5 mmol/L (21-32); POTASSIUM 3.8 mmol/L (3.5-5.1)
[2018-12-25 08:04] LABS: MAGNESIUM 2.1 mg/dL (1.8-2.4); PHOSPHORUS 6.2 mg/dL (2.5-4.9)
[2018-12-25 08:07] LABS: CHOL/HDL RATIO 4.7 (1-4.5)
[2018-12-25] MEDS: INSULIN LANTUS 100 UNITS/ML 10 ML VIAL SUBQ SCH (10:59)
[2018-12-25] MEDS: PIPERACILLIN/TAZOBACTAM 2.25 GM in DEXTROSE 5% 50 ML IV SCH ×2 (10:59→20:45)
[2018-12-25] MEDS: ATENOLOL 50 MG TAB PO SCH (11:00)
[2018-12-25] MEDS: GABAPENTIN 100 MG CAP PO SCH ×2 (11:00→20:43)
[2018-12-25] MEDS: LACTOBACILLUS RHAMNOSUS GG 1 EACH CAP PO SCH (11:00)
[2018-12-25] MEDS: ECOTRIN 81 MG TABEC PO SCH (11:00)
[2018-12-25] MEDS: ATORVASTATIN 20 MG TAB PO SCH (11:00)
[2018-12-25] MEDS: amLODIPine 5 MG TAB PO SCH (11:01)
[2018-12-25] MEDS: cloNIDine 0.1 MG TAB PO SCH ×3 (11:01→17:00)
[2018-12-25] MEDS: HYDROcodone/APAP 5/325 MG 1 TAB TAB PO PRN ×2 (11:15→18:49)
[2018-12-25] MEDS: NACL 0.9% 1,000 ML IV SCH (13:26)
[2018-12-25] MEDS: CALCIUM ACETATE 667 MG TAB PO SCH (17:52)
[2018-12-25] MEDS: ONDANSETRON 4 MG/2 ML VIAL IM/IVP PRN (18:52)
[2018-12-26] VITALS: BP 121/56
[2018-12-26] MEDS ORDERED: MELATONIN 3 MG TAB PO SCH (00:50)
[2018-12-26 04:00] VITALS: BP 111/47
[2018-12-26] MEDS: HYDROcodone/APAP 5/325 MG 1 TAB TAB PO PRN ×3 (05:09→21:35)
[2018-12-26] MEDS: ONDANSETRON 4 MG/2 ML VIAL IM/IVP PRN ×2 (05:11→08:28)
[2018-12-26] MEDS: BLOOD GLUCOSE MONITORING 1 DEV DEV FS SCH ×4 (06:32→22:42)
[2018-12-26] MEDS: INSULIN LISPRO SLIDING SCALE 100 UNITS/ML VIAL SUBQ PRN ×3 (06:34→17:43)
[2018-12-26 07:17] LABS: BASOPHILS % (AUTO) 0.4 % (0.0-2.0); EOSINOPHILS # (AUTO) 0.3 K/uL (0-0.4); EOSINOPHILS % (AUTO) 3.1 % (0.0-4.0); HEMATOCRIT 29.5 % (36-48); HEMOGLOBIN 9.5 g/dL (12.0-16.0); LYMPHOCYTES # (AUTO) 0.9 K/uL (2.5-16.5); LYMPHOCYTES % (AUTO) 11.5 % (20.5-51.1); MEAN CORPUSCULAR HEMOGLOBIN 31 pg (27-31); MEAN CORPUSCULAR HGB CONC 32 g/dL (33-37); MEAN CORPUSCULAR VOLUME 96.3 fL (80-94); MONOCYTES # (AUTO) 0.4 K/uL (0.8-1.0); MONOCYTES % (AUTO) 4.6 % (1.7-9.3); NEUTROPHILS # (AUTO) 6.6 K/uL (1.8-7.7); NEUTROPHILS % (AUTO) 80.4 % (42.2-75.2); PLATELET COUNT (AUTO) 238 K/uL (140-450); RED BLOOD CELL COUNT(AUTO) 3.06 MIL/uL (4.20-5.40); RED CELL DISTRIBUTION WIDTH 14.2 % (11.6-13.7); WHITE BLOOD COUNT (AUTO) 8.2 K/uL (4.8-10.8)
[2018-12-26 08:00] VITALS: BP 124/60
[2018-12-26 08:02] LABS: ANION GAP 20.2 (8-16); CARBON DIOXIDE 24.2 mmol/L (21-32); POTASSIUM 4.4 mmol/L (3.5-5.1)
[2018-12-26] MEDS: amLODIPine 5 MG TAB PO SCH (08:17)
[2018-12-26] MEDS: GABAPENTIN 100 MG CAP PO SCH ×2 (08:18→22:21)
[2018-12-26] MEDS: CALCIUM ACETATE 667 MG TAB PO SCH ×2 (08:18→17:40)
[2018-12-26] MEDS: ATORVASTATIN 20 MG TAB PO SCH (08:18)
[2018-12-26] MEDS: cloNIDine 0.1 MG TAB PO SCH ×3 (08:19→17:00)
[2018-12-26] MEDS: ECOTRIN 81 MG TABEC PO SCH (08:19)
[2018-12-26] MEDS: LACTOBACILLUS RHAMNOSUS GG 1 EACH CAP PO SCH (08:19)
[2018-12-26] MEDS: ATENOLOL 50 MG TAB PO SCH (08:20)
[2018-12-26] MEDS: INSULIN LANTUS 100 UNITS/ML 10 ML VIAL SUBQ SCH (08:23)
[2018-12-26] MEDS: PIPERACILLIN/TAZOBACTAM 2.25 GM in DEXTROSE 5% 50 ML IV SCH ×2 (08:25→22:21)
[2018-12-26] MEDS: SKINTEGRITY HYDROGEL TP SCH (08:25)
[2018-12-26] MEDS: THERAHONEY GEL 42.5 GM TP SCH (08:26)
[2018-12-26 08:31] LABS: MAGNESIUM 2.4 mg/dL (1.8-2.4); PHOSPHORUS 7.5 mg/dL (2.5-4.9)
[2018-12-26 08:35] LABS: CREATININE 8.4 mg/dL (0.6-1.3)
[2018-12-26 12:00] VITALS: BP 105/76
[2018-12-26] MEDS: NACL 0.9% 1,000 ML IV SCH (13:26)
[2018-12-26] MEDS ORDERED: HYDROGEN PEROXIDE 3% 240 ML BTL TP SCH (15:30)
[2018-12-26 16:00] VITALS: BP 100/58
[2018-12-26 20:00] VITALS: BP 121/60
[2018-12-26] MEDS: ASCORBIC ACID 500 MG TAB PO SCH (22:22)
[2018-12-27] VITALS: BP 127/57
[2018-12-27 04:00] VITALS: BP 116/60
[2018-12-27] MEDS: MORPHINE SULFATE 2 MG/ML SYR IVP PRN ×4 (04:22→23:56)
[2018-12-27] MEDS ORDERED: LOPERAMIDE 2 MG CAP PO ONE (04:25)
[2018-12-27] MEDS: BLOOD GLUCOSE MONITORING 1 DEV DEV FS SCH ×4 (06:17→19:56)
[2018-12-27] MEDS: ACETAMINOPHEN 325 MG TAB PO PRN (06:17)
[2018-12-27] MEDS: INSULIN LISPRO SLIDING SCALE 100 UNITS/ML VIAL SUBQ PRN ×3 (06:20→20:01)
[2018-12-27 08:00] VITALS: BP 124/62
[2018-12-27] MEDS: CALCIUM ACETATE 667 MG TAB PO SCH ×3 (08:00→16:34)
[2018-12-27] MEDS: cloNIDine 0.1 MG TAB PO SCH ×3 (08:55→16:36)
[2018-12-27] MEDS: LACTOBACILLUS RHAMNOSUS GG 1 EACH CAP PO SCH (08:56)
[2018-12-27] MEDS: GABAPENTIN 100 MG CAP PO SCH ×2 (08:57→21:17)
[2018-12-27] MEDS: ATORVASTATIN 20 MG TAB PO SCH (08:57)
[2018-12-27] MEDS: ATENOLOL 50 MG TAB PO SCH (08:57)
[2018-12-27] MEDS: amLODIPine 5 MG TAB PO SCH (08:57)
[2018-12-27] MEDS: ASCORBIC ACID 500 MG TAB PO SCH ×2 (08:58→21:17)
[2018-12-27] MEDS: HYDROcodone/APAP 5/325 MG 1 TAB TAB PO PRN ×2 (08:59→16:34)
[2018-12-27] MEDS: INSULIN LANTUS 100 UNITS/ML 10 ML VIAL SUBQ SCH (09:03)
[2018-12-27 09:17] LABS: BASOPHILS % (AUTO) 0.5 % (0.0-2.0); EOSINOPHILS # (AUTO) 0.3 K/uL (0-0.4); HEMOGLOBIN 10.1 g/dL (12.0-16.0); LYMPHOCYTES # (AUTO) 1.2 K/uL (2.5-16.5); LYMPHOCYTES % (AUTO) 15.8 % (20.5-51.1); MEAN CORPUSCULAR HEMOGLOBIN 31 pg (27-31); MEAN CORPUSCULAR HGB CONC 32 g/dL (33-37); MONOCYTES # (AUTO) 0.3 K/uL (0.8-1.0); MONOCYTES % (AUTO) 4.4 % (1.7-9.3); NEUTROPHILS # (AUTO) 5.8 K/uL (1.8-7.7); NEUTROPHILS % (AUTO) 75.3 % (42.2-75.2); PLATELET COUNT (AUTO) 277 K/uL (140-450); RED CELL DISTRIBUTION WIDTH 14.3 % (11.6-13.7); WHITE BLOOD COUNT (AUTO) 7.7 K/uL (4.8-10.8)
[2018-12-27 12:00] VITALS: BP 155/63
[2018-12-27] MEDS: PIPERACILLIN/TAZOBACTAM 2.25 GM in DEXTROSE 5% 50 ML IV SCH ×2 (12:15→21:17)
[2018-12-27] MEDS: NACL 0.9% 1,000 ML IV SCH (12:28)
[2018-12-27] MEDS ORDERED: VANCOMYCIN 750 MG in DEXTROSE 5% 250 ML IV SCH (15:00)
[2018-12-27 15:56] LABS: ANION GAP 27.6 (8-16); CARBON DIOXIDE 20.2 mmol/L (21-32); POTASSIUM 4.8 mmol/L (3.5-5.1)
[2018-12-27 16:00] VITALS: BP 147/65
[2018-12-27] MEDS: EPOETIN ALFA 10,000 UNITS/ML VIAL SUBQ SCH (19:51)
[2018-12-27 20:00] VITALS: BP 136/65
[2018-12-28] VITALS: BP 129/61
[2018-12-28] MEDS: ACETAMINOPHEN 325 MG TAB PO PRN (03:05)
[2018-12-28 04:00] VITALS: BP 131/68
[2018-12-28] MEDS: BLOOD GLUCOSE MONITORING 1 DEV DEV FS SCH ×4 (05:50→21:13)
[2018-12-28] MEDS: INSULIN LISPRO SLIDING SCALE 100 UNITS/ML VIAL SUBQ PRN ×2 (05:51→17:58)
[2018-12-28] MEDS ORDERED: BUPIVACAINE-MPF 0.5% 30 ML VIAL INJ ONE (07:18)
[2018-12-28] MEDS ORDERED: LIDOCAINE 1% 500 MG/50 ML VIAL ONE (07:18)
[2018-12-28 07:38] LABS: BASOPHILS % (AUTO) 0.7 % (0.0-2.0); EOSINOPHILS # (AUTO) 0.2 K/uL (0-0.4); EOSINOPHILS % (AUTO) 3.6 % (0.0-4.0); HEMATOCRIT 33.4 % (36-48); HEMOGLOBIN 10.7 g/dL (12.0-16.0); LYMPHOCYTES # (AUTO) 0.8 K/uL (2.5-16.5); LYMPHOCYTES % (AUTO) 17.5 % (20.5-51.1); MEAN CORPUSCULAR HEMOGLOBIN 31 pg (27-31); MEAN CORPUSCULAR HGB CONC 32 g/dL (33-37); MEAN CORPUSCULAR VOLUME 96.8 fL (80-94); MONOCYTES # (AUTO) 0.3 K/uL (0.8-1.0); MONOCYTES % (AUTO) 6.5 % (1.7-9.3); NEUTROPHILS # (AUTO) 3.5 K/uL (1.8-7.7); NEUTROPHILS % (AUTO) 71.7 % (42.2-75.2); PLATELET COUNT (AUTO) 293 K/uL (140-450); RED BLOOD CELL COUNT(AUTO) 3.45 MIL/uL (4.20-5.40); RED CELL DISTRIBUTION WIDTH 14.2 % (11.6-13.7); WHITE BLOOD COUNT (AUTO) 4.8 K/uL (4.8-10.8)
[2018-12-28] MEDS ORDERED: fentaNYL 0.05 MG/ML VIAL ONE (07:55)
[2018-12-28 08:00] VITALS: BP 138/53
[2018-12-28] MEDS ORDERED: PROPOFOL 200 MG/20 ML VIAL IV ONE (08:09)
[2018-12-28 08:15] LABS: ALBUMIN 2.9 g/dL (3.4-5.0); ANION GAP 16.6 (8-16); CARBON DIOXIDE 28.5 mmol/L (21-32); MAGNESIUM 2.1 mg/dL (1.8-2.4); PHOSPHORUS 5.4 mg/dL (2.5-4.9); POTASSIUM 4.1 mmol/L (3.5-5.1); TOTAL BILIRUBIN 0.4 mg/dL (0.0-1.0)
[2018-12-28 08:18] LABS: CREATININE 6.4 mg/dL (0.6-1.3)
[2018-12-28] MEDS ORDERED: HYDROmorphone 1 MG/ML AMP IVP PRN (08:35)
[2018-12-28] MEDS ORDERED: ONDANSETRON 4 MG/2 ML VIAL IVP PRN (08:35)
[2018-12-28] MEDS ORDERED: BLOOD GLUCOSE MONITORING 1 DEV DEV FS ONE (08:35)
[2018-12-28] MEDS: SKINTEGRITY HYDROGEL TP SCH (09:00)
[2018-12-28] MEDS: THERAHONEY GEL 42.5 GM TP SCH (09:00)
[2018-12-28] MEDS: ATENOLOL 50 MG TAB PO SCH (10:22)
[2018-12-28] MEDS: LACTOBACILLUS RHAMNOSUS GG 1 EACH CAP PO SCH (10:23)
[2018-12-28] MEDS: amLODIPine 5 MG TAB PO SCH (10:23)
[2018-12-28] MEDS: ATORVASTATIN 20 MG TAB PO SCH (10:23)
[2018-12-28] MEDS: ASCORBIC ACID 500 MG TAB PO SCH ×2 (10:23→21:13)
[2018-12-28] MEDS: GABAPENTIN 100 MG CAP PO SCH ×2 (10:23→21:13)
[2018-12-28] MEDS: CALCIUM ACETATE 667 MG TAB PO SCH ×3 (10:24→17:53)
[2018-12-28] MEDS: cloNIDine 0.1 MG TAB PO SCH ×3 (10:24→17:00)
[2018-12-28] MEDS: PIPERACILLIN/TAZOBACTAM 2.25 GM in DEXTROSE 5% 50 ML IV SCH ×2 (10:32→21:22)
[2018-12-28] MEDS: INSULIN LANTUS 100 UNITS/ML 10 ML VIAL SUBQ SCH (10:40)
[2018-12-28 12:00] VITALS: BP 142/60
[2018-12-28] MEDS: NACL 0.9% 1,000 ML IV SCH (12:28)
[2018-12-28] MEDS: MORPHINE SULFATE 2 MG/ML SYR IVP PRN (15:38)
[2018-12-28 16:00] VITALS: BP 124/55
[2018-12-28 20:00] VITALS: BP 121/42
[2018-12-28] MEDS ORDERED: PIPERACILLIN/TAZOBACTAM 2.25 GM VIAL IV ONE (21:19)
[2018-12-29] VITALS: BP 133/51
[2018-12-29 04:00] VITALS: BP 142/60
[2018-12-29] MEDS: BLOOD GLUCOSE MONITORING 1 DEV DEV FS SCH ×4 (05:50→21:01)
[2018-12-29] MEDS: INSULIN LISPRO SLIDING SCALE 100 UNITS/ML VIAL SUBQ PRN ×4 (05:51→21:27)
[2018-12-29 08:00] VITALS: BP 136/61
[2018-12-29] MEDS: ATENOLOL 50 MG TAB PO SCH (09:00)
[2018-12-29] MEDS: cloNIDine 0.1 MG TAB PO SCH ×3 (09:00→16:25)
[2018-12-29] MEDS: amLODIPine 5 MG TAB PO SCH (09:00)
[2018-12-29 09:02] LABS: BASOPHILS % (AUTO) 0.6 % (0.0-2.0); EOSINOPHILS # (AUTO) 0.2 K/uL (0-0.4); EOSINOPHILS % (AUTO) 3.9 % (0.0-4.0); HEMATOCRIT 29.8 % (36-48); HEMOGLOBIN 9.4 g/dL (12.0-16.0); LYMPHOCYTES # (AUTO) 1.1 K/uL (2.5-16.5); LYMPHOCYTES % (AUTO) 19.8 % (20.5-51.1); MEAN CORPUSCULAR HEMOGLOBIN 31 pg (27-31); MEAN CORPUSCULAR HGB CONC 32 g/dL (33-37); MEAN CORPUSCULAR VOLUME 96.7 fL (80-94); MONOCYTES # (AUTO) 0.4 K/uL (0.8-1.0); MONOCYTES % (AUTO) 7.3 % (1.7-9.3); NEUTROPHILS # (AUTO) 3.8 K/uL (1.8-7.7); NEUTROPHILS % (AUTO) 68.4 % (42.2-75.2); PLATELET COUNT (AUTO) 256 K/uL (140-450); RED BLOOD CELL COUNT(AUTO) 3.08 MIL/uL (4.20-5.40); RED CELL DISTRIBUTION WIDTH 14.3 % (11.6-13.7); WHITE BLOOD COUNT (AUTO) 5.6 K/uL (4.8-10.8)
[2018-12-29] MEDS ORDERED: VANCOMYCIN PER PHARMACY MC PRN (09:05)
[2018-12-29 09:19] LABS: PROTHROMBIN TIME 10.4 secs (10.8-13.4)
[2018-12-29 09:24] LABS: MAGNESIUM 1.9 mg/dL (1.8-2.4); PHOSPHORUS 3.7 mg/dL (2.5-4.9)
[2018-12-29 09:28] LABS: CREATININE 5.2 mg/dL (0.6-1.3)
[2018-12-29] MEDS: ASCORBIC ACID 500 MG TAB PO SCH ×2 (09:42→21:03)
[2018-12-29] MEDS: GABAPENTIN 100 MG CAP PO SCH ×2 (09:42→21:02)
[2018-12-29] MEDS: CALCIUM ACETATE 667 MG TAB PO SCH ×3 (09:43→16:21)
[2018-12-29] MEDS: ATORVASTATIN 20 MG TAB PO SCH (09:43)
[2018-12-29] MEDS: LACTOBACILLUS RHAMNOSUS GG 1 EACH CAP PO SCH (09:43)
[2018-12-29] MEDS: INSULIN LANTUS 100 UNITS/ML 10 ML VIAL SUBQ SCH (09:55)
[2018-12-29] MEDS: PIPERACILLIN/TAZOBACTAM 2.25 GM in DEXTROSE 5% 50 ML IV SCH ×2 (10:53→21:19)
[2018-12-29] MEDS: NACL 0.9% 1,000 ML IV SCH (12:34)
[2018-12-29] MEDS: MORPHINE SULFATE 2 MG/ML SYR IVP PRN (12:36)
[2018-12-29 16:00] VITALS: BP 107/65
[2018-12-29] MEDS: EPOETIN ALFA 10,000 UNITS/ML VIAL SUBQ SCH (21:05)
[2018-12-30 04:00] VITALS: BP 110/60
[2018-12-30] MEDS: BLOOD GLUCOSE MONITORING 1 DEV DEV FS SCH ×4 (06:48→20:54)
[2018-12-30] MEDS: INSULIN LISPRO SLIDING SCALE 100 UNITS/ML VIAL SUBQ PRN ×3 (06:52→17:19)
[2018-12-30 08:00] VITALS: BP 174/62
[2018-12-30] MEDS: CALCIUM ACETATE 667 MG TAB PO SCH ×3 (08:17→17:20)
[2018-12-30] MEDS: amLODIPine 5 MG TAB PO SCH (08:18)
[2018-12-30] MEDS: ASCORBIC ACID 500 MG TAB PO SCH (08:18)
[2018-12-30] MEDS: ATORVASTATIN 20 MG TAB PO SCH (08:18)
[2018-12-30] MEDS: GABAPENTIN 100 MG CAP PO SCH ×2 (08:18→20:40)
[2018-12-30] MEDS: LACTOBACILLUS RHAMNOSUS GG 1 EACH CAP PO SCH (08:18)
[2018-12-30] MEDS: ATENOLOL 50 MG TAB PO SCH (08:19)
[2018-12-30] MEDS: PIPERACILLIN/TAZOBACTAM 2.25 GM in DEXTROSE 5% 50 ML IV SCH ×2 (08:20→20:40)
[2018-12-30] MEDS: cloNIDine 0.1 MG TAB PO SCH ×3 (08:20→17:21)
[2018-12-30] MEDS: INSULIN LANTUS 100 UNITS/ML 10 ML VIAL SUBQ SCH (08:23)
[2018-12-30 09:21] LABS: BASOPHILS % (AUTO) 0.6 % (0.0-2.0); EOSINOPHILS # (AUTO) 0.3 K/uL (0-0.4); EOSINOPHILS % (AUTO) 5.7 % (0.0-4.0); HEMATOCRIT 32.4 % (36-48); HEMOGLOBIN 10.4 g/dL (12.0-16.0); LYMPHOCYTES # (AUTO) 1.3 K/uL (2.5-16.5); LYMPHOCYTES % (AUTO) 22.4 % (20.5-51.1); MEAN CORPUSCULAR HEMOGLOBIN 31 pg (27-31); MEAN CORPUSCULAR HGB CONC 32 g/dL (33-37); MEAN CORPUSCULAR VOLUME 97.2 fL (80-94); MONOCYTES # (AUTO) 0.3 K/uL (0.8-1.0); MONOCYTES % (AUTO) 4.6 % (1.7-9.3); NEUTROPHILS % (AUTO) 66.7 % (42.2-75.2); PLATELET COUNT (AUTO) 341 K/uL (140-450); RED BLOOD CELL COUNT(AUTO) 3.33 MIL/uL (4.20-5.40); RED CELL DISTRIBUTION WIDTH 14.3 % (11.6-13.7)
[2018-12-30 09:57] LABS: PROTHROMBIN TIME 10.4 secs (10.8-13.4)
[2018-12-30] MEDS ORDERED: VANCOMYCIN 750 MG in DEXTROSE 5% 250 ML IV SCH (10:00)
[2018-12-30 11:48] LABS: ANION GAP 16.8 (8-16); CARBON DIOXIDE 26.7 mmol/L (21-32); POTASSIUM 4.5 mmol/L (3.5-5.1)
[2018-12-30 11:50] LABS: CREATININE 6.4 mg/dL (0.6-1.3)
[2018-12-30 13:19] LABS: MAGNESIUM 2.1 mg/dL (1.8-2.4); PHOSPHORUS 4.6 mg/dL (2.5-4.9)
[2018-12-30] MEDS: NACL 0.9% 1,000 ML IV SCH (13:26)
[2018-12-30 16:00] VITALS: BP 167/72
[2018-12-31] VITALS: BP 155/64
[2018-12-31] MEDS: BLOOD GLUCOSE MONITORING 1 DEV DEV FS SCH ×2 (06:13→11:51)
[2018-12-31] MEDS: INSULIN LISPRO SLIDING SCALE 100 UNITS/ML VIAL SUBQ PRN (06:14)
[2018-12-31 08:25] VITALS: BP 167/66
[2018-12-31] MEDS: GABAPENTIN 100 MG CAP PO SCH (08:51)
[2018-12-31] MEDS: ATORVASTATIN 20 MG TAB PO SCH (08:52)
[2018-12-31] MEDS: CALCIUM ACETATE 667 MG TAB PO SCH ×2 (08:52→12:09)
[2018-12-31] MEDS: LACTOBACILLUS RHAMNOSUS GG 1 EACH CAP PO SCH (08:52)
[2018-12-31] MEDS: ATENOLOL 50 MG TAB PO SCH (09:00)
[2018-12-31] MEDS ORDERED: ASCORBIC ACID 500 MG TAB PO SCH (09:00)
[2018-12-31] MEDS: amLODIPine 5 MG TAB PO SCH (09:00)
[2018-12-31] MEDS: cloNIDine 0.1 MG TAB PO SCH (09:00)
[2018-12-31] MEDS: INSULIN LANTUS 100 UNITS/ML 10 ML VIAL SUBQ SCH (09:15)
[2018-12-31] MEDS ORDERED: LIDOCAINE JELLY 2% 30 ML TUBE TP SCH (09:30)
[2018-12-31] MEDS ORDERED: LIDOCAINE 2% 100 MG/5 ML UJET TP SCH (09:30)
[2018-12-31] MEDS ORDERED: LACT-81 PO (10:21)
[2018-12-31] MEDS ORDERED: CLIN300C2 PO (10:21)
[2018-12-31] MEDS ORDERED: CIPR500T4 PO (10:21)
[2018-12-31 10:29] LABS: BASOPHILS # (AUTO) 0.1 K/uL (0.00-0.22); BASOPHILS % (AUTO) 1.2 % (0.0-2.0); EOSINOPHILS # (AUTO) 0.3 K/uL (0-0.4); EOSINOPHILS % (AUTO) 4.9 % (0.0-4.0); HEMATOCRIT 28.8 % (36-48); HEMOGLOBIN 9.3 g/dL (12.0-16.0); LYMPHOCYTES # (AUTO) 1.2 K/uL (2.5-16.5); LYMPHOCYTES % (AUTO) 21.9 % (20.5-51.1); MEAN CORPUSCULAR HEMOGLOBIN 31 pg (27-31); MEAN CORPUSCULAR HGB CONC 32 g/dL (33-37); MEAN CORPUSCULAR VOLUME 96.3 fL (80-94); MONOCYTES # (AUTO) 0.2 K/uL (0.8-1.0); MONOCYTES % (AUTO) 3.8 % (1.7-9.3); NEUTROPHILS # (AUTO) 3.7 K/uL (1.8-7.7); NEUTROPHILS % (AUTO) 68.2 % (42.2-75.2); PLATELET COUNT (AUTO) 329 K/uL (140-450); RED BLOOD CELL COUNT(AUTO) 2.99 MIL/uL (4.20-5.40); RED CELL DISTRIBUTION WIDTH 14.3 % (11.6-13.7); WHITE BLOOD COUNT (AUTO) 5.5 K/uL (4.8-10.8)
[2018-12-31 10:42] LABS: ANION GAP 18.4 (8-16); CARBON DIOXIDE 25.4 mmol/L (21-32); POTASSIUM 4.8 mmol/L (3.5-5.1)
[2018-12-31 10:47] LABS: MAGNESIUM 2.1 mg/dL (1.8-2.4); PHOSPHORUS 4.6 mg/dL (2.5-4.9)
[2018-12-31 12:01] LABS: CREATININE 7.3 mg/dL (0.6-1.3)
[2018-12-31] MEDS: PIPERACILLIN/TAZOBACTAM 2.25 GM in DEXTROSE 5% 50 ML IV SCH (12:09)
[2018-12-31 12:55] VITALS: BP 167/66
== END 2018-12-31 13:55 | disposition home health service (06) | DRG 853 ==
LOC: MED 11:54 → MTU 13:49
PROVIDERS: ADMIT General Practice; ATTEND General Practice
PROC: 0JBR0ZZ Excision of Left Foot Subcutaneous Tissue and Fascia, Open Approach (ICD-10-PCS; principal; 2018-12-24)
PROC: 0JBQ0ZZ Excision of Right Foot Subcutaneous Tissue and Fascia, Open Approach (ICD-10-PCS; 2018-12-24)
PROC: 5A1D70Z Performance of Urinary Filtration, Intermittent, Less than 6 Hours Per Day (ICD-10-PCS; 2018-12-27)
PROC: 0QBR0ZZ Excision of Left Toe Phalanx, Open Approach (ICD-10-PCS; 2018-12-28)
PROC: 5A1D70Z Performance of Urinary Filtration, Intermittent, Less than 6 Hours Per Day (ICD-10-PCS; 2018-12-29)
PROC: 5A1D70Z Performance of Urinary Filtration, Intermittent, Less than 6 Hours Per Day (ICD-10-PCS; 2018-12-31)
DX: A41.9 Sepsis, unspecified organism (principal); N17.0 Acute kidney failure with tubular necrosis; N18.6 End stage renal disease; M86.8X7 Other osteomyelitis, ankle and foot; E87.1 Hypo-osmolality and hyponatremia; I13.2 Hypertensive heart and chronic kidney disease with heart failure and with stage 5 chronic kidney disease, or end stage renal disease; L03.116 Cellulitis of left lower limb; E11.621 Type 2 diabetes mellitus with foot ulcer; L97.529 Non-pressure chronic ulcer of other part of left foot with unspecified severity; E11.22 Type 2 diabetes mellitus with diabetic chronic kidney disease; E78.00 Pure hypercholesterolemia, unspecified; E83.39 Other disorders of phosphorus metabolism; I25.10 Atherosclerotic heart disease of native coronary artery without angina pectoris; L97.519 Non-pressure chronic ulcer of other part of right foot with unspecified severity; D63.1 Anemia in chronic kidney disease; E87.8 Other disorders of electrolyte and fluid balance, not elsewhere classified; E11.40 Type 2 diabetes mellitus with diabetic neuropathy, unspecified; L84 Corns and callosities; E11.51 Type 2 diabetes mellitus with diabetic peripheral angiopathy without gangrene; I87.2 Venous insufficiency (chronic) (peripheral); E02 Subclinical iodine-deficiency hypothyroidism; I50.9 Heart failure, unspecified; E11.69 Type 2 diabetes mellitus with other specified complication; Z99.2 Dependence on renal dialysis; Z90.49 Acquired absence of other specified parts of digestive tract; Z95.0 Presence of cardiac pacemaker; Z79.4 Long term (current) use of insulin; Z79.82 Long term (current) use of aspirin; Z79.899 Other long term (current) drug therapy; Z83.3 Family history of diabetes mellitus; Z82.49 Family history of ischemic heart disease and other diseases of the circulatory system
CPT/HCPCS: 36415; 71045; 73630; 80048; 80053; 80202; 82140; 82948; 83036; 83605; 83690; 83735; 83880; 84100; 84439; 84443; 84484; 84703; 85025; 85610; 85730; 87040; 87070; 87075; 87081; 87205; 88304; 88305; 88311; 93005; 93970; 96365; 99291; A6248; J0885; J1644; J1815; J2001; J2270; J2405; J2543; J2704; J3010; J3370; J3490; J7030; J7060; Q0092

== ENCOUNTER 2019-03-23 08:42 | Emergency (ER) | payer OTHER ==
[~2019-03-23] VITALS: Ht 149.9 cm; Wt 59.4 kg
[~2019-03-23 08:42] MED LIST changes: +CLIN300C2 PO; +LACT-81 PO
[2019-03-23 08:48] VITALS: BP 179/81
--- NOTE | 2019-03-23 08:54 | NUR ---
PATIENT AMBULATED STEADY GAIT TO BED 8.
--- NOTE | 2019-03-23 09:01 | NUR ---
43 Y/0 F C/O CHILLS/VOMITTING/DIAHREA X1 DAY. PT STATES VOMIT IS YELLOW/GREEN, NO BLOOD. PT UNABLE TO GIVE UA, DOESN'T MAKE URINE, ON DYALISIS X3 DAYS A WEEK. PT WAS DISCHARGED FROM [facility] X1 WEEK AGO FOR SAME SX AND LT BIG TOE AMPUTATION. PT POSITINED FOR COMFORT, BED RAIL X1 IN PLACE, BED LOWERED. SON AT BEDSIDE. ALLERGEIS: NKA MED HX: DM, HTN
--- NOTE | 2019-03-23 09:01 | NUR ---
PT TOOK HOME MEDICATION: ZOFRAN 4MG AT 8:30AM
--- NOTE | 2019-03-23 09:39 | NUR ---
LAB DRAWING ORDERED LAB WORK AT BEDSIDE.
--- NOTE | 2019-03-23 09:40 | NUR ---
EMT AT BEDSIDE PERFORMING EKG.
[2019-03-23] MEDS ORDERED: KETOROLAC 30 MG/ML VIAL IVP ONE (09:45)
[2019-03-23] MEDS ORDERED: ONDANSETRON 4 MG/2 ML VIAL IVP ONE (09:45)
--- NOTE | 2019-03-23 09:50 | NUR ---
X-RAY AT BEDSIDE.
[2019-03-23 10:01] LABS: BASOPHILS % (AUTO) 0.7 % (0.0-2.0); EOSINOPHILS # (AUTO) 0.2 K/uL (0-0.4); EOSINOPHILS % (AUTO) 3.8 % (0.0-4.0); HEMATOCRIT 27.7 % (36-48); HEMOGLOBIN 9.2 g/dL (12.0-16.0); LYMPHOCYTES # (AUTO) 0.8 K/uL (2.5-16.5); LYMPHOCYTES % (AUTO) 12.7 % (20.5-51.1); MEAN CORPUSCULAR HEMOGLOBIN 31 pg (27-31); MEAN CORPUSCULAR HGB CONC 33 g/dL (33-37); MEAN CORPUSCULAR VOLUME 93.5 fL (80-94); MONOCYTES # (AUTO) 0.2 K/uL (0.8-1.0); MONOCYTES % (AUTO) 2.4 % (1.7-9.3); NEUTROPHILS # (AUTO) 5.3 K/uL (1.8-7.7); NEUTROPHILS % (AUTO) 80.4 % (42.2-75.2); PLATELET COUNT (AUTO) 198 K/uL (140-450); RED BLOOD CELL COUNT(AUTO) 2.96 MIL/uL (4.20-5.40); RED CELL DISTRIBUTION WIDTH 14.7 % (11.6-13.7); WHITE BLOOD COUNT (AUTO) 6.6 K/uL (4.8-10.8)
[2019-03-23 10:05] LABS: ANION GAP 17.3 (8-16); CARBON DIOXIDE 30.8 mmol/L (21-32); POTASSIUM 4.1 mmol/L (3.5-5.1)
[2019-03-23 10:08] LABS: CREATININE 8.3 mg/dL (0.6-1.3); PROTHROMBIN TIME 10.1 secs (10.8-13.4)
[2019-03-23 10:11] LABS: ALBUMIN 3.9 g/dL (3.4-5.0); TOTAL BILIRUBIN 0.6 mg/dL (0.0-1.0)
--- NOTE | 2019-03-23 10:29 | NUR ---
PT STATES SHE IS FEELING LESS NAUSEA AND PAIN, 6/10. POSITINED FOR COMFORT, SIDE RAIL X2 IN PLACE.
--- NOTE | 2019-03-23 10:38 | NUR ---
PT PUT ON 2L NC, O2 KEPT FALLING BELOW 89.
--- NOTE | 2019-03-23 10:44 | NUR ---
PT TO X-RAY BY WHEELCHAIR.
--- NOTE | 2019-03-23 11:00 | NUR ---
PT RETURNED FROM X-RAY BY WHEELCHAIR.
--- NOTE | 2019-03-23 11:20 | NUR ---
pt states she is not feeling any pain, just soreness from vomitting. pt repositioned for comfort, iv site clean, dry. 02 running at 2l nc.
--- NOTE | 2019-03-23 12:21 | NUR ---
Patient discharged with v/s stable. Written and verbal after care instructions given and explained. Patient alert, oriented and verbalized understanding of instructions. Ambulatory with steady gait. All questions addressed prior to discharge. ID band removed. Patient advised to follow up with PMD. Rx of ZOFRAN given. Patient educated on indication of medication including possible reaction and side effects. Opportunity to ask questions provided and answered. PT STATES SHE WILL GO TO DIALYSIS NOW AFTER LEAVING ED.
[2019-03-23 12:22] VITALS: BP 180/80
== END 2019-03-23 12:21 | disposition home or self-care (01) ==
LOC: MED 08:42
DX: E11.43 Type 2 diabetes mellitus with diabetic autonomic (poly)neuropathy (principal); K31.84 Gastroparesis; E11.22 Type 2 diabetes mellitus with diabetic chronic kidney disease; I12.0 Hypertensive chronic kidney disease with stage 5 chronic kidney disease or end stage renal disease; N18.6 End stage renal disease; I10 Essential (primary) hypertension; Z79.4 Long term (current) use of insulin; Z95.0 Presence of cardiac pacemaker; Z89.412 Acquired absence of left great toe; Z98.890 Other specified postprocedural states; Z79.82 Long term (current) use of aspirin; Z79.899 Other long term (current) drug therapy; Z99.2 Dependence on renal dialysis
CPT/HCPCS: 36415; 71045; 74176; 80053; 82948; 83605; 83880; 84484; 84702; 85025; 85610; 85730; 87040; 93005; 96374; 96375; 99284; J1885; J2405; Q0092

== ENCOUNTER 2019-04-17 13:19 | Inpatient (IN) | payer OTHER ==
[~2019-04-17] VITALS: Ht 144.8 cm; Wt 58.1 kg
[2019-04-17 14:32] VITALS: BP 112/57
--- NOTE | 2019-04-17 14:35 | NUR ---
PATIENT AMBULATED TO BED 7
--- NOTE | 2019-04-17 14:47 | NUR ---
DIABETIC PT BIB DAUGHTER C/O SLURRED SPEECH, DIZZY, RT FACIAL PAIN, ABDOMINAL PAIN SINCE TODAY. DIALYSIS T TH SAT AND EXTRA YESTERDAY. per PT'S DAUGHTER, IT HAS BEEING A LONG TIME FOR HAVING SLURRED SPEECH. PT LOOKS DUSKY. OPENS EYES TO VOICE BUT FALL ASLEEP QUICKLY. HX: PACEMAKER, HTN, DM, ESRD . DENIES N/V/D; PATIENT STATES PAIN OF 6/10 AT THIS TIME; PATIENT POSITIONED FOR COMFORT; HOB ELEVATED; BEDRAILS UP X2; BED DOWN. ER MD MADE AWARE OF PT STATUS.DAUGHTER AT BEDSIDE. BP 123/55. HR 60.
--- NOTE | 2019-04-17 14:55 | NUR ---
PT O2 SATS DECREASED TO 87%, GAVE PT O2 NC 2L/MIN INCREASED TO 95-97%.
--- NOTE | 2019-04-17 16:00 | NUR ---
PT ESRD, DOES NOT HAVE URINE.
[2019-04-17 16:18] LABS: BASOPHILS % (AUTO) 0.3 % (0.0-2.0); EOSINOPHILS # (AUTO) 0.1 K/uL (0-0.4); HEMATOCRIT 27.7 % (36-48); HEMOGLOBIN 9.1 g/dL (12.0-16.0); LYMPHOCYTES # (AUTO) 0.9 K/uL (2.5-16.5); MEAN CORPUSCULAR HEMOGLOBIN 31 pg (27-31); MEAN CORPUSCULAR HGB CONC 33 g/dL (33-37); MEAN CORPUSCULAR VOLUME 94.4 fL (80-94); MONOCYTES # (AUTO) 0.3 K/uL (0.8-1.0); NEUTROPHILS # (AUTO) 8.5 K/uL (1.8-7.7); NEUTROPHILS % (AUTO) 86.7 % (42.2-75.2); PLATELET COUNT (AUTO) 247 K/uL (140-450); RED BLOOD CELL COUNT(AUTO) 2.94 MIL/uL (4.20-5.40); RED CELL DISTRIBUTION WIDTH 14.6 % (11.6-13.7); WHITE BLOOD COUNT (AUTO) 9.7 K/uL (4.8-10.8)
[2019-04-17 17:14] LABS: SALICYLATE < 2.8 mg/dL (2.8-20.0)
[2019-04-17 17:15] LABS: ANION GAP 16.3 (8-16); CARBON DIOXIDE 28.1 mmol/L (21-32); CHLORIDE 88 mmol/L (98-107); GLUCOSE 298 mg/dL (74-106); POTASSIUM 4.4 mmol/L (3.5-5.1); SODIUM SERUM 128 mmol/L (136-145)
[2019-04-17 17:16] LABS: ASPARTATE AMINOTRANSFERASE 10 U/L (15-37); GFR ARICAN-AMERICAN 7 mL/min (>90); TOTAL BILIRUBIN 0.5 mg/dL (0.0-1.0); UREA NITROGEN, BLOOD 39 mg/dL (7-18)
[2019-04-17 17:17] LABS: ACETAMINOPHEN < 0.5 ug/ml (10-30); ALBUMIN 3.2 g/dL (3.4-5.0)
[2019-04-17] MEDS ORDERED: cefTRIAXone 1,000 MG VIAL ONE ×2 (18:20→18:23)
--- NOTE | 2019-04-17 18:34 | NUR ---
PT RESTING IN BED. AND DAUGHTER AT BEDSIDE. Addendum: 04/17/19 at 1835 by TASHIA PT STATED SHE FEELS BETTER.
[2019-04-17] MEDS ORDERED: ONDANSETRON 4 MG/2 ML VIAL IVP PRN (18:35)
--- NOTE | 2019-04-17 19:07 | NUR ---
endorsed pt to PM shift RN.
--- NOTE | 2019-04-17 19:07 | NUR ---
RECEIVED REPORT FROM RAEANN BOLAÑOS.
[2019-04-17] MEDS: NACL 0.9% 1,000 ML IV SCH (19:33)
[2019-04-17 19:38] LABS: PROTHROMBIN TIME 10.3 secs (10.8-13.4)
[2019-04-17 19:40] LABS: FREE T4 (FREE THYROXINE) 1.04 ng/dL (0.76-1.46); MAGNESIUM 2.1 mg/dL (1.8-2.4); PHOSPHORUS 6.7 mg/dL (2.5-4.9); THYROID STIMULATING HORMONE 3.86 uIU/mL (0.34-3.74)
[2019-04-17] MEDS ORDERED: INSU100S22 SUBQ (19:47)
[2019-04-17] MEDS ORDERED: TIZA4TAB11 PO (19:48)
--- NOTE | 2019-04-17 20:06 | NUR ---
PATIENT TRANSFERRED TO [facility] BED 120 B VIA GURNEY. ALERT AND ORIENTED x4. CONNECTED TO TELE MONITOR AND NASAL CANNULA TO 2LPM. RECEIVED REPORT FROM ER NURSE. PERIPHERAL IV SITE TO RIGHT AC, 20G, FLUSHED AND PATENT. SKIN WARM AND DRY, AFEBRILE. SKIN NOT INTACT, LEFT FOOT BIG TOE AMPUTATION-03/13/19 BANDAGE DRY AND INTACT, AND A DIME SIZED SCAB ON BOTTOM OF RIGHT FOOT, OPEN TO AIR. LUNG SOUNDS CLEAR, BREATHING IS EVEN AND UNLABORED. ABDOMEN IS SOFT AND NONTENDER WITH ACTIVE BOWEL SOUNDS. POSITIVE S1S2. POSITIVE ROM TO BUE BLE BUT MILD WEAKNESS NOTED.SAFETY ALARMS IN PLACE. SIDERAILS UPx3, ORIENTED TO CALL LIGHT AND WITHIN REACH. WILL CONTINUE TO MONITOR.
--- NOTE | 2019-04-17 20:12 | NUR ---
Will go to room 120 B. Belongings list completed. Report to RAEANN OSORIO .
--- NOTE | 2019-04-17 20:20 | NUR ---
CAME TO BEDSIDE.
[2019-04-17] MEDS: DOCUSATE SODIUM 100 MG GELCAP PO SCH (22:07)
[2019-04-17] MEDS ORDERED: DEXTROSE 50% 50 ML SYR IVP PRN (22:25)
--- NOTE | 2019-04-17 22:28 | NUR ---
LAB CALLED. NO URINE TO GIVE. PATIENT STATES LAST TIME SHE URINATED WAS 3 YEARS AGO. MRSA SWABS COLLECTED AND SENT TO LAB
--- NOTE | 2019-04-17 23:13 | NUR ---
MD AT BEDSIDE. SPOKE WITH PATIENT ABOUT POSSIBLE CHEST XRAY AND UNKNOWN IF PNA OR NOT. WILL GIVE ABTS PROP. NOTIFIED HIM OF PACEMAKER ON RIGHT UPPER SIDE. AND FISTULA FOR DIALYSIS ON LEFT UPPER ARM. STATED TUBES TIED. HX YIN, DM, DIALYSIS . ABLE TO MAKE NEEDS KNOWN ABLE TO OBEY COMMANDS. PATIENT CALM. DENIES PAIN AT THIS TIME. MD AWARE OF AMPUTATED LEFT BIG TOE AND SCAB SEEN ON RIGHT BELOW TOE ON BOTTOM OF FOOT. STATED SHE HAD IT OVER 3 MONTHS. NO LEAKING. MD STATES CT NEG. WILL CALL [facility] PER MD. R AC 20 G RUNNING IVF AT THIS TIME. DENIES ALLERGIES. WILL CONTINUE TO MONITOR.
[2019-04-17] MEDS ORDERED: MECLIZINE 25 MG TAB PO PRN (23:35)
[2019-04-18] VITALS: BP 142/42
--- NOTE | 2019-04-18 00:30 | NUR ---
PATIENT STATES SHE WENT TO BATHROOM AND HAD BM. NO INJURIES NOTED. PATIENT STATES NORMAL BM FOR HERSELF. "COLD" SO GIVEN BLANKET.
--- NOTE | 2019-04-18 01:00 | NUR ---
MONITORING PATIENT FOR PAIN REASSESSMENT. PATIENT STATES I FEEL BETTER
[2019-04-18] MEDS: metroNIDAZOLE 500 MG/NS PREMIX 100 ML IV SCH ×3 (01:32→18:12)
[2019-04-18] MEDS: NACL 0.9% 1,000 ML IV SCH (01:33)
[2019-04-18] MEDS: HYDROcodone/APAP 7.5/325 MG 1 TAB PO PRN ×4 (03:14→23:55)
[2019-04-18 04:00] VITALS: BP 138/60
--- NOTE | 2019-04-18 04:15 | NUR ---
MONITORING PAIN REASSESSMENT. STATES STILL FEELING BETTER. WILL CONTINUE TO MONITOR. CALL LIGHT BY BEDSIDE. DENIES NEEDING HELP TO RESTROOM.
--- NOTE | 2019-04-18 05:47 | NUR ---
"IM NOT COLD" PATIENT REFUSES NEEDING TO USE THE RESTROOM AT THIS TIME NO SOB OR DISTRESS NOTED. CALL LIGHT WITHIN REACH. ABLE TO MAKE NEEDS KNOWN. ABLE TO OBEY COMMANDS. AAOX4. STATES STILL NOT HUNGRY AT THIS TIME.
[2019-04-18 06:27] LABS: ANION GAP 16.4 (8-16); POTASSIUM 4.4 mmol/L (3.5-5.1)
[2019-04-18 06:32] LABS: PHOSPHORUS 7.3 mg/dL (2.5-4.9)
--- NOTE | 2019-04-18 06:33 | NUR ---
BS TAKEN BY NURSE OSORIO. 137. RACHELE CASTILLO
[2019-04-18 06:34] LABS: BASOPHILS % (AUTO) 0.2 % (0.0-2.0); EOSINOPHILS # (AUTO) 0.1 K/uL (0-0.4); EOSINOPHILS % (AUTO) 0.9 % (0.0-4.0); HEMATOCRIT 25.9 % (36-48); HEMOGLOBIN 8.5 g/dL (12.0-16.0); LYMPHOCYTES # (AUTO) 0.7 K/uL (2.5-16.5); LYMPHOCYTES % (AUTO) 8.5 % (20.5-51.1); MEAN CORPUSCULAR HEMOGLOBIN 31 pg (27-31); MEAN CORPUSCULAR HGB CONC 33 g/dL (33-37); MEAN CORPUSCULAR VOLUME 94.8 fL (80-94); MONOCYTES # (AUTO) 0.3 K/uL (0.8-1.0); MONOCYTES % (AUTO) 3.1 % (1.7-9.3); NEUTROPHILS # (AUTO) 7.6 K/uL (1.8-7.7); NEUTROPHILS % (AUTO) 87.3 % (42.2-75.2); PLATELET COUNT (AUTO) 215 K/uL (140-450); RED BLOOD CELL COUNT(AUTO) 2.73 MIL/uL (4.20-5.40); WHITE BLOOD COUNT (AUTO) 8.7 K/uL (4.8-10.8)
[2019-04-18 06:38] LABS: CREATININE 8.8 mg/dL (0.6-1.3)
[2019-04-18] MEDS: BLOOD GLUCOSE MONITORING 1 DEV DEV FS SCH ×4 (06:55→20:51)
[2019-04-18 07:00] LABS: CHOL/HDL RATIO 3.3 (1-4.5)
--- NOTE | 2019-04-18 07:37 | NUR ---
PATIENT SITTING UP IN BED. STABLE. NO SOB NO DISTRESS NOTED. NO QUESTIONS AT THIS TIME
--- NOTE | 2019-04-18 07:38 | NUR ---
RECEIVED BEDSIDE REPORT FROM DIRECTOR OF STRATEGIC MARKETING NURSE. PATIENT IS AWAKE, ALERT AND ORIENTEDX4. NO SIGNS OF DISTRESS ON RA. SKIN HAS SCAB ON BOTTOM OF R BIG TOE, S/P L BIG TOE AMPUTATION, HEALED. R AC 20G TKO. CLEAN, DRY AND INTACT. AMBULATE W ASSIST. BED IN LOW POSITION. CALL LIGHT WITHIN REACH. WILL CONTINUE TO MONITOR THE PATIENT.
[2019-04-18 08:00] VITALS: BP 113/53
[2019-04-18] MEDS: ATENOLOL 50 MG TAB PO SCH (09:00)
[2019-04-18] MEDS: amLODIPine 5 MG TAB PO SCH (09:00)
[2019-04-18] MEDS: DOCUSATE SODIUM 100 MG GELCAP PO SCH ×2 (09:00→20:49)
[2019-04-18] MEDS: cloNIDine 0.1 MG TAB PO SCH ×3 (09:00→18:17)
--- NOTE | 2019-04-18 09:21 | NUR ---
PATIENT HAS BEEN SCREENED AND CATEGORIZED HIGH NUTRITION RISK. PATIENT WILL BE SEEN WITHIN 1-2 DAYS OF ADMISSION. 04/18/19-04/19/[address]
[2019-04-18] MEDS: ASPIRIN 81 MG TAB.CHEW PO SCH (09:38)
--- NOTE | 2019-04-18 09:46 | NUR ---
PATIENT IS CRYING. SHE SAID HER WHOLE BODY ACHES. GAVE HER PRN PAIN MED AND UMU MEDS. HELD COLACE, PATIENT SAID SHE HAS LOOSE STOOLS. EDUCATED ON MEDS. PATIENT TOLERATED WELL. WILL CONTINUE TO MONITOR THE PATIENT
[2019-04-18 12:00] VITALS: BP 134/59
[2019-04-18] MEDS: INSULIN LISPRO SLIDING SCALE 100 UNITS/ML VIAL SUBQ PRN ×2 (12:51→18:25)
--- NOTE | 2019-04-18 14:00 | NUR ---
DIALYSIS NURSE AT BEDSIDE. CONSENT FOR DIALYSIS SIGNED. WILL CONTINUE TO MONITOR THE PATIENT.
[2019-04-18] MEDS ORDERED: LOPERAMIDE 2 MG CAP PO ONE (14:10)
--- NOTE | 2019-04-18 14:19 | NUR ---
VALDEMAR assessment/discharge plan High Risk DC Screen Yes Name: [facility] Home Relationship: Pre-Admission Living Arrangements: Lives with Other Other: [facility] Prior ADL Independent Current Dialysis Name/Tel: [facility] Mejias/Thkaren/Sat 9:30am Healthcare Decision Maker: Patient Advance Directive No Information Taught: Advance Directive Community Resources Person Taught: Patient Teaching Tools: Community Resources Computer Generated Print Verbal Factors Affecting Learning: None Participation Level: Active Evaluation: Gestures Understanding Verbalizes Understanding Educator: VALDEMAR Trujillo Tentative Discharge Plan Summary: Patient is a 43 year old female admitted for metabolic encephalopathy and ESRD. I met with patient at bedside. Patient alert and oriented x4. Patient lives at home with her Howard Stokes and plans to return home upon discharge. She follows up with her pcp regularly. She does not have any difficulty filling her prescriptions. Her mother Indigo Shaikh takes her to [facility]. She suffers from anxiety and depression. She is not taking medication for anxiety or depression. She denied SI and HI. She denied alcohol/substance abuse. I provided her with education on [facility] www.[facility].org for community resources including counseling/mental health services. Director Of Conservation and/or Architectural Associate will follow up as needed. Signature: VALDEMAR Trujillo Date: Apr 18, 2019
[2019-04-18 16:00] VITALS: BP 124/84
--- NOTE | 2019-04-18 16:10 | NUR ---
DC PLANNIN YRS OLD FEMALE PATIENT WAS ADMITTED FROM HOME WITH A DX OF METABOLIC ENCEPHALOPATHY ,ESRD. PT HAS A HX OF HTN, DM AND ESRD HD ON ,,WED,WED WITH DR RONQUILLO.CT HEAD (-) ,FALL PRECAUTION, PT EVAL ,CONSULT NEPHROLOGY , BLOOD CULTURE PENDING, CXR DECREASED LUNG VOLUME, STARTED IV ABX ROCEPHIN AND FLAGYL . DC PLADN TO GO HOME WHEN STABLE CM TO FOLLOW.
--- NOTE | 2019-04-18 16:10 | NUR ---
04/18/19 RD INITIAL ASSESSMENT COMPLETED PLEASE REFER TO NUTRITION ASSESSMENT UNDER CARE ACTIVITY FOR ESTIMATED NUTRITIONAL NEEDS. 1. RECOMMEND RENAL, [address] WILL PROVIDE RENAL DIET & PHOSPHOROUS NUTRITION EDUCATION 3. RD TO FOLLOW-UP 3-5 DAYS, MODERATE RISK SHELBIE BERKOWITZ, RD
--- NOTE | 2019-04-18 19:05 | NUR ---
GAVE BEDSIDE REPORT TO DRUM HANDLER NURSE. PATIENT ENDORSED IN STABLE CONDITION. ANTIBIOTICS GIVEN LATE D/T DIALYSIS, ENDORSED TO DRUM HANDLER NURSE AUGUSTUS.
--- NOTE | 2019-04-18 19:06 | NUR ---
RECEIVED REPORT FROM DAYSHIFT NURSE AT PATIENTS BEDSIDE. PATIENT AWAKE AND ALERT. RIGHT AC 20G INFUSING IV ANTIBIOTICS. PATIENT COMPLAINING OF GENERALIZED PAIN, MEDICATED AT 1814, WILL FOLLOWUP WITH OTHER PRN MEDS. LEFT UPPER ARM AV SHUNT, WITH SIGNS IN PLACE TO AVOID LAB DRAW AND BP MEASURE TO LEFT UPPER EXTREMITY. RIGHT UPPER CHEST PACEMAKER IN PLACE. LUNG SOUNDS SLIGHTLY DIMINISHED, ON ROOM AIR, DENIES SOB, NO DISTRESS NOTED. S1S2. ABDOMEN SOFT WITH ACTIVE BOWEL SOUNDS, PATIENT IS CONTINENT AND ORIENTED TO CALL LIGHT, WITHIN REACH. PATIENT UPDATED ON CARE PLAN.VERBALIZES UNDERSTANDING. WILL CONTINUE TO MONITOR,.
[2019-04-18 20:00] VITALS: BP 123/62
--- NOTE | 2019-04-18 20:40 | NUR ---
SPOKE WITH RESIDENT DOCTOR, PATIENTS SUGAR IS 118 AND HAS SCHEDULED LANTUS 21 UNITS, OK TO HOLD LANTUS THIS TIME.
[2019-04-18] MEDS: ACETAMINOPHEN 325 MG TAB PO PRN (20:48)
[2019-04-18] MEDS: ATORVASTATIN 20 MG TAB PO SCH (20:48)
[2019-04-18] MEDS: INSULIN LANTUS 100 UNITS/ML 10 ML VIAL SUBQ SCH (20:51)
[2019-04-19] VITALS: BP 125/56
--- NOTE | 2019-04-19 | NUR ---
PATIENT COMPLAINING OF PAIN AND BECOMING RESTLESS, NOT ABLE TO FALL ASLEEP. REPORTS SHE TAKES A DAILY MEDICATION TO HELP WITH SLEEP. RESIDENT MD MADE AWARE, MD IN TO ASSESS PATIENT. WILL FOLLOWUP WITH NEW ORDERS .
[2019-04-19] MEDS ORDERED: tiZANidine 4 MG TAB PO SCH (00:15)
--- NOTE | 2019-04-19 01:00 | NUR ---
STANDING UP AT BEDSIDE TO MAKE BED. PATIENT HAS A STEADY GAIT BUT USES FURNITURE TO WALK ASSISTANCE. IV ANTIBIOTICS COMPLETE. FLUSHED IV SITE AT RIGHT AC, PATENT WITHOUT SYMPTOMS, SALINE LOCKED. ALL NEEDS MET AT THIS TIME. CALL LIGHT WITHIN REACH
--- NOTE | 2019-04-19 03:30 | NUR ---
PATIENT SEEN RESTING WELL IN BED, EQUAL CHEST RISE AND FALL. ON ROOM AIR, FLACC 0. SAFETY ALARMS ACTIVATED .
[2019-04-19 04:00] VITALS: BP 128/52
--- NOTE | 2019-04-19 04:15 | NUR ---
PHLEB AT BEDSIDE TO DRAW LABS, RESTRICTED EXTREMITY WRISTBAND IN PLACE TO LEFT UPPER EXRTEMITY FOR LEFT AV SHUNT. NO COMPLAINTS AT THIS TIME.
[2019-04-19 06:00] LABS: BASOPHILS % (AUTO) 0.6 % (0.0-2.0); EOSINOPHILS # (AUTO) 0.1 K/uL (0-0.4); EOSINOPHILS % (AUTO) 2.3 % (0.0-4.0); HEMATOCRIT 27.1 % (36-48); HEMOGLOBIN 8.8 g/dL (12.0-16.0); LYMPHOCYTES % (AUTO) 22.1 % (20.5-51.1); MEAN CORPUSCULAR HEMOGLOBIN 31 pg (27-31); MEAN CORPUSCULAR HGB CONC 33 g/dL (33-37); MEAN CORPUSCULAR VOLUME 94.8 fL (80-94); MONOCYTES # (AUTO) 0.3 K/uL (0.8-1.0); MONOCYTES % (AUTO) 7.1 % (1.7-9.3); NEUTROPHILS # (AUTO) 2.9 K/uL (1.8-7.7); NEUTROPHILS % (AUTO) 67.9 % (42.2-75.2); PLATELET COUNT (AUTO) 234 K/uL (140-450); RED BLOOD CELL COUNT(AUTO) 2.86 MIL/uL (4.20-5.40); WHITE BLOOD COUNT (AUTO) 4.3 K/uL (4.8-10.8)
[2019-04-19 06:06] LABS: ANION GAP 16.9 (8-16); POTASSIUM 3.9 mmol/L (3.5-5.1)
[2019-04-19 06:07] LABS: CREATININE 6.1 mg/dL (0.6-1.3)
[2019-04-19 06:14] LABS: MAGNESIUM 1.9 mg/dL (1.8-2.4); PHOSPHORUS 6.3 mg/dL (2.5-4.9)
[2019-04-19] MEDS: BLOOD GLUCOSE MONITORING 1 DEV DEV FS SCH ×4 (06:16→21:44)
[2019-04-19] MEDS: INSULIN LISPRO SLIDING SCALE 100 UNITS/ML VIAL SUBQ PRN ×2 (06:53→18:04)
--- NOTE | 2019-04-19 07:30 | NUR ---
RECEIVED BEDSIDE REPORT FROM WASHER OPERATOR NURSE. PATIENT IS AWAKE, ALERT AND ORIENTEDX4. NO SIGNS OF DISTRESS ON RA. SKIN HAS HX L GREAT TOE AMPUTATION. R AC 20G SL. CLEAN, DRY AND INTACT. TELE MONITOR IN PLACE. ABLE TO MAKE NEEDS KNOWN. AMBULATORY W ASSIST. FALL RISK PROTOCOL IN PLACE. CONTENT. WILL CONTINUE TO MONITOR
[2019-04-19 08:00] VITALS: BP 128/61
[2019-04-19 08:08] LABS: FOLIC ACID 3.9 ng/mL (>3.0)
[2019-04-19] MEDS ORDERED: EPOETIN ALFA 10,000 UNITS/ML VIAL SUBQ SCH (09:00)
[2019-04-19] MEDS: ASPIRIN 81 MG TAB.CHEW PO SCH (09:55)
[2019-04-19] MEDS: ATENOLOL 50 MG TAB PO SCH (09:55)
[2019-04-19] MEDS: CALCIUM ACETATE 667 MG TAB PO SCH ×3 (09:55→17:58)
[2019-04-19] MEDS: amLODIPine 5 MG TAB PO SCH (09:55)
[2019-04-19] MEDS: VIT-B COMP/VIT-C/FOLIC ACID 1 TAB PO SCH (09:56)
[2019-04-19] MEDS: cloNIDine 0.1 MG TAB PO SCH ×3 (09:56→17:00)
[2019-04-19] MEDS: LACTOBACILLUS RHAMNOSUS GG 1 EACH CAP PO SCH (09:56)
[2019-04-19] MEDS: DOCUSATE SODIUM 100 MG GELCAP PO SCH ×2 (09:57→21:00)
[2019-04-19] MEDS: metroNIDAZOLE 500 MG/NS PREMIX 100 ML IV SCH ×3 (09:57→18:01)
[2019-04-19] MEDS: HYDROcodone/APAP 7.5/325 MG 1 TAB PO PRN ×2 (10:03→21:39)
--- NOTE | 2019-04-19 10:09 | NUR ---
ADMINISTERED MEDS AND PRN PAIN MED. EDUCATED ON SIDE EFFECTS. PATIENT TOLERATED WELL. WILL CONTINUE TO MONITOR
--- NOTE | 2019-04-19 10:29 | NUR ---
WOUND CONSULT NO NEEDED AT THIS TIME. LEFT GREAT TOE S/P AMPUTATION , HEALED SCAR NO OPEN ACTIVE WOUND. PER. PT. SHE FOLLOWS HER PODIATRY REGULAR FOR FOOT CARE.
[2019-04-19 12:00] VITALS: BP 122/59
--- NOTE | 2019-04-19 13:38 | NUR ---
ADMINISTERED MEDS. PATIENT TOLERATED WELL. EDUCATED ON MEDS. WILL CONTINUE TO MONITOR
[2019-04-19 16:00] VITALS: BP 130/64
--- NOTE | 2019-04-19 16:12 | NUR ---
PATIENT LAYING IN BED. NO SIGNS OF DISTRESS
--- NOTE | 2019-04-19 18:05 | NUR ---
ADMINISTERED MEDS. PATIENT TOLERATED WELL.
--- NOTE | 2019-04-19 19:10 | NUR ---
RECEIVED REPORT FROM DAY SHIFT NURSE. AA0X4. DENIES PAIN OR SOB. ON ROOM AIR. IV TO RIGHT FA #22G, PATENT AND INTACT. AV SHUNT TO LEFT ARM. LEFT BIG TOE AMPUTATED, RIGHT TOE SCAB. DISCUSSED PLAN OF CARE, PT VERBALIZED UNDERSTANDING. SAFETY PRECAUTION IN PLACE. CALL LIGHT WITHIN REACH.
--- NOTE | 2019-04-19 19:22 | NUR ---
GAVE BEDSIDE REPORT TO RN TEAM LEADER NURSE. PATIENT ENDORSED IN STABLE CONDITION
--- NOTE | 2019-04-19 21:00 | NUR ---
PT' S BLOOD SUGAR 131. NO INSULIN COVERAGE.
[2019-04-19] MEDS: NACL 0.9% 1,000 ML IV SCH (21:33)
[2019-04-19] MEDS: INSULIN LANTUS 100 UNITS/ML 10 ML VIAL SUBQ SCH (21:34)
[2019-04-19] MEDS: ATORVASTATIN 20 MG TAB PO SCH (21:40)
[2019-04-20] VITALS: BP 139/68
[2019-04-20] MEDS ORDERED: tiZANidine 4 MG TAB PO SCH
--- NOTE | 2019-04-20 00:01 | NUR ---
PT C/O UNABLE TO SLEEP. DR. CASTELLANOS ORDERED ZANAFLEX 4 MFG PO.
[2019-04-20] MEDS: metroNIDAZOLE 500 MG/NS PREMIX 100 ML IV SCH ×2 (01:54→08:32)
--- NOTE | 2019-04-20 02:00 | NUR ---
REPORT RECEIVED FROM MARIO FOR CONTINUITY OF CARE. PT IN STABLE CONDITION.
--- NOTE | 2019-04-20 02:05 | NUR ---
ENDORSED PT TO ANOTHER WOOL GRADER NURSE. PT IN STABLE CONDITION.
--- NOTE | 2019-04-20 03:45 | NUR ---
PT SLEEPING COMFORTABLY BUT AROUSABLE. NO S/S OF DISTRESS NOTED. NO COMPLAINTS OF PAIN. NO SOB. AFEBRILE. WILL CONTINUE TO MONITOR.
[2019-04-20] MEDS: ACETAMINOPHEN 325 MG TAB PO PRN (05:23)
--- NOTE | 2019-04-20 05:23 | NUR ---
TYL GIVEN FOR HEADACHE. BS 76. NO INSULIN COVERAGE NEEDED.
[2019-04-20] MEDS: BLOOD GLUCOSE MONITORING 1 DEV DEV FS SCH ×2 (05:30→12:06)
--- NOTE | 2019-04-20 06:45 | NUR ---
PT AWAKE AND ALERT WATCHING TV. PT IN STABLE CONDITION.
[2019-04-20 07:32] LABS: BASOPHILS % (AUTO) 0.8 % (0.0-2.0); EOSINOPHILS # (AUTO) 0.1 K/uL (0-0.4); EOSINOPHILS % (AUTO) 2.6 % (0.0-4.0); HEMATOCRIT 27.9 % (36-48); HEMOGLOBIN 9.1 g/dL (12.0-16.0); LYMPHOCYTES # (AUTO) 1.2 K/uL (2.5-16.5); LYMPHOCYTES % (AUTO) 23.5 % (20.5-51.1); MEAN CORPUSCULAR HEMOGLOBIN 31 pg (27-31); MEAN CORPUSCULAR HGB CONC 33 g/dL (33-37); MEAN CORPUSCULAR VOLUME 93.9 fL (80-94); MONOCYTES # (AUTO) 0.3 K/uL (0.8-1.0); MONOCYTES % (AUTO) 5.9 % (1.7-9.3); NEUTROPHILS # (AUTO) 3.5 K/uL (1.8-7.7); NEUTROPHILS % (AUTO) 67.2 % (42.2-75.2); PLATELET COUNT (AUTO) 263 K/uL (140-450); RED BLOOD CELL COUNT(AUTO) 2.97 MIL/uL (4.20-5.40); RED CELL DISTRIBUTION WIDTH 14.1 % (11.6-13.7); WHITE BLOOD COUNT (AUTO) 5.2 K/uL (4.8-10.8)
--- NOTE | 2019-04-20 07:38 | NUR ---
RECEIVED BEDSIDE REPORT FROM PM RN PT AWAKE IN BED PT APPEARS STABLE AND IN NO APPARENT DISTRESS. ALL SAFETY MEASURES ARE IN PLACE WILL CONTINUE TO MONITOR.
[2019-04-20] MEDS: DOCUSATE SODIUM 100 MG GELCAP PO SCH (08:20)
[2019-04-20] MEDS: CALCIUM ACETATE 667 MG TAB PO SCH ×2 (08:20→12:13)
[2019-04-20] MEDS: LACTOBACILLUS RHAMNOSUS GG 1 EACH CAP PO SCH (08:20)
[2019-04-20] MEDS: ASPIRIN 81 MG TAB.CHEW PO SCH (08:20)
[2019-04-20] MEDS: VIT-B COMP/VIT-C/FOLIC ACID 1 TAB PO SCH (08:21)
[2019-04-20] MEDS: amLODIPine 5 MG TAB PO SCH (08:24)
[2019-04-20 08:25] VITALS: BP 137/64
[2019-04-20] MEDS: cloNIDine 0.1 MG TAB PO SCH ×2 (08:30→12:17)
[2019-04-20] MEDS: ATENOLOL 50 MG TAB PO SCH (08:30)
--- NOTE | 2019-04-20 08:30 | NUR ---
P.T. NOTES UNABLE TO SEE FOR THERAPY SERVICES DUE TO PATIENT IS CURRENTLY BEING PREPARED TO HAVE HER HEMO DIALYSIS TREATMENT. PLAN: WE'LL FOLLOW UP AGAIN TOMORROW IF SHE REMAINS IN THIS HOSPITAL.
--- NOTE | 2019-04-20 09:16 | NUR ---
FREQUENT ROUNDING ON PT PT APPEARS STABLE AND IN NO APPARENT DISTRESS. ALL SAFETY MEASURES ARE IN PLACE WILL CONTINUE TO MONITOR.
[2019-04-20] MEDS: HYDROcodone/APAP 7.5/325 MG 1 TAB PO PRN (10:26)
[2019-04-20 11:01] LABS: ANION GAP 19.2 (8-16); CARBON DIOXIDE 26.6 mmol/L (21-32); POTASSIUM 3.8 mmol/L (3.5-5.1)
[2019-04-20 11:04] LABS: CREATININE 8.2 mg/dL (0.6-1.3); MAGNESIUM 2.1 mg/dL (1.8-2.4); PHOSPHORUS 7.3 mg/dL (2.5-4.9)
--- NOTE | 2019-04-20 11:34 | NUR ---
FREQUENT ROUNDING ON PT PT APPEARS STABLE AND IN NO APPARENT DISTRESS. ALL SAFETY MEASURES ARE IN PLACE WILL CONTINUE TO MONITOR.
[2019-04-20] MEDS: INSULIN LISPRO SLIDING SCALE 100 UNITS/ML VIAL SUBQ PRN (12:14)
--- NOTE | 2019-04-20 13:46 | NUR ---
FREQUENT ROUNDING ON PT PT APPEARS STABLE AND IN NO APPARENT DISTRESS. ALL SAFETY MEASURES ARE IN PLACE WILL CONTINUE TO MONITOR.
--- NOTE | 2019-04-20 14:29 | NUR ---
REVIEWED DISCHARGE INSTRUCTIONS WITH PATIENT INFORMED HER OF HER FOLLOW UP APPOINTMENT. REVIEWED CHANGES IN MEDICATIONS. ANSWERED ALL OF PTS QUESTIONS. REMOVED IV IV TIP INTACT. REMOVED ID BAND. PT AMBULATED OFF THE UNIT WITH ALL PERSONAL BELONGINGS.
== END 2019-04-20 13:30 | disposition home or self-care (01) | DRG 682 ==
LOC: MED 13:19 → MTU 18:39
PROVIDERS: ADMIT General Practice; ATTEND General Practice
PROC: 5A1D70Z Performance of Urinary Filtration, Intermittent, Less than 6 Hours Per Day (ICD-10-PCS; principal; 2019-04-18)
PROC: 5A1D70Z Performance of Urinary Filtration, Intermittent, Less than 6 Hours Per Day (ICD-10-PCS; 2019-04-20)
DX: N17.0 Acute kidney failure with tubular necrosis (principal); G93.41 Metabolic encephalopathy; E87.1 Hypo-osmolality and hyponatremia; I12.0 Hypertensive chronic kidney disease with stage 5 chronic kidney disease or end stage renal disease; J98.11 Atelectasis; R18.8 Other ascites; E44.1 Mild protein-calorie malnutrition; E87.8 Other disorders of electrolyte and fluid balance, not elsewhere classified; N18.6 End stage renal disease; E11.22 Type 2 diabetes mellitus with diabetic chronic kidney disease; E83.39 Other disorders of phosphorus metabolism; E11.42 Type 2 diabetes mellitus with diabetic polyneuropathy; E11.51 Type 2 diabetes mellitus with diabetic peripheral angiopathy without gangrene; E02 Subclinical iodine-deficiency hypothyroidism; E78.5 Hyperlipidemia, unspecified; D53.9 Nutritional anemia, unspecified; D63.8 Anemia in other chronic diseases classified elsewhere; E78.00 Pure hypercholesterolemia, unspecified; I25.10 Atherosclerotic heart disease of native coronary artery without angina pectoris; Z99.2 Dependence on renal dialysis; Z90.49 Acquired absence of other specified parts of digestive tract; Z98.51 Tubal ligation status; Z98.891 History of uterine scar from previous surgery; Z89.412 Acquired absence of left great toe; Z79.899 Other long term (current) drug therapy; Z83.3 Family history of diabetes mellitus; Z82.49 Family history of ischemic heart disease and other diseases of the circulatory system; Z68.27 Body mass index [BMI] 27.0-27.9, adult
CPT/HCPCS: 36415; 70450; 71045; 71046; 74018; 76705; 80048; 80053; 82140; 82150; 82550; 82607; 82728; 82746; 82948; 83036; 83540; 83605; 83690; 83735; 83880; 84100; 84439; 84443; 84484; 84703; 85025; 85045; 85610; 85730; 87040; 87070; 87081; 87804; 89055; 90935; 93005; 93880; 97110; 97112; 97116; 97161-GP; 97530; 99285; G0480; G0482; J0696; J0885; J1644; J1815; J3490; J7030; J7060; Q0092

== ENCOUNTER 2019-05-14 13:46 | Inpatient (IN) | payer OTHER, MEDICAID ==
[~2019-05-14] VITALS: Ht 152.4 cm; Wt 58.1 kg
[~2019-05-14 13:46] MED LIST changes: -CLIN300C2 PO; +INSU100S22 SUBQ; -LACT-81 PO; -LANTUS SUBQ; -TIZA4CAP PO; +TIZA4TAB11 PO
[2019-05-14 14:39] VITALS: BP 140/74
--- NOTE | 2019-05-14 14:45 | NUR ---
PT WHEELCHAIRED TO BED 02
--- NOTE | 2019-05-14 14:55 | NUR ---
BIB C/O N/V, INTERMITTENT GENERAIZED ABDOMINAL PAIN X 2 DAYS. SHANEL SHUNT. ANURIA X 4 YEARS. STATES SOME DIARRHEA. STATES CHILLS. AFEBRILE AT TRIAGE. STATES UNABLE TO TOLERATE ANY LIQUIDS OR FOODS. MED HX: DM, ESRD ON HEMODIALYSIS , , SAT (LAST HD YESTERDAY).
--- NOTE | 2019-05-14 15:02 | NUR ---
DR HERNANDEZ EVALUATING PT AT BEDSIDE
[2019-05-14] MEDS ORDERED: ONDANSETRON 4 MG/2 ML VIAL IVP ONE (15:20)
[2019-05-14] MEDS ORDERED: MORPHINE SULFATE 2 MG/ML SYR IVP ONE (15:20)
--- NOTE | 2019-05-14 15:45 | NUR ---
NOTIFIED DR HERNANDEZ THAT PT IS ANURIC X 4 YEARS
--- NOTE | 2019-05-14 15:52 | NUR ---
MORPHINE AND ZOFRAN IVP ADMINISTERED
[2019-05-14 15:57] LABS: BASOPHILS % (AUTO) 0.6 % (0.0-2.0); EOSINOPHILS # (AUTO) 0.1 K/uL (0-0.4); EOSINOPHILS % (AUTO) 1.3 % (0.0-4.0); HEMOGLOBIN 10.8 g/dL (12.0-16.0); LYMPHOCYTES # (AUTO) 1.4 K/uL (2.5-16.5); LYMPHOCYTES % (AUTO) 19.7 % (20.5-51.1); MEAN CORPUSCULAR HEMOGLOBIN 30 pg (27-31); MEAN CORPUSCULAR HGB CONC 33 g/dL (33-37); MEAN CORPUSCULAR VOLUME 92.9 fL (80-94); MONOCYTES # (AUTO) 0.4 K/uL (0.8-1.0); MONOCYTES % (AUTO) 6.4 % (1.7-9.3); NEUTROPHILS # (AUTO) 4.9 K/uL (1.8-7.7); PLATELET COUNT (AUTO) 272 K/uL (140-450); RED BLOOD CELL COUNT(AUTO) 3.55 MIL/uL (4.20-5.40); RED CELL DISTRIBUTION WIDTH 14.1 % (11.6-13.7); WHITE BLOOD COUNT (AUTO) 6.9 K/uL (4.8-10.8)
[2019-05-14 16:31] LABS: ALBUMIN 3.5 g/dL (3.4-5.0); ANION GAP 17.1 (8-16); CARBON DIOXIDE 33.5 mmol/L (21-32); POTASSIUM 3.6 mmol/L (3.5-5.1); PROTHROMBIN TIME 10.4 secs (10.8-13.4); TOTAL BILIRUBIN 0.5 mg/dL (0.0-1.0)
[2019-05-14 16:34] LABS: CREATININE 6.5 mg/dL (0.6-1.3)
--- NOTE | 2019-05-14 16:35 | NUR ---
REPORTED CREATININE 6.[address] HERNANDEZ
[2019-05-14] MEDS ORDERED: metroNIDAZOLE 500 MG/NS PREMIX 100 ML IV ONE (17:45)
[2019-05-14] MEDS ORDERED: ONDANSETRON 4 MG/2 ML VIAL IM/IVP PRN (18:50)
[2019-05-14] MEDS ORDERED: FAMOTIDINE 20 MG/2 ML VIAL IV PRN (18:50)
[2019-05-14] MEDS ORDERED: DOCUSATE SODIUM 100 MG GELCAP PO PRN (18:50)
[2019-05-14] MEDS ORDERED: ACETAMINOPHEN 325 MG TAB PO PRN (18:50)
--- NOTE | 2019-05-14 19:20 | NUR ---
Patient will be admitted to care of DR JEAN-BAPTISTE. Admited to TELE. Will go to room 116. Belongings list completed. Report to DENVER CARY.
--- NOTE | 2019-05-14 19:25 | NUR ---
ADMITTED THIS 44 YEAR OLD FEMALE FROM ER PER RAMSES WITH CC OF ABDOMINAL PAIN, N/V AND DIARRHEA X2 DAYS, AMBULATED TO BED WITH STANDBY ASSIST, ASSESSMENT DONE, VITAL SIGNS TAKEN, BP ELEVATED, DENIES CHEST PAIN OR SOB BUT COMPLAINING OF ABDOMINAL PAIN, WILL MEDICATE PRN, WILL NOTIFY DR ORTIZ ABOUT ELEVATED BP, ORIENTED TO ROOM AND CALL LIGHT, WITH LEFT UA AV SHUNT IN PLACE, HD SCHEDULE OF T-S, RT FOOT PLANTAR SCAB NOTED, FREQUENT ROUNDS WILL BE MADE, CALL LIGHT WITHIN REACH.
[2019-05-14] MEDS: HYDROcodone/APAP 5/325 MG 1 TAB TAB PO PRN (19:31)
[2019-05-14 19:40] VITALS: BP 189/79
[2019-05-14] MEDS ORDERED: DEXTROSE 50% 50 ML SYR IVP PRN (20:25)
[2019-05-14] MEDS ORDERED: GLUCAGON 1 MG VIAL IVP PRN (20:25)
[2019-05-14] MEDS ORDERED: INSULIN LISPRO SLIDING SCALE 100 UNITS/ML VIAL SUBQ PRN (20:25)
[2019-05-14] MEDS: traZODone 50 MG TAB PO SCH (20:36)
[2019-05-14] MEDS: GABAPENTIN 100 MG CAP PO SCH (20:37)
[2019-05-14] MEDS: tiZANidine 4 MG TAB PO SCH (20:37)
[2019-05-14] MEDS: ATORVASTATIN 20 MG TAB PO SCH (20:37)
--- NOTE | 2019-05-14 20:40 | NUR ---
PER PT DIDN'T TAKE HER HOME MEDS TODAY INCLUDING BP MEDS, DR ORTIZ ORDERED 1ST DOSE OF HOME MEDS TONIGHT, ADMINISTERED ORDERED, BLOOD SUGAR CHECKED WITH 107 RESULT, PER DR DIANA TIDWELL TO GIVE DUE LANTUS 21 UNITS, JELLO AND JUICE PROVIDED, TOLERATED WELL, ALL NEEDS ATTENDED.
[2019-05-14] MEDS: INSULIN LANTUS 100 UNITS/ML 10 ML VIAL SUBQ SCH (20:49)
[2019-05-14] MEDS: BLOOD GLUCOSE MONITORING 1 DEV DEV FS SCH (20:50)
[2019-05-14] MEDS ORDERED: cloNIDine 0.1 MG TAB PO SCH (21:00)
[2019-05-14] MEDS ORDERED: amLODIPine 5 MG TAB PO SCH (21:00)
[2019-05-14] MEDS ORDERED: ATENOLOL 50 MG TAB PO SCH (21:00)
[2019-05-14 21:22] LABS: CHOL/HDL RATIO 2.7 (1-4.5); FREE T4 (FREE THYROXINE) 1.39 ng/dL (0.76-1.46); MAGNESIUM 2.1 mg/dL (1.8-2.4); PHOSPHORUS 4.8 mg/dL (2.5-4.9); THYROID STIMULATING HORMONE 2.77 uIU/mL (0.34-3.74)
[2019-05-14] MEDS ORDERED: cefTRIAXone 1,000 MG VIAL ONE (21:38)
--- NOTE | 2019-05-14 22:30 | NUR ---
PT SLEEPING, EASILY AROUSABLE, BLOOD PRESSURE RECHECKED-152/71, HR-68, DENIES ANY PAIN, ROCEPHIN IVPB INFUSING WELL, MONITORED CLOSELY.
[2019-05-14] MEDS ORDERED: LEVO0.024 PO (23:23)
[2019-05-15] VITALS: BP 142/67
[2019-05-15] MEDS: metroNIDAZOLE 500 MG/NS PREMIX 100 ML IV SCH ×3 (01:19→17:24)
[2019-05-15] MEDS: HYDROcodone/APAP 5/325 MG 1 TAB TAB PO PRN (02:58)
--- NOTE | 2019-05-15 03:05 | NUR ---
PT AWAKE FEELING LIGHTHEADED, COMPLAINING OF ABDOMINAL PAIN AND NAUSEA WITH NO VOMITING, BLOOD SUGAR CHECKED WITH 57 RESULT, MEDICATED WITH NORCO AND ZOFRAN, PUDDING X2 AND APPLE JUICE PROVIDED, TOLERATED WELL, WILL RECHECKED BLOOD SUGAR, MONITORED CLOSELY.
--- NOTE | 2019-05-15 03:51 | NUR ---
BLOOD SUGAR RECHECKED WITH 100 RESULT, PER PT HAD BM WITH SOFT STOOL BUT FORGOT TO USE SPECIMEN CONTAINER, REINFORCE TO USE SPECIMEN CONTAINER ON THE NEXT BM, VERBALIZED UNDERSTANDING.
[2019-05-15 04:00] VITALS: BP 141/69
--- NOTE | 2019-05-15 04:30 | NUR ---
PT AMBULATED TO BR WITH STANDBY ASSIST, BM WITH WATERY BROWN STOOL SMALL AMOUNT, SPECIMEN SENT TO LAB, PUT ON ISOLATION TO R/O C-DIFF, MONITORED CLOSELY.
--- NOTE | 2019-05-15 05:45 | NUR ---
BLOOD SUGAR CHECKED WITH 96 RESULT, DUE SYNTHROID ADMINISTERED, DENIES ANY PAIN, NO SOB NOTED, CONSENT SIGNED FOR HEMODIALYSIS, MONITORED CLOSELY.
[2019-05-15] MEDS: LEVOTHYROXINE 0.025 MG TAB PO SCH (05:51)
[2019-05-15] MEDS: BLOOD GLUCOSE MONITORING 1 DEV DEV FS SCH ×4 (06:37→21:29)
--- NOTE | 2019-05-15 07:30 | NUR ---
PT AWAKE, NO SIGNS OF DISTRESS, REPORT GIVEN TO RN EBONY FOR CONTINUITY IF CARE.
--- NOTE | 2019-05-15 07:31 | NUR ---
RECEIVED REPORT FROM FACULTY HEAD NURSE. PT IS AWAKE AND ALERT. PT HAS LEFT UPPER ARM SHUNT AND RIGHT FOREARM 22G SAKINE LOCK. PT IS ON FULL LIQUID. ON ROOM AIR. CALL LIGHT WITHIN PT'S REACH, BED ON LOW, SIDE RAILS UP. WILL CONTINUE TO MONITOR
[2019-05-15 07:52] LABS: BASOPHILS # (AUTO) 0.1 K/uL (0.00-0.22); EOSINOPHILS # (AUTO) 0.2 K/uL (0-0.4); HEMATOCRIT 35.8 % (36-48); HEMOGLOBIN 11.5 g/dL (12.0-16.0); LYMPHOCYTES # (AUTO) 1.2 K/uL (2.5-16.5); LYMPHOCYTES % (AUTO) 20.3 % (20.5-51.1); MEAN CORPUSCULAR HEMOGLOBIN 31 pg (27-31); MEAN CORPUSCULAR HGB CONC 32 g/dL (33-37); MONOCYTES # (AUTO) 0.3 K/uL (0.8-1.0); MONOCYTES % (AUTO) 5.3 % (1.7-9.3); NEUTROPHILS # (AUTO) 4.1 K/uL (1.8-7.7); NEUTROPHILS % (AUTO) 69.4 % (42.2-75.2); PLATELET COUNT (AUTO) 293 K/uL (140-450); RED BLOOD CELL COUNT(AUTO) 3.77 MIL/uL (4.20-5.40); RED CELL DISTRIBUTION WIDTH 14.6 % (11.6-13.7); WHITE BLOOD COUNT (AUTO) 5.9 K/uL (4.8-10.8)
[2019-05-15 07:55] LABS: ANION GAP 16.6 (8-16); CARBON DIOXIDE 34.2 mmol/L (21-32); POTASSIUM 3.8 mmol/L (3.5-5.1)
[2019-05-15 07:57] LABS: MAGNESIUM 2.4 mg/dL (1.8-2.4); PHOSPHORUS 6.3 mg/dL (2.5-4.9)
[2019-05-15 08:00] VITALS: BP 145/68
--- NOTE | 2019-05-15 08:15 | NUR ---
NURSE NING STARTED DIALYSIS ON THE PT.
--- NOTE | 2019-05-15 08:18 | NUR ---
PATIENT HAS BEEN SCREENED AND CATEGORIZED HIGH NUTRITION RISK. PATIENT WILL BE SEEN WITHIN 1-2 DAYS OF ADMISSION. 05/15/19-05/16/[address]
[2019-05-15 08:24] LABS: CREATININE 7.5 mg/dL (0.6-1.3)
[2019-05-15] MEDS ORDERED: cloNIDine 0.1 MG TAB PO SCH (09:00)
[2019-05-15] MEDS ORDERED: LIDOCAINE 2% 100 MG/5 ML UJET TP SCH (09:00)
--- NOTE | 2019-05-15 09:40 | NUR ---
BLOOD PRESSURE MEDS AND FLAGYL ON HOLD. PT IS UNDERGOING DIALYSIS. OTHER SCHEDULED MEDS GIVEN. WILL CONTINUE TO MONITOR
[2019-05-15] MEDS: LACTOBACILLUS RHAMNOSUS GG 1 EACH CAP PO SCH (10:55)
--- NOTE | 2019-05-15 11:15 | NUR ---
DIALYSIS DONE. OUTPUT IS 3L ACCORDING TO NING. BP IS 167/66
[2019-05-15 12:00] VITALS: BP 172/73
--- NOTE | 2019-05-15 12:30 | NUR ---
V/S TAKE. BP IS 172/73. MORNING BP MEDS GIVEN. PT TOLERATED WELL. WILL CONTINUE TO MONITOR
[2019-05-15] MEDS: cloNIDine 0.1 MG TAB PO SCH ×4 (12:37→17:00)
[2019-05-15] MEDS: amLODIPine 5 MG TAB PO SCH (12:38)
[2019-05-15] MEDS: ATENOLOL 50 MG TAB PO SCH (12:39)
--- NOTE | 2019-05-15 14:27 | NUR ---
SCHEDULED MEDS GIVEN. PT IS AWAKE, NO SIGNS OF DISTRESS, CALL LIGHT WITHIN PT'S REACH
[2019-05-15 16:00] VITALS: BP 163/68
--- NOTE | 2019-05-15 16:28 | NUR ---
DC [age] YRS OLD FEMALE PATIENT WAS ADMITTED FROM HOME WITH A DX OF FLUID OVERLOAD , INFLAMMATORY BOWEL . PT HAS A HX OF ESRD HEMODIALYSIS TTHS WITH DR CLARK, DM HYPOTHYROIDISM DIABETIC NEUROPATHY. CT ABD/PELVIS SHOWED MILD ASCITES STARTED ON FLAGYL STOOL FOR C-DIFF AND WBC GI, AND NEPHRO CONSULTED , CONTINUE HOME MEDS . DC PLAN TO GO HOME WHEN STABLE.
--- NOTE | 2019-05-15 16:30 | NUR ---
FREQUENT ROUNDING DONE. PT IS AWAKE AND STABLE. SCHEDULED MEDS GIVEN GLUCOSE CHECKED 105. NO INSULIN COVERAGE
--- NOTE | 2019-05-15 19:09 | NUR ---
REPORT GIVEN TO DUMP OPERATOR NURSE FOR CONTINUITY OF CARE. PT IS STABLE. CALL LIGHT WITHIN PT'S REACH.
--- NOTE | 2019-05-15 19:10 | NUR ---
RECEIVED PATIENT FROM AM SHIFT NURSE IN STABLE CONDITION FOR CONTINUITY OF CARE. ABLE TO MAKE NEEDS KNOWN. RESPIRATIONS EVEN, UNLABORED. LEFT UPPER ARM SHUNT, THRILL AND BRUIT NOTED. SALINE LOCK TO RIGHT FOR ARM 22G PATENT/INTACT. ISOLATION PRECAUTIONS OBSERVED. CALL LIGHT WITHIN REACH. WILL CONTINUE TO MONITOR.
[2019-05-15 20:00] VITALS: BP 155/76
[2019-05-15] MEDS: tiZANidine 4 MG TAB PO SCH (21:06)
[2019-05-15] MEDS: ATORVASTATIN 20 MG TAB PO SCH (21:06)
[2019-05-15] MEDS: GABAPENTIN 100 MG CAP PO SCH (21:06)
[2019-05-15] MEDS: traZODone 50 MG TAB PO SCH (21:07)
--- NOTE | 2019-05-15 21:10 | NUR ---
MADE ROUNDS. PATIENT CONTINUES IN STABLE CONDITION. NO C/O PAIN. NO S/SX ACUTE DISTRESS NOTED. CALL LIGHT WITHIN REACH. WILL CONTINUE TO MONITOR.
[2019-05-15] MEDS: INSULIN LANTUS 100 UNITS/ML 10 ML VIAL SUBQ SCH (21:31)
--- NOTE | 2019-05-15 23:10 | NUR ---
MADE ROUNDS. PATIENT CONTINUES IN STABLE CONDITION. NO C/O PAIN. NO S/SX ACUTE DISTRESS NOTED. CALL LIGHT WITHIN REACH. WILL CONTINUE TO MONITOR.
[2019-05-16] VITALS: BP 152/64
--- NOTE | 2019-05-16 01:14 | NUR ---
PATIENT IS ASLEEP AND IN STABLE CONDITION. NO C/O PAIN. NO S/SX ACUTE DISTRESS. CALL LIGHT WITHIN REACH. WILL CONTINUE TO MONITOR.
[2019-05-16] MEDS: metroNIDAZOLE 500 MG/NS PREMIX 100 ML IV SCH ×3 (02:19→18:14)
[2019-05-16] MEDS: HYDROcodone/APAP 5/325 MG 1 TAB TAB PO PRN (02:20)
--- NOTE | 2019-05-16 02:20 | NUR ---
PATIENT C/O ACHING BACK PAIN 09/12. MEDICATED ORDERED. LOW STIMULI ENVIRONMENT TO ASSIST WITH PAIN RELIEF. CALL LIGHT WITHIN REACH. WILL CONTINUE TO MONITOR.
--- NOTE | 2019-05-16 03:20 | NUR ---
REASSESSED PATIENT'S PAIN LEVEL AT 0/10. PATIENT IS SLEEPING WELL. NO S/SX ACUTE DISTRESS. CALL LIGHT WITHIN REACH. WILL CONTINUE TO MONITOR.
[2019-05-16 04:00] VITALS: BP 153/67
--- NOTE | 2019-05-16 04:25 | NUR ---
PATIENT IS ASLEEP AND IN STABLE CONDITION. NO C/O PAIN. NO S/SX ACUTE DISTRESS. CALL LIGHT WITHIN REACH. WILL CONTINUE TO MONITOR.
[2019-05-16] MEDS: LEVOTHYROXINE 0.025 MG TAB PO SCH (05:32)
--- NOTE | 2019-05-16 07:12 | NUR ---
RECEIVED REPORT FROM [employer] INTERMODAL TRUCK DRIVER NURSE. PT IS AWAKE AND ALERT. PT HAS NO SIGNS OF DISTRESS. PT HAS RIGHT FA 22G SALINE LOCK. ON ROOM AIR. WILL CONTINUE TO MONITOR
--- NOTE | 2019-05-16 08:51 | NUR ---
[facility] CALLED FOR CRITICAL VALUE OF CREATININE 5.7
--- NOTE | 2019-05-16 08:54 | NUR ---
INFORMED MINGO REGARDING CRITICAL VALUE.
[2019-05-16] MEDS: amLODIPine 5 MG TAB PO SCH (09:00)
[2019-05-16] MEDS: LACTOBACILLUS RHAMNOSUS GG 1 EACH CAP PO SCH (09:00)
[2019-05-16] MEDS: ATENOLOL 50 MG TAB PO SCH (09:00)
--- NOTE | 2019-05-16 09:30 | NUR ---
SCHEDULED MED GIVEN. PT TOLERATED WELL. WILL CONTINUE TO MONITOR
[2019-05-16 10:33] LABS: FOLIC ACID 5.9 ng/mL (>3.0)
[2019-05-16 10:53] LABS: MAGNESIUM 2.1 mg/dL (1.8-2.4); PHOSPHORUS 5.2 mg/dL (2.5-4.9)
[2019-05-16 10:54] LABS: BASOPHILS % (AUTO) 0.9 % (0.0-2.0); EOSINOPHILS # (AUTO) 0.2 K/uL (0-0.4); EOSINOPHILS % (AUTO) 5.4 % (0.0-4.0); HEMOGLOBIN 10.6 g/dL (12.0-16.0); LYMPHOCYTES # (AUTO) 1.3 K/uL (2.5-16.5); LYMPHOCYTES % (AUTO) 29.9 % (20.5-51.1); MEAN CORPUSCULAR HEMOGLOBIN 31 pg (27-31); MEAN CORPUSCULAR HGB CONC 32 g/dL (33-37); MEAN CORPUSCULAR VOLUME 95.3 fL (80-94); MONOCYTES # (AUTO) 0.2 K/uL (0.8-1.0); MONOCYTES % (AUTO) 5.7 % (1.7-9.3); NEUTROPHILS # (AUTO) 2.5 K/uL (1.8-7.7); NEUTROPHILS % (AUTO) 58.1 % (42.2-75.2); PLATELET COUNT (AUTO) 243 K/uL (140-450); RED BLOOD CELL COUNT(AUTO) 3.47 MIL/uL (4.20-5.40); RED CELL DISTRIBUTION WIDTH 14.7 % (11.6-13.7); WHITE BLOOD COUNT (AUTO) 4.4 K/uL (4.8-10.8)
[2019-05-16 12:11] LABS: ANION GAP 14.5 (8-16); CARBON DIOXIDE 28.4 mmol/L (21-32); CREATININE 5.7 mg/dL (0.6-1.3); POTASSIUM 3.9 mmol/L (3.5-5.1)
--- NOTE | 2019-05-16 12:11 | NUR ---
BLOOD GLUCOSE CHECKED = 67. GAVE SNACKS AND JUICE. WILL CONTINUE TO MONITOR
[2019-05-16] MEDS: BLOOD GLUCOSE MONITORING 1 DEV DEV FS SCH ×3 (12:17→21:41)
--- NOTE | 2019-05-16 12:30 | NUR ---
PT IS NOW ON RENAL DIET. TRANSFERRED TO MS. INSTRUCTED PT TO COLLECT URINE AND INFORM US ONCE SAMPLE IS COLLECTED. URINE BOTTLE LEFT AT BEDSIDE.
[2019-05-16] MEDS: cloNIDine 0.1 MG TAB PO SCH ×2 (13:00→18:14)
--- NOTE | 2019-05-16 13:29 | NUR ---
05/16/19 RD INITIAL ASSESSMENT COMPLETED PLEASE REFER TO NUTRITION ASSESSMENT UNDER CARE ACTIVITY FOR ESTIMATED NUTRITIONAL NEEDS. 1. RECOMMEND CCHO 60GM AND RENAL DIET TOLERATED 2. ENCOURAGE PO INTAKE 3. RD PROVIDED NUTRITION EDUCATION ON RENAL AND CCHO DIET. PT ACCEPTED 4. RD TO FOLLOW-UP 3-5 DAYS, MODERATE RISK SHELBIE BERKOWITZ RD
[2019-05-16 16:00] VITALS: BP 175/69
--- NOTE | 2019-05-16 18:18 | NUR ---
SCHEDULED MEDS GIVEN. PT TOLERATED WELL. WILL CONTINUE TO MONITOR
--- NOTE | 2019-05-16 19:08 | NUR ---
REPORT GIVEN TO STACK ATTENDANT NURSE FOR CONTINUITY OF CARE. PT IS STABLE. CALL LIGHT WITHIN PT'S REACH. BED ON LOW, SIDERAILS UP.
--- NOTE | 2019-05-16 19:14 | NUR ---
RECEIVED PATIENT FROM AM SHIFT NURSE FOR CONTINUITY OF CARE. RESPIRATIONS EVEN. UNLABORED. AT BEDSIDE. NO C/O PAIN. NO S/SX ACUTE DISTRESS. SALINE LOCK TO RIGHT AC 20 PATENT/INTACT. ISOLATION PRECAUTIONS OBSERVED. CALL LIGHT WITHIN REACH. WILL CONTINUE TO MONITOR.
[2019-05-16] MEDS: GABAPENTIN 100 MG CAP PO SCH (20:17)
[2019-05-16] MEDS: tiZANidine 4 MG TAB PO SCH (20:17)
[2019-05-16] MEDS: ATORVASTATIN 20 MG TAB PO SCH (20:17)
[2019-05-16] MEDS: traZODone 50 MG TAB PO SCH (20:18)
[2019-05-16] MEDS: INSULIN LANTUS 100 UNITS/ML 10 ML VIAL SUBQ SCH (20:31)
--- NOTE | 2019-05-16 21:15 | NUR ---
PATIENT AWAKE AND IN STABLE CONDITION. NO C/O PAIN. NO S/SX ACUTE DISTRESS. CALL LIGHT WITHIN REACH. WILL CONTINUE TO MONITOR.
--- NOTE | 2019-05-16 23:09 | NUR ---
PATIENT ASLEEP AND IN STABLE CONDITION. NO C/O PAIN. NO S/SX ACUTE DISTRESS. CALL LIGHT WITHIN REACH. WILL CONTINUE TO MONITOR.
[2019-05-17] VITALS: BP 156/71
--- NOTE | 2019-05-17 01:30 | NUR ---
PATIENT STATED THAT SHE FELT A LITTLE SHAKY. BLOOD GLUCOSE WAS 56 MG/DL. ORANGE WAS GIVEN AND PATIENT WAS CLOSELY MONITORED. BLOOD GLUCOSE IS NOW 86 MG/DL. PATIENT IS NO LONGER EXCITING ANY S/SX HYPOGLYCEMIA. NO S/SX ACUTE DISTRESS. NO C/O PAIN. CALL LIGHT WITHIN REACH. WILL CONTINUE TO MONITOR.
[2019-05-17] MEDS: metroNIDAZOLE 500 MG/NS PREMIX 100 ML IV SCH ×2 (02:09→10:19)
--- NOTE | 2019-05-17 03:00 | NUR ---
PATIENT ASLEEP AND IN STABLE CONDITION. NO C/O PAIN. NO S/SX ACUTE DISTRESS. CALL LIGHT WITHIN REACH. WILL CONTINUE TO MONITOR.
--- NOTE | 2019-05-17 05:09 | NUR ---
MADE ROUNDS. PATIENT IS ASLEEP AND IN STABLE CONDITION. NO C/O PAIN. NO S/SX ACUTE DISTRESS. CALL LIGHT WITHIN REACH. WILL CONTINUE TO MONITOR.
[2019-05-17] MEDS: LEVOTHYROXINE 0.025 MG TAB PO SCH (05:44)
[2019-05-17] MEDS: HYDROcodone/APAP 5/325 MG 1 TAB TAB PO PRN (06:15)
--- NOTE | 2019-05-17 06:15 | NUR ---
PATIENT C/O ACHING PAIN 09/12. MEDICATED ORDERED. CALL LIGHT WITHIN REACH. WILL CONTINUE TO MONITOR.
[2019-05-17 06:59] LABS: BASOPHILS % (AUTO) 0.8 % (0.0-2.0); EOSINOPHILS # (AUTO) 0.2 K/uL (0-0.4); EOSINOPHILS % (AUTO) 4.5 % (0.0-4.0); HEMOGLOBIN 10.2 g/dL (12.0-16.0); LYMPHOCYTES # (AUTO) 1.4 K/uL (2.5-16.5); LYMPHOCYTES % (AUTO) 26.6 % (20.5-51.1); MEAN CORPUSCULAR HEMOGLOBIN 31 pg (27-31); MEAN CORPUSCULAR HGB CONC 33 g/dL (33-37); MEAN CORPUSCULAR VOLUME 94.2 fL (80-94); MONOCYTES # (AUTO) 0.2 K/uL (0.8-1.0); NEUTROPHILS # (AUTO) 3.4 K/uL (1.8-7.7); NEUTROPHILS % (AUTO) 64.1 % (42.2-75.2); PLATELET COUNT (AUTO) 221 K/uL (140-450); RED BLOOD CELL COUNT(AUTO) 3.29 MIL/uL (4.20-5.40); RED CELL DISTRIBUTION WIDTH 14.5 % (11.6-13.7); WHITE BLOOD COUNT (AUTO) 5.3 K/uL (4.8-10.8)
--- NOTE | 2019-05-17 07:08 | NUR ---
ENDORSED PATIENT IN STABLE CONDITION TO AM SHIFT NURSE FOR CONTINUITY OF CARE.
--- NOTE | 2019-05-17 07:19 | NUR ---
RECEIVED REPORT FROM NIGHT NURSE. PT AAOX4, SITTING IN BED, NO DISTRESS NOTED, DENIES PAIN AT THIS TIME. RESPIRATIONS EVEN AND UNLABORED ON ROOM AIR, CLEAR BREATH SOUNDS. IV IN PLACE IN R FA PATENT AND ASYMPTOMATIC, SALINE LOCKED. L UA SHUNT IN PLACE. R PLANTAR SCAB PRESENT, KEEP FACETER. SAFETY MEASURES IN PLACE, CALL LIGHT WITHIN REACH, BED IN LOW POSITION, WILL CONTINUE TO MONITOR.
[2019-05-17 07:48] LABS: MAGNESIUM 2.1 mg/dL (1.8-2.4); PHOSPHORUS 6.4 mg/dL (2.5-4.9)
[2019-05-17 07:53] VITALS: BP 149/66
[2019-05-17 07:57] LABS: ANION GAP 18.4 (8-16); CARBON DIOXIDE 25.3 mmol/L (21-32); POTASSIUM 4.7 mmol/L (3.5-5.1)
[2019-05-17 07:58] LABS: CREATININE 7.3 mg/dL (0.6-1.3)
[2019-05-17 08:00] VITALS: BP 149/66
[2019-05-17] MEDS: BLOOD GLUCOSE MONITORING 1 DEV DEV FS SCH ×2 (08:02→11:49)
--- NOTE | 2019-05-17 08:46 | NUR ---
MEDICATIONS ADMINISTERED PER ORDER. PT TOLERATED WELL. NO DISTRESS NOTED. SAFETY MEASURES IN PLACE. CALL LIGHT WITHIN REACH. WILL CONTINUE TO MONITOR.
[2019-05-17] MEDS: LACTOBACILLUS RHAMNOSUS GG 1 EACH CAP PO SCH (08:49)
[2019-05-17] MEDS: ATENOLOL 50 MG TAB PO SCH (08:49)
[2019-05-17] MEDS: amLODIPine 5 MG TAB PO SCH (08:49)
[2019-05-17] MEDS: cloNIDine 0.1 MG TAB PO SCH ×2 (08:50→13:30)
--- NOTE | 2019-05-17 10:20 | NUR ---
MEDICATIONS ADMINISTERED PER ORDER, PT TOLERATED WELL, NO DISTRESS NOTED. WILL CONTINUE TO MONITOR.
[2019-05-17] MEDS ORDERED: LACT-81 PO (12:28)
--- NOTE | 2019-05-17 12:31 | NUR ---
PT SITTING IN BED DOING CROSSWORD PUZZLES. DENIES PAIN. NO DISTRESS NOTED. SAFETY MEASURES IN PLACE. CALL LIGHT WITHIN REACH, WILL CONTINUE TO MONITOR.
[2019-05-17] MEDS ORDERED: CALCIUM ACETATE 667 MG TAB PO SCH (13:00)
[2019-05-17 13:30] VITALS: BP 133/63
--- NOTE | 2019-05-17 14:45 | NUR ---
PT TO BE DISCHARGED HOME AT THIS TIME. DISCHARGE, MEDICATION AND FOLLOWUP TEACHING GIVEN TO PT, VERBALIZED UNDERSTANDING. DISCHARGE PAPERWORK SIGNED BY PT. IV SITE REMOVED WITH MINIMAL BLOOD LOSS AND LUMEN INTACT. ID BANDS REMOVED. PHOTOGRAPH TAKEN OF R FOOT DIABETIC ULCER, AND PLACED IN CHART. PT FLU AND PNA VACCINES UP TO DATE. VITAL SIGNS STABLE UPON DISCHARGE, RESPIRATIONS EVEN AND UNLABORED ON ROOM AIR, CLEAR BREATH SOUNDS. PT ESCORTED OFF THE UNIT ON FOOT AND PICKED UP IN A PRIVATE VEHICLE BY FAMILY MEMBER.
== END 2019-05-17 14:45 | disposition home or self-care (01) | DRG 393 ==
LOC: MED 13:46 → MTU 18:37
PROVIDERS: ADMIT General Practice; ATTEND General Practice
PROC: 5A1D70Z Performance of Urinary Filtration, Intermittent, Less than 6 Hours Per Day (ICD-10-PCS; principal; 2019-05-15)
DX: K92.89 Other specified diseases of the digestive system (principal); N17.0 Acute kidney failure with tubular necrosis; E43 Unspecified severe protein-calorie malnutrition; I50.43 Acute on chronic combined systolic (congestive) and diastolic (congestive) heart failure; N18.6 End stage renal disease; I13.2 Hypertensive heart and chronic kidney disease with heart failure and with stage 5 chronic kidney disease, or end stage renal disease; J98.11 Atelectasis; R18.8 Other ascites; N12 Tubulo-interstitial nephritis, not specified as acute or chronic; A08.4 Viral intestinal infection, unspecified; E11.22 Type 2 diabetes mellitus with diabetic chronic kidney disease; G47.00 Insomnia, unspecified; E11.51 Type 2 diabetes mellitus with diabetic peripheral angiopathy without gangrene; E03.9 Hypothyroidism, unspecified; E11.40 Type 2 diabetes mellitus with diabetic neuropathy, unspecified; L97.519 Non-pressure chronic ulcer of other part of right foot with unspecified severity; F32.9 Major depressive disorder, single episode, unspecified; R25.2 Cramp and spasm; E78.00 Pure hypercholesterolemia, unspecified; I25.10 Atherosclerotic heart disease of native coronary artery without angina pectoris; E83.39 Other disorders of phosphorus metabolism; K31.84 Gastroparesis; E11.43 Type 2 diabetes mellitus with diabetic autonomic (poly)neuropathy; E11.621 Type 2 diabetes mellitus with foot ulcer; Z68.25 Body mass index [BMI] 25.0-25.9, adult; Z79.82 Long term (current) use of aspirin; Z79.899 Other long term (current) drug therapy; Z79.4 Long term (current) use of insulin; Z90.49 Acquired absence of other specified parts of digestive tract; Z95.0 Presence of cardiac pacemaker; Z99.2 Dependence on renal dialysis; Z98.51 Tubal ligation status; Z89.422 Acquired absence of other left toe(s); Z83.3 Family history of diabetes mellitus; Z82.49 Family history of ischemic heart disease and other diseases of the circulatory system
CPT/HCPCS: 36415; 71045; 76770; 80048; 80053; 82140; 82150; 82272; 82607; 82728; 82746; 82948; 83036; 83540; 83605; 83615; 83690; 83735; 83880; 84100; 84439; 84443; 84484; 85025; 85045; 85610; 85730; 87040; 87045; 87070; 87081; 87804; 89055; 93005; 93925; 96365; 96375; 99285; J0696; J1644; J1815; J2270; J2405; J3490; J7030; J7060; Q0092

== ENCOUNTER 2019-05-24 16:03 | Emergency (ER) | payer OTHER, MEDICAID ==
[~2019-05-24] VITALS: Ht 152.4 cm; Wt 55.8 kg
[~2019-05-24 16:03] MED LIST changes: +LACT-81 PO; +LEVO0.024 PO
[2019-05-24 16:10] VITALS: BP 164/72
--- NOTE | 2019-05-24 16:15 | NUR ---
Note undone in EDM - 05/24/19 at 1620 by [email or web address] 44/F BIB SELF C/O R SHOULDER PAIN S/P FALL X 2 DAYS.MED HX: DM, HTN, ESRD WITH HEMODIALYSIS , SHANEL SHUNT, ANURIA X 4 YRS. PATIENT STATES PAIN OF 9/10 AT THIS TIME. PATIENT POSITIONED FOR COMFORT; HOB ELEVATED; BEDRAILS UP X1; BED DOWN. ER MADE AWARE OF PT STATUS.
--- NOTE | 2019-05-24 16:15 | NUR ---
44/F BIB SELF C/O R ELBOW & R SHOULDER PAIN S/P FALL X 2 DAYS.MED HX: DM, HTN, ESRD WITH HEMODIALYSIS , SHANEL SHUNT, ANURIA X 4 YRS. PATIENT STATES PAIN OF 9/10 AT THIS TIME. PATIENT POSITIONED FOR COMFORT; HOB ELEVATED; BEDRAILS UP X1; BED DOWN. ER MD MADE AWARE OF PT STATUS.
[2019-05-24] MEDS ORDERED: ACETAMINOPHEN 325 MG TAB PO ONE (16:55)
[2019-05-24 16:57] VITALS: BP 164/73
--- NOTE | 2019-05-24 17:25 | NUR ---
SLING APPLIED TO RIGHT ARM.
== END 2019-05-24 17:31 | disposition home or self-care (01) ==
LOC: MED 16:03
DX: S46.811A Strain of other muscles, fascia and tendons at shoulder and upper arm level, right arm, initial encounter (principal); E11.9 Type 2 diabetes mellitus without complications; I10 Essential (primary) hypertension; E11.22 Type 2 diabetes mellitus with diabetic chronic kidney disease; I12.0 Hypertensive chronic kidney disease with stage 5 chronic kidney disease or end stage renal disease; N18.6 End stage renal disease; Z95.0 Presence of cardiac pacemaker; Z99.2 Dependence on renal dialysis; Z79.4 Long term (current) use of insulin; Z79.899 Other long term (current) drug therapy; W01.0XXA Fall on same level from slipping, tripping and stumbling without subsequent striking against object, initial encounter; Y93.89 Activity, other specified; Y92.89 Other specified places as the place of occurrence of the external cause; Y99.8 Other external cause status
CPT/HCPCS: 73030; 73080; 99284

== ENCOUNTER 2019-06-19 22:02 | Inpatient (IN) | payer OTHER ==
[~2019-06-19] VITALS: Ht 154.9 cm; Wt 55.8 kg
--- NOTE | 2019-06-19 22:11 | NUR ---
PT TAKEN TO BED 6
[2019-06-19 22:20] VITALS: BP 162/71
--- NOTE | 2019-06-19 22:30 | NUR ---
44 YEAR OLD FEMALE COMPLAINS OF SWEATING, HEADACHES, SHAKING, AND BODYACHES X 2 DAYS. PATIENT GCS 15, AOX4, BREATHING EVEN AND UNLABORED, SKIN WARM AND DRY. BS 113. PATIENT VISIBLY SHAKING. BED IN LOWEST POSITION, LOCKED, BED RAIL UPX1. PT PLACED ON BEDSIDE MONITOR, DENIES OTHER SYMPTOMS AT THIS TIME. DR GIBSON MADE AWARE OF PT. PMH - KIDNEY FAILURE, DIALYSIS, HTN, DM ALLERGIES - NKA
[2019-06-19] MEDS ORDERED: KETOROLAC 30 MG/ML VIAL IVP ONE (22:50)
--- NOTE | 2019-06-19 23:00 | NUR ---
FLU SWAB COLLECTED
--- NOTE | 2019-06-19 23:00 | NUR ---
UNABLE TO OBTAIN IV FROM PATIENT AFTER 2 ATTEMPTS, CHARGE NURSE NOTIFIED
--- NOTE | 2019-06-19 23:15 | NUR ---
X-Ray at bedside.
--- NOTE | 2019-06-19 23:25 | NUR ---
JO CARY AT BEDSIDE ATTEMPTING TO PLACE IV
[2019-06-19 23:32] LABS: BASOPHILS % (AUTO) 0.8 % (0.0-2.0); EOSINOPHILS # (AUTO) 0.1 K/uL (0-0.4); EOSINOPHILS % (AUTO) 2.8 % (0.0-4.0); HEMATOCRIT 31.2 % (36-48); HEMOGLOBIN 10.2 g/dL (12.0-16.0); LYMPHOCYTES # (AUTO) 0.9 K/uL (2.5-16.5); LYMPHOCYTES % (AUTO) 18.7 % (20.5-51.1); MEAN CORPUSCULAR HEMOGLOBIN 31 pg (27-31); MEAN CORPUSCULAR HGB CONC 33 g/dL (33-37); MEAN CORPUSCULAR VOLUME 95.4 fL (80-94); MONOCYTES # (AUTO) 0.2 K/uL (0.8-1.0); MONOCYTES % (AUTO) 4.9 % (1.7-9.3); NEUTROPHILS # (AUTO) 3.7 K/uL (1.8-7.7); NEUTROPHILS % (AUTO) 72.8 % (42.2-75.2); PLATELET COUNT (AUTO) 216 K/uL (140-450); RED BLOOD CELL COUNT(AUTO) 3.27 MIL/uL (4.20-5.40); RED CELL DISTRIBUTION WIDTH 15.4 % (11.6-13.7); WHITE BLOOD COUNT (AUTO) 5.1 K/uL (4.8-10.8)
[2019-06-19 23:56] LABS: ALBUMIN 3.4 g/dL (3.4-5.0); ANION GAP 15.6 (8-16); ASPARTATE AMINOTRANSFERASE 19 U/L (15-37); CARBON DIOXIDE 31.9 mmol/L (21-32); CHLORIDE 98 mmol/L (98-107); GLUCOSE 110 mg/dL (74-106); LIPASE 167 U/L (73-393); SODIUM SERUM 139 mmol/L (136-145); TOTAL BILIRUBIN 0.4 mg/dL (0.0-1.0); UREA NITROGEN, BLOOD 51 mg/dL (7-18)
[2019-06-20 00:24] LABS: CREATINE KINASE MB 1.7 ng/mL (0-3.6)
[2019-06-20 00:45] LABS: POTASSIUM 6.5 mmol/L (3.5-5.1)
[2019-06-20 00:46] LABS: CREATININE 8.6 mg/dL (0.6-1.3)
[2019-06-20] MEDS ORDERED: ASPIRIN 325 MG TAB PO ONE (00:50)
[2019-06-20] MEDS ORDERED: CALCIUM GLUCONATE 10% 1000 MG/10 ML VIAL IVP ONE (00:55)
[2019-06-20] MEDS ORDERED: ALBUTEROL 0.083% 2.5 MG/3 ML NEBU INH ONE (00:55)
[2019-06-20] MEDS ORDERED: INSULIN REGULAR, HUMAN 100 UNIT/ML VIAL IVP ONE (00:55)
[2019-06-20] MEDS ORDERED: DEXTROSE 50% 50 ML SYR IVP ONE (00:55)
[2019-06-20] MEDS ORDERED: SODIUM ZIRCONIUM CYCLOSILICATE 10 GM POWD.PACK PO ONE (00:55)
--- NOTE | 2019-06-20 00:58 | NUR ---
Respiratory Therapist at bedside for respiratory intervention.
[2019-06-20] MEDS ORDERED: ONDANSETRON 4 MG/2 ML VIAL IVP PRN (02:00)
[2019-06-20] MEDS ORDERED: ACETAMINOPHEN 325 MG TAB PO PRN (02:00)
[2019-06-20] MEDS ORDERED: HYDROcodone/APAP 7.5/325 MG 1 TAB PO PRN (02:00)
--- NOTE | 2019-06-20 02:07 | NUR ---
PATIENTS O2 SATURATION WOULD DROP TO 92%, PLACED ON 2L O2 NC. PATIENT O2 SATURATION 100%, RR 12.
[2019-06-20] MEDS ORDERED: MORPHINE SULFATE 4 MG/ML SYR IVP ONE (02:10)
[2019-06-20 02:25] LABS: MAGNESIUM 2.6 mg/dL (1.8-2.4); PHOSPHORUS 7.2 mg/dL (2.5-4.9)
[2019-06-20 02:30] VITALS: BP 148/75
--- NOTE | 2019-06-20 02:30 | NUR ---
RECEIVED BEDSIDE REPORT FROM ER NURSE, MICHELLE. PT CAME IN [facility] AND ABLE TO AMBULATE TO [facility] BED. PT BREATHING EVEN AND UNLABORED WITH 2LPM O2 VIA NC. SKIN INTACT, WARM AND DRY TO TOUCH. IV SITE ON RFA, 20G, PATENT, INTACT, AND ASYMPTOMATIC. DX:HYPERKALEMIA. AV SHUNT ON LEFT UA. HD ON TTHSAT. MRSA SWAB DONE, VS CHECKED, WITHIN PT'S BASELINE. ALL SAFETY MEASUREMENT ARE MET. BED IN LOW POSITION, CALL LIGHT WITHIN REACH.
[2019-06-20] MEDS ORDERED: HUM SUBQ (02:32)
--- NOTE | 2019-06-20 02:45 | NUR ---
Patient will be admitted to care of Dr Sexton. Admited to TELE. Will go to room 118. Belongings list completed. Report to ARTUR CARY.
[2019-06-20] MEDS: NACL 0.9% 1,000 ML IV SCH (03:00)
[2019-06-20 04:00] VITALS: BP 138/71
--- NOTE | 2019-06-20 05:19 | NUR ---
PT SLEEPING IN BED COMFORTABLY. NO ACUTE DISTRESS NOTED.
[2019-06-20] MEDS ORDERED: MELA5TAB6 PO (05:20)
[2019-06-20] MEDS ORDERED: GABA100C PO (05:20)
[2019-06-20] MEDS ORDERED: MECO10005 PO (05:20)
[2019-06-20] MEDS ORDERED: ONDA4TAB12 PO (05:20)
[2019-06-20] MEDS ORDERED: CLON0.2T43 PO (05:20)
--- NOTE | 2019-06-20 06:18 | NUR ---
BS CHECKED, 109. NO INSULIN COVERAGE NEEDED.
--- NOTE | 2019-06-20 06:50 | NUR ---
PT IN STABLE CONDITION, WILL ENDORSE PT TO DAY SHIFT NURSE FOR CONTINUOUS CARE.
[2019-06-20 06:57] LABS: ANION GAP 17.6 (8-16); CARBON DIOXIDE 28.3 mmol/L (21-32); POTASSIUM 4.9 mmol/L (3.5-5.1)
[2019-06-20 06:59] LABS: BASOPHILS % (AUTO) 0.8 % (0.0-2.0); EOSINOPHILS # (AUTO) 0.1 K/uL (0-0.4); EOSINOPHILS % (AUTO) 2.2 % (0.0-4.0); HEMATOCRIT 27.3 % (36-48); HEMOGLOBIN 8.9 g/dL (12.0-16.0); LYMPHOCYTES % (AUTO) 18.8 % (20.5-51.1); MEAN CORPUSCULAR HEMOGLOBIN 31 pg (27-31); MEAN CORPUSCULAR HGB CONC 33 g/dL (33-37); MONOCYTES # (AUTO) 0.3 K/uL (0.8-1.0); MONOCYTES % (AUTO) 5.2 % (1.7-9.3); PLATELET COUNT (AUTO) 202 K/uL (140-450); RED BLOOD CELL COUNT(AUTO) 2.84 MIL/uL (4.20-5.40); RED CELL DISTRIBUTION WIDTH 15.3 % (11.6-13.7); WHITE BLOOD COUNT (AUTO) 5.5 K/uL (4.8-10.8)
[2019-06-20 07:05] LABS: MAGNESIUM 2.5 mg/dL (1.8-2.4); PHOSPHORUS 6.6 mg/dL (2.5-4.9)
--- NOTE | 2019-06-20 07:15 | NUR ---
RECEIVED PT FROM JERSEY KNITTER NURSE, ARTUR, PT IS AWAKE, ALERT AND SEATED ON THE BED WITH IV LINE ON THE RT FA G. 20 WITH NS AT TKO, PT HAS A LEFT AV SHUNT FOR DIALYSIS ACCESS, DIALYSIS EVERY T--WED, NO SIGN OF DISTRESS NOTED, PT AMBULATING TOWARDS THE SICK AND BRUSHING HER TEETH, WILL MONITOR PT.
[2019-06-20 08:00] VITALS: BP 169/75
[2019-06-20] MEDS: LEVOTHYROXINE 0.025 MG TAB PO SCH (08:00)
--- NOTE | 2019-06-20 08:00 | NUR ---
DUE MEDS GIVEN. TOLERATED WELL. BLOOD SUGAR CHECK DONE 98. NO SLIDING SCALE GIVEN.
[2019-06-20] MEDS: BLOOD GLUCOSE MONITORING 1 DEV DEV FS SCH ×4 (08:01→20:23)
[2019-06-20] MEDS: DOCUSATE SODIUM 100 MG GELCAP PO SCH ×2 (08:20→21:33)
[2019-06-20] MEDS: ASPIRIN 81 MG TAB.CHEW PO SCH (08:21)
[2019-06-20] MEDS: ATORVASTATIN 20 MG TAB PO SCH (08:21)
--- NOTE | 2019-06-20 08:35 | NUR ---
PATIENT HAS BEEN SCREENED AND CATEGORIZED MODERATE NUTRITION RISK. PATIENT WILL BE SEEN WITHIN 3-5 DAYS OF ADMISSION. 06/22/19 06/24/[address]
--- NOTE | 2019-06-20 08:40 | NUR ---
DIALYSIS WAS STARTED TO PT NOW.
[2019-06-20] MEDS: ATENOLOL 50 MG TAB PO SCH (09:00)
[2019-06-20] MEDS: amLODIPine 5 MG TAB PO SCH (09:00)
[2019-06-20] MEDS: cloNIDine 0.1 MG TAB PO SCH ×2 (09:00→21:35)
[2019-06-20] MEDS ORDERED: MECOBALAMIN 500 MCG PO SCH (09:00)
--- NOTE | 2019-06-20 11:19 | NUR ---
Parachute Crown Sewer Note: Patient is a 44-year-old female admitted for chest pain, hyperkalemia. Patient has PMHX of HTN, DM, ESRD on hemodialysis, hypothyroidism, diabetic neuropathy, diabetic retinopathy, and ascites. Patient was admitted from home. SW attempted to conduct assessment but patient was receiving dialysis. Patient requested for SW to return at a later time. SW will follow up.
--- NOTE | 2019-06-20 11:27 | NUR ---
HEMODIALYSIS DONE WITH 3L OUTPUT. IN STABLE CONDITION
[2019-06-20] MEDS ORDERED: hydrALAZINE 20 MG/ML VIAL IVP PRN (11:40)
--- NOTE | 2019-06-20 11:44 | NUR ---
WITH C/O HEADACHE. TYLENOL 650 MG PO PRN GIVEN ORDERED. WILL REASSESS IN 1 HOUR
--- NOTE | 2019-06-20 11:50 | NUR ---
BP 188/78, HR 88. HYDRALAZINE 10MG IVP PRN GIVEN ORDERED. WILL RECHECK BP IN 1 HOUR
[2019-06-20] MEDS: INSULIN LISPRO SLIDING SCALE 100 UNITS/ML VIAL SUBQ PRN ×2 (11:57→21:45)
[2019-06-20 12:00] VITALS: BP 188/78
--- NOTE | 2019-06-20 12:00 | NUR ---
BLOOD SUGAR CHECK DONE = 167. 2 UNITS SLIDING SCALE GIVEN ORDERED
[2019-06-20] MEDS ORDERED: APAP/BUTAL/CAFF 325/50/40 MG 1 TAB PO PRN (13:00)
[2019-06-20] MEDS ORDERED: APAP/BUTAL/CAFF 325/50/40 MG 1 TAB PO SCH (13:08)
--- NOTE | 2019-06-20 13:25 | NUR ---
PT VERBALIZED NOW THAT HEADACHE IS GONE AND SCHEDULED FIORICET IS NOT NEEDED.
[2019-06-20] MEDS ORDERED: cloNIDine 0.1 MG TAB PO SCH (14:00)
[2019-06-20] MEDS ORDERED: amLODIPine 5 MG TAB PO SCH (14:05)
[2019-06-20 15:41] VITALS: BP 153/79
--- NOTE | 2019-06-20 16:21 | NUR ---
DISCHARGE PLANNING: THIS IS A 44 YEAR OLD FEMALE PATIENT FROM HOME, WHO CAME IN DUE TO CHEST PAIN. PAST MEDICAL HISTORY INCLUDE HTN, DM, ESRD ON DIALYSIS, PAD AND DIABETIC RETINOPATHY AND NEUROPATHY. INITIAL DIAGNOSIS OF CHEST PAIN/HYPERKALEMIA. CURRENT LABS INCLUDE WBC 5.5, H/H 8.9/27.3, NA/K 139/4.9, BUN/CREA 55/9.0 AND MAG 2.6. CARDIO AND NEPHRO CONSULTS IN PLACE. DC PLAN BACK TO HOME ONCE STABLE. IN PATIENT POST STABILIZATION FORM FAXED TO [facility] [phone].
[2019-06-20] MEDS: CALCIUM ACETATE 667 MG TAB PO SCH (16:30)
--- NOTE | 2019-06-20 19:05 | NUR ---
GAVE REPORT TO INFORMATICIST NURSE. PT IN STABLE CONDITION
--- NOTE | 2019-06-20 19:06 | NUR ---
RECEIVED BEDSIDE SHIFT REPORT FROM DAYSHIFT NURSE FOR CONTINUITY OF CARE. PT RESTING IN BED. EASILY AROUSABLE. NO SIGNS OF DISTRESS NOTED RESPIRATIONS EVEN AND UNLABORED. TELE MONITOR IN PLACE. SAFETY MEASURES IN PLACE AND CALL LIGHT WITHIN REACH
[2019-06-20 20:00] VITALS: BP 161/67
[2019-06-20] MEDS ORDERED: INSULIN GLARGINE HUM REC ANLOG 21 UNIT SUBQ SCH (21:00)
[2019-06-20] MEDS ORDERED: NON-FORMULARY ITEM (Melatonin (Melatonin) 1 TAB) PO SCH (21:00)
[2019-06-20] MEDS ORDERED: INSULIN LANTUS 100 UNITS/ML 10 ML VIAL SUBQ SCH (21:00)
[2019-06-20] MEDS: GABAPENTIN 100 MG CAP PO SCH (21:33)
[2019-06-20] MEDS: tiZANidine 4 MG TAB PO SCH (21:34)
[2019-06-20] MEDS: MELATONIN 5MG TAB PO SCH (21:35)
--- NOTE | 2019-06-20 21:43 | NUR ---
ADMINISTERED 2100 MEDICATION TO PATIENT. PO AND SUBQ. PATIENT TOLERATED WELL. NO SIGNS OF DISTRESS NOTED. RESPIRATIONS EVEN AND UNLABORED ON ROOM AIR. TELE MONITOR ATTACHED. SAFETY MEASURES IN PLACE. CALL-LIGHT WITHIN REACH. WILL CONTINUE TO MONITOR
[2019-06-21] VITALS: BP 150/71
--- NOTE | 2019-06-21 00:06 | NUR ---
ADMINISTERED PRN MEDICATION FOR HEADACHE. PT STATES SHE HAS 10/10 PAIN ACHING SEVERE.
--- NOTE | 2019-06-21 01:06 | NUR ---
REASSESSED PT FOR PAIN. PT STATES MEDICATION HELPED HER HEADACHE. SHE STATES SHE IS NOW A 0/10 PAIN
[2019-06-21] MEDS: NACL 0.9% 1,000 ML IV SCH (01:57)
--- NOTE | 2019-06-21 03:50 | NUR ---
PT CALLED FOR THE NURSE. STATED SHE FELT SHAKY BP TAKEN BS WAS 33. ADMINISTERED 50% DEXTROSE ORDERED. AND GAVE 3 APPLE JUICE. REASSESSED BS 173. WILL CONTINUE TO MONITOR PATIENT
[2019-06-21 04:00] VITALS: BP 152/63
[2019-06-21] MEDS: DEXTROSE 50% 50 ML SYR IVP PRN ×2 (04:29→06:51)
[2019-06-21] MEDS: BLOOD GLUCOSE MONITORING 1 DEV DEV FS SCH ×4 (06:10→21:24)
[2019-06-21] MEDS: LEVOTHYROXINE 0.025 MG TAB PO SCH (06:37)
--- NOTE | 2019-06-21 06:51 | NUR ---
FOLLOWED UP ON PATIENT. PATIENT APPEARED LETHARGIC OBTAINED BS 54. GAVE DEXTROSE 50 PRN PER MD ORDER AND APPLESAUCE AND ORANGE JUICE PER MD VELAZQUEZ RECOMMENDATION. PT TOLERATED WELL. WILL ENDORSE TO AM NURSE TO REASSESS BS
[2019-06-21 07:06] LABS: BASOPHILS % (AUTO) 0.8 % (0.0-2.0); EOSINOPHILS # (AUTO) 0.1 K/uL (0-0.4); EOSINOPHILS % (AUTO) 4.1 % (0.0-4.0); HEMATOCRIT 29.7 % (36-48); HEMOGLOBIN 9.7 g/dL (12.0-16.0); LYMPHOCYTES # (AUTO) 0.7 K/uL (2.5-16.5); LYMPHOCYTES % (AUTO) 21.5 % (20.5-51.1); MEAN CORPUSCULAR HEMOGLOBIN 31 pg (27-31); MEAN CORPUSCULAR HGB CONC 33 g/dL (33-37); MEAN CORPUSCULAR VOLUME 95.5 fL (80-94); MONOCYTES # (AUTO) 0.2 K/uL (0.8-1.0); MONOCYTES % (AUTO) 6.6 % (1.7-9.3); NEUTROPHILS # (AUTO) 2.2 K/uL (1.8-7.7); PLATELET COUNT (AUTO) 199 K/uL (140-450); RED BLOOD CELL COUNT(AUTO) 3.11 MIL/uL (4.20-5.40); RED CELL DISTRIBUTION WIDTH 15.3 % (11.6-13.7); WHITE BLOOD COUNT (AUTO) 3.2 K/uL (4.8-10.8)
[2019-06-21 07:10] LABS: MAGNESIUM 2.1 mg/dL (1.8-2.4); PHOSPHORUS 5.7 mg/dL (2.5-4.9)
[2019-06-21 07:11] LABS: ANION GAP 12.6 (8-16); CARBON DIOXIDE 31.2 mmol/L (21-32); POTASSIUM 4.8 mmol/L (3.5-5.1)
--- NOTE | 2019-06-21 07:20 | NUR ---
RECEIVED PT. FROM TE[employer] NURSEMIA. PT. IS ASLEEP AND IN BED. IV ON THE RIGHT FOREARM 20G WITH NS RUNNING AT 10ML/HR. SKIN INTACT. AV SHUNT ON THE LEFT UPPER ARM, BRUIT AND THRILL PRESENT. DIALYSIS ON WEDNESDAY, WEDNESDAY AND WEDNESDAY. PACEMAKER PRESENT ON THE RIGHT CHEST. PT. IS AMBULATORY. NO SIGNS OF DISTRESS AND VERBALIZES NO PAIN. CALL LIGHT WITHIN REACH. WILL CONTINUE TO MONITOR.
--- NOTE | 2019-06-21 07:30 | NUR ---
RECEIVED CRITICAL VALUE OF CREATININE 6, BUN 32, AND CALCIUM 7.[address] WHELAN, NO NEW ORDERS OBTAINED.
[2019-06-21 08:00] VITALS: BP 141/69
[2019-06-21 08:35] LABS: CHOL/HDL RATIO 2.6 (1-4.5)
[2019-06-21] MEDS ORDERED: EPOETIN ALFA 10,000 UNITS/ML VIAL SUBQ SCH (09:00)
[2019-06-21] MEDS: DOCUSATE SODIUM 100 MG GELCAP PO SCH ×2 (09:48→21:18)
[2019-06-21] MEDS: ATENOLOL 50 MG TAB PO SCH (09:51)
[2019-06-21] MEDS: VIT-B COMP/VIT-C/FOLIC ACID 1 TAB PO SCH (09:52)
[2019-06-21] MEDS: ATORVASTATIN 20 MG TAB PO SCH (09:52)
[2019-06-21] MEDS: amLODIPine 5 MG TAB PO SCH (09:52)
[2019-06-21] MEDS: ASPIRIN 81 MG TAB.CHEW PO SCH (09:53)
[2019-06-21] MEDS: cloNIDine 0.1 MG TAB PO SCH ×2 (09:53→21:20)
[2019-06-21] MEDS: LORATADINE 10 MG TAB PO SCH (09:53)
[2019-06-21] MEDS: CALCIUM ACETATE 667 MG TAB PO SCH ×3 (09:56→16:35)
--- NOTE | 2019-06-21 10:00 | NUR ---
BLOOD PRESSURE MEDICATIONS GIVEN WITH BP OF 183/85, HR 88 AND O2 OF 97%. NO SIGNS OF DISTRESS AND PT VERBALIZES NO PAIN. WILL CONTINUE TO MONITOR.
--- NOTE | 2019-06-21 10:03 | NUR ---
MORNING MEDICATIONS GIVEN. NO SIGNS OF DISTRESS NOTED. WILL CONTINUE TO MONITOR.
[2019-06-21 12:00] VITALS: BP 143/74
--- NOTE | 2019-06-21 13:31 | NUR ---
SLIVER MACHINE OPERATOR DC PLAN ASSESSMENT [facility] Patient: Sindy Stokes : 1975 Age/Sex: 44/F Unit#: [id number] Room/Bed: 118/A User: Yaa Marquez CM Date: 06/21/19 13:24 Type: CM: Discharge Planning Basic Screen: Yes Name: Howard Stokes Relationship: Luisito Pre-Admission Living Arrangements: Lives with Other Current Home Health Name/Tel: N/A Current /02 Name/Tel: N/A Current Hospice Name/Tel: N/A Current Dialysis Name/Tel: [facility] Healthcare Decision Maker: Patient Advance Directive No Physician Orders for Life Sustaining Treatment Form No Tentative Discharge Plan/Destination: No Needs Identified Will require assistance post discharge: No Referred to Supervisor Assembly Stock: No Tentative Discharge Plan Summary: 44 y/o female pt admitted for dana pain. Pt with hx of hypertension, DM, ESRD. Sw met with pt at the bedside. Pt was a&o x4, mood and affect appropriate with the situation. Pt reported she lives at home with family; pt stated she's independent with ambulation and ADLs. Pt hasn't had HH services or SNF placement in the last 6 month. Pt receives outpatient dialysis at [facility] on Wednesday, , Wednesday at 9:30am. Pt stated she sometimes drive herself to HD or family. Pt donesn't have an AD, POLST or living will. Pt stated that if needed, family will be making decisions on her behalf. DC plan to home once medically cleared. No needs identified. SW/CM will continue following up as needed. Signature: Yaa Marquez LCSW Date: Jun 21, 2019
--- NOTE | 2019-06-21 14:10 | NUR ---
AFTERNOON MEDICATIONS GIVEN, NO SIGNS OF DISTRESS NOTED. BLOOD SUGAR TAKEN WITH VALUE OF 82, NO INSULIN COVERAGE NEEDED. WILL CONTINUE TO MONITOR.
[2019-06-21 16:00] VITALS: BP 122/71
--- NOTE | 2019-06-21 16:35 | NUR ---
BLOOD SUGAR CHECK WITH A VALUE OF 91. NO INSULIN COVERAGE NEEDED. WILL CONTINUE TO MONITOR.
--- NOTE | 2019-06-21 19:15 | NUR ---
ENDORSED PT. TO SALES VENDOR NURSE, MIA, FOR CONTINUITY OF CARE.
--- NOTE | 2019-06-21 19:16 | NUR ---
RECEIVED ENDORSEMENT AT BEDSIDE FROM AM SHIFT RN. PATIENT IS ON BED. AOX4. ON ROOM AIR. RESPIRATION EVEN AND UNLABORED. IV SITE ON RFA GAUGE 20. SHANEL AV SHUNT. NO SOB NOTED. NO C/O PAIN/DISCOMFORT. TELE MONITOR ATTACHED. PACEMAKER ON RU CHEST NOTED. SAFETY MEASURES IN PLACED. CALL LIGHT WITHIN REACH.
[2019-06-21 20:00] VITALS: BP 148/75
[2019-06-21] MEDS: GABAPENTIN 100 MG CAP PO SCH (21:16)
[2019-06-21] MEDS: tiZANidine 4 MG TAB PO SCH (21:17)
--- NOTE | 2019-06-21 21:18 | NUR ---
ADMINISTERED DUE MEDS ORDERED. TOLERATED WELL. MED ED PROVIDED. DENIES PAIN/DISCOMFORT. CALL LIGHT WITHIN REACH.
[2019-06-21] MEDS: MELATONIN 5MG TAB PO SCH (21:57)
--- NOTE | 2019-06-21 23:10 | NUR ---
PATIENT IS SLEEPING. NOT IN ANY ACUTE DISTRESS. SAFETY MEASURES IN PLACE. CALL LIGHT WITHIN REACH.
[2019-06-22] VITALS: BP 159/76
--- NOTE | 2019-06-22 | NUR ---
VITAL SIGNS TAKEN AND RECORDED. NO SOB NOTED. WILL CONTINUE TO MONITOR.
[2019-06-22] MEDS: NACL 0.9% 1,000 ML IV SCH (01:57)
--- NOTE | 2019-06-22 02:16 | NUR ---
PATIENT IS SLEEPING. RESPIRATION EVEN AND UNLABORED. NO PAIN NOTED.
[2019-06-22 04:00] VITALS: BP 134/58
--- NOTE | 2019-06-22 04:30 | NUR ---
VITAL SIGNS TAKEN AND RECORDED. PATIENT IS SLEEPING, EASILY AROUSABLE THROUGH VERBAL STIMULI. DENIES PAIN.
[2019-06-22] MEDS: LEVOTHYROXINE 0.025 MG TAB PO SCH (06:48)
--- NOTE | 2019-06-22 06:55 | NUR ---
PATIENT IS STANDING IN FRONT OS THE SINK DOING ORAL CARE. ADMINISTERED AM MED ORDERED. TOLERATED WELL. NO ACUTE DISTRESS NOTED. DENIES PAIN/DISCOMFORT. SAFETY MEASURES IN PLACE. CALL LIGHT WITHIN REACH. WILL ENDORSE TO AM SHIFT RN FOR PATIENTS CONTINUITY OF CARE.
[2019-06-22 06:56] LABS: BASOPHILS % (AUTO) 0.7 % (0.0-2.0); EOSINOPHILS # (AUTO) 0.2 K/uL (0-0.4); EOSINOPHILS % (AUTO) 5.7 % (0.0-4.0); HEMATOCRIT 26.2 % (36-48); HEMOGLOBIN 8.7 g/dL (12.0-16.0); LYMPHOCYTES # (AUTO) 1.2 K/uL (2.5-16.5); LYMPHOCYTES % (AUTO) 33.6 % (20.5-51.1); MEAN CORPUSCULAR HEMOGLOBIN 32 pg (27-31); MEAN CORPUSCULAR HGB CONC 33 g/dL (33-37); MEAN CORPUSCULAR VOLUME 94.9 fL (80-94); MONOCYTES # (AUTO) 0.2 K/uL (0.8-1.0); MONOCYTES % (AUTO) 5.1 % (1.7-9.3); NEUTROPHILS # (AUTO) 1.9 K/uL (1.8-7.7); NEUTROPHILS % (AUTO) 54.9 % (42.2-75.2); PLATELET COUNT (AUTO) 188 K/uL (140-450); RED BLOOD CELL COUNT(AUTO) 2.76 MIL/uL (4.20-5.40); RED CELL DISTRIBUTION WIDTH 15.2 % (11.6-13.7); WHITE BLOOD COUNT (AUTO) 3.4 K/uL (4.8-10.8)
[2019-06-22 06:59] LABS: MAGNESIUM 2.2 mg/dL (1.8-2.4); PHOSPHORUS 6.5 mg/dL (2.5-4.9)
--- NOTE | 2019-06-22 07:25 | NUR ---
RECEIVED ENDORSEMENT AT BEDSIDE FROM [employer]ER[employer]ES INSURANCE AGENT NURSE. PATIENT IS ON BED. AOX4. ON ROOM AIR. NO C/O PAIN/DISCOMFORT. RESPIRATION EVEN AND UNLABORED. ON RENAL, CCHO DIET. AMBULATORY IV SITE ON RIGHT AC 20G. SHANEL AV SHUNT. CALL LIGHT WITHIN REACH. WILL CONT TO MONITOR
[2019-06-22] MEDS: BLOOD GLUCOSE MONITORING 1 DEV DEV FS SCH ×2 (07:31→11:25)
[2019-06-22 07:49] LABS: CARBON DIOXIDE 28.9 mmol/L (21-32); POTASSIUM 5.9 mmol/L (3.5-5.1)
[2019-06-22 08:00] VITALS: BP 154/75
[2019-06-22 08:06] LABS: CREATININE 7.8 mg/dL (0.6-1.3)
[2019-06-22] MEDS: CALCIUM ACETATE 667 MG TAB PO SCH ×2 (08:16→11:33)
[2019-06-22] MEDS: ATENOLOL 50 MG TAB PO SCH (08:16)
[2019-06-22] MEDS: ATORVASTATIN 20 MG TAB PO SCH (08:17)
[2019-06-22] MEDS: amLODIPine 5 MG TAB PO SCH (08:17)
[2019-06-22] MEDS: cloNIDine 0.1 MG TAB PO SCH (08:18)
[2019-06-22] MEDS: LORATADINE 10 MG TAB PO SCH (08:19)
[2019-06-22] MEDS: DOCUSATE SODIUM 100 MG GELCAP PO SCH (08:19)
[2019-06-22] MEDS: VIT-B COMP/VIT-C/FOLIC ACID 1 TAB PO SCH (08:19)
[2019-06-22] MEDS: ASPIRIN 81 MG TAB.CHEW PO SCH (08:19)
--- NOTE | 2019-06-22 08:23 | NUR ---
DUE MORNING MEDS GIVEN TOLERATED WELL.
--- NOTE | 2019-06-22 10:00 | NUR ---
PT WILL HAVE HEMODIALYSIS BEFORE DISCHARGE TODAY PER DR. GRISSOM. ALSO VERIFIED ORDER FOR DIALYSIS WITH DR. CLARK.
--- NOTE | 2019-06-22 10:49 | NUR ---
FOLLOWED UP WITH DIALYSIS NURSE BARRIE FOR TIME OF HEMODIALYSIS. WILL CALL BACK
--- NOTE | 2019-06-22 11:00 | NUR ---
DIALYSIS WAS STARTED NOW.
[2019-06-22] MEDS: INSULIN LISPRO SLIDING SCALE 100 UNITS/ML VIAL SUBQ PRN (11:28)
[2019-06-22 12:00] VITALS: BP 156/77
[2019-06-22] MEDS ORDERED: HUMSLIDE SUBQ (12:08)
--- NOTE | 2019-06-22 14:25 | NUR ---
DIALYSIS IS FINISHED NOW, PT DENIES PAIN.
--- NOTE | 2019-06-22 15:30 | NUR ---
DISCHARGED PT TO HOME WITH DAUGHTER, DISCHARGED TEACHINGS AND INSTRUCTIONS GIVEN TO PT, APPOINTMENT FOLLOW UP WAS DISCUSSED AND PT VERBALIZED UNDERSTANDING, IV LINE AND ARM BAND REMOVED, PT DENIES PAIN AND IS STABLE NOW.
== END 2019-06-22 15:30 | disposition home or self-care (01) | DRG 205 ==
LOC: MED 22:02 → MTU 06-20 02:07
PROVIDERS: ADMIT General Practice; ATTEND General Practice
PROC: 5A1D70Z Performance of Urinary Filtration, Intermittent, Less than 6 Hours Per Day (ICD-10-PCS; principal; 2019-06-20)
DX: M94.0 Chondrocostal junction syndrome [Tietze] (principal); N17.0 Acute kidney failure with tubular necrosis; N18.6 End stage renal disease; I12.0 Hypertensive chronic kidney disease with stage 5 chronic kidney disease or end stage renal disease; R18.8 Other ascites; E11.22 Type 2 diabetes mellitus with diabetic chronic kidney disease; E87.5 Hyperkalemia; E03.9 Hypothyroidism, unspecified; E11.40 Type 2 diabetes mellitus with diabetic neuropathy, unspecified; E11.319 Type 2 diabetes mellitus with unspecified diabetic retinopathy without macular edema; E11.51 Type 2 diabetes mellitus with diabetic peripheral angiopathy without gangrene; D64.9 Anemia, unspecified; E83.39 Other disorders of phosphorus metabolism; E83.41 Hypermagnesemia; K29.70 Gastritis, unspecified, without bleeding; I25.10 Atherosclerotic heart disease of native coronary artery without angina pectoris; E11.649 Type 2 diabetes mellitus with hypoglycemia without coma; Z99.2 Dependence on renal dialysis; Z83.3 Family history of diabetes mellitus; Z82.49 Family history of ischemic heart disease and other diseases of the circulatory system; Z90.49 Acquired absence of other specified parts of digestive tract
CPT/HCPCS: 36415; 71045; 80048; 80053; 82150; 82550; 82553; 82948; 83690; 83735; 83880; 84100; 84484; 85025; 85610; 85730; 87040; 87081; 87804; 93970; 96374; 96375; 99285; J0360; J0610; J0885; J1815; J1885; J2270; J2405; J7030; J7613; Q0092

== ENCOUNTER 2019-10-25 13:11 | Emergency (ER) | payer OTHER ==
[~2019-10-25] VITALS: Ht 152.4 cm; Wt 58.5 kg
[~2019-10-25 13:11] MED LIST changes: +HUMSLIDE SUBQ; -INSU100S22 SUBQ; -LACT-81 PO
[2019-10-25 13:24] VITALS: BP 124/58
[2019-10-25] MEDS ORDERED: ACETAMINOPHEN EXTRA STRENGTH 500 MG TAB PO ONE (13:30)
--- NOTE | 2019-10-25 13:45 | NUR ---
44 YEAR OLD FEMALE COMPLAINS OF HEADACHE AND FOOT PAIN X 4 MONTHS. PT STATES THAT HER BLISTER ON HER FOOT TURNED INTO WOUND X4 MONTHS AGO AND HAS NOT HEALED. PT STATES SHE HAS JUST CAME BACK FROM HER DOCTOR REGARDING WOUND. PT AOX4, BREATHING EVEN AND UNLABORED, SKIN WARM AND DRY. BED IN LOWEST POSIITON, LOCKED, BED RAIL UPX1. PMH - DM2, DIALYSIS, HTN, RIGHT EYE BLIND, HYSTERECTOMY, GB REMOVAL, PACEMAKER ALLERGIES - NKA
[2019-10-25] MEDS ORDERED: ACETAMINOPHEN 325 MG TAB ONE (13:47)
[2019-10-25] MEDS ORDERED: LABETALOL 100 MG/20 ML VIAL IVP ONE (14:20)
[2019-10-25 15:17] LABS: BASOPHILS % (AUTO) 0.4 % (0.0-2.0); EOSINOPHILS # (AUTO) 0.3 K/uL (0-0.4); EOSINOPHILS % (AUTO) 3.5 % (0.0-4.0); HEMATOCRIT 34.4 % (36-48); HEMOGLOBIN 10.9 g/dL (12.0-16.0); LYMPHOCYTES # (AUTO) 0.8 K/uL (2.5-16.5); LYMPHOCYTES % (AUTO) 9.4 % (20.5-51.1); MEAN CORPUSCULAR HEMOGLOBIN 31 pg (27-31); MEAN CORPUSCULAR HGB CONC 32 g/dL (33-37); MEAN CORPUSCULAR VOLUME 97.9 fL (80-94); MONOCYTES # (AUTO) 0.5 K/uL (0.8-1.0); MONOCYTES % (AUTO) 5.6 % (1.7-9.3); NEUTROPHILS # (AUTO) 6.6 K/uL (1.8-7.7); NEUTROPHILS % (AUTO) 81.1 % (42.2-75.2); PLATELET COUNT (AUTO) 181 K/uL (140-450); RED BLOOD CELL COUNT(AUTO) 3.52 MIL/uL (4.20-5.40); RED CELL DISTRIBUTION WIDTH 16.3 % (11.6-13.7); WHITE BLOOD COUNT (AUTO) 8.1 K/uL (4.8-10.8)
--- NOTE | 2019-10-25 15:34 | NUR ---
PT ALERT AND AWAKE, BREATHING EVEN AND UNLABORED
--- NOTE | 2019-10-25 15:34 | NUR ---
LEFT FOOT WITH WOUND UNDER TOE AREA, PEDAL PULSE +2, CAP REFILL < 3 SEC. WOUND COVERED WITH DRESSING
[2019-10-25 15:45] LABS: POTASSIUM 4.8 mmol/L (3.5-5.1)
[2019-10-25 15:46] LABS: ANION GAP 14.7 (8-16); CARBON DIOXIDE 33.1 mmol/L (21-32); TOTAL BILIRUBIN 0.5 mg/dL (0.0-1.0)
[2019-10-25 15:48] LABS: CREATININE 7.2 mg/dL (0.6-1.3)
--- NOTE | 2019-10-25 16:34 | NUR ---
PT ALERT AND AWAKE, BREATHING EVEN AND UNLABORED
--- NOTE | 2019-10-25 17:09 | NUR ---
DRESSING ON LEFT FOOT REPLACED BY EMT
--- NOTE | 2019-10-25 17:13 | NUR ---
APPLIED DRESSING TO RIGHT FOOT WIHTOUT ANY ISSUES
[2019-10-25 17:29] VITALS: BP 125/71
--- NOTE | 2019-10-25 17:30 | NUR ---
Patient discharged with v/s stable. Written and verbal after care instructions given and explained. Patient alert, oriented and verbalized understanding of instructions. Ambulatory with steady gait. All questions addressed prior to discharge. ID band removed. Patient advised to follow up with PMD. Rx of BACTRIM,KEFLEX given. Patient educated on indication of medication including possible reaction and side effects. Opportunity to ask questions provided and answered.
--- NOTE | 2019-10-26 12:06 | NUR ---
COVID RESULTS RECEIVED FROM LAB. COVID RESULTS- NEGATIVE. HARD COPY REQUESTED FROM LAB. COPY OF RESULT PLACED IN INFECTION CONTROL'S MAILBOX.
[2019-11-15] MEDS ORDERED: AZIT250T3 PO (16:16)
[2019-11-15] MEDS ORDERED: DEXT118S25 PO (16:16)
[2019-11-15] MEDS ORDERED: DEC4 PO (16:17)
== END 2019-10-25 17:30 | disposition home or self-care (01) ==
LOC: MED 13:11
DX: S91.301D Unspecified open wound, right foot, subsequent encounter (principal); Z20.828 Contact with and (suspected) exposure to other viral communicable diseases; R05 Cough; R11.2 Nausea with vomiting, unspecified; R50.9 Fever, unspecified; E11.22 Type 2 diabetes mellitus with diabetic chronic kidney disease; I12.0 Hypertensive chronic kidney disease with stage 5 chronic kidney disease or end stage renal disease; N18.6 End stage renal disease; H54.61 Unqualified visual loss, right eye, normal vision left eye; Z99.2 Dependence on renal dialysis; Z95.0 Presence of cardiac pacemaker; Z90.710 Acquired absence of both cervix and uterus; Z79.4 Long term (current) use of insulin; Z79.899 Other long term (current) drug therapy; Z79.82 Long term (current) use of aspirin; X58.XXXD Exposure to other specified factors, subsequent encounter
CPT/HCPCS: 36415; 73630; 80053; 83605; 85025; 85651; 86140; 87040; 99284; U0003

== ENCOUNTER 2019-10-25 21:22 | Emergency (ER) | payer OTHER, SELFPAY ==
[~2019-10-25] VITALS: Ht 152.4 cm; Wt 58.5 kg
[2019-10-25 21:58] VITALS: BP 149/67
[2019-10-25] MEDS ORDERED: ONDANSETRON 4 MG ODT PO ONE ×2 (22:10→23:35)
--- NOTE | 2019-10-25 23:26 | NUR ---
PT ASSESSED AND EVALUATED BY ELIZABEHT GIANG.
--- NOTE | 2019-10-25 23:26 | NUR ---
ELIZABETH GIANG EVALUATING PT.
[2019-10-25] MEDS ORDERED: MORPHINE SULFATE 4 MG/ML SYR IM ONE (23:35)
[2019-10-26 00:16] VITALS: BP 149/67
--- NOTE | 2019-10-26 00:16 | NUR ---
Patient discharged with v/s stable. Written and verbal after care instructions given and explained. Patient alert, oriented and verbalized understanding of instructions. Ambulatory with steady gait. All questions addressed prior to discharge. ID band removed. Patient advised to follow up with PMD. Rx of ILEANA VARGHESE given. Patient educated on indication of medication including possible reaction and side effects. Opportunity to ask questions provided and answered.
[2019-11-15] MEDS ORDERED: DEXT118S25 PO (16:16)
[2019-11-15] MEDS ORDERED: AZIT250T3 PO (16:16)
[2019-11-15] MEDS ORDERED: DEC4 PO (16:17)
== END 2019-10-26 00:16 | disposition home or self-care (01) ==
LOC: MED 21:22
DX: M79.10 Myalgia, unspecified site (principal); R11.2 Nausea with vomiting, unspecified; E11.9 Type 2 diabetes mellitus without complications; I10 Essential (primary) hypertension; I51.89 Other ill-defined heart diseases; N28.9 Disorder of kidney and ureter, unspecified; Z90.49 Acquired absence of other specified parts of digestive tract; Z98.890 Other specified postprocedural states; Z79.899 Other long term (current) drug therapy; Z95.0 Presence of cardiac pacemaker
CPT/HCPCS: 96372; 99283; J2270; Q0162

== ENCOUNTER 2019-10-27 15:07 | Inpatient (IN) | payer OTHER, SELFPAY ==
[~2019-10-27] VITALS: Ht 152.4 cm; Wt 64.9 kg
[2019-10-27 15:19] VITALS: BP_SYST 110; BP_SYST 147; BP_DIAS 51; BP_DIAS 56
--- NOTE | 2019-10-27 15:40 | NUR ---
PT CYNDY FRO HOME WITH C/O HALLUCINATIONS OF "SEEING LITTLE CHILDREN UP THERE AND HEARING VOICES TO TELLING HER TO HURT HERSELF." PT ALSO REPORTS HAVING N/V/D FOR 3 DAYS. HD IS ON LEFT UPPER ARM, SKIN IS INTACT. DIALYSIS ON /WED. PT STATES SHE DID DIALYSIS YESTERDAY AND TOOK ALL THE HOME MEDS TODAY.
--- NOTE | 2019-10-27 16:23 | NUR ---
LABS DRAWN VIA IV RAC #20 AND HANDED TO PANEL LAMINATOR
[2019-10-27 16:30] LABS: BASOPHILS # (AUTO) 0.1 K/uL (0.00-0.22); BASOPHILS % (AUTO) 0.8 % (0.0-2.0); EOSINOPHILS # (AUTO) 0.2 K/uL (0-0.4); EOSINOPHILS % (AUTO) 1.5 % (0.0-4.0); HEMATOCRIT 35.1 % (36-48); HEMOGLOBIN 11.3 g/dL (12.0-16.0); LYMPHOCYTES # (AUTO) 0.8 K/uL (2.5-16.5); MEAN CORPUSCULAR HEMOGLOBIN 31 pg (27-31); MEAN CORPUSCULAR HGB CONC 32 g/dL (33-37); MEAN CORPUSCULAR VOLUME 97.2 fL (80-94); MONOCYTES # (AUTO) 0.3 K/uL (0.8-1.0); MONOCYTES % (AUTO) 2.6 % (1.7-9.3); NEUTROPHILS # (AUTO) 8.9 K/uL (1.8-7.7); NEUTROPHILS % (AUTO) 87.1 % (42.2-75.2); PLATELET COUNT (AUTO) 173 K/uL (140-450); RED BLOOD CELL COUNT(AUTO) 3.61 MIL/uL (4.20-5.40); WHITE BLOOD COUNT (AUTO) 10.2 K/uL (4.8-10.8)
[2019-10-27 16:44] LABS: ACETAMINOPHEN < 0.5 ug/ml (10-30); ALBUMIN 2.7 g/dL (3.4-5.0); ASPARTATE AMINOTRANSFERASE 19 U/L (15-37); CARBON DIOXIDE 31.7 mmol/L (21-32); CHLORIDE 90 mmol/L (98-107); GFR ARICAN-AMERICAN 8 mL/min (>90); GLUCOSE 237 mg/dL (74-106); POTASSIUM 4.7 mmol/L (3.5-5.1); SODIUM SERUM 131 mmol/L (136-145); TOTAL BILIRUBIN 0.4 mg/dL (0.0-1.0); UREA NITROGEN, BLOOD 35 mg/dL (7-18)
[2019-10-27 16:51] LABS: CREATININE 6.9 mg/dL (0.6-1.3); SALICYLATE < 2.8 mg/dL (2.8-20.0)
[2019-10-27] MEDS ORDERED: MORPHINE SULFATE 4 MG/ML SYR IVP ONE ×2 (17:40→21:40)
--- NOTE | 2019-10-27 18:05 | NUR ---
PT IS RESTING IN THE BED AND ON THE MONITOR. WILL CONTINUE MONITORING PT'S VITAL SIGNS.
--- NOTE | 2019-10-27 18:14 | NUR ---
Telepsychiatry consultation ordered as requested by Dr. Gerardo.
--- NOTE | 2019-10-27 18:35 | NUR ---
Dr. Drake is evaluating the patient via telepsychiatry.
--- NOTE | 2019-10-27 19:09 | NUR ---
Pt report given to RAEANN Izaguirre. Transfer of care at this time.
--- NOTE | 2019-10-27 19:11 | NUR ---
PT ENDORSEMENT GIVEN BY SAPPHIRE CARY. TRANSFER OF CARE AT THIS TIME.
--- NOTE | 2019-10-27 21:30 | NUR ---
REPORTS OF INCREASED PAIN 09/12. ELIZABETH GIANG MADE AWARE OF PT REQUEST FOR PAIN MEDS.
[2019-10-27] MEDS ORDERED: MORPHINE SULFATE 2 MG/ML SYR IVP PRN (22:35)
[2019-10-27] MEDS ORDERED: DEXTROSE 50% 50 ML SYR IVP PRN (22:35)
[2019-10-27] MEDS ORDERED: LORazepam 2 MG/ML VIAL IVP PRN (22:35)
[2019-10-27] MEDS ORDERED: POTASSIUM CHLORIDE 10 MEQ TABER PO PRN (22:35)
[2019-10-27] MEDS ORDERED: MAG SULF 2000 MG/WATER PREMIX 50 ML IV PRN (22:35)
--- NOTE | 2019-10-27 23:10 | NUR ---
PT HELPED INTO BEDPAN TO URINATE. NO COMPLICATIONS.
--- NOTE | 2019-10-28 | NUR ---
PT PROVIDED EXTRA BLANKET PER REQUEST
--- NOTE | 2019-10-28 02:31 | NUR ---
MD JEAN-BAPTISTE MADE AWARE OF TRENDING UP CRITICAL VALUE LACTIC 3.7.
--- NOTE | 2019-10-28 04:15 | NUR ---
PT ASLEEP IN BED. NO FURTHER NEEDS AT THIS TIME. VISIBLE CHEST RISE AND FALL. AROUSABLE TO VOICE. PROVIDED EXTRA BLANKET.
--- NOTE | 2019-10-28 05:47 | NUR ---
PT IN BED ASLEEP NO FURTHER NEEDS AT THIS TIME. BED LOWEST AND LOCKED. RAILS X 2.
[2019-10-28] MEDS: ONDANSETRON 4 MG/2 ML VIAL IVP PRN ×3 (06:05→20:07)
--- NOTE | 2019-10-28 06:06 | NUR ---
PT CURRENTLY HAVING EPISODES OF VOMITING. CONSENTED TO BE MEDICATED WITH PRN MED FOR N/V
[2019-10-28] MEDS: LEVOTHYROXINE 0.025 MG TAB PO SCH (06:25)
[2019-10-28] MEDS: BLOOD GLUCOSE MONITORING 1 DEV DEV FS SCH ×4 (07:06→21:00)
--- NOTE | 2019-10-28 07:06 | NUR ---
BLOOD SUGAR 112. NO INSULIN COVERAGE AT THIS TIME.
--- NOTE | 2019-10-28 07:20 | NUR ---
PT ARRIVED ON FLOOR VIA WHEELCHAIR. PT AMBULATED TO BED WITH ASSISTANCE. PATIENT AOX4, NO COMPLAINT OF NAUSEA, DIZZINESS AT THIS TIME. VOMIT BAG AT SIDE NEEDED. DENIES PAIN. IV SITES INTACT, ASYMPTOMATIC, SALINE LOCKED. RESPIRATIONS EVEN AND UNLABORED ON 2L O2 VIA NC. ORIENTED PATIENT TO ROOM, CALL LIGHT, BATHROOM, TV. VERBALIZED PLAN OF CARE, SHE VERBALIZED UNDERSTANDING. SAFETY PRECAUTIONS IN PLACE, CALL LIGHT WITHIN REACH, WILL CONTINUE TO MONITOR PATIENT.
--- NOTE | 2019-10-28 07:25 | NUR ---
PT ADMITTED TO THE CARE OF DR JEAN-BAPTISTE. ADMITTED TO MED-SURG ROOM 124B. REPORT GIVEN TO JOSHUA CARY
[2019-10-28 07:30] VITALS: BP 110/56
[2019-10-28] MEDS: ATORVASTATIN 20 MG TAB PO SCH (08:37)
--- NOTE | 2019-10-28 08:40 | NUR ---
ORDERED MEDICATION GIVEN. WITHHOLDING BP MEDS AND ANTICOAGULANTS BECAUSE PATIENT GETTING HD TODAY. PATIENT TOLERATING MEDICATION WELL. PAGED DR. CLARK PER DR. KAY REQUEST FOR CONSULT. DR. BATISTA MECHANICAL TECHNICAL SERVICE SPECIALIST FOR DR. CLARK. WAITING FOR HIS CALL BACK. PATIENT DID NOT RECEIVE HER TRAY YET. CALLED DIETARY TO FOLLOW UP. PT HAS NO COMPLAINTS AT THIS TIME. WILL CONTINUE TO MONITOR PATIENT.
[2019-10-28] MEDS: atenoloL 50 MG TAB PO SCH (09:00)
[2019-10-28] MEDS: amLODIPine 5 MG TAB PO SCH (09:00)
[2019-10-28] MEDS: CLONIDINE HYDROCHLORIDE 0.1 MG TAB PO SCH ×2 (09:00→21:00)
[2019-10-28] MEDS: ASPIRIN 81 MG TAB.CHEW PO SCH (09:00)
[2019-10-28 10:55] LABS: BASOPHILS % (AUTO) 0.4 % (0.0-2.0); EOSINOPHILS % (AUTO) 0.3 % (0.0-4.0); HEMOGLOBIN 9.8 g/dL (12.0-16.0); LYMPHOCYTES # (AUTO) 0.9 K/uL (2.5-16.5); MEAN CORPUSCULAR HEMOGLOBIN 31 pg (27-31); MEAN CORPUSCULAR HGB CONC 32 g/dL (33-37); MEAN CORPUSCULAR VOLUME 96.8 fL (80-94); MONOCYTES # (AUTO) 0.4 K/uL (0.8-1.0); MONOCYTES % (AUTO) 3.7 % (1.7-9.3); NEUTROPHILS # (AUTO) 10.2 K/uL (1.8-7.7); NEUTROPHILS % (AUTO) 87.6 % (42.2-75.2); PLATELET COUNT (AUTO) 142 K/uL (140-450); RED CELL DISTRIBUTION WIDTH 16.1 % (11.6-13.7); WHITE BLOOD COUNT (AUTO) 11.6 K/uL (4.8-10.8)
--- NOTE | 2019-10-28 11:05 | NUR ---
CALLED [facility] TO INFORM THEM ABOUT PATIENT'S HD ORDER FROM DR. BATISTA. DR. ALEXANDER, CONCRETE LAYER, IN TO SEE PATIENT. WILL CONTINUE TO MONITOR PATIENT.
[2019-10-28 12:29] LABS: ANION GAP 19.9 (8-16); CARBON DIOXIDE 26.2 mmol/L (21-32); POTASSIUM 5.1 mmol/L (3.5-5.1)
[2019-10-28 12:35] LABS: CREATININE 7.7 mg/dL (0.6-1.3)
[2019-10-28] MEDS: ACETAMINOPHEN 325 MG TAB PO PRN (12:35)
--- NOTE | 2019-10-28 13:45 | NUR ---
HD CONSENT OBTAINED. CONSENT FOR I&D SCHEDULED FOR Wednesday10/30/19 SIGNED. PATIENT HAS NO COMPLAINTS AT THIS TIME. WILL CONTINUE TO MONITOR PATIENT.
[2019-10-28 16:00] VITALS: BP 124/80
[2019-10-28] MEDS: METOCLOPRAMIDE 10 MG/2 ML INJ VIAL IVP PRN (17:59)
--- NOTE | 2019-10-28 17:59 | NUR ---
PATIENT CURRENTLY GETTING HD. STARTED DRY HEAVING AND FEELING NAUSEOUS, PRN ZOFRAN NOT DUE YET. CALLED DR. KAY, INFORM HER OF SITUATION. NEW ORDER IN FOR PRN REGLAN 5MG Q6H. CALLED PHARMACY TO GET VERIFICATION SO CAN GIVE TO PATIENT. ORDER VERIFIED. PRN REGLAN GIVEN. PATIENT TOLERATING IT. NO OTHER COMPLAINTS AT THIS TIME. CALL LIGHT WITHIN REACH, WILL CONTINUE TO MONITOR PATIENT.
--- NOTE | 2019-10-28 19:00 | NUR ---
PATIENT HAD BM. FINISHED HD, 3L REMOVED. WILL CONTINUE TO MONITOR PATIENT.
--- NOTE | 2019-10-28 19:25 | NUR ---
REPORT GIVEN TO CONSTRUCTION MANAGEMENT ASSISTANT NURSE AT BEDSIDE. PATIENT IN STABLE CONDITION.
[2019-10-28] MEDS: GABAPENTIN 100 MG CAP PO SCH (21:37)
[2019-10-28] MEDS: INSULIN LISPRO SLIDING SCALE 100 UNITS/ML VIAL SUBQ PRN (22:50)
[2019-10-29] VITALS: BP 115/71
[2019-10-29] MEDS: LEVOTHYROXINE 0.025 MG TAB PO SCH (06:23)
[2019-10-29] MEDS: BLOOD GLUCOSE MONITORING 1 DEV DEV FS SCH ×4 (06:23→20:26)
[2019-10-29 06:37] LABS: BASOPHILS % (AUTO) 0.4 % (0.0-2.0); EOSINOPHILS % (AUTO) 0.1 % (0.0-4.0); HEMATOCRIT 32.3 % (36-48); HEMOGLOBIN 10.2 g/dL (12.0-16.0); LYMPHOCYTES # (AUTO) 0.9 K/uL (2.5-16.5); LYMPHOCYTES % (AUTO) 7.6 % (20.5-51.1); MEAN CORPUSCULAR HEMOGLOBIN 31 pg (27-31); MEAN CORPUSCULAR HGB CONC 32 g/dL (33-37); MEAN CORPUSCULAR VOLUME 98.5 fL (80-94); MONOCYTES # (AUTO) 0.5 K/uL (0.8-1.0); NEUTROPHILS # (AUTO) 10.5 K/uL (1.8-7.7); NEUTROPHILS % (AUTO) 87.9 % (42.2-75.2); PLATELET COUNT (AUTO) 142 K/uL (140-450); RED BLOOD CELL COUNT(AUTO) 3.28 MIL/uL (4.20-5.40); RED CELL DISTRIBUTION WIDTH 16.2 % (11.6-13.7)
--- NOTE | 2019-10-29 07:06 | NUR ---
PATIENT HAS BEEN SCREENED AND CATEGORIZED MODERATE NUTRITION RISK. PATIENT WILL BE SEEN WITHIN 3-5 DAYS OF ADMISSION. 10/30/19 11/01/[address]
--- NOTE | 2019-10-29 07:15 | NUR ---
RECEIVED PATIENT FROM PM SHIFT RN. PATIENT AOX4, NO COMPLAINT OF NAUSEA, DIZZINESS AT THIS TIME. VOMIT BAG AT SIDE NEEDED. DENIES PAIN. IV SITE INTACT, ASYMPTOMATIC, SALINE LOCKED. RESPIRATIONS EVEN AND UNLABORED ON 2L O2 VIA NC. SAFETY PRECAUTIONS IN PLACE, CALL LIGHT WITHIN REACH, WILL CONTINUE TO MONITOR PATIENT.
[2019-10-29 07:54] LABS: ANION GAP 16.6 (8-16); CARBON DIOXIDE 28.9 mmol/L (21-32); POTASSIUM 3.5 mmol/L (3.5-5.1)
--- NOTE | 2019-10-29 07:55 | NUR ---
PATIENT OFF OXYGEN FOR 30 MIN, AMBULATED TO BATHROOM, DID AM CARE. O2 SATURATION AT 87-88% ON ROOM AIR. PATIENT NOW BACK ON 2L O2 VIA NC, O2 SATURATION 96-97%. INFORM PATIENT ABOUT NEED FOR OXYGEN. CALL LIGHT WITHIN REACH, WILL CONTINUE TO MONITOR PATIENT.
[2019-10-29 08:00] VITALS: BP 100/56
[2019-10-29 08:50] LABS: CREATININE 5.2 mg/dL (0.6-1.3)
[2019-10-29] MEDS: amLODIPine 5 MG TAB PO SCH (09:00)
[2019-10-29] MEDS: CLONIDINE HYDROCHLORIDE 0.1 MG TAB PO SCH ×2 (09:00→21:00)
[2019-10-29] MEDS: atenoloL 50 MG TAB PO SCH (09:00)
[2019-10-29] MEDS: ATORVASTATIN 20 MG TAB PO SCH (09:40)
[2019-10-29] MEDS: ASPIRIN 81 MG TAB.CHEW PO SCH (09:40)
--- NOTE | 2019-10-29 09:41 | NUR ---
SCHEDULED MEDICATIONS GIVEN. BP WITHHELD AT THIS TIME, BP 100/56, HR 60. PATIENT TOLERATING MEDS WELL. NO COMPLAINTS OF PAIN, NAUSEA AT THIS TIME. CALL LIGHT WITHIN REACH, WILL CONTINUE TO MONITOR PATIENT.
[2019-10-29] MEDS: INSULIN LISPRO SLIDING SCALE 100 UNITS/ML VIAL SUBQ PRN ×2 (12:14→17:03)
--- NOTE | 2019-10-29 12:15 | NUR ---
BLOOD SUGAR 222, COVERAGE GIVEN. PATIENT NOW SITTING ON SIDE OF BED EATING LUNCH, NO COMPLAINTS AT THIS TIME. CALL LIGHT WITHIN REACH, WILL CONTINUE TO MONITOR PATIENT.
[2019-10-29] MEDS: ACETAMINOPHEN 325 MG TAB PO PRN (14:14)
[2019-10-29 16:00] VITALS: BP 138/61
[2019-10-29] MEDS ORDERED: VANCOMYCIN PER PHARMACY MC PRN (16:45)
[2019-10-29] MEDS: HYDROmorphone 1 MG/ML AMP IVP PRN (17:02)
--- NOTE | 2019-10-29 17:03 | NUR ---
BLOOD SUGAR 167, COVERAGE GIVEN. PT C/O GENERALIZED BODY PAIN, PRN PAIN MEDICATION GIVEN. PATIENT TOLERATED IT WELL. NO COMPLAINTS AT THIS TIME. FACETIMING WITH FAMILY MEMBERS ON CELL PHONE. CALL LIGHT WITHIN REACH, WILL CONTINUE TO MONITOR PATIENT.
[2019-10-29] MEDS ORDERED: VANCOMYCIN HCL 1,250 MG in NACL 0.9% 250 ML IV SCH (19:10)
--- NOTE | 2019-10-29 19:26 | NUR ---
RECEIVED PATIENT FROM AM SHIFT RAEANN GUZMÁN. PATIENT AOX4, NO COMPLAINT OF NAUSEA, DIZZINESS AT THIS TIME. VOMIT BAG AT SIDE NEEDED. DENIES PAIN. IV SITE INTACT ON THE RIGHT F.A G 18, ASYMPTOMATIC, SALINE LOCKED. RESPIRATIONS EVEN AND UNLABORED ON 2L O2 VIA NC. SAFETY PRECAUTIONS IN PLACE, CALL LIGHT WITHIN REACH, WILL CONTINUE TO MONITOR PATIENT.
[2019-10-29 20:00] VITALS: BP 109/67
--- NOTE | 2019-10-29 21:00 | NUR ---
CATAPRES NON-ADMINISTERED DUE BP= 109/67 ; HR 64
[2019-10-29] MEDS: VANCOMYCIN 1,000 MG VIAL ONE ×2 (22:52→22:55)
[2019-10-29] MEDS: GABAPENTIN 100 MG CAP PO SCH (23:02)
[2019-10-30] MEDS: HYDROmorphone 1 MG/ML AMP IVP PRN ×3 (01:13→17:32)
--- NOTE | 2019-10-30 03:20 | NUR ---
PT FOR SURGERY WILL ORDER PT/PTT AND DR. MARC LANIER
--- NOTE | 2019-10-30 04:47 | NUR ---
CANCELLED UA ORDER PT IS ANURIC. AWARE; PT IS ON DIALYSIS
[2019-10-30] MEDS: ONDANSETRON 4 MG/2 ML VIAL IVP PRN ×3 (04:53→17:32)
--- NOTE | 2019-10-30 04:53 | NUR ---
PT C/O OF PAIN 8/10 AT THE BACK AND FEELING NAUSEA, GIVEN DILAUDID AND ONDASETRON
--- NOTE | 2019-10-30 04:53 | NUR ---
PT C.O OF NAUSEA GIVEN ZOFRAN; C/O PAIN AT THE BACK AND GENERALIZED BODY PARTS GIVEN DILAUDID
--- NOTE | 2019-10-30 05:00 | NUR ---
PT FOR SURGERY KEPT NPO SINCE MIDNIGHT , PT TOLERATING WELL, SURGICAL CHECKLIST DONE; PT HAS NO URINE OUTPUT THIS NO UA SHALL BE TAKEN. PT/PTT PENDING W/ ORDER
[2019-10-30] MEDS: BLOOD GLUCOSE MONITORING 1 DEV DEV FS SCH ×4 (06:07→21:00)
[2019-10-30 06:20] LABS: BASOPHILS % (AUTO) 0.4 % (0.0-2.0); EOSINOPHILS # (AUTO) 0.2 K/uL (0-0.4); EOSINOPHILS % (AUTO) 1.7 % (0.0-4.0); HEMOGLOBIN 9.4 g/dL (12.0-16.0); LYMPHOCYTES # (AUTO) 1.1 K/uL (2.5-16.5); LYMPHOCYTES % (AUTO) 11.6 % (20.5-51.1); MEAN CORPUSCULAR HEMOGLOBIN 31 pg (27-31); MEAN CORPUSCULAR HGB CONC 33 g/dL (33-37); MEAN CORPUSCULAR VOLUME 96.6 fL (80-94); MONOCYTES # (AUTO) 0.2 K/uL (0.8-1.0); MONOCYTES % (AUTO) 2.5 % (1.7-9.3); NEUTROPHILS # (AUTO) 8.3 K/uL (1.8-7.7); NEUTROPHILS % (AUTO) 83.8 % (42.2-75.2); PLATELET COUNT (AUTO) 154 K/uL (140-450); RED CELL DISTRIBUTION WIDTH 16.6 % (11.6-13.7); WHITE BLOOD COUNT (AUTO) 9.9 K/uL (4.8-10.8)
[2019-10-30] MEDS: LEVOTHYROXINE 0.025 MG TAB PO SCH (06:30)
--- NOTE | 2019-10-30 07:09 | NUR ---
ENDORSED TO NEXT SHIFT FOR CONTINUITY OF CARE, PT IN STABLE CONDITION
--- NOTE | 2019-10-30 07:10 | NUR ---
RECEIVED REPORT FROM SHODDY MILL WORKER NURSE REGARDING PATIENT CONDITION AND PLAN OF CARE. PATIENT IS RESTING IN BED, IN NO S/S OF ACUTE RESPIRATORY DISTRESS AT THIS TIME. PATIENT DOES NOT APPEAR TO BE IN ANY PAIN AT THIS TIME. ALL NEEDS MET, CALL LIGHT WITHIN REACH, WILL CONTINUE TO MONITOR.
[2019-10-30 08:00] VITALS: BP 143/69
[2019-10-30] MEDS: ASPIRIN 81 MG TAB.CHEW PO SCH (09:00)
[2019-10-30] MEDS: VIT-B COMP/VIT-C/FOLIC ACID 1 TAB PO SCH (09:13)
[2019-10-30] MEDS: CLONIDINE HYDROCHLORIDE 0.1 MG TAB PO SCH ×2 (09:14→22:14)
[2019-10-30] MEDS: amLODIPine 5 MG TAB PO SCH (09:14)
[2019-10-30] MEDS: atenoloL 50 MG TAB PO SCH (09:15)
[2019-10-30] MEDS: ATORVASTATIN 20 MG TAB PO SCH (09:15)
--- NOTE | 2019-10-30 09:30 | NUR ---
PT A&O X 4, COMPLAINING OF NAUSEA, STATES SHE THREW UP A BIT ALREADY INTO THE SINK. ZOFRAN GIVEN. PATIENT MEDICATIONS ALSO EXPLAINED AND GIVEN. BP IS 143/69 HR 102. HEPARIN AND ASPIRIN HELD PATIENT IS HAVING SURGERY TODAY. PATIENT NON EDEMATOUS, NON CYANOTIC, NO PALLOR NOTED. IN NO ACUTE S/S RESPIRATORY DISTRESS. DENIES PAIN AT THIS TIME, COMPLAINS MAINLY OF NAUSEA. WARM WATER AND WARM TOWEL GIVEN NONPHARMACOLOGICAL MANAGEMENT OF NAUSEA. ALL NEEDS MET, CALL LIGHT WITHIN REACH. WILL CONTINUE TO MONITOR.
[2019-10-30 10:25] LABS: ANION GAP 19.9 (8-16); CARBON DIOXIDE 28.8 mmol/L (21-32); POTASSIUM 3.7 mmol/L (3.5-5.1)
[2019-10-30 10:26] LABS: CREATININE 6.2 mg/dL (0.6-1.3)
--- NOTE | 2019-10-30 10:40 | NUR ---
DR MILTON MADE AWARE OF PATIENT CREATININE LEVEL 6.2 TODAY, YESTERDAY WAS 5.2. GAVE NO NEW ORDERS AT THIS TIME.
[2019-10-30 11:11] LABS: PROTHROMBIN TIME 11.6 secs (10.8-13.4)
--- NOTE | 2019-10-30 11:30 | NUR ---
PATIENT TAKEN TO OR FOR I&D AND AMPUTATION SURGERY.
[2019-10-30] MEDS ORDERED: BUPIVACAINE-MPF 0.5% 30 ML VIAL INJ ONE (12:35)
[2019-10-30] MEDS ORDERED: LIDOCAINE 1% 500 MG/50 ML VIAL ONE (12:51)
[2019-10-30] MEDS ORDERED: LIDOCAINE 2% 100 MG/5 ML SYR IVP ONE (13:11)
[2019-10-30] MEDS ORDERED: ONDANSETRON 4 MG/2 ML VIAL ONE (13:11)
[2019-10-30] MEDS ORDERED: fentaNYL citrate 0.05 MG/ML VIAL ONE (13:11)
[2019-10-30] MEDS ORDERED: MIDAZOLAM 2 MG/2 ML VIAL ONE (13:11)
[2019-10-30] MEDS ORDERED: SEVOFLURANE 250 ML BTL INH ONE (13:11)
[2019-10-30] MEDS ORDERED: PROPOFOL 200 MG/20 ML VIAL IV ONE (13:11)
--- NOTE | 2019-10-30 13:44 | NUR ---
ODD BUNDLE WORKER NOTE: SW ATTEMPTED TO COMPLETE ASSESSMENT WITH PATIENT. PER INSURANCE ACCOUNT EXECUTIVEEDUARDO BARRIOS, PATIENT IS IN OR. SW WILL FOLLOW UP WITH PATIENT.
[2019-10-30] MEDS ORDERED: BLOOD GLUCOSE MONITORING 1 DEV DEV FS SCH (14:25)
[2019-10-30] MEDS ORDERED: ONDANSETRON 4 MG/2 ML VIAL IVP PRN (14:25)
[2019-10-30] MEDS ORDERED: HYDROmorphone 1 MG/ML AMP IVP PRN (14:25)
[2019-10-30] MEDS ORDERED: diphenhydrAMINE 50 MG/ML VIAL IVP PRN (14:25)
[2019-10-30] MEDS ORDERED: METOCLOPRAMIDE 10 MG/2 ML INJ VIAL IVP PRN (14:25)
[2019-10-30] MEDS: HYDROmorphone PFS 2 MG/ML SYR ONE ×2 (15:01→15:11)
--- NOTE | 2019-10-30 15:10 | NUR ---
10/30/19 RD INITIAL ASSESSMENT COMPLETED PLEASE REFER TO NUTRITION ASSESSMENT UNDER CARE ACTIVITY FOR ESTIMATED NUTRITIONAL NEEDS. 1. CONTINUE RENAL AND CCHO 60GM DIET WHEN MEDICALLY STABLE 2. RD RECOMMEND GILBERTO BID FOR WOUND HEALING 3. RD TO FOLLOW-UP 3-5 DAYS, MODERATE RISK SHELBIE BERKOWITZ, RD
--- NOTE | 2019-10-30 15:36 | NUR ---
PATIENT RETURNED FROM OR, REPORT GIVEN BY OR NURSE. PATIENT PLACED ON 2L NC, OXYGEN 95%. PATIENT PLACED ON FURNACE INSTALLER. VS TAKEN STABLE, ALL NEEDS MET, CALL LIGHT WITHIN REACH, WILL CONTINUE TO MONITOR.
[2019-10-30 16:00] VITALS: BP 111/49
--- NOTE | 2019-10-30 17:32 | NUR ---
PATIENT IN NO S/S RESPIRATORY DISTRESS, COMPLAINS OF PAIN IN RIGHT FOOT PAIN AND NAUSEA , DILAUDID AND ZOFRAN GIVEN. WILL CONTINUE TO MONITOR. NO S/S OF BLEEDING FROM DRAINAGE SITE. ALL NEEDS MET, CALL LIGHT WITHIN REACH, WILL CONTINUE TO MONITOR.
--- NOTE | 2019-10-30 19:25 | NUR ---
BEDSIDE REPORT RECEIVED BY AM RN FOR CONTINUITY OF CARE. PT IS SEMI-FOWLERS POSITION. REPORTED SOME DISCOMFORT AND WAS GIVEN TYLENOL BY AM SHIFT. NO BLEEDING ON RIGHT FOOT DRESSING. PT ASSESSED BY SURGEON WILL CONTINUE WITH POC.
--- NOTE | 2019-10-30 19:25 | NUR ---
BEDSIDE REPORT GIVEN TO ROLLOFF TRUCK DRIVER NURSE, PATIENT IS STABILIZED AT THIS TIME. IN NO S/S RESPIRATORY DISTRESS, COMPLAINS OF PAIN IN RIGHT FOOT. TYLENOL GIVEN. SURGEON AND ROLLOFF TRUCK DRIVER NURSE BY BEDSIDE.
[2019-10-30] MEDS: ACETAMINOPHEN 325 MG TAB PO PRN (19:26)
[2019-10-30 20:00] VITALS: BP 149/81
--- NOTE | 2019-10-30 21:45 | NUR ---
2100 MEDICATION AND ACCU CHECK DONE. BS 120 NO COVERAGE NEEDED. PT. ON THE PHONE WITH FAMILY IN [employer] DENIES ANY DISCOMFORT OR NEEDS AT THIS TIME
[2019-10-30] MEDS: GABAPENTIN 100 MG CAP PO SCH (22:15)
[2019-10-30 23:44] VITALS: BP 105/61
--- NOTE | 2019-10-30 23:45 | NUR ---
PT RESTING IN BED WITH EYES CLOSED IN NO DISTRESS. SAFETY MEASURES IN PLACE.
--- NOTE | 2019-10-31 01:10 | NUR ---
DURING ROUNDS PT. O2 NOTICED IN THE MID TO HIGH 80'S, HOB WAS ELEVATED AND PT EASILY AROUSABLE. O2 WENT UP HOWEVER REMAINED BELOW 90% PT. WAS PUT BACK ON O2 AND IS NOW AT 96-97% ON 2 L NC. REMAINS ON CONTINUOUS O2 MONITORING.
--- NOTE | 2019-10-31 01:30 | NUR ---
PROVIDED BEDSIDE COMMODE PER MD ORDER.
--- NOTE | 2019-10-31 02:30 | NUR ---
MADE ROUNDS. PT ASLEEP. O2 SAT 96%. WILL CONTINUE TO MONITOR.
--- NOTE | 2019-10-31 04:15 | NUR ---
PT RESTING IN BED WITH EYES CLOSED. V/S: 98.5, 67, 16, 105/62, 99 % ON 1L NC. DENIES ANY PAIN 0/10. SAFETY MEASURES IN PLACE.
[2019-10-31] MEDS: LEVOTHYROXINE 0.025 MG TAB PO SCH (05:38)
[2019-10-31] MEDS: DOCUSATE SODIUM 100 MG GELCAP PO PRN (05:39)
[2019-10-31] MEDS: BLOOD GLUCOSE MONITORING 1 DEV DEV FS SCH ×4 (06:16→21:32)
--- NOTE | 2019-10-31 06:30 | NUR ---
IV ACCESS ON THE RT AC G#20 INFILTRATED. DISCONTINUED, STARTED A NEW IV ACCESS ON THE RT FAG#22. CLEAR AND PATENT.
[2019-10-31] MEDS: ONDANSETRON 4 MG/2 ML VIAL IVP PRN ×2 (06:38→16:49)
[2019-10-31] MEDS: HYDROmorphone 1 MG/ML AMP IVP PRN ×3 (06:39→16:57)
--- NOTE | 2019-10-31 07:20 | NUR ---
BEDSIDE REPORT GIVEN TO AM SHIFT RN FOR CONTINUITY OF CARE. PT IS STABLE
--- NOTE | 2019-10-31 07:25 | NUR ---
BEDSIDE REPORT GIVEN TO AM RN FOR CONTINUITY OF CARE. PT IS STABLE
--- NOTE | 2019-10-31 07:30 | NUR ---
RECEIVED REPORT FROM PM RN. PT ON THE 10/27/19. C/O HALLUCINATIONS. DX: ACUTE PHYSCHOSIS. NKA, PACEMAKER. FULL CODE. RT FOREARM 22G. HX: DM, HTN, LAV SHUNT. PT WILL HAVE DIALYSIS TODAY. DIET CCHO 60GS. LIGHT WEIGHT BARING ACTIVITY. SKIN IS INTACT. AMPUTATION ON RT TOE. PHYSICIAN WILL MORENO DRESSING.
[2019-10-31 08:00] VITALS: BP 111/63
[2019-10-31] MEDS: CLONIDINE HYDROCHLORIDE 0.1 MG TAB PO SCH ×2 (09:00→21:00)
[2019-10-31] MEDS: amLODIPine 5 MG TAB PO SCH (09:00)
[2019-10-31] MEDS: atenoloL 50 MG TAB PO SCH (09:00)
--- NOTE | 2019-10-31 09:30 | NUR ---
PASSED MEDS TO PT. HELD BLOOD PRESSURE MEDICATIONS PER DIALYSIS.
[2019-10-31] MEDS: ASPIRIN 81 MG TAB.CHEW PO SCH (09:42)
[2019-10-31] MEDS: ATORVASTATIN 20 MG TAB PO SCH (09:42)
[2019-10-31] MEDS: VIT-B COMP/VIT-C/FOLIC ACID 1 TAB PO SCH (09:42)
[2019-10-31] MEDS: EPOETIN ALFA 10,000 UNITS/ML VIAL SUBQ SCH (09:45)
[2019-10-31 11:27] LABS: BASOPHILS % (AUTO) 0.4 % (0.0-2.0); EOSINOPHILS # (AUTO) 0.1 K/uL (0-0.4); EOSINOPHILS % (AUTO) 1.4 % (0.0-4.0); HEMATOCRIT 23.8 % (36-48); HEMOGLOBIN 7.6 g/dL (12.0-16.0); LYMPHOCYTES # (AUTO) 0.7 K/uL (2.5-16.5); LYMPHOCYTES % (AUTO) 9.8 % (20.5-51.1); MEAN CORPUSCULAR HEMOGLOBIN 31 pg (27-31); MEAN CORPUSCULAR HGB CONC 32 g/dL (33-37); MEAN CORPUSCULAR VOLUME 96.4 fL (80-94); MONOCYTES # (AUTO) 0.4 K/uL (0.8-1.0); MONOCYTES % (AUTO) 5.6 % (1.7-9.3); NEUTROPHILS % (AUTO) 82.8 % (42.2-75.2); PLATELET COUNT (AUTO) 146 K/uL (140-450); RED BLOOD CELL COUNT(AUTO) 2.47 MIL/uL (4.20-5.40); RED CELL DISTRIBUTION WIDTH 16.3 % (11.6-13.7); WHITE BLOOD COUNT (AUTO) 7.2 K/uL (4.8-10.8)
[2019-10-31 11:37] LABS: ANION GAP 14.4 (8-16); CARBON DIOXIDE 25.8 mmol/L (21-32); POTASSIUM 3.2 mmol/L (3.5-5.1)
[2019-10-31 11:42] LABS: CREATININE 4.1 mg/dL (0.6-1.3)
--- NOTE | 2019-10-31 13:06 | NUR ---
LOAN SERVICES PROFESSIONAL NOTE: Patient's Orientation Person Situation Place Time Information Provided By PATIENT Comments SW MET PATIENT AT BEDSIDE TO VERIFY DEMOGRAPHICS. Wad Impregnator, Realtionship and Phone Number CEDRIC CUNNINGHAM [phone] Healthcare Power of Industrial Staff Nurse No Does Patient Have a POLST No Identifying Problems No Social Work Triggers Is A Social Work Consult Needed No Mandate Report Filed No Explanation Of Identifying Problems PATIENT IS A 44-YEAR-OLD FEMALE ADMITTED FOR ACUTE PSYCHOSIS. PATIENT HAS PMHX OF HTN AND ARRHYTHMIA. Admitted From Home Home Health Provider [facility] Pre-Admission Level Of Functioning Status Independent With DME Prior Resources/Services Used In Last 12 Months Home Health Care Prior DME [facility] [place] [facility] Out[facility] Outpatient Time 900 Mode Of Transportation to Dialysis [facility] Living Situation Apartment Lives With Family Patient Had Caregiver No Home Support No Caregiver Issues Financial Issues No Known Financial Issue Factors/Needs No D/C Needs Identified Pt/Rep Participated In Discharge Plan Yes Patient/Family Agress With Discharge Plan Yes Discharge Plan Comments TENTATIVE DISCHARGE PLAN IS FOR PATIENT TO BE DISCHARGED TO MOTHER'S HOME: [id number] [id number] [place] Plan Status Initiated
--- NOTE | 2019-10-31 13:30 | NUR ---
GAVE PAIN MED. PT COMPLAINTS OF 8/10 PAIN.
[2019-10-31] MEDS: INSULIN LISPRO SLIDING SCALE 100 UNITS/ML VIAL SUBQ PRN ×2 (13:35→21:48)
--- NOTE | 2019-10-31 13:57 | NUR ---
DC PLANNIN YRSL OLD FEMALE PATIENT WAS ADMITTED FROM HOME WITH A DX OF ACUTE PSYCHOSIS. PT HAS A HX OF DM,ESRD, ON HEMODIALYSIS TTHS , PACEMAKER AND WOUND ON RIGHT LOWER EXT. SEEN BY PODIATRY PERFORMED I&D . STARTED ON VANCOMYCIN AND IVF. BLOOD AND URINE CULTURE PENDING. CONSULTED WITH PSYCH DR FOR PSYCHOSIS. DC PLAN TO GO HOME WHEN STABLE CM TO FOLLOW. Addendum: 11/03/19 at 1451 by Genny Brooke CM FAXED PATIENTS CLINICALS TO [facility], [place] [phone] FAX [phone]. FOLLOWED UP AND SPOKE TO ROSA ISELA REGARDING DR. MILTON'S ORDER FOR PATIENT TO RECEIVE ANTIBIOTIC FOR 4 WEEKS AFTER EACH DIALYSIS SESSION. [facility] STATED THAT THEY ARE ABLE TO ACCOMMODATE THE TREATMENT FOR THE PATIENT LONG WE HAVE AN INFUSION COMPANY WHO CAN SUPPLY THE ANTIBIOTIC. [facility] ISE[facility] ALSO STATED THAT THEY ARE ABLE STORE THE MEDICATION FOR THE PATIENT. CHAIR TIME FOR DIALYSIS IS [facility],SAT AT 9:30 AM Addendum: 11/03/19 at 1455 by Genny Brooke CM FAXED TO [facility] [phone] FAX [phone] Addendum: 11/03/19 at 1520 by Genny Brooke CM FOLLOWED UP WITH [facility] THE REP I SPOKE TO STATED THAT THEY DO NOT NEED TO PROVIDED PRIOR AUTH FOR INFUSION COMPANY. FAXED REQUEST TO [facility] Addendum: 11/03/19 at 1540 by Genny Brooke CM [facility] REACHED OUT AND STATED THAT SINCE IE IS THE PATIENTS SECONDARY INSURANCE THEY CAN NOT PROVIDED SERVICES FOR PATIENT. FOLLOWED UP WITH SUJIT AT [facility] [phone] OPT 1 Addendum: 11/03/19 at 1618 by Genny Brooke CM FOLLOWED UP WITH SUJIT AT [facility]. MEDICATION WILL BE DELIVERED TO PATIENTS HOME TODAY. PATIENT WILL BE ADVISED TO TAKE ABX WITH THEM EACH DAY OF DIALYSIS.
--- NOTE | 2019-10-31 15:00 | NUR ---
PT RESTING IN BED. NO SIGNS OF DISTRESS. VS STABLE. RESPIRATIONS EVEN AND UNLABORED.
[2019-10-31 16:00] VITALS: BP 125/79
--- NOTE | 2019-10-31 16:30 | NUR ---
PAIN MEDS GIVEN PRIOR TO DRESSING CHANGE.
--- NOTE | 2019-10-31 19:25 | NUR ---
TRANSFER OF CARE TO PM RAEANN DE JESUS. PT IS STABLE. NO SIGNS OF DISTRESS.
--- NOTE | 2019-10-31 19:30 | NUR ---
RECEIVED PT FROM DAY SHIFT PT IS AAOX4 AMBULATES WITH PSYCHOLOGY PHYSICIAN;, RT FOOT DRESSING DRY AND INTACT AV SHUNT FOR DIALYSIS ON LEFT UA, AND IV HL ON RT FA PATENT PT CALM NOT DISTRESS NOTED INITIL ASSESSMENT DONE
[2019-10-31 20:00] VITALS: BP 119/51
--- NOTE | 2019-10-31 21:00 | NUR ---
BLOOD SUGAR TEST 190 COVERAGE WITH 2 UNITS HUMALOG SUBQ FOLLOW PROTOCOL
[2019-10-31] MEDS: GABAPENTIN 100 MG CAP PO SCH (21:40)
[2019-10-31] MEDS: ZOLPIDEM 10 MG TAB PO PRN (21:51)
--- NOTE | 2019-11-01 | NUR ---
PT IS NPO FOR A SECOND PROCEDURE REQUIRED, DELAYED PRIMARY CLOSURE
--- NOTE | 2019-11-01 02:00 | NUR ---
PT SLEEPING WELL NOT DISTRESS NOTED ON TELEMETRY PACED
--- NOTE | 2019-11-01 03:03 | NUR ---
SPOKE WITH DR. KAY TO CLARIFY REGARDING LEVEL OF CARE STATUS. PATIENT WAS ADMITTED ON MED SURG STATUS BUT HAS A PACEMAKER AND SHE'S A DIALYSIS PATIENT, DR. KAY STATED "YES MED SURG, NO MONITORING".
--- NOTE | 2019-11-01 05:00 | NUR ---
SPONGE BATH GIVEN LINEN CHANGED PT SLEEPING WELL NOT DISTRESS NOTED RT FOOT DRESSING DRY AND INTACT
[2019-11-01 06:17] LABS: BASOPHILS % (AUTO) 0.5 % (0.0-2.0); EOSINOPHILS # (AUTO) 0.1 K/uL (0-0.4); EOSINOPHILS % (AUTO) 2.9 % (0.0-4.0); HEMATOCRIT 24.4 % (36-48); HEMOGLOBIN 7.8 g/dL (12.0-16.0); MEAN CORPUSCULAR HEMOGLOBIN 31 pg (27-31); MEAN CORPUSCULAR HGB CONC 32 g/dL (33-37); MEAN CORPUSCULAR VOLUME 97.4 fL (80-94); MONOCYTES # (AUTO) 0.5 K/uL (0.8-1.0); MONOCYTES % (AUTO) 10.7 % (1.7-9.3); NEUTROPHILS % (AUTO) 63.9 % (42.2-75.2); PLATELET COUNT (AUTO) 157 K/uL (140-450); RED BLOOD CELL COUNT(AUTO) 2.51 MIL/uL (4.20-5.40); RED CELL DISTRIBUTION WIDTH 16.4 % (11.6-13.7); WHITE BLOOD COUNT (AUTO) 4.7 K/uL (4.8-10.8)
[2019-11-01] MEDS: BLOOD GLUCOSE MONITORING 1 DEV DEV FS SCH ×4 (06:31→21:00)
[2019-11-01 06:34] LABS: CARBON DIOXIDE 28.9 mmol/L (21-32); POTASSIUM 3.9 mmol/L (3.5-5.1)
[2019-11-01] MEDS: LEVOTHYROXINE 0.025 MG TAB PO SCH (06:34)
--- NOTE | 2019-11-01 06:35 | NUR ---
PT WILL BE ENDORSED TO DAY SHIFT NURSE FOR CONTINUE OF CARE
[2019-11-01 06:42] LABS: CREATININE 5.3 mg/dL (0.6-1.3)
[2019-11-01] MEDS: INSULIN LISPRO SLIDING SCALE 100 UNITS/ML VIAL SUBQ PRN (07:03)
--- NOTE | 2019-11-01 07:05 | NUR ---
RECEIVED PATIENT FROM MULTICULTURAL SERVICES LIBRARIAN NURSE FOR CONTINUITY OF CARE. PATIENT IS AAOX4, ALBANIAN SPEAKING. RESPIRATIONS EVEN AND UNLABORED, ROOM AIR. VISIBLE CHEST RISE AND FALL NOTED. MED-SURG. SKIN WARM AND DRY. S/P I&D OF RIGHT 4TH TOE, DRESSING INTACT. IV IN THE R HAND G22, SALINE LOCK. LEFT AV SHUNT NOTED. PATIENT IS AMBULATORY. SAFETY MEASURES IN PLACE. BED IN LOW POSITION. CALL LIGHT IS WITHIN REACH. WILL CONTINUE TO MONITOR
--- NOTE | 2019-11-01 07:30 | NUR ---
PER DR. GRIFFIN, STACK ATTENDANT, SECOND PROCEDURE TOMORROW. PATIENT AWARE
[2019-11-01] MEDS: HYDROmorphone 1 MG/ML AMP IVP PRN ×2 (07:37→13:27)
--- NOTE | 2019-11-01 07:41 | NUR ---
GIVEN DILAUDID FOR WOUND CARE/DRESSING CHANGE PER DR. GRIFFIN. GIVEN MEDICATION EDUCATION. WILL REASSESS FOR PAIN
[2019-11-01 08:00] VITALS: BP 124/2
[2019-11-01] MEDS: ASPIRIN 81 MG TAB.CHEW PO SCH (08:37)
[2019-11-01] MEDS: atenoloL 50 MG TAB PO SCH (08:37)
[2019-11-01] MEDS: amLODIPine 5 MG TAB PO SCH (08:38)
[2019-11-01] MEDS: ATORVASTATIN 20 MG TAB PO SCH (08:38)
[2019-11-01] MEDS: VIT-B COMP/VIT-C/FOLIC ACID 1 TAB PO SCH (08:38)
[2019-11-01] MEDS: CLONIDINE HYDROCHLORIDE 0.1 MG TAB PO SCH ×2 (08:39→21:00)
--- NOTE | 2019-11-01 09:09 | NUR ---
ADMINISTERED MORNING MEDS. PT AWAKE, WATCHING ON PHONE. NO ACUTE DISTRESS NOTED.
--- NOTE | 2019-11-01 09:19 | NUR ---
PER DR. GRIFFIN, PODIATRY, SECOND PROCEDURE WILL BE TOMORROW AT 1045 AND IF DIALYSIS IS NEEDED, DO IT BEFORE THE SURGERY. DR. MILTON AWARE. WILL NOTIFY NEPHRO
--- NOTE | 2019-11-01 10:09 | NUR ---
REASSESSED BP. 106/56, HR 68. PT SLEEPING IN BED. NO ACUTE DISTRESS NOTED.
--- NOTE | 2019-11-01 11:15 | NUR ---
BLOOD SUGAR CHECKED: 111. NO INSULIN COVERAGE NEEDED
--- NOTE | 2019-11-01 12:44 | NUR ---
SPOKE TO DR. CLARK, HE STATED THAT DO THE DIALYSIS AFTER THE SURGERY BECAUSE IF BEFORE, IT IS TOO EARLY. SURGERY IS AT 1045. PHARMACIST VINEET DAVIES D/T VANCO DOSAGE. Addendum: 11/01/19 at 1249 by Princess Althea Joyce RN DR. KARINE DAVIES. WILL INFORM DR. ALEXANDER
[2019-11-01] MEDS ORDERED: VANCOMYCIN 750 MG in NACL 0.9% 250 ML IV SCH (13:00)
--- NOTE | 2019-11-01 13:23 | NUR ---
DR. ALEXANDER MADE AWARE DIALYSIS TO BE DONE AFTER SURGERY TOMORROW
[2019-11-01] MEDS: DOCUSATE SODIUM 100 MG GELCAP PO PRN (13:26)
--- NOTE | 2019-11-01 14:02 | NUR ---
HUNG VANCOMYCIN IVPB. PT C/O CONSTIPATION AND PAIN / OF RLE. COLACE AND DILAUDID PRN GIVEN. NO ACUTE DISTRESS NOTED.
--- NOTE | 2019-11-01 14:06 | NUR ---
NEW IV SITE IN THE RIGHT HAND G24. BLOOD RETURN VISUALIZED. PATIENT TOLERATED WELL
[2019-11-01] MEDS: ONDANSETRON 4 MG/2 ML VIAL IVP PRN (15:59)
--- NOTE | 2019-11-01 16:00 | NUR ---
C/O OF NAUSEA AND VOMITING. GIVEN ZOFRAN IVP. GIVEN HOT TEA PER PATIENT'S REQUEST. GIVEN MEDICATION EDUCATION. WILL CONTINUE TO MONITOR
--- NOTE | 2019-11-01 16:14 | NUR ---
BLOOD SUGAR CHECKED: 125. NO INSULIN COVERAGE NEEDED
[2019-11-01 16:30] VITALS: BP 119/52
[2019-11-01] MEDS: METOCLOPRAMIDE 10 MG/2 ML INJ VIAL IVP PRN (18:18)
--- NOTE | 2019-11-01 18:24 | NUR ---
PT C/O NAUSEA AND VOMITING. PT GIVEN REGLAN IVP. GIVEN MEDICATION EDUCATION. WILL CONTINUE TO MONITOR
--- NOTE | 2019-11-01 19:20 | NUR ---
RECEIVED CONTINUITY OF CARE AM NURSE. PATIENT IS A/OX4, BRITISH SPEAKING. ON ROOM AIR, RESPIRATIONS ARE EVEN AND UNLABORED. RIGHT HAND IV 24G, PATENT, INTACT, ASYMPTOMATIC, RUNNING NS 10ML/HR. DIALYSIS ACCESS NOTED. S/P IND ON RIGHT FOURTH TOE. SAFETY PRECAUTIONS IN PLACE. CALL LIGHT WITHIN REACH. WILL CONTINUE TO MONITOR.
--- NOTE | 2019-11-01 19:26 | NUR ---
ENDORSED PATIENT TO THE CHILDREN'S AIDE NURSE FOR CONTINUITY OF CARE. PATIENT IS IN STABLE CONDITION
--- NOTE | 2019-11-01 21:30 | NUR ---
PATIENT IS RESTING IN BED. FSBS ASSESSED AND RECEIVED 113, NO COVERAGE NEEDED. ADMINISTERED ROUTINE MEDICATION. PATIENT TOLERATED WELL. WILL CONTINUE TO MONITOR.
[2019-11-01] MEDS: ZOLPIDEM 10 MG TAB PO PRN (23:04)
[2019-11-01] MEDS: GABAPENTIN 100 MG CAP PO SCH (23:05)
--- NOTE | 2019-11-01 23:12 | NUR ---
PATIENT SLEEPING. VISIBLE CHEST RISE NOTED. SAFETY PRECAUTIONS IN PLACE. WILL CONTINUE TO MONITOR.
[2019-11-01] MEDS ORDERED: HYDROcodone/APAP 5/325 MG 1 TAB TAB PO PRN (23:25)
[2019-11-01] MEDS ORDERED: MORPHINE SULFATE 2 MG/ML SYR IVP PRN (23:25)
[2019-11-02] VITALS: BP 119/62
--- NOTE | 2019-11-02 01:23 | NUR ---
WOUND ASSESSMENT COMPLETE. DRESSING CLEAN, DRY, INTACT. PATIENT TOLERATED WELL.
--- NOTE | 2019-11-02 03:07 | NUR ---
PATIENT SLEEPING IN BED. VISIBLE CHEST RISE NOTED. WILL CONTINUE TO MONITOR.
--- NOTE | 2019-11-02 05:15 | NUR ---
PATIENT IS SLEEPING. VISIBLE CHEST RISE NOTED. WILL CONTINUE TO MONITOR.
[2019-11-02] MEDS: BLOOD GLUCOSE MONITORING 1 DEV DEV FS SCH ×4 (06:04→20:07)
[2019-11-02] MEDS: LEVOTHYROXINE 0.025 MG TAB PO SCH (06:04)
[2019-11-02 06:58] LABS: ANION GAP 16.8 (8-16); CARBON DIOXIDE 24.7 mmol/L (21-32); POTASSIUM 4.5 mmol/L (3.5-5.1)
--- NOTE | 2019-11-02 07:23 | NUR ---
GAVE REPORT TO AM NURSE. PATIENT IS IN STABLE CONDITION.
--- NOTE | 2019-11-02 07:39 | NUR ---
SHIFT REPORT RECEIVED FROM ADJUNCT MATHEMATICS INSTRUCTOR NURSE. PT IS LYING IN BD AND RESPONSIVE. IV IN PLACE. NO COMPLAINS OF PAIN. NO DISTRESS NOTED. BED IN LOW POSITION. CALL LIGHT IN REACH.
[2019-11-02 08:00] VITALS: BP 137/69
[2019-11-02 08:27] LABS: CREATININE 6.9 mg/dL (0.6-1.3)
[2019-11-02] MEDS: amLODIPine 5 MG TAB PO SCH (09:00)
[2019-11-02] MEDS: CLONIDINE HYDROCHLORIDE 0.1 MG TAB PO SCH ×2 (09:00→21:51)
[2019-11-02] MEDS: atenoloL 50 MG TAB PO SCH (09:00)
[2019-11-02] MEDS: EPOETIN ALFA 10,000 UNITS/ML VIAL SUBQ SCH (09:21)
[2019-11-02] MEDS: ASPIRIN 81 MG TAB.CHEW PO SCH (09:21)
[2019-11-02] MEDS: VIT-B COMP/VIT-C/FOLIC ACID 1 TAB PO SCH (09:21)
[2019-11-02] MEDS: ATORVASTATIN 20 MG TAB PO SCH (09:22)
[2019-11-02] MEDS ORDERED: LIDOCAINE 1% 500 MG/50 ML VIAL ONE (09:26)
[2019-11-02] MEDS ORDERED: BUPIVACAINE-MPF 0.5% 30 ML VIAL INJ ONE (09:26)
--- NOTE | 2019-11-02 09:30 | NUR ---
PT IS SITTING IN BED. NO DISTRESS. NO COMPLAINS OF PAIN. MEDS GIVEN.
[2019-11-02 10:47] LABS: BASOPHILS % (AUTO) 0.7 % (0.0-2.0); EOSINOPHILS # (AUTO) 0.2 K/uL (0-0.4); EOSINOPHILS % (AUTO) 3.6 % (0.0-4.0); HEMATOCRIT 26.4 % (36-48); HEMOGLOBIN 8.4 g/dL (12.0-16.0); LYMPHOCYTES % (AUTO) 20.7 % (20.5-51.1); MEAN CORPUSCULAR HEMOGLOBIN 30 pg (27-31); MEAN CORPUSCULAR HGB CONC 32 g/dL (33-37); MEAN CORPUSCULAR VOLUME 96.2 fL (80-94); MONOCYTES # (AUTO) 0.5 K/uL (0.8-1.0); MONOCYTES % (AUTO) 9.9 % (1.7-9.3); NEUTROPHILS # (AUTO) 3.1 K/uL (1.8-7.7); NEUTROPHILS % (AUTO) 65.1 % (42.2-75.2); PLATELET COUNT (AUTO) 256 K/uL (140-450); RED BLOOD CELL COUNT(AUTO) 2.75 MIL/uL (4.20-5.40); RED CELL DISTRIBUTION WIDTH 16.1 % (11.6-13.7); WHITE BLOOD COUNT (AUTO) 4.7 K/uL (4.8-10.8)
[2019-11-02] MEDS ORDERED: SEVOFLURANE 250 ML BTL INH ONE (11:15)
[2019-11-02] MEDS ORDERED: ceFAZolin 1,000 MG VIAL ONE (11:15)
[2019-11-02] MEDS ORDERED: METOCLOPRAMIDE 10 MG/2 ML INJ VIAL ONE (11:15)
[2019-11-02] MEDS ORDERED: PROPOFOL 200 MG/20 ML VIAL IV ONE (11:15)
[2019-11-02] MEDS ORDERED: ONDANSETRON 4 MG/2 ML VIAL ONE (11:15)
[2019-11-02] MEDS ORDERED: fentaNYL citrate 0.05 MG/ML VIAL ONE (11:15)
[2019-11-02] MEDS ORDERED: MIDAZOLAM 2 MG/2 ML VIAL ONE (11:15)
--- NOTE | 2019-11-02 11:30 | NUR ---
PT IS OFF UNIT
[2019-11-02] MEDS ORDERED: LIDOCAINE 1% 500 MG/ 50 ML VIAL INJ ONE (12:35)
[2019-11-02] MEDS ORDERED: ONDANSETRON 4 MG/2 ML VIAL IVP PRN (13:10)
[2019-11-02] MEDS ORDERED: HYDROmorphone 1 MG/ML AMP IVP PRN (13:10)
[2019-11-02] MEDS ORDERED: BLOOD GLUCOSE MONITORING 1 DEV DEV FS SCH (13:10)
--- NOTE | 2019-11-02 15:00 | NUR ---
PT CAME TO UNIT. PT IS DROWSY BUT RESPONSIVE. WILL CONTINUE TO MONITOR. CALL LIGHT IN REACH.
[2019-11-02 16:00] VITALS: BP 134/64
--- NOTE | 2019-11-02 17:00 | NUR ---
PT IS ON DIALYSIS NOW. NO DISTRESS NOTED. WILL CONTINUE TO MONITOR. CALL LIGHT IN REACH.
[2019-11-02] MEDS: INSULIN LISPRO SLIDING SCALE 100 UNITS/ML VIAL SUBQ PRN (17:45)
--- NOTE | 2019-11-02 19:33 | NUR ---
SHIFT REPORT GIVEN TO FLAME ANNEALING MACHINE SETTER NURSE. PT IS IN STABLE CONDITION.
--- NOTE | 2019-11-02 19:34 | NUR ---
RECEIVED REPORT FROM MICHEAL RN PT IS CURRENTLY GETTING HEMODIALYZED IN NO DISTRESS. DRESSING TO RIGHT FOOT CLEAN AND DRY. REMAINS ON RA. WILL CONTINUE TO MONITOR WITH POC.
[2019-11-02] MEDS: HYDROmorphone 1 MG/ML AMP IVP PRN (19:55)
--- NOTE | 2019-11-02 19:58 | NUR ---
PT CONTINUES TO GET HEMODIALYZED HOWEVER PT C/O PAIN TO RIGHT FOOT /. PT. IS MOANING AND MOVING AROUND UNABLE TO MAKE EYE CONTACT. PT WAS GIVEN DILAUDID FOR PAIN PER MD ORDER . B/P 163/91, 92. SPO2 96 % RA. WILL CONTINUE TO MONITOR
[2019-11-02] MEDS: GABAPENTIN 100 MG CAP PO SCH (21:49)
[2019-11-02] MEDS: METOCLOPRAMIDE 10 MG/2 ML INJ VIAL IVP PRN (21:59)
--- NOTE | 2019-11-02 22:00 | NUR ---
PT TOLERATED PO MEDICATION WITH NO ISSUES REPORTING INCREASED PAIN TO RIGHT FOOT /. PT WAS GIVEN MORPHINE 2MG FOR PAIN AND REGLAN FOR NAUSEA AT 2159 PER MD ORDER. WILL CONTINUE TO MONITOR
--- NOTE | 2019-11-02 22:55 | NUR ---
DILAUDID PRN WAS PARTIALLY EFFECTIVE PT REPORTED PAIN IMPROVED HOWEVER PAIN IS COMING BACK. PAIN DOWN TO 4/10. PT NO LONGER ON HEMODIALYSIS. DENIES ANY NEED FOR FURTHER PAIN MEDICATION AT THIS TIME. WILL CONTINUE TO MONITOR. Addendum: 11/02/19 at 2304 by Miranda Streeter RN PAIN REASSESS WAS DONE AT 2054.
--- NOTE | 2019-11-02 23:00 | NUR ---
PT IS CURRENTLY RESTING IN WITH EYES CLOSED DENIES ANY PAIN OR NAUSEA AT THIS TIME. REMAINS ON RA WITH SPO2 96-97%. ALL NEEDS MET AT THIS TIME.
[2019-11-02] MEDS: ACETAMINOPHEN 325 MG TAB PO PRN (23:47)
[2019-11-03] VITALS: BP 130/59
--- NOTE | 2019-11-03 | NUR ---
PT VITAL SIGNS STABLE, FEBRILE 102.7 TEMP, SATING 92% RA. GAVE PRN TYLENOL AND INSTRUCTED THE PT NOT TO BUNDLE UP WITH BLANKETS. PT VERBALIZED UNDERSTANDING. WILL RE CHECK THE PT TEMPERATURE LATER.
--- NOTE | 2019-11-03 02:26 | NUR ---
PT CALLED AND STATED THAT SHE FEELS SHAKY AND HER SUGAR MIGHT BE LOW. PT REQUESTED TO CHECK HER BLOOD SUGAR. CHECKED THE PT BS AND ITS 266. NO INTERVENTION DONE. WILL RE CHECK THE PT SUGAR SCHEDULED AND WILL GIVE SSI IF NEEDED.
--- NOTE | 2019-11-03 04:30 | NUR ---
PT RESTING IN BED WITH EYES CLOSED. RESPIRATION EVEN AND UNLABORED. IN NO DISTRESS.
[2019-11-03] MEDS: BLOOD GLUCOSE MONITORING 1 DEV DEV FS SCH ×2 (05:46→11:30)
[2019-11-03] MEDS: LEVOTHYROXINE 0.025 MG TAB PO SCH (05:48)
[2019-11-03] MEDS: INSULIN LISPRO SLIDING SCALE 100 UNITS/ML VIAL SUBQ PRN ×2 (05:49→13:11)
[2019-11-03] MEDS: HYDROmorphone 1 MG/ML AMP IVP PRN (07:17)
--- NOTE | 2019-11-03 07:20 | NUR ---
RECEIVED BEDSIDE REPORT FROM GRID INSPECTOR NURSE REGARDING PATIENT CONDITION AND PLAN OF CARE. PATIENT IS STABILIZED, SITTING UP IN BED, WITH DRIP BOX TENDER DR ALEXANDER BY BEDSIDE DOING WOUND CARE. PATIENT COMPLAINS OF PAIN IN R FOOT, GRID INSPECTOR NURSE TO GIVE DILAUDID. PT ON ROOM AIR, IN NO S/S RESPIRATORY DISTRESS AT THIS TIME. NORMAL SKIN COLOR, NO CYANOSIS OR EDEMA NOTED ON EXTREMITIES. PATIENT HAS RIGHT HAND 24 G RUNNING TKO FLUID. PATIENT DOES NOT HAVE ANY FEVER AT THIS TIME. ALL NEEDS MET, CALL LIGHT WITHIN REACH, WILL CONTINUE TO MONITOR.
--- NOTE | 2019-11-03 07:20 | NUR ---
BEDSIDE REPORT GIVEN TO AM RN FOR CONTINUITY OF CARE. PT IS STABLE
[2019-11-03 08:00] VITALS: BP 118/65
[2019-11-03] MEDS: ATORVASTATIN 20 MG TAB PO SCH (08:49)
[2019-11-03] MEDS: VIT-B COMP/VIT-C/FOLIC ACID 1 TAB PO SCH (08:49)
[2019-11-03] MEDS: ASPIRIN 81 MG TAB.CHEW PO SCH (08:49)
[2019-11-03] MEDS: CLONIDINE HYDROCHLORIDE 0.1 MG TAB PO SCH (08:55)
[2019-11-03] MEDS: amLODIPine 5 MG TAB PO SCH (08:56)
[2019-11-03] MEDS: atenoloL 50 MG TAB PO SCH (08:57)
--- NOTE | 2019-11-03 09:11 | NUR ---
MEDICATIONS EXPLAINED AND GIVEN TO PATIENT. PATIENT REFUSES HEPARIN AT THIS TIME DESPITE EXPLANATION OF BENEFITS. PATIENT HR CURRENTLY 60 TAKEN MANUALLY AND VIA PULSE OX, BETA TRICE HELD. PATIENT HAS NO DRAINAGE AT R FOOT DRESSING. PT PAIN IS 8/10 BUT DOES NOT REQUEST PAIN MEDICATION AT THIS TIME. RESPIRATIONS EVEN AND UNLABORED , ON ROOM AIR, SATURATION 96%. ALL NEEDS MET, CALL LIGHT WITHIN REACH WILL CONTINUE TO MONITOR
[2019-11-03 10:25] VITALS: BP 119/68
[2019-11-03] MEDS ORDERED: Linezolid IV (11:28)
--- NOTE | 2019-11-03 11:30 | NUR ---
PATIENT BLOOD GLUCOSE CHECKED TO BE 245, HUMALOG INSULIN 4 UNITS GIVEN. ALL NEEDS MET, CALL LIGHT WITHIN REACH. NO DRAINAGE NOTED ON DRESSING. WILL CONTINUE TO MONITOR.
--- NOTE | 2019-11-03 13:30 | NUR ---
PATIENT RESTING IN BED IN NO S/S RESPIRATORY DISTRESS, NO C/O OF PAIN. PATIENT SITTING UP IN CHAIR. ALL NEEDS MET, CALL LIGHT WITHIN REACH, WILL CONTINUE TO MONITOR.
[2019-11-03 14:00] VITALS: BP 118/65
--- NOTE | 2019-11-03 14:55 | NUR ---
PATIENT DISCHARGED FROM FACILITY, STABILIZED, LEFT WITH ALL BELONGINGS. ID AND IV REMOVED. STABILIZED, ESCORTED TO FRONT VIA WHEELCHAIR. IN NO S/S RESPIRATORY DISTRESS, NO C/O OF PAIN.
== END 2019-11-03 14:45 | disposition home or self-care (01) | DRG 239 ==
LOC: MED 15:07 → MMU 21:56 → MTU 10-28 07:25
PROVIDERS: ADMIT General Practice; ATTEND General Practice
PROC: 0Y6P0Z0 Detachment at Right 1st Toe, Complete, Open Approach (ICD-10-PCS; 2019-10-30)
PROC: 0QBN0ZZ Excision of Right Metatarsal, Open Approach (ICD-10-PCS; 2019-10-30)
PROC: 0Y6M0Z9 Detachment at Right Foot, Partial 1st Ray, Open Approach (ICD-10-PCS; principal; 2019-11-02 10:45)
DX: E11.51 Type 2 diabetes mellitus with diabetic peripheral angiopathy without gangrene (principal); G93.41 Metabolic encephalopathy; N18.6 End stage renal disease; N17.0 Acute kidney failure with tubular necrosis; M86.9 Osteomyelitis, unspecified; E87.1 Hypo-osmolality and hyponatremia; L03.115 Cellulitis of right lower limb; I12.0 Hypertensive chronic kidney disease with stage 5 chronic kidney disease or end stage renal disease; E11.69 Type 2 diabetes mellitus with other specified complication; Z99.2 Dependence on renal dialysis; D64.9 Anemia, unspecified; E11.22 Type 2 diabetes mellitus with diabetic chronic kidney disease; L97.529 Non-pressure chronic ulcer of other part of left foot with unspecified severity; Z82.49 Family history of ischemic heart disease and other diseases of the circulatory system; Z83.3 Family history of diabetes mellitus; E87.6 Hypokalemia; E11.621 Type 2 diabetes mellitus with foot ulcer; E11.40 Type 2 diabetes mellitus with diabetic neuropathy, unspecified; Z90.49 Acquired absence of other specified parts of digestive tract; Z98.51 Tubal ligation status
CPT/HCPCS: 36415; 70450; 71045; 73630; 80048; 80053; 80202; 82140; 82948; 83036; 83605; 83735; 84100; 84550; 85025; 85610; 85730; 86886; 86900; 86901; 87040; 87070; 87075; 87081; 87186; 87205; 93005; 93922; 93925; 93970; 96374; 96376; 99285; G0480; J0690; J0696; J0885; J1170; J1644; J2001; J2250; J2270; J2405; J2704; J2765; J3010; J3370; J3490; J7030; J7060; Q0092

== ENCOUNTER 2020-01-20 20:38 | Inpatient (IN) | payer OTHER, SELFPAY ==
[~2020-01-20] VITALS: Ht 152.4 cm; Wt 57.6 kg
[~2020-01-20 20:38] MED LIST changes: +AZIT250T3 PO; +DEC4 PO; +DEXT118S25 PO; +Linezolid IV
--- NOTE | 2020-01-20 20:38 | NUR ---
PT CYNDY ALS. TAKEN TO BED 9
--- NOTE | 2020-01-20 20:38 | NUR ---
44 Y/O F, BIBA FROM HOME, WITH COMPLAINTS OF NAUSEA AND VOMITING THAT STARTED 1-2 HOURS AGO. MEDICAL HX: HTN, ESRD WITH HD ,,SAT. DM, RIGHT TOE AMPUTATION, PACEMAKER RIGHT UPPER CHEST. REPORTS HAVING DIALYSIS TODAY AND STARTED TO FEEL SYMPTOMS. PT WARM TO TOUCH WITH CHILLS, TEMP 101.9, PT VOMITING. RIGHT FOREARM 20G, SALINE LOCKED. RIGHT TOE ASSESSED, SOME WHITE PUS NOTED, REPORTS MERT REMOVED RECENTLY 2 WEEKS AGO. SIDERAILS UP, EMESIS BAG IN HAND, CONNECTED TO CONTINUOUS CARDIAC MONITORING.
[2020-01-20 20:42] VITALS: BP 185/69
[2020-01-20] MEDS ORDERED: ONDANSETRON 4 MG/2 ML VIAL IVP ONE (20:45)
--- NOTE | 2020-01-20 21:07 | NUR ---
Dr. Tovar examining patient.
[2020-01-20] MEDS ORDERED: NACL 0.9% 1,000 ML IV ONE (21:15)
[2020-01-20] MEDS ORDERED: cefTRIAXone 1,000 MG in DEXT 5% MINI-BAG PLUS 50 ML IV ONE (21:15)
[2020-01-20] MEDS ORDERED: cefTRIAXone 1,000 MG VIAL ONE (21:31)
[2020-01-20 21:48] LABS: BASOPHILS # (AUTO) 0.1 K/uL (0.00-0.22); BASOPHILS % (AUTO) 1.8 % (0.0-2.0); EOSINOPHILS # (AUTO) 0.1 K/uL (0-0.4); HEMATOCRIT 34.4 % (36-48); HEMOGLOBIN 11.2 g/dL (12.0-16.0); LYMPHOCYTES # (AUTO) 0.3 K/uL (2.5-16.5); MEAN CORPUSCULAR HEMOGLOBIN 30 pg (27-31); MEAN CORPUSCULAR HGB CONC 33 g/dL (33-37); MEAN CORPUSCULAR VOLUME 92.4 fL (80-94); MONOCYTES # (AUTO) 0.1 K/uL (0.8-1.0); MONOCYTES % (AUTO) 0.8 % (1.7-9.3); NEUTROPHILS # (AUTO) 6.2 K/uL (1.8-7.7); NEUTROPHILS % (AUTO) 91.4 % (42.2-75.2); PLATELET COUNT (AUTO) 185 K/uL (140-450); RED BLOOD CELL COUNT(AUTO) 3.72 MIL/uL (4.20-5.40); RED CELL DISTRIBUTION WIDTH 16.6 % (11.6-13.7); WHITE BLOOD COUNT (AUTO) 6.8 K/uL (4.8-10.8)
[2020-01-20 22:03] LABS: ALBUMIN 3.7 g/dL (3.4-5.0); TOTAL BILIRUBIN 0.7 mg/dL (0.0-1.0)
[2020-01-20 22:09] LABS: CREATININE 4.9 mg/dL (0.6-1.3)
--- NOTE | 2020-01-20 22:16 | NUR ---
PT STARTING TO DESAT TO LOW 80's, STARTED ON NASAL CANNULA 2L. SATURATIONS INCREASED TO 98%. PT STABLE, NO COMPLAINTS AT THIS TIME, NAUSEA IS RELIEVED.
[2020-01-20] MEDS ORDERED: DEXT 5% / NACL 0.45% 1,000 ML IV ONE (22:40)
--- NOTE | 2020-01-20 22:41 | NUR ---
X-Ray at bedside.
[2020-01-20] MEDS ORDERED: ACETAMINOPHEN EXTRA STRENGTH 500 MG TAB PO ONE (22:55)
--- NOTE | 2020-01-20 22:57 | NUR ---
TEMPERATURE 100.6, PT STILL COMPLAINING OF CHILLS. MD AWARE. NEW ORDERS RECEIVED, WILL CARRY OUT.
--- NOTE | 2020-01-20 23:45 | NUR ---
WOUND CARE PERFORMED, PHOTOGRAPHS TAKEN AND DOCUMENTED WITH MEASUREMENTS. PT SP02 98% WHEN AWAKE AND TALKING. DESAT's TO 80's WHEN SLEEPING.
[2020-01-21] MEDS ORDERED: PIPERACILLIN/TAZOBACTAM 2.25 GM in DEXTROSE 5% 50 ML IV SCH (00:03)
[2020-01-21 00:10] VITALS: BP 160/77
--- NOTE | 2020-01-21 00:10 | NUR ---
RECEIVED PT FRM ER / RAMSES , [id number] , NID - BUT THE ER NURSE SUGGESTING TO ME TO ME THE PT ON O2 SAT MONITORING AND O2 AT 2LPM/NC - BECAUSE SHE NOTICES WHEN THE PT. SLEEP THE O2 SAT GOING DOWN TO 85% - WILL HOOK TO O2 SAT MONITOR , AND 02 AT 2LPM/NC - WILL CONT. TO MONITOR . TRANSFER TO BED BY 1 PERSON ASSIST - PT AMBULATES . W/ OPEN WOUND ON RT . BIG TOE AND SECOND DIGIT WRAPPED W/ DRY GAUZE - NO BLEEDING NOTED . IV SITE INTACT AND PATENT , W/ LEFT AV SHUNT ON UPPER ARM SAFETY MEASURES IN PLACE , ON TELE MONITOR - SR . DENIES ANY PAIN . ADMISSION ASSESSMENT DONE - MRSA SPECIMEN WILL BE SENT TO LAB . POC DISCUSSED AND VERBALIZED UBDERSTANDING . WILL CONT. TO MONITOR . CALL LIGHT WITHIN REACH . NPO INSTRUCTED .
--- NOTE | 2020-01-21 00:10 | NUR ---
Patient will be admitted to care of DR. PURCELL. AdmitTed to . Will go to room. Belongings list completed. Report to . NO COMPLAINTS AT THIS TIME, PT IN STABLE CONDITION. Addendum: 01/21/20 at 0021 by [email or web address] Patient will be admitted to care of DR. PURCELL. AdmiTted to TELE. Will go to room 113A. Belongings list completed. Report to RAEANN CHEW. PT IN STABLE CONDITION, NO COMPLAINTS AT THIS TIME. CONNECTED TO RHEUMATOLOGY NURSE. SAFETY MEASURES IN PLACE.
--- NOTE | 2020-01-21 00:35 | NUR ---
BLOOD SUGAR CHECK - 136 - PT. IS NPO .
[2020-01-21] MEDS ORDERED: PIPERACILLIN/TAZOBACTAM 2.25 GM VIAL IV ONE (00:42)
--- NOTE | 2020-01-21 01:25 | NUR ---
REFER PT TO DR. PURCELL - PT'S SERUM POTASSIUM IS 3 , CHLORIDE 96 - WILL WAIT THE RESPONSE .
--- NOTE | 2020-01-21 02:36 | NUR ---
REFER TO DR. PURCELL THRU PHONE CONVERSATION ABOUT THE RESUSCITATION CODE ORDER - SHE ORDER - FULL CODE . I INFORM HER ALSO ABOUT THE SERUM K+ 3.0 - SHE SAID OK - NO FURTHER ORDER MADE FOR SERUM ELECTROLYTES .
[2020-01-21 04:00] VITALS: BP 144/85
--- NOTE | 2020-01-21 04:00 | NUR ---
MADE ROUNDS , NO S/SX OF ACUTE DISTRESS NOTED . O2 SAT 99 % .
--- NOTE | 2020-01-21 05:00 | NUR ---
WEAN OFF TO O2 - 02 SAT 99 5 - WILL COBNT. TO MONITOR .
--- NOTE | 2020-01-21 05:30 | NUR ---
O2 SAT 98 % . NO S/SX OF ACUTE DISTRESS NOTED AT THIS TIME . RESTING ON BED COMFORTABLY .
--- NOTE | 2020-01-21 06:00 | NUR ---
ON ROOM AIR - O2 SAT 95 % - WILL CONT. TO MONITOR .
[2020-01-21] MEDS ORDERED: DEXTROSE 50% 50 ML SYR IVP PRN (06:25)
[2020-01-21] MEDS ORDERED: HYDROcodone/APAP 5/325 MG 1 TAB TAB PO PRN (06:45)
[2020-01-21] MEDS: NACL 0.9% 1,000 ML IV SCH ×2 (06:45→11:42)
[2020-01-21] MEDS ORDERED: ZOLPIDEM 5 MG TAB PO PRN (06:45)
[2020-01-21] MEDS ORDERED: DOCUSATE SODIUM 100 MG GELCAP PO PRN (06:45)
[2020-01-21] MEDS ORDERED: LORazepam 2 MG/ML VIAL IM/IVP PRN (06:45)
--- NOTE | 2020-01-21 06:46 | NUR ---
GOT TEXT ORDER FROM DR. PURCELL - WILL CARRY OUT .
--- NOTE | 2020-01-21 06:49 | NUR ---
WOUND CULTURE SPECIMEN - DONE - WILL SENT THE SPECIMEN TO LAB .
--- NOTE | 2020-01-21 06:50 | NUR ---
TEXT DR. COOPER , AND DR. BATISTA - ABOUT THE REFERRAL - NO TEXT BACK FROM THEM . - WILL ENDORSE TO AM SHIFT NURSE . ALSO PT IS FOR URINE PROFILE AND FOR URINE DRUG TEST - BUT UNABLE TO COLLECT THE URINE SPECIMEN DUE TO PT IS ANURIC - WILL ENDORSE TO AM NURSE ABOUT IT .
--- NOTE | 2020-01-21 07:25 | NUR ---
ENDORSE TO AM SHIFT - PT - STABLE .
[2020-01-21] MEDS ORDERED: BLOOD GLUCOSE MONITORING 1 DEV DEV FS SCH (07:30)
[2020-01-21 07:41] LABS: BASOPHILS % (AUTO) 0.2 % (0.0-2.0); EOSINOPHILS # (AUTO) 0.1 K/uL (0-0.4); EOSINOPHILS % (AUTO) 1.5 % (0.0-4.0); HEMATOCRIT 33.8 % (36-48); LYMPHOCYTES # (AUTO) 0.8 K/uL (2.5-16.5); LYMPHOCYTES % (AUTO) 12.9 % (20.5-51.1); MEAN CORPUSCULAR HEMOGLOBIN 30 pg (27-31); MEAN CORPUSCULAR HGB CONC 33 g/dL (33-37); MEAN CORPUSCULAR VOLUME 92.8 fL (80-94); MONOCYTES # (AUTO) 0.2 K/uL (0.8-1.0); MONOCYTES % (AUTO) 3.3 % (1.7-9.3); NEUTROPHILS # (AUTO) 5.2 K/uL (1.8-7.7); NEUTROPHILS % (AUTO) 82.1 % (42.2-75.2); PLATELET COUNT (AUTO) 181 K/uL (140-450); RED BLOOD CELL COUNT(AUTO) 3.65 MIL/uL (4.20-5.40); RED CELL DISTRIBUTION WIDTH 16.7 % (11.6-13.7); WHITE BLOOD COUNT (AUTO) 6.3 K/uL (4.8-10.8)
[2020-01-21] MEDS: BLOOD GLUCOSE MONITORING 1 DEV DEV FS SCH ×4 (07:46→20:39)
[2020-01-21 08:00] VITALS: BP 156/74
--- NOTE | 2020-01-21 08:00 | NUR ---
RECEIVED REPORT FROM MEDICAL BILLER/CODER. PATIENT ALERT, AWAKE ORIENTED X4, NOT IN ANY DISTRESS NOTED. INITIAL ASSESSMENT INITIATED. SEEN BY AUDIOVISUAL AIDS TECHNICIAN AND ASSESSED PATIENT. CULTURE ON THE RIGHT FOOT COLLECTED AND SENT TO LAB. DISCUSSED PLAN OF CARE. NEEDS ATTENDED. WILL CONTINUE TO MONITOR.
[2020-01-21 08:22] LABS: ALBUMIN 3.2 g/dL (3.4-5.0); ANION GAP 14.1 (8-16); CARBON DIOXIDE 28.7 mmol/L (21-32); CHOL/HDL RATIO 2.6 (1-4.5); FREE T4 (FREE THYROXINE) 1.35 ng/dL (0.76-1.46); MAGNESIUM 2.1 mg/dL (1.8-2.4); PHOSPHORUS 5.2 mg/dL (2.5-4.9); POTASSIUM 3.8 mmol/L (3.5-5.1); THYROID STIMULATING HORMONE 7.44 uIU/mL (0.34-3.74); TOTAL BILIRUBIN 0.4 mg/dL (0.0-1.0)
[2020-01-21 08:57] LABS: CREATININE 5.4 mg/dL (0.6-1.3)
[2020-01-21] MEDS ORDERED: INSULIN LISPRO SLIDING SCALE 100 UNITS/ML VIAL SUBQ PRN (09:25)
--- NOTE | 2020-01-21 09:45 | NUR ---
RECEIVED REPORT FROM NURSE ALDANA FOR CONTINUITY OF CARE, PT IS STABLE, NO SIGNS OF DISTRESS NOTED, RESPIRATIONS ARE EVEN AND UNLABORED ON ROOM AIR, PT HAS RIGHT FA 20G INFUSING NS AT 100ML/H, PT HAS LEFT UPPER ARM AV SHUNT, RIGHT CHEST PACEMAKER, WOUND: RIGHT GREAT TOE AND 2ND DIGIT AMPUTATION, BED IN LOW POSITION, SAFETY MEASURES IN PLACE, CALL LIGHT WITHIN REACH, WILL CONTINUE TO MONITOR.
--- NOTE | 2020-01-21 09:56 | NUR ---
REPORT GIVEN TO RAEANN CALLOWAY FOR CONTINUITY OF CARE.
[2020-01-21] MEDS: INSULIN LISPRO SLIDING SCALE 100 UNITS/ML VIAL SUBQ PRN (11:41)
--- NOTE | 2020-01-21 11:44 | NUR ---
ADMINISTERED 2 UNITS OF HUMALOG FOR BLOOD GLUCOSE OF 198, MEDICATION EDUCATION PROVIDED, PT VERBALIZED UNDERSTANDING, PT TOLERATED WELL, PT IS STABLE, CALL LIGHT WITHIN REACH, WILL CONTINUE TO MONITOR.
[2020-01-21 12:00] VITALS: BP 144/71
--- NOTE | 2020-01-21 13:00 | NUR ---
PT RESTING IN BED, NO SIGNS OF DISTRESS NOTED, CALL LIGHT WITHIN REACH, WILL CONTINUE TO MONITOR.
--- NOTE | 2020-01-21 15:18 | NUR ---
ADMINISTERED ZOFRAN FOR NAUSEA, MEDICATION EDUCATION PROVIDED, PT VERBALIZED UNDERSTANDING, PT TOLERATED WELL, PT IS STABLE, CALL LIGHT WITHIN REACH, WILL CONTINUE TO MONITOR.
[2020-01-21 16:00] VITALS: BP 161/77
--- NOTE | 2020-01-21 17:50 | NUR ---
PT RESTING IN BED, NO SIGNS OF DISTRESS NOTED, RESPIRATIONS ARE EVEN AND UNLABORED ON ROOM AIR, CALL LIGHT WITHIN REACH, WILL CONTINUE TO MONITOR.
--- NOTE | 2020-01-21 19:15 | NUR ---
ENDORSE PT TO NIGHT NURSE FOR CONTINUITY OF CARE, PT IS STABLE
--- NOTE | 2020-01-21 19:30 | NUR ---
RECEIVED BEDSIDE REPORT FROM DAY RN REGARDING THE PT FOR CONTINUITY OF CARE. PATIENT A/A/OX3, AMBULATORY. PT LAYING IN BED WATCHING TV DURING ROUNDS. RIGHT FOOT DRESSING C/D/I. + PALPABLE POPLITEAL PULSE ON THE LLE WITH GOOD PLANTAR FLEXION AND EXTENSION.PT NOT IN ANY DISTRESS. NO COMPLAIN AT THIS TIME. DENIES ANY PAIN, N & V, CHEST PAIN OR SOB. SINUS RHYTHM ON NEWS WRITER, HR-71. IVF INFUSING ORDERED. PT NEEDED A URINE SAMPLE BUT PER PT SHE IS ANURIC. ON HD EVERY WEDNESDAY, WEDNESDAY AND WEDNESDAY. FALL PRECAUTION IMPLEMENTED. INSTRUCTED TO CALL FOR ASSISTANCE AT ALL TIMES. PT VERBALIZED UNDERSTANDING WITH THE POC.CALL LIGHT WITHIN REACH. WILL CONTINUE POC AND MONITORING.
[2020-01-21 20:00] VITALS: BP 172/90
[2020-01-21] MEDS: tiZANidine 4 MG TAB PO SCH (20:38)
[2020-01-21] MEDS: GABAPENTIN 100 MG CAP PO SCH (20:39)
[2020-01-21] MEDS: CLONIDINE HYDROCHLORIDE 0.1 MG TAB PO SCH (20:39)
--- NOTE | 2020-01-21 21:30 | NUR ---
ADMINISTERED ALL THE SCHEDULED MEDICATIONS. PATIENT TOLERATED IT WELL. NO ADVERSE DRUG REACTION NOTED.
[2020-01-21] MEDS ORDERED: ONDANSETRON 4 MG/2 ML VIAL IVP PRN (22:40)
[2020-01-22] VITALS: BP 155/72
--- NOTE | 2020-01-22 | NUR ---
PATIENT VITAL SIGNS STABLE, AFEBRILE, SATING 97% ON RA. SINUS RHYTHM ON HEMATOLOGY TECHNOLOGIST, HR-65. NO COMPLAIN OF PAIN AT THIS TIME. NO S/SX OF DISTRESS NOTED.CALL LIGHT WITHIN REACH.
--- NOTE | 2020-01-22 02:00 | NUR ---
PATIENT ASLEEP AT THIS TIME. VISIBLE CHEST RISE AND FALL NOTED. NOT IN ANY DISTRESS. NO COMPLAIN AT THIS TIME.
[2020-01-22] MEDS: NACL 0.9% 1,000 ML IV SCH ×3 (02:52→18:50)
[2020-01-22 04:00] VITALS: BP 160/74
--- NOTE | 2020-01-22 04:00 | NUR ---
PATIENT VITAL SIGNS STABLE, AFEBRILE, SATING 96% ON RA. PACED RHYTHM ON PHARMACOVIGILANCE SAFETY EXPERT, HR-63. NO COMPLAIN OF PAIN AT THIS TIME. NO S/SX OF DISTRESS NOTED.CALL LIGHT WITHIN REACH.
--- NOTE | 2020-01-22 06:13 | NUR ---
NO ACUTE EVENT THROUGHOUT THE NIGHT. NO SIGN AND SYMPTOMS OF DISTRESS NOTED. NO COMPLAIN AT THIS TIME.ALL NEEDS ATTENDED. CALL LIGHT WITHIN REACH. WILL ENDORSE THE PT TO THE ONCOMING RN FOR CONTINUITY OF CARE.
[2020-01-22] MEDS: LEVOTHYROXINE 0.025 MG TAB PO SCH (06:34)
[2020-01-22] MEDS: BLOOD GLUCOSE MONITORING 1 DEV DEV FS SCH ×4 (06:34→21:56)
[2020-01-22 06:37] LABS: BASOPHILS % (AUTO) 1.2 % (0.0-2.0); EOSINOPHILS # (AUTO) 0.2 K/uL (0-0.4); EOSINOPHILS % (AUTO) 6.4 % (0.0-4.0); HEMATOCRIT 29.1 % (36-48); HEMOGLOBIN 9.5 g/dL (12.0-16.0); LYMPHOCYTES # (AUTO) 0.9 K/uL (2.5-16.5); MEAN CORPUSCULAR HEMOGLOBIN 30 pg (27-31); MEAN CORPUSCULAR HGB CONC 33 g/dL (33-37); MEAN CORPUSCULAR VOLUME 93.1 fL (80-94); MONOCYTES # (AUTO) 0.2 K/uL (0.8-1.0); MONOCYTES % (AUTO) 5.1 % (1.7-9.3); NEUTROPHILS # (AUTO) 2.1 K/uL (1.8-7.7); NEUTROPHILS % (AUTO) 61.3 % (42.2-75.2); PLATELET COUNT (AUTO) 153 K/uL (140-450); RED BLOOD CELL COUNT(AUTO) 3.13 MIL/uL (4.20-5.40); RED CELL DISTRIBUTION WIDTH 17.1 % (11.6-13.7); WHITE BLOOD COUNT (AUTO) 3.4 K/uL (4.8-10.8)
[2020-01-22 06:54] LABS: ANION GAP 15.8 (8-16); CARBON DIOXIDE 18.8 mmol/L (21-32)
[2020-01-22 06:57] LABS: CREATININE 4.4 mg/dL (0.6-1.3)
[2020-01-22 06:58] LABS: POTASSIUM 2.6 mmol/L (3.5-5.1)
--- NOTE | 2020-01-22 07:35 | NUR ---
ENDORSED PT TO DAY RAEANN WYMAN REGARDING THE PT K-2.6 AND CALCIUM-5.8 AND MADE AWARE THAT I TEXTED DR POWELL AND NO REPLY YET AND TO JUST FOLLOW UP WITH MD. PT STABLE. NOT IN ANY DISTRESS. SIGNING OFF.
--- NOTE | 2020-01-22 07:36 | NUR ---
RECEIVED REPORT FROM RACE STEWARD NURSE KIM PRATER. PT RESTING IN BED, AOX4, ON ROOM AIR WITH RIGHT FA #20G RUNNING NS @ 100ML/HR. LEFT UPPER ARM AV SHUNT FOR DIALYSIS WEDNESDAY, WEDNESDAY AND WEDNESDAY. AMBULATORY WITH WALKER. RIGHT GREAT TOE AND SECOND DIGIT AMPUTATION 01/18. BANDAGE CHANGE DAILY WITH XEROFORM, 4X4 GAUZE AND KERLIX. DISCUSSED PLAN OF CARE AND PT VERBALIZED UNDERSTANDING. CALL LIGHT WITHIN REACH. NO S/S OF RESPIRATORY DISTRESS OR DISCOMFORT NOTED AT THIS TIME. WILL CONTINUE TO MONITOR.
[2020-01-22 08:00] VITALS: BP 180/73
[2020-01-22 08:05] LABS: MAGNESIUM 1.3 mg/dL (1.8-2.4)
[2020-01-22] MEDS: ASPIRIN 81 MG TAB.CHEW PO SCH (08:35)
[2020-01-22] MEDS: CLONIDINE HYDROCHLORIDE 0.1 MG TAB PO SCH ×2 (08:36→20:50)
[2020-01-22] MEDS: ATORVASTATIN 20 MG TAB PO SCH (08:37)
[2020-01-22] MEDS: amLODIPine 5 MG TAB PO SCH (08:37)
[2020-01-22] MEDS: atenoloL 50 MG TAB PO SCH (08:38)
--- NOTE | 2020-01-22 08:38 | NUR ---
SCHEDULED MEDICATIONS GIVEN AND TOLERATED WELL. CALL LIGHT WITHIN REACH. NO S/S OF RESPIRATORY DISTRESS OR DISCOMFORT NOTED AT THIS TIME. WILL CONTINUE TO MONITOR.
--- NOTE | 2020-01-22 08:39 | NUR ---
WOUND CONSULT TO RIGHT FOOT NOT DONE, PATIENT SEEN, EVALUATED, AND DEBRIDEMENT DONE BY DR. THOMAS UNDER THE SUPERVISION OF ATTENDING MARILEE COOPER DPM. AND PODIATRY TEAM WILL CONTINUE TO FOLLOW WHILE PT. IN HOUSE PER NOTE.
--- NOTE | 2020-01-22 08:55 | NUR ---
PATIENT HAS BEEN SCREENED AND CATEGORIZED HIGH NUTRITION RISK. PATIENT WILL BE SEEN WITHIN 1-2 DAYS OF ADMISSION. 01/22/[address]
[2020-01-22] MEDS ORDERED: MAG SULF 2000 MG/WATER PREMIX 50 ML IV SCH (09:30)
--- NOTE | 2020-01-22 10:34 | NUR ---
MAG RIDER GIVEN AND TOLERATED WELL. CALL LIGHT WITHIN REACH. NO S/S OF RESPIRATORY DISTRESS OR DISCOMFORT NOTED AT THIS TIME. WILL CONTINUE TO MONITOR.
--- NOTE | 2020-01-22 11:30 | NUR ---
BLOOD GLUCOSE 169- WILL ADMINISTER INSULIN COVERAGE. CALL LIGHT WITHIN REACH. NO S/S OF RESPIRATORY DISTRESS OR DISCOMFORT NOTED AT THIS TIME. WILL CONTINUE TO MONITOR.
[2020-01-22] MEDS ORDERED: KCL 20 MEQ/WATER INJ PREMIX 200 ML IV SCH (12:00)
--- NOTE | 2020-01-22 12:10 | NUR ---
LOUANN SALMERON: NOTIFIED VANI AT [facility] [phone] THAT PATIENT HAS BEEN ADMITTED TO THE HOSPITAL. Addendum: 01/23/20 at 1506 by Moraima Schulz LATE ENTRY: PER JAIMEE OF [facility], THIS IS THEIR PATIENT PRIOR TO ADMISSION. Addendum: 01/30/20 at 1101 by Genny Brooke LOUANN SALMERON: SPOKE TO SHANTI AT [facility] TO NOTIFY THAT PATIENT WILL BE DISCHARGING HOME TODAY. PATIENTS DIALYSIS IS [facility]. PATIENT WILL RECEIVE DIALYSIS HERE TODAY BEFORE DISCHARGING. NOTIFIED JAIMEE AT [facility] THAT PATIENT WILL BE DISCHARGING TODAY Addendum: 01/30/20 at 1349 by Lorri Demarco CM DC PLANNING: RECEIVED A CALL FROM [facility] CARLA PALACIOS [phone] NOTIFIED HER THAT PT WILL BE DC HOME WITH [facility] AND [facility] WILL CONTINUE THE CARE. PHILIP WILL CONTACT [facility] TO PROVIDE THE AUTH. CARLA TO FOLLOW
[2020-01-22] MEDS: INSULIN LISPRO SLIDING SCALE 100 UNITS/ML VIAL SUBQ PRN ×2 (12:28→22:08)
--- NOTE | 2020-01-22 12:28 | NUR ---
INSULIN COVERAGE GIVEN AND TOLERATED WELL. K-RIDER GIVEN AND TOLERATED WELL. CALL LIGHT WITHIN REACH. NO S/S OF RESPIRATORY DISTRESS OR DISCOMFORT NOTED AT THIS TIME. WILL CONTINUE TO MONITOR.
--- NOTE | 2020-01-22 13:36 | NUR ---
01/22/20 RD INITIAL ASSESSMENT COMPLETED PLEASE REFER TO NUTRITION ASSESSMENT UNDER CARE ACTIVITY FOR ESTIMATED NUTRITIONAL NEEDS. 1. CONTINUE RENAL AND CCHO 60GM DIET TOLERATED 2. RECOMMEND GILBERTO BID 3. RD TO FOLLOW-UP 3-5 DAYS, MODERATE RISK SHELBIE BERKOWITZ, RD
--- NOTE | 2020-01-22 13:58 | NUR ---
SOCIAL WORK NOTE: Patient's Orientation Unable To Assess Information Provided By CEDRIC GUTIÉRREZ - DAUGHTER Comments SW WAS UNABLE TO MEET PATIENT AT BEDSIDE DUE TO MEDICAL CONDITION. SW CONTACTED PATIENT'S DAUGHTER, CEDRIC TO COMPLETE ASSESSMENT AND VERIFY DEMOGRAPHICS. Sand Slinger Operator, Realtionship and Phone Number CEDRIC GUTIÉRREZ MOTHER [phone] Healthcare Power of Legal Paraprofessional No Does Patient Have a POLST No Identifying Problems No Social Work Triggers Is A Social Work Consult Needed No Mandate Report Filed No Explanation Of Identifying Problems PATIENT IS A 44-YEAR-OLD FEMALE ADMITTED FOR NAUSEA AND VOMITING. PATIENT HAS PMHX OF T2 DM, DIABETIC NEPHROPATHY ON DIALYSIS, OSEOMYELITIS, RIGHT FIRST TOE AMPUTATION, AND HTN. PER DAUGHTER PATIENT HAS NO HISTORY OF SUBSTANCE ABUSE OR MENTAL HEALTH. Admitted From Home Pre-Admission Level Of Functioning Status Assist With ADL Level Of Functioning Comment PER DAUGHTER, PATIENT REQUIRES ASSISTANCE PREPARING MEALS. Prior Resources/Services Used In Last 12 Months No Prior Resources Used Prior DME Home Oxygen Dialysis Hemodialysis Name And Phone Number of Dialysis Facility [facility] Out[facility] Days T Wed ESRD Outpatient Time 0900 Living Situation Lives With Family House Patient Had Caregiver No Home Support No Caregiver Issues Financial Issues No Known Financial Issue Factors/Needs No D/C Needs Identified Explanation And Or Other Factors Affecting/Possible DC Needs PATIENT'S STATED HE WOULD TRANSPORT PATIENT HOME AT DISCHARGE. Pt/Rep Participated In Discharge Plan Yes Patient/Family Agress With Discharge Plan Yes Discharge Plan Comments TENTATIVE DISCHARGE PLAN IS FOR PATIENT TO RETURN HOME. DC Plan Status Initiated
--- NOTE | 2020-01-22 14:30 | NUR ---
PT RESTING IN BED. CALL LIGHT WITHIN REACH. NO S/S OF RESPIRATORY DISTRESS OR DISCOMFORT NOTED AT THIS TIME. WILL CONTINUE TO MONITOR.
--- NOTE | 2020-01-22 15:42 | NUR ---
[facility] NOTIFIED FOR HEMODIALYSIS ORDERED FOR TOMORROW, RN ASSIGNED MADE AWARE.
[2020-01-22 16:00] VITALS: BP 136/76
--- NOTE | 2020-01-22 16:30 | NUR ---
BLOOD GLUCOSE 151- WILL ADMINISTER INSULIN COVERAGE. CALL LIGHT WITHIN REACH. NO S/S OF RESPIRATORY DISTRESS OR DISCOMFORT NOTED AT THIS TIME. WILL CONTINUE TO MONITOR.
[2020-01-22] MEDS: CALCIUM CARBONATE 500 MG TAB.CHEW PO PRN (17:25)
--- NOTE | 2020-01-22 17:25 | NUR ---
PT REQUESTING TUMS FOR DYSPEPSIA. GIVEN AND TOLERATED WELL. CALL LIGHT WITHIN REACH. NO S/S OF RESPIRATORY DISTRESS OR DISCOMFORT NOTED AT THIS TIME. WILL CONTINUE TO MONITOR.
[2020-01-22] MEDS: MORPHINE SULFATE 2 MG/ML SYR IVP PRN (18:46)
--- NOTE | 2020-01-22 18:46 | NUR ---
PT C/O PAIN / AND MEDICATED WITH MORPHINE. PT TOLERATED WELL. NEW IVF HUNG AND TOLERATED WELL. CALL LIGHT WITHIN REACH. NO S/S OF RESPIRATORY DISTRESS NOTED AT THIS TIME. WILL CONTINUE TO MONITOR.
--- NOTE | 2020-01-22 19:30 | NUR ---
ENDORSED PT CARE TO CLOUD SYSTEMS ADMINISTRATOR NURSE AGUILAR FOR CONTINUITY OF CARE. PT IN STABLE CONDITIONS AT THIS TIME.
[2020-01-22 20:00] VITALS: BP 160/78
[2020-01-22] MEDS: GABAPENTIN 100 MG CAP PO SCH (20:50)
[2020-01-22] MEDS: tiZANidine 4 MG TAB PO SCH (20:51)
--- NOTE | 2020-01-22 21:56 | NUR ---
HUMALOG 2 U SQ GIVEN ACCORDING TO PROTOCOL - WITNESSED BY NHUNG CONWAY , THE WORD HOLD THE INSULIN ON EMAR ASSESSMENT IS AN ERROR ENTRY , INSTEAD PT HAS STANDING HUMALOG SLIDING SCALE .
[2020-01-23] VITALS: BP 150/80
--- NOTE | 2020-01-23 | NUR ---
MADE ROUNDS , NO S/SX OF ACUTE DISTRESS NOTED .
--- NOTE | 2020-01-23 02:04 | NUR ---
late entry---- spoke with RAEANN Mcdonnell, stated medication end time for Rocephin on 01/20/20 is 2215. end time for NS fluids given on 01/20/20 is 2315.
[2020-01-23 04:00] VITALS: BP 148/82
--- NOTE | 2020-01-23 04:00 | NUR ---
MADE ROUNDS . NO COMPLAIN MADE
[2020-01-23] MEDS: NACL 0.9% 1,000 ML IV SCH ×2 (04:18→18:20)
[2020-01-23] MEDS: LEVOTHYROXINE 0.025 MG TAB PO SCH (06:04)
[2020-01-23 06:09] LABS: EOSINOPHILS # (AUTO) 0.3 K/uL (0-0.4); EOSINOPHILS % (AUTO) 7.6 % (0.0-4.0); HEMATOCRIT 29.6 % (36-48); HEMOGLOBIN 9.6 g/dL (12.0-16.0); LYMPHOCYTES % (AUTO) 25.1 % (20.5-51.1); MEAN CORPUSCULAR HEMOGLOBIN 30 pg (27-31); MEAN CORPUSCULAR HGB CONC 32 g/dL (33-37); MEAN CORPUSCULAR VOLUME 93.6 fL (80-94); MONOCYTES # (AUTO) 0.2 K/uL (0.8-1.0); MONOCYTES % (AUTO) 4.8 % (1.7-9.3); NEUTROPHILS # (AUTO) 2.5 K/uL (1.8-7.7); NEUTROPHILS % (AUTO) 61.5 % (42.2-75.2); PLATELET COUNT (AUTO) 186 K/uL (140-450); RED BLOOD CELL COUNT(AUTO) 3.16 MIL/uL (4.20-5.40); RED CELL DISTRIBUTION WIDTH 16.5 % (11.6-13.7)
[2020-01-23] MEDS: BLOOD GLUCOSE MONITORING 1 DEV DEV FS SCH ×4 (06:11→19:58)
[2020-01-23] MEDS: INSULIN LISPRO SLIDING SCALE 100 UNITS/ML VIAL SUBQ PRN ×3 (06:12→17:50)
[2020-01-23 06:44] LABS: CARBON DIOXIDE 22.1 mmol/L (21-32); POTASSIUM 4.1 mmol/L (3.5-5.1)
--- NOTE | 2020-01-23 07:35 | NUR ---
ENDORSED TO AM SHIFT - PT - STABLE - FOR HEMODIALYSIS TODAY - W/ SIGNED CONSENT. Addendum: 01/23/20 at 0815 by Farzana Ruiz RN CALL HEMODIALYSIS NURSE TO REMIND THE SCHED. HD - SHE SAID SHE WILL COME.
--- NOTE | 2020-01-23 07:35 | NUR ---
RECEIVED REPORT FROM NIGHT NURSE PATIENT IS AAOX4 AND SITTING, ON ROOM AIR, AMBULATORY, SKIN NON INTACT, FOR HEMODIALYSIS TODAY (TTHF), WITH LEFT UPPER ARM AV SHUNT, AND IV SITES INTACT AND PATENT ON RIGHT FOREARM.SAFETY MEASURES IN PLACE AND CALL LIGHT WITHIN REACH. WILL CONTINUE TO MONITOR.
[2020-01-23 08:00] VITALS: BP 152/77
[2020-01-23] MEDS: ASPIRIN 81 MG TAB.CHEW PO SCH (08:30)
[2020-01-23] MEDS: ATORVASTATIN 20 MG TAB PO SCH (08:31)
--- NOTE | 2020-01-23 08:34 | NUR ---
MEDICATION DUE GIVEN AT THIS TIME AND PATIENT COMPLAIN OF PAIN ON THE RIGHT GREAT TOE AT 9.
[2020-01-23 08:39] LABS: CREATININE 6.4 mg/dL (0.6-1.3)
--- NOTE | 2020-01-23 08:39 | NUR ---
CRITICAL VALUE RECEIVED CREATINE 6.4 LEVEL. DOCTOR AWARE AND PATIENT FOR HEMODIALYSIS TODAY.
[2020-01-23] MEDS: MORPHINE SULFATE 2 MG/ML SYR IVP PRN ×3 (08:56→22:36)
[2020-01-23] MEDS: amLODIPine 5 MG TAB PO SCH (09:00)
[2020-01-23] MEDS: CLONIDINE HYDROCHLORIDE 0.1 MG TAB PO SCH ×3 (09:00→22:17)
[2020-01-23] MEDS: atenoloL 50 MG TAB PO SCH (09:00)
--- NOTE | 2020-01-23 09:00 | NUR ---
PATIENT COMPLAIN OF PAIN IN THE RIGHT GREAT TOE 9/10 PAIN MEDICATION GIVEN AND VITAL SIGNS CHECK PRIOR TO MEDICATION BP 152/77 WV 60. PT IS STABLE. SAFETY MEASURES IN PLACE AND CALL LIGHT WITHIN REACH.
--- NOTE | 2020-01-23 09:06 | NUR ---
BLOOD PRESSURE MEDICATION NOT GIVEN PATIENT IS SCHEDULED FOR HEMODIALYSIS TODAY(TTHS).
--- NOTE | 2020-01-23 11:20 | NUR ---
BLOOD SUGAR MONITORING DONE AT A LEVEL OF 164MG/DL INSULIN COVERAGE GIVEN.
[2020-01-23 12:00] VITALS: BP 153/74
--- NOTE | 2020-01-23 12:00 | NUR ---
MADE ROUNDS PATIENT IS SITTING ON THE CHAIR, NO [id number] NOTED, DENIES PAIN, CHECK VITAL SIGNS. PT IS STABLE.
--- NOTE | 2020-01-23 13:00 | NUR ---
DRESSING CHANGED BY DOCTOR AT THIS TIME.WOUND ASSESSMENT DONE. DRY AND INTACT DRESSING.
--- NOTE | 2020-01-23 14:30 | NUR ---
PATIENT COMPLAINS OF PAIN 9/10 AND PAIN MEDICATION GIVEN CHECK VITAL SIGNS PRIOR TO MEDICATION BP 156/71 ME 60. SAFETY MEASURES IN PLACE AND CALL LIGHT WITHIN REACH. WILL CONTINUE TO MONITOR.
--- NOTE | 2020-01-23 15:35 | NUR ---
HEMODIALYSIS STARTED AT THIS TIME, VITAL SIGNS TAKEN BP 179/77 ID 60 TEMP 97.5 RR 18 OXYGEN SATURATION 98%. PT IS STABLE.
[2020-01-23 16:00] VITALS: BP 179/77
[2020-01-23] MEDS: CLONIDINE HYDROCHLORIDE 0.1 MG TAB PO PRN (18:07)
--- NOTE | 2020-01-23 18:07 | NUR ---
BP MEDICATION GIVEN AT THIS TIME BP 187/87 CT 66.
[2020-01-23] MEDS: EPOETIN ALFA 10,000 UNITS/ML VIAL SUBQ SCH (18:54)
--- NOTE | 2020-01-23 19:00 | NUR ---
HEMODIALYSIS COMPLETED WITH A 2.6 LITERS OUTPUT, VERN;L SIGNS BP 189/83 LA 67 RR 20 TEMP 97.5 OXYGEN SATURATION 98%.
--- NOTE | 2020-01-23 19:25 | NUR ---
RECEIVED REPORT FROM RONAL RNLUIS. PT AOX4 ON ROOM AIR, SITTING IN BED. NO S/S RESPIRATORY DISTRESS. NO C/O PAIN AT THIS TIME. IV SITE RFA 20G, PATENT AND INTACT, INFUSING NS AT 100 ML/HR. HAS SHANEL AV SHUNT. SAFETY MEASURES IN PLACE. CALL LIGHT WITHIN REACH. WILL CONTINUE TO MONITOR
--- NOTE | 2020-01-23 19:25 | NUR ---
ENDORSED TO NIGHT NURSE FOR CONTINUITY OF CARE. PT IS STABLE.
[2020-01-23 20:00] VITALS: BP 121/67
[2020-01-23] MEDS: GABAPENTIN 100 MG CAP PO SCH (20:41)
[2020-01-23] MEDS: tiZANidine 4 MG TAB PO SCH (20:41)
--- NOTE | 2020-01-23 20:51 | NUR ---
ADMINISTERED SCHEDULED MEDS. MEDICATION EDUCATION PROVIDED. PT TOLERATED WELL. WILL CONTINUE TO MONITOR
--- NOTE | 2020-01-23 22:17 | NUR ---
CANCEL THE 2217 CATAPRES ON EMAR FOR THIS IS JUST DUPLICATE.
--- NOTE | 2020-01-23 22:36 | NUR ---
PT C/O 10/10 PAIN, PRN PAIN MEDICATION GIVEN. SAFETY MEASURES IN PLACE. CALL LIGHT WITHIN REACH. WILL CONTINUE TO MONITOR
--- NOTE | 2020-01-23 23:34 | NUR ---
PT BP 155/68 HR 66. NO DISTRESS NOTED. WILL CONTINUE TO MONITOR
[2020-01-24] VITALS: BP 175/74
[2020-01-24] MEDS: NACL 0.9% 1,000 ML IV SCH (00:51)
[2020-01-24] MEDS: CLONIDINE HYDROCHLORIDE 0.1 MG TAB PO PRN ×2 (00:52→12:38)
--- NOTE | 2020-01-24 00:52 | NUR ---
PT BP 175/74 HR 66. ADMINISTERED PRN CATAPRESS. NO DISTRESS NOTED. WILL CONTINUE TO MONITOR
--- NOTE | 2020-01-24 01:20 | NUR ---
PT ASLEEP IN BED. RESPIRATIONS EVEN AND UNLABORED. NO DISTRESS NOTED. WILL CONTINUE TO MONITOR
[2020-01-24 04:00] VITALS: BP 167/83
--- NOTE | 2020-01-24 04:00 | NUR ---
PT BP 167/83 HR 63. PT DENIES PAIN, DENIES SOB. NO DISTRESS NOTED. CHARGE NURSE MADE AWARE. ORDERS RECEIVED. WILL CONTINUE TO MONITOR
[2020-01-24] MEDS: MORPHINE SULFATE 2 MG/ML SYR IVP PRN ×2 (04:07→14:18)
[2020-01-24] MEDS: LEVOTHYROXINE 0.025 MG TAB PO SCH (05:55)
[2020-01-24] MEDS: BLOOD GLUCOSE MONITORING 1 DEV DEV FS SCH ×4 (06:14→21:12)
--- NOTE | 2020-01-24 07:15 | NUR ---
ENDORSED PT TO DAY RN FOR CONTINUITY OF CARE. PT IS IN STABLE CONDITION
--- NOTE | 2020-01-24 07:17 | NUR ---
RECEIVED REPORT FROM NIGHT NURSE PT IS AAOX4 ON RENAL DIET, ROOM AIR, AMBULATORY WITH 1 ASSIST, SKIN NON INTACT S/P RIGHT GREAT TOE AND SECOND DIGIT AMPUTATED, IV SITES INTACT AND PATENT ON RIGHT FOREARM AND LEFT UA AV SHUNT, DIALYSIS YESTERDAY WITH 2.6L OUTPUT(TTHS). LATEST BP 175/68 DE 61. SAFETY MEASURES IN PLACE AND CALL LIGHT WITHIN REACH. WILL CONTINUE TO MONITOR.
[2020-01-24 08:00] VITALS: BP 145/91
[2020-01-24] MEDS: CALCIUM ACETATE 667 MG TAB PO SCH ×3 (08:20→17:07)
[2020-01-24] MEDS: ASPIRIN 81 MG TAB.CHEW PO SCH (08:21)
[2020-01-24] MEDS: amLODIPine 5 MG TAB PO SCH (08:21)
[2020-01-24] MEDS: ATORVASTATIN 20 MG TAB PO SCH (08:21)
[2020-01-24] MEDS: atenoloL 50 MG TAB PO SCH (08:22)
[2020-01-24] MEDS: CLONIDINE HYDROCHLORIDE 0.1 MG TAB PO SCH ×2 (08:23→21:01)
--- NOTE | 2020-01-24 08:25 | NUR ---
MEDICATION DUE GIVEN AND CHECK VITAL SIGNS PRIOR TO MEDICATION BP 145/91 OH 63, NO DISTRESS NOTED AND DENIES PAIN. SAFETY ,MEASURES IN PLACE CALL LIGHT WITHIN REACH. WILL CONTINUE TO MONITOR.
--- NOTE | 2020-01-24 09:23 | NUR ---
WOUND DRESSING CHANGED BY PATIENT BEAM WORKER MARTHA MANRIQUEZ.
[2020-01-24] MEDS: INSULIN LISPRO SLIDING SCALE 100 UNITS/ML VIAL SUBQ PRN ×2 (11:29→17:06)
--- NOTE | 2020-01-24 11:32 | NUR ---
BLOOD SUGAR MONITORING DONE AT A LEVEL OF 176 GAVE 2UNITS INSULIN.
[2020-01-24 12:00] VITALS: BP 172/73
[2020-01-24] MEDS: PIPERACILLIN/TAZOBACTAM 2.25 GM in DEXTROSE 5% 50 ML IV SCH ×2 (12:26→21:02)
--- NOTE | 2020-01-24 12:39 | NUR ---
VITAL SIGNS CHECKED BP 172/73 GA 74 GAVE MEDICATION FOR BP CLONIDINE 0.1 MG PRN FOR SBP ABOVE 160.
--- NOTE | 2020-01-24 14:00 | NUR ---
PATIENT COMPLAINS OF PAIN AND DIFFICULTY BREATHING AND FEELING HEAVY. DOCTOR ERNIE AWARE.
--- NOTE | 2020-01-24 14:15 | NUR ---
IV FLUID OF SODIUM CHLORIDE 1000ML AT 100 ML/HR DISCONTINUED
[2020-01-24 16:00] VITALS: BP 136/76
--- NOTE | 2020-01-24 17:16 | NUR ---
BLOOD SUGAR MONITORING AT A LEVEL 168 MG/DL INSULIN COVERAGE GIVEN. PATIENT COMPLAINS OF PAIN AND DIFFICULTY BREATHING. DR KLEIN IS AWARE.
--- NOTE | 2020-01-24 19:30 | NUR ---
RECEIVED BEDSIDE REPORT FROM DAY RN REGARDING THE PT FOR CONTINUITY OF CARE. PATIENT A/A/OX3, AMBULATORY. PT LAYING IN BED WATCHING TV DURING ROUNDS. RIGHT FOOT DRESSING C/D/I. + PALPABLE POPLITEAL PULSE ON THE LLE WITH GOOD PLANTAR FLEXION AND EXTENSION.PT NOT IN ANY DISTRESS. NO COMPLAIN AT THIS TIME. DENIES ANY PAIN, N & V, CHEST PAIN OR SOB. SINUS RHYTHM ON RESTAURANT CREW, HR-71. IVF INFUSING ORDERED. FALL PRECAUTION IMPLEMENTED. INSTRUCTED TO CALL FOR ASSISTANCE AT ALL TIMES. PT VERBALIZED UNDERSTANDING WITH THE POC.CALL LIGHT WITHIN REACH. WILL CONTINUE POC AND MONITORING.
--- NOTE | 2020-01-24 19:37 | NUR ---
ENDORSED TO NIGHT NURSE FOR CONTINUITY OF CARE. PT IS STABLE
[2020-01-24 20:00] VITALS: BP 150/75
[2020-01-24] MEDS: GABAPENTIN 100 MG CAP PO SCH (21:01)
[2020-01-24] MEDS: tiZANidine 4 MG TAB PO SCH (21:02)
--- NOTE | 2020-01-24 21:30 | NUR ---
ADMINISTERED ALL THE SCHEDULED MEDICATIONS. PATIENT TOLERATED IT WELL. NO ADVERSE DRUG REACTION NOTED.
[2020-01-25] VITALS: BP 181/86
--- NOTE | 2020-01-25 | NUR ---
PATIENT VITAL SIGNS STABLE, AFEBRILE, SATING 100% ON RA. SINUS RHYTHM ON CEO AND PRESIDENT, HR-60. NO COMPLAIN OF PAIN AT THIS TIME. NO S/SX OF DISTRESS NOTED.CALL LIGHT WITHIN REACH.
[2020-01-25] MEDS: MORPHINE SULFATE 2 MG/ML SYR IVP PRN ×3 (00:17→23:53)
--- NOTE | 2020-01-25 02:00 | NUR ---
PATIENT ASLEEP AT THIS TIME. VISIBLE CHEST RISE AND FALL NOTED. NOT IN ANY DISTRESS. MEDICATED FOR PAIN EARLIER .NO COMPLAIN AT THIS TIME.
[2020-01-25 04:00] VITALS: BP 173/74
--- NOTE | 2020-01-25 04:00 | NUR ---
PATIENT VITAL SIGNS STABLE, AFEBRILE, SATING 100% ON RA. PACED RHYTHM ON WEBFOCUS DEVELOPER, HR-60. NO COMPLAIN OF PAIN AT THIS TIME. NO S/SX OF DISTRESS NOTED.CALL LIGHT WITHIN REACH.
[2020-01-25] MEDS: LEVOTHYROXINE 0.025 MG TAB PO SCH (05:51)
[2020-01-25] MEDS: PIPERACILLIN/TAZOBACTAM 2.25 GM in DEXTROSE 5% 50 ML IV SCH ×3 (05:51→20:56)
[2020-01-25] MEDS: CLONIDINE HYDROCHLORIDE 0.1 MG TAB PO PRN ×2 (06:00→18:22)
[2020-01-25 06:11] LABS: BASOPHILS % (AUTO) 1.4 % (0.0-2.0); EOSINOPHILS # (AUTO) 0.2 K/uL (0-0.4); EOSINOPHILS % (AUTO) 6.9 % (0.0-4.0); HEMATOCRIT 29.9 % (36-48); HEMOGLOBIN 9.7 g/dL (12.0-16.0); LYMPHOCYTES # (AUTO) 0.9 K/uL (2.5-16.5); LYMPHOCYTES % (AUTO) 26.8 % (20.5-51.1); MEAN CORPUSCULAR HEMOGLOBIN 30 pg (27-31); MEAN CORPUSCULAR HGB CONC 33 g/dL (33-37); MEAN CORPUSCULAR VOLUME 92.8 fL (80-94); MONOCYTES # (AUTO) 0.2 K/uL (0.8-1.0); MONOCYTES % (AUTO) 5.6 % (1.7-9.3); NEUTROPHILS # (AUTO) 2.1 K/uL (1.8-7.7); NEUTROPHILS % (AUTO) 59.3 % (42.2-75.2); PLATELET COUNT (AUTO) 171 K/uL (140-450); RED BLOOD CELL COUNT(AUTO) 3.23 MIL/uL (4.20-5.40); RED CELL DISTRIBUTION WIDTH 16.6 % (11.6-13.7); WHITE BLOOD COUNT (AUTO) 3.5 K/uL (4.8-10.8)
[2020-01-25 06:23] LABS: ANION GAP 14.7 (8-16); CARBON DIOXIDE 22.9 mmol/L (21-32); POTASSIUM 4.6 mmol/L (3.5-5.1)
[2020-01-25 06:25] LABS: CREATININE 6.3 mg/dL (0.6-1.3)
[2020-01-25 06:34] LABS: MAGNESIUM 2.2 mg/dL (1.8-2.4); PHOSPHORUS 5.7 mg/dL (2.5-4.9)
[2020-01-25] MEDS: BLOOD GLUCOSE MONITORING 1 DEV DEV FS SCH ×4 (07:01→21:01)
--- NOTE | 2020-01-25 07:46 | NUR ---
PATIENT STABLE. ENDORSED PT TO DAY RN FOR CONTINUITY OF CARE. SIGNING OFF.
[2020-01-25 08:00] VITALS: BP 174/74
--- NOTE | 2020-01-25 08:36 | NUR ---
RECEIVED REPORT FROM CHUCKING MACHINE SET UP OPERATOR TOOL NURSE. PATIENT SITTING DOWN IN BED. NO DISTRESS NOTED. DENIES ANY PAIN. AAOX3, CALM, COOPERATIVE, SKIN COLOR APPROPRIATE TO ETHNICITY, WARM TO TOUCH. HAS RIGHT BIG TOE AND 2ND DIGIT AMPUTATION, DRESSING DRY AND INTACT. CUSTOMS AND BORDER PROTECTION OFFICER FOLLOWING PATIENT AND PERFORMING WOUND DRESSING CHANGES. RESPIRATIONS EVEN, UNLABORED, ON ROOM AIR. IV SITE INTACT, PATENT, AND INFUSING IVF PER MD ORDERS. REVIEWED PLAN OF CARE WITH PATIENT. VERBALIZED UNDERSTANDING. SAFETY MEASURES IN PLACE, CALL LIGHT WITHIN REACH. WILL CONTINUE TO MONITOR. Addendum: 01/25/20 at 0840 by Seth Mayberry RN 0839 WRONG TIME. SHOULD BE 0747
[2020-01-25] MEDS: CLONIDINE HYDROCHLORIDE 0.1 MG TAB PO SCH ×2 (09:00→20:56)
[2020-01-25] MEDS: atenoloL 50 MG TAB PO SCH (09:00)
[2020-01-25] MEDS: CALCIUM ACETATE 667 MG TAB PO SCH ×3 (09:25→18:23)
[2020-01-25] MEDS: ASPIRIN 81 MG TAB.CHEW PO SCH (09:25)
[2020-01-25] MEDS: ATORVASTATIN 20 MG TAB PO SCH (09:25)
[2020-01-25] MEDS: amLODIPine 5 MG TAB PO SCH (09:26)
--- NOTE | 2020-01-25 09:29 | NUR ---
PATIENT SITTING IN BED TALKING ON THE PHONE. NO DISTRESS NOTED. CONDITION UNCHANGED. SCHEDULED MEDICATIONS DUE GIVEN. WILL CONTINUE TO MONITOR.
[2020-01-25 10:41] LABS: PROTHROMBIN TIME 10.1 secs (10.8-13.4)
--- NOTE | 2020-01-25 11:00 | NUR ---
HD NURSE AT BEDSIDE TO START HEMODIALYSIS. WILL CONTINUE TO MONITOR.
[2020-01-25 12:00] VITALS: BP 179/67
[2020-01-25] MEDS: EPOETIN ALFA 10,000 UNITS/ML VIAL SUBQ SCH (12:33)
[2020-01-25] MEDS: INSULIN LISPRO SLIDING SCALE 100 UNITS/ML VIAL SUBQ PRN ×2 (12:34→18:24)
--- NOTE | 2020-01-25 12:38 | NUR ---
SCHEDULED MEDICATIONS DUE GIVEN. WILL CONTINUE TO MONITOR
--- NOTE | 2020-01-25 13:25 | NUR ---
HD COMPLETED AT 2HR 40 MIN DUE TO PATIENT GOING TO RECEIVE PARACENTESIS AT THIS TIME. 3 L OUT. PATIENT IN STABLE CONDITION. RADIOLOGIST MD TO PERFORM PARACENTESIS AT BEDSIDE, TIMEOUT PROCEDURE COMPLETED. WILL CONTINUE TO MONITOR. PIPELAYER ALSO AT BEDSIDE TO PERFORM DRESSING CHANGE ON RIGHT FOOT.
[2020-01-25 16:00] VITALS: BP 167/70
--- NOTE | 2020-01-25 16:30 | NUR ---
PATIENT SITTING DOWN IN BED TALKING ON HER PHONE. NO DISTRESS NOTED. CONDITION UNCHANGED. WILL CONTINUE TO MONITOR.
--- NOTE | 2020-01-25 18:27 | NUR ---
PATIENT SITTING DOWN IN BED EATING HER DINNER. SCHEDULED MEDICATIONS DUE GIVEN. WILL CONTINUE TO MONITOR.
[2020-01-25 19:17] LABS: GLUCOSE,BODY FLUID 165 mg/dL
--- NOTE | 2020-01-25 19:31 | NUR ---
GAVE REPORT TO MEDICAL TECHNICIANS NURSE FOR CONTINUITY OF CARE. PATIENT IN STABLE CONDITION.
[2020-01-25 20:00] VITALS: BP 173/95
--- NOTE | 2020-01-25 20:00 | NUR ---
RECEIVED BEDSIDE REPORT FROM DAY RN REGARDING THE PT FOR CONTINUITY OF CARE. PATIENT A/A/OX3, AMBULATORY. PT LAYING IN BED WATCHING TV DURING ROUNDS. RIGHT FOOT DRESSING C/D/I. + PALPABLE POPLITEAL PULSE ON THE LLE WITH GOOD PLANTAR FLEXION AND EXTENSION.PT NOT IN ANY DISTRESS. NO COMPLAIN AT THIS TIME. DENIES ANY PAIN, N & V, CHEST PAIN OR SOB. SINUS RHYTHM ON COAT MAKER, HR-86. HAD HD TODAY AND WITH OUTPUT OF 2.6L. PATIENT IS ALSO SP PARACENTESIS TODAY AND HAD OUTPUT OF 6,050 CC. FALL PRECAUTION IMPLEMENTED. INSTRUCTED TO CALL FOR ASSISTANCE AT ALL TIMES. PT VERBALIZED UNDERSTANDING WITH THE POC.CALL LIGHT WITHIN REACH. WILL CONTINUE POC AND MONITORING.
[2020-01-25] MEDS: tiZANidine 4 MG TAB PO SCH (20:55)
[2020-01-25] MEDS: GABAPENTIN 100 MG CAP PO SCH (20:56)
[2020-01-25 21:05] LABS: APPEARANCE,UNSPUN,BODY FLUID SLIGHTLY CLOUDY (CLEAR); COLOR,BODY FLUID YELLOW (LT YELLOW); SPECIMENTYPE,BODY FLUID PARACENTESIS
[2020-01-25 21:26] LABS: RBC, BODY FLUID 5111 /cu. mm.; TOTAL VOLUME,BODY FLUID 8100 mL; WBC, BODY FLUID 0 /cu. mm.
[2020-01-25 21:40] LABS: APPEARANCE,SPUN,BODY FLUID CLEAR (CLEAR)
--- NOTE | 2020-01-25 22:00 | NUR ---
ADMINISTERED ALL THE SCHEDULED MEDICATIONS EARLIER. PATIENT TOLERATED IT WELL. NO ADVERSE DRUG REACTION NOTED.
[2020-01-26] VITALS: BP 182/78
--- NOTE | 2020-01-26 | NUR ---
PT BP STILL HIGH 182/78, HR-60, AFEBRILE, SATING 99% ON RA. 100% PACED ON TELE, HR-60. MEDICATED NOT TOO LONG AGO FOR PAIN. PT IS NOT DUE FOR CLONIDINE YET. WILL CONTINUE TO MONITOR THE PT BP.
--- NOTE | 2020-01-26 02:00 | NUR ---
PATIENT ASLEEP AT THIS TIME. VISIBLE CHEST RISE AND FALL NOTED. NOT IN ANY DISTRESS. MEDICATED FOR PAIN EARLIER .NO COMPLAIN AT THIS TIME.
[2020-01-26 04:00] VITALS: BP 163/72
--- NOTE | 2020-01-26 04:00 | NUR ---
PATIENT VITAL SIGNS STABLE, AFEBRILE, SATING 98% ON RA. PACED RHYTHM ON COATING MACHINE OPERATOR, HR-60. NO COMPLAIN OF PAIN AT THIS TIME. NO S/SX OF DISTRESS NOTED.CALL LIGHT WITHIN REACH.
[2020-01-26] MEDS: MORPHINE SULFATE 2 MG/ML SYR IVP PRN ×2 (04:33→13:43)
[2020-01-26] MEDS: CLONIDINE HYDROCHLORIDE 0.1 MG TAB PO PRN (04:34)
[2020-01-26] MEDS: PIPERACILLIN/TAZOBACTAM 2.25 GM in DEXTROSE 5% 50 ML IV SCH ×3 (06:02→20:33)
[2020-01-26] MEDS: LEVOTHYROXINE 0.025 MG TAB PO SCH (06:03)
[2020-01-26] MEDS: BLOOD GLUCOSE MONITORING 1 DEV DEV FS SCH ×4 (06:42→21:23)
[2020-01-26] MEDS: INSULIN LISPRO SLIDING SCALE 100 UNITS/ML VIAL SUBQ PRN ×3 (06:45→21:22)
--- NOTE | 2020-01-26 07:40 | NUR ---
RECEIVED REPORT FROM NIGHT NURSE FOR CONTINUITY OF CARE, PT IS STABLE, NO SIGNS OF DISTRESS NOTED, RESPIRATIONS ARE EVEN AND UNLABORED ON ROOM AIR, PT HAS RIGHT FA 20G SALINE LOCK, PT HAS LEFT AV SHUNT FOR DIALYSIS, PT HAS RIGHT FOOT WOUND OF AMPUTATED GREAT TOE AND 2ND DIGIT, INTRODUCE SELF, WILL UPDATE WHITEBOARD, CALL LIGHT WITHIN REACH, WILL CONTINUE TO MONITOR.
--- NOTE | 2020-01-26 07:52 | NUR ---
PATIENT STABLE. ENDORSED PT TO DAY RN FOR CONTINUITY OF CARE. SIGNING OFF.
[2020-01-26 08:00] VITALS: BP 148/58
[2020-01-26] MEDS: atenoloL 50 MG TAB PO SCH (08:48)
[2020-01-26] MEDS: ATORVASTATIN 20 MG TAB PO SCH (08:49)
[2020-01-26] MEDS: amLODIPine 5 MG TAB PO SCH (08:50)
[2020-01-26] MEDS: CALCIUM ACETATE 667 MG TAB PO SCH ×3 (08:50→18:14)
[2020-01-26] MEDS: ASPIRIN 81 MG TAB.CHEW PO SCH (08:50)
[2020-01-26] MEDS: CLONIDINE HYDROCHLORIDE 0.1 MG TAB PO SCH ×2 (08:51→20:37)
--- NOTE | 2020-01-26 08:53 | NUR ---
ADMINISTERED SCHEDULED MEDICATION, MEDICATION EDUCATION PROVIDED, PT VERBALIZED UNDERSTANDING, PT TOLERATED WELL, PT IS STABLE, NO SIGNS OF DISTRESS NOTED, CALL LIGHT WITHIN REACH, WILL CONTINUE TO MONITOR.
--- NOTE | 2020-01-26 09:52 | NUR ---
ADMINISTERED SCHEDULED MEDICATION, MEDICATION EDUCATION PROVIDED, PT VERBALIZED UNDERSTANDING, PT TOLERATED WELL, PT IS STABLE, CALL LIGHT WITHIN REACH, WILL CONTINUE TO MONITOR.
[2020-01-26 09:57] LABS: BASOPHILS % (AUTO) 1.2 % (0.0-2.0); EOSINOPHILS # (AUTO) 0.2 K/uL (0-0.4); EOSINOPHILS % (AUTO) 4.5 % (0.0-4.0); HEMATOCRIT 31.5 % (36-48); HEMOGLOBIN 10.4 g/dL (12.0-16.0); LYMPHOCYTES # (AUTO) 0.7 K/uL (2.5-16.5); LYMPHOCYTES % (AUTO) 20.6 % (20.5-51.1); MEAN CORPUSCULAR HEMOGLOBIN 31 pg (27-31); MEAN CORPUSCULAR HGB CONC 33 g/dL (33-37); MEAN CORPUSCULAR VOLUME 92.4 fL (80-94); MONOCYTES # (AUTO) 0.2 K/uL (0.8-1.0); MONOCYTES % (AUTO) 6.7 % (1.7-9.3); NEUTROPHILS # (AUTO) 2.4 K/uL (1.8-7.7); PLATELET COUNT (AUTO) 176 K/uL (140-450); RED BLOOD CELL COUNT(AUTO) 3.41 MIL/uL (4.20-5.40); RED CELL DISTRIBUTION WIDTH 16.5 % (11.6-13.7); WHITE BLOOD COUNT (AUTO) 3.6 K/uL (4.8-10.8)
[2020-01-26] MEDS ORDERED: LEVOFLOXACIN 750 MG/D5W PREMIX 150 ML IV SCH (10:00)
[2020-01-26 10:12] LABS: ANION GAP 13.3 (8-16); POTASSIUM 4.3 mmol/L (3.5-5.1)
[2020-01-26 10:17] LABS: CREATININE 5.7 mg/dL (0.6-1.3)
--- NOTE | 2020-01-26 11:00 | NUR ---
PT SITTING IN BED TALKING ON THE PHONE, NO SIGNS OF DISTRESS NOTED, RESPIRATIONS ARE EVEN AND UNLABORED ON ROOM AIR, CALL LIGHT WITHIN REACH, WILL CONTINUE TO MONITOR.
[2020-01-26 12:00] VITALS: BP 135/71
--- NOTE | 2020-01-26 12:21 | NUR ---
ADMINISTERED SCHEDULED MEDICATION, 2 UNITS OF HUMALOG FOR BLOOD GLUCOSE OF 158, MEDICATION EDUCATION PROVIDED, PT VERBALIZED UNDERSTANDING, PT TOLERATED WELL PT IS STABLE, CALL LIGHT WITHIN REACH, WILL CONTINUE TO MONITOR
--- NOTE | 2020-01-26 12:30 | NUR ---
01/26/20 RD FOLLOW UP COMPLETED PLEASE REFER TO NUTRITION ASSESSMENT UNDER CARE ACTIVITY FOR ESTIMATED NUTRITIONAL NEEDS. 1. CONTINUE RENAL AND CCHO 60GM DIET TOLERATED 2. CONTINUE GILBERTO BID 3. RD TO FOLLOW-UP 3-5 DAYS, MODERATE RISK SHELBIE BERKOWITZ, RD
[2020-01-26] MEDS: hydrALAZINE 10 MG TAB PO SCH ×2 (13:00→18:15)
--- NOTE | 2020-01-26 13:40 | NUR ---
CALLED DR COOPER OFFICE TO INQUIRE WHEN PODIATRY WILL COME DO WOUND CARE FOR PT. LEFT A VOICE MESSAGE.
--- NOTE | 2020-01-26 13:49 | NUR ---
ADMINISTERED SCHEDULED MEDICATION, MORPHINE FOR PAIN 9/10, SHARP THROBBING IN RIGHT FOOT, MEDICATION EDUCATION PROVIDED, PT VERBALIZED UNDERSTANDING, PT TOLERATED WILL, PT IS STABLE, WILL CONTINUE TO MONITOR, CALL LIGHT WITHIN REACH.
--- NOTE | 2020-01-26 15:00 | NUR ---
PT SITTING IN BED WATCHING TV. PT IS STABLE, NO SIGNS OF DISTRESS NOTED, CALL LIGHT WITHIN REACH, WILL CONTINUE TO MONITOR.
[2020-01-26 16:00] VITALS: BP 139/77
--- NOTE | 2020-01-26 17:00 | NUR ---
PT SITTING IN BED, NO SIGNS OF DISTRESS NOTED, RESPIRATIONS ARE EVEN AND UNLABORED ON ROOM AIR, CALL LIGHT WITHIN REACH, WILL CONTINUE TO MONITOR.
--- NOTE | 2020-01-26 18:16 | NUR ---
ADMINISTERED SCHEDULED MEDICATION, MEDICATION EDUCATION PROVIDED, PT VERBALIZED UNDERSTANDING, PT TOLERATED WELL, PT IS STABLE, CALL LIGHT WITHIN REACH, WILL CONTINUE TO MONITOR,
--- NOTE | 2020-01-26 19:07 | NUR ---
ENDORSE PT TO NIGHT NURSE FOR CONTINUITY OF CARE, PT IS STABLE
--- NOTE | 2020-01-26 20:00 | NUR ---
RECEIVED BEDSIDE REPORT FROM DAY RN REGARDING THE PT FOR CONTINUITY OF CARE. PATIENT A/A/OX3, AMBULATORY. PT LAYING IN BED WATCHING TV DURING ROUNDS. RIGHT FOOT DRESSING C/D/I, WAS JUST CHANGED BY NEGOTIATOR EARLIER PER DAY RN. + PALPABLE POPLITEAL PULSE ON THE LLE WITH GOOD PLANTAR FLEXION AND EXTENSION.PT NOT IN ANY DISTRESS. NO COMPLAIN AT THIS TIME. DENIES ANY PAIN, N & V, CHEST PAIN OR SOB. FALL PRECAUTION IMPLEMENTED. INSTRUCTED TO CALL FOR ASSISTANCE AT ALL TIMES. PT VERBALIZED UNDERSTANDING WITH THE POC.CALL LIGHT WITHIN REACH. WILL CONTINUE POC .
[2020-01-26] MEDS: GABAPENTIN 100 MG CAP PO SCH (20:34)
[2020-01-26] MEDS: tiZANidine 4 MG TAB PO SCH (20:34)
[2020-01-26 21:00] VITALS: BP 140/73
--- NOTE | 2020-01-26 22:00 | NUR ---
ADMINISTERED ALL THE SCHEDULED MEDICATIONS EARLIER. PATIENT TOLERATED IT WELL. NO ADVERSE DRUG REACTION NOTED.
[2020-01-27] VITALS: BP 126/70
--- NOTE | 2020-01-27 | NUR ---
PATIENT VITAL SIGNS STABLE, AFEBRILE, SATING 97% ON RA.COMPLAINING OF PAIN AT THIS TIME, PRN MORPHINE GIVEN ORDERED AND PER PT REQUEST. NO S/SX OF DISTRESS NOTED.CALL LIGHT WITHIN REACH.
[2020-01-27] MEDS: MORPHINE SULFATE 2 MG/ML SYR IVP PRN ×4 (00:30→23:46)
--- NOTE | 2020-01-27 02:33 | NUR ---
PATIENT ASLEEP AT THIS TIME. VISIBLE CHEST RISE AND FALL NOTED. NOT IN ANY DISTRESS. MEDICATED FOR PAIN EARLIER .NO COMPLAIN AT THIS TIME.
--- NOTE | 2020-01-27 04:00 | NUR ---
PT ASLEEP AND NOT IN ANY DISTRESS. NO COMPLAIN AT THIS TIME. CALL LIGHT WITHIN REACH.
[2020-01-27] MEDS ORDERED: CLINDAMYCIN 600 MG/4 ML VIAL ONE (04:59)
[2020-01-27] MEDS: CLINDAMYCIN 600 MG in DEXTROSE 5% 50 ML IV SCH ×3 (05:58→20:56)
[2020-01-27] MEDS: LEVOTHYROXINE 0.025 MG TAB PO SCH (06:06)
[2020-01-27 06:26] LABS: BASOPHILS # (AUTO) 0.1 K/uL (0.00-0.22); BASOPHILS % (AUTO) 1.3 % (0.0-2.0); EOSINOPHILS # (AUTO) 0.2 K/uL (0-0.4); EOSINOPHILS % (AUTO) 5.7 % (0.0-4.0); HEMATOCRIT 29.7 % (36-48); HEMOGLOBIN 9.7 g/dL (12.0-16.0); LYMPHOCYTES # (AUTO) 0.9 K/uL (2.5-16.5); LYMPHOCYTES % (AUTO) 21.8 % (20.5-51.1); MEAN CORPUSCULAR HEMOGLOBIN 30 pg (27-31); MEAN CORPUSCULAR HGB CONC 33 g/dL (33-37); MEAN CORPUSCULAR VOLUME 92.6 fL (80-94); MONOCYTES # (AUTO) 0.3 K/uL (0.8-1.0); MONOCYTES % (AUTO) 7.2 % (1.7-9.3); NEUTROPHILS # (AUTO) 2.7 K/uL (1.8-7.7); PLATELET COUNT (AUTO) 183 K/uL (140-450); RED BLOOD CELL COUNT(AUTO) 3.21 MIL/uL (4.20-5.40); RED CELL DISTRIBUTION WIDTH 16.3 % (11.6-13.7); WHITE BLOOD COUNT (AUTO) 4.3 K/uL (4.8-10.8)
[2020-01-27] MEDS: BLOOD GLUCOSE MONITORING 1 DEV DEV FS SCH ×4 (06:35→20:56)
[2020-01-27] MEDS: INSULIN LISPRO SLIDING SCALE 100 UNITS/ML VIAL SUBQ PRN ×3 (06:36→20:55)
--- NOTE | 2020-01-27 07:25 | NUR ---
RECEIVED PATIENT FROM NIGHT NURSE. PATIENT AWAKE AND ALERT. ABLE TO MAKE NEEDS KNOWN. RESP EVEN AND UNLABORED ON ROOM AIR. DRESSING NOTED TO RIGHT FOOT DRY AND INTACT. PATIENT HAS HD SCHEDULED TODAY AND IS AWARE. LAV SHUNT FOR HD. RFA 20G SL. PLAN OF CARE DISCUSSED WITH PATIENT. PATIENT VERBALIZED UNDERSTANDING. WILL CONTINUE TO MONITOR.
[2020-01-27 07:46] LABS: CARBON DIOXIDE 22.9 mmol/L (21-32); POTASSIUM 4.9 mmol/L (3.5-5.1)
[2020-01-27 07:50] LABS: MAGNESIUM 1.9 mg/dL (1.8-2.4); PHOSPHORUS 5.6 mg/dL (2.5-4.9)
[2020-01-27 07:55] LABS: CREATININE 6.6 mg/dL (0.6-1.3)
[2020-01-27 08:00] VITALS: BP 163/86
[2020-01-27] MEDS: EPOETIN ALFA 10,000 UNITS/ML VIAL SUBQ SCH (08:42)
[2020-01-27] MEDS: CALCIUM ACETATE 667 MG TAB PO SCH ×3 (08:43→17:02)
[2020-01-27] MEDS: amLODIPine 5 MG TAB PO SCH (08:44)
[2020-01-27] MEDS: atenoloL 50 MG TAB PO SCH (08:48)
[2020-01-27] MEDS: ASPIRIN 81 MG TAB.CHEW PO SCH (08:49)
[2020-01-27] MEDS: ATORVASTATIN 20 MG TAB PO SCH (08:49)
[2020-01-27] MEDS: hydrALAZINE 10 MG TAB PO SCH ×3 (08:49→17:02)
[2020-01-27] MEDS: CLONIDINE HYDROCHLORIDE 0.1 MG TAB PO SCH ×2 (09:00→20:40)
--- NOTE | 2020-01-27 09:02 | NUR ---
MORNING ROUTINE MEDICATIONS GIVEN. PATIENT TOLERATED WELL. CATAPRES WILL BE GIVEN AT LATER TIME WITH ASSESSMENT OF BP/HR. LAV SHUNT NOTED FOR HD B/T NOTED. RH 22G TKO PATENT AND INTACT. MORPHINE GIVEN PRN PER PATIENT REQUEST FOR PAIN. RESP EVEN AND UNLABORED. VITALS 98.1 64 18 163/86 98%. LUNGS CLEAR. PATIENT SITTING UP IN BED. ABLE TO MAKE NEEDS KNOWN. RIGHT FOOT WRAPPED IN BANDAGE DRY AND INTACT. PATIENT ENCOURAGED TO WEIGHT BEARING TO HEEL ONLY. PATIENT VERBALIZED UNDERSTANDING. CALL LIGHT WITHIN REACH. WILL CONTINUE TO MONITOR.
--- NOTE | 2020-01-27 09:56 | NUR ---
HD STARTED. CATAPRES ON HOLD UNTIL AFTER HD COMPLETE
--- NOTE | 2020-01-27 11:15 | NUR ---
HD IN PROGRESS. PATIENT IN BED TALKING ON HER CELL PHONE. RESP EVEN AND UNLABORED. DENIES OF PAIN AT THIS TIME. CALL LIGHT WITHIN REACH. WILL CONTINUE TO MONITOR.
--- NOTE | 2020-01-27 12:56 | NUR ---
BLOOD GLUCOSE 160. INSULIN GIVEN PER SLIDING SCALE. PATIENT AWAKE AND ALERT. HD COMPLETE. 3L OUTPUT PER DIALYSIS NURSE. PATIENT IS COMFORTABLE IN BED. ROUTINE MEDICATIONS GIVEN. DENIED OF PAIN OR DISCOMFORT AT THIS TIME. CALL LIGHT WITHIN REACH. WILL CONTINUE TO MONITOR.
--- NOTE | 2020-01-27 15:03 | NUR ---
WOUND CARE PROVIDED. DRESSING CHANGED PER ORDER TO RIGHT GREAT TOE S/P AMPUTATION. PATIENT TOLERATED WELL. PATIENT INSTRUCTED TO WEIGHT BEAR ON RIGHT HEEL WHILE AMBULATING. PATIENT VERBALIZED UNDERSTANDING. PATIENT DENIED OF ANY PAIN AT THIS TIME. SAFETY MEASURES IN PLACE. CALL LIGHT WITHIN REACH. WILL CONTINUE TO MONITOR.
[2020-01-27 16:00] VITALS: BP 149/72
--- NOTE | 2020-01-27 17:25 | NUR ---
BLOOD GLUCOSE 148. NO INSULIN COVERAGE NEEDED. PATIENT SITTING BY BEDSIDE WATCHING TV. DENIED OF PAIN AT THIS TIME. RIGHT FOOT BANDAGE INTACT AND DRY. RESP EVEN AND UNLABORED ON ROOM AIR. PATIENT IN GOOD SPIRIT. CALL LIGHT WITHIN REACH. WILL CONTINUE TO MONITOR.
[2020-01-27] MEDS: ONDANSETRON 4 MG/2 ML VIAL IVP PRN (19:00)
--- NOTE | 2020-01-27 19:04 | NUR ---
PATIENT WAS GIVEN ZOFRAN C/O FEELING NAUSEA AFTER EATING HER DINNER. WILL ENDORSE TO NIGHT NURSE FOR EFFECTIVENESS.
--- NOTE | 2020-01-27 19:15 | NUR ---
RECEIVED PT AAOX4 , NID - O2 SAT WNL . IV SITE INTACT AND PATENT . DENIES PAIN AT THIS TIME . W/ DRESSING AND INTACT ON R FOOT - PER AM NURSE DR. COOPER ORDERED DRESSING CHANGE ONCE A DAY - THE AM NURSE JUST NEWLY CHANGED THE DRESSING . SAFETY MEASURES IN PLACE - CALL LIGHT WITHIN REACH . WALKER WITHIN REACH - REMINDS HER THE USE OF CALL LIGHT WHENEVER SHE NEEDED HELP . PLAN OF CARE DISCUSSED AND VERBALIZE UNDERSTANDING . WILL CONT. TO MONITOR .
--- NOTE | 2020-01-27 19:15 | NUR ---
ENDORSED PATIENT TO NIGHT NURSE. PATIENT IN STABLE CONDITION.
[2020-01-27] MEDS: GABAPENTIN 100 MG CAP PO SCH (20:39)
[2020-01-27] MEDS: tiZANidine 4 MG TAB PO SCH (20:40)
--- NOTE | 2020-01-27 22:00 | NUR ---
WATCHING TV , APPEARS COMFORTABLE ON BED . CALL LIGHT WITHIN REACH .
[2020-01-27 23:46] VITALS: BP 150/84
--- NOTE | 2020-01-28 | NUR ---
C/O PAIN - JUST MEDICATED W/ MORPHINE . WILL RE ASSESS . CALL LIGHT WITHIN REACH .
--- NOTE | 2020-01-28 02:00 | NUR ---
SLEEPING - CHEST RISE AND FALL EQUALLY - CALL LIGHT WITHIN REACH .
--- NOTE | 2020-01-28 04:00 | NUR ---
MADE ROUNDS , NO S/SX OF ACUTE DISTRESS NOTED . WILL CONT. TO MONITOR
--- NOTE | 2020-01-28 06:00 | NUR ---
NO COMPLAIN MADE . CALL LIGHT WITHIN REACH .
[2020-01-28] MEDS: LEVOTHYROXINE 0.025 MG TAB PO SCH (06:27)
[2020-01-28] MEDS: CLINDAMYCIN 600 MG in DEXTROSE 5% 50 ML IV SCH ×3 (06:28→21:00)
[2020-01-28] MEDS: INSULIN LISPRO SLIDING SCALE 100 UNITS/ML VIAL SUBQ PRN ×3 (06:29→22:11)
[2020-01-28 06:36] LABS: BASOPHILS % (AUTO) 1.1 % (0.0-2.0); EOSINOPHILS # (AUTO) 0.2 K/uL (0-0.4); EOSINOPHILS % (AUTO) 5.9 % (0.0-4.0); HEMATOCRIT 28.7 % (36-48); HEMOGLOBIN 9.5 g/dL (12.0-16.0); LYMPHOCYTES % (AUTO) 26.7 % (20.5-51.1); MEAN CORPUSCULAR HEMOGLOBIN 31 pg (27-31); MEAN CORPUSCULAR HGB CONC 33 g/dL (33-37); MEAN CORPUSCULAR VOLUME 92.8 fL (80-94); MONOCYTES # (AUTO) 0.2 K/uL (0.8-1.0); MONOCYTES % (AUTO) 6.7 % (1.7-9.3); NEUTROPHILS # (AUTO) 2.1 K/uL (1.8-7.7); NEUTROPHILS % (AUTO) 59.6 % (42.2-75.2); PLATELET COUNT (AUTO) 215 K/uL (140-450); RED BLOOD CELL COUNT(AUTO) 3.09 MIL/uL (4.20-5.40); RED CELL DISTRIBUTION WIDTH 16.8 % (11.6-13.7); WHITE BLOOD COUNT (AUTO) 3.6 K/uL (4.8-10.8)
[2020-01-28] MEDS: BLOOD GLUCOSE MONITORING 1 DEV DEV FS SCH ×4 (06:41→21:00)
[2020-01-28 07:12] LABS: ANION GAP 15.3 (8-16); CARBON DIOXIDE 25.8 mmol/L (21-32); POTASSIUM 4.1 mmol/L (3.5-5.1)
[2020-01-28 07:15] LABS: CREATININE 5.1 mg/dL (0.6-1.3)
--- NOTE | 2020-01-28 07:19 | NUR ---
ENDORSED TO AM SHIFT - PT - STABLE .
--- NOTE | 2020-01-28 07:19 | NUR ---
RECEIVED PATIENT FROM NIGHT NURSE. PATIENT AWAKE AND ALERT, SITTING BY BEDSIDE. ABLE TO MAKE NEEDS KNOWN. RESP EVEN AND UNLABORED ON ROOM AIR. DRESSING NOTED TO RIGHT FOOT DRY AND INTACT. LAV SHUNT FOR HD. RFA 20G SL. PLAN OF CARE DISCUSSED WITH PATIENT. PATIENT VERBALIZED UNDERSTANDING. CALL LIGHT WITHIN REACH. WILL CONTINUE TO MONITOR.
[2020-01-28 08:00] VITALS: BP 155/81
[2020-01-28] MEDS: atenoloL 50 MG TAB PO SCH (09:00)
[2020-01-28] MEDS: LEVOFLOXACIN 500 MG/D5W PREMIX 100 ML IV SCH (09:47)
[2020-01-28] MEDS: CALCIUM ACETATE 667 MG TAB PO SCH ×3 (09:53→16:54)
[2020-01-28] MEDS: ATORVASTATIN 20 MG TAB PO SCH (09:58)
[2020-01-28] MEDS: ASPIRIN 81 MG TAB.CHEW PO SCH (09:58)
[2020-01-28] MEDS: CLONIDINE HYDROCHLORIDE 0.1 MG TAB PO SCH ×2 (09:59→22:03)
[2020-01-28] MEDS: amLODIPine 5 MG TAB PO SCH (09:59)
--- NOTE | 2020-01-28 10:11 | NUR ---
MORNING ROUTINE MEDICATIONS GIVEN. PATIENT TOLERATED WELL. 97.6 59 16 132/61 92% RA. ATENOLOL HELD DT/ LOW HR. HYDRALAZINE WILL BE GIVEN LATER TIME AFTER ASSESSMENT. PATIENT ALERT AND AWAKE. DENIED OF PAIN AT THIS TIME. RESP EVEN AND UNLABORED ON ROOM AIR. SKIN IS WARM TO TOUCH. RIGHT TOE AMPUTATION WRAPPED WITH DIMITRI BANDAGE. TEACHING REINFORCE FOR WEIGHT BEARING TO HEEL ONLY UPON AMPUTATION. PATIENT VERBALIZED UNDERSTANDING. RH 22G INTACT AND PATENT, TKO. PATIENT ABLE TO MAKE NEEDS KNOWN. CALL LIGHT WITHIN REACH. WILL CONTINUE TO MONITOR.
[2020-01-28] MEDS: hydrALAZINE 10 MG TAB PO SCH ×3 (11:48→16:54)
[2020-01-28] MEDS: MORPHINE SULFATE 2 MG/ML SYR IVP PRN ×2 (11:49→22:43)
--- NOTE | 2020-01-28 11:50 | NUR ---
MORPHINE GIVEN REQUESTED FOR PAIN TO RIGHT FOOT. RESP EVEN AND UNLABORED. VITALS WNL. PATIENT SITTING UP IN BED WATCHING TV. RESP EVEN AND UNLABORED ON ROOM AIR. CALL LIGHT WITHIN REACH. WILL CONTINUE TO MONITOR.
--- NOTE | 2020-01-28 12:50 | NUR ---
BLOOD GLUCOSE 235. INSULIN GIVEN PER SLIDING SCALE. PATIENT AMBULATED WITH STEADY GAIT AND WEIGHT BEARING ON RIGHT HEEL FROM THE BATHROOM TO THE BED WITHOUT ANY ASSIST. CALL LIGHT WITHIN REACH. WILL CONTINUE TO MONITOR.
[2020-01-28] MEDS: CALCIUM CARBONATE 500 MG TAB.CHEW PO PRN (14:48)
[2020-01-28] MEDS: ONDANSETRON 4 MG/2 ML VIAL IVP PRN (14:49)
--- NOTE | 2020-01-28 14:49 | NUR ---
ZOFRAN AND TUMS GIVEN D/T PT COMPLAINING OF NAUSEA AND UPSET STOMACH. PATIENT SITTING UP IN BED RESP EVEN AND UNLABORED. CALL LIGHT WITHIN REACH. WILL CONTINUE TO MONITOR.
--- NOTE | 2020-01-28 15:49 | NUR ---
PATIENT SITTING UP BY BEDSIDE TABLE WORKING ON HER WORDS SEARCH PUZZLE. FEELING NAUSEA IMPROVED AND IN GOOD SPIRIT. WILL CONTINUE TO MONITOR.
[2020-01-28 16:00] VITALS: BP 137/56
--- NOTE | 2020-01-28 17:20 | NUR ---
BLOOD GLUCOSE 105. NO INSULIN COVERAGE. PATIENT SITTING IN BED WORKING ON HER WORD SEARCH PUZZLE. DENIED OF PAIN AT THIS TIME. RESP EVEN AND UNLABORED ON ROOM AIR. IN GOOD SPIRIT. ABLE TO MAKE NEEDS KNOWN. CALL LIGHT WITHIN REACH. WILL CONTINUE TO MONITOR.
--- NOTE | 2020-01-28 19:20 | NUR ---
ENDORSED PATIENT TO NIGHT NURSE. PATIENT IN STABLE CONDITION.
--- NOTE | 2020-01-28 21:20 | NUR ---
UPON PHYSICAL ASSESSMENT, PT IS A/OX4, ABLE TO RESPOND TO QUESTIONS, HEAD IS ROUND, NORMOCEPHALIC, FACE IS UNIFORMED, SYMMETRICAL, ALIGNED EYEBROWS AND SMILE, PMMM, SCLERA WHITE, PERRL. TRACHEA IS PLACE IN THE MIDLINE OF THE NECK, NO JVD PRESENT. CHEST IS SYMMETRICAL, LUNGS ARE CTAX4, ON INSPIRATION AND EXPIRATION. S1, S2 HEART TONES NOTED. BOWEL TONES ARE ACTIVE IN FOUR QUADRANTS. ABD IS FLAT AND NONTENDER. SKIN IS SMOOTH, WARM, DRY. ACTIVE AND OPEN WOUND TO RIGHT FOOT. AMPUTATION OF LEFT AND RIGHT BIG TOE. NAILS ARE CLEAN, INTACT, CAP REFILL IS LESS THAN 3 SECONDS, NO CLUBBING OR CYANOSIS NOTED. EQUAL AND BILATERAL PEDAL PULSES NOTED. NONPITTING BILATERAL LOWER EXTREMITIES NOTED. ORIENTED PT TO STAFF AND CALL LIGHT. ADMINISTERED SCHEDULED MEDICATION. EDUCATION RENDERED. PT TOLERATED IT WELL.
[2020-01-28] MEDS: tiZANidine 4 MG TAB PO SCH (21:56)
[2020-01-28] MEDS: GABAPENTIN 100 MG CAP PO SCH (21:57)
--- NOTE | 2020-01-28 23:20 | NUR ---
WOUND CARE COMPLETE. WOUND PHOTOGRAPH COMPLETE.
[2020-01-29] VITALS: BP 145/68
--- NOTE | 2020-01-29 01:05 | NUR ---
PT IS SLEEPING. NO SIGNS OF DISTRESS NOTED.
[2020-01-29] MEDS: ACETAMINOPHEN 325 MG TAB PO PRN (02:24)
--- NOTE | 2020-01-29 03:20 | NUR ---
PT IS SLEEPING. VISIBLE CHEST RISE NOTED.
--- NOTE | 2020-01-29 04:34 | NUR ---
PT IS SLEEPING. NO SIGNS OF DISTRESS NOTED.
--- NOTE | 2020-01-29 04:50 | NUR ---
WOUND ASSESSMENT AND CARE COMPLETE. EDUCATION GIVEN. PHOTOGRAPH DONE.
[2020-01-29] MEDS: CLINDAMYCIN 600 MG in DEXTROSE 5% 50 ML IV SCH ×3 (05:00→21:18)
[2020-01-29] MEDS: BLOOD GLUCOSE MONITORING 1 DEV DEV FS SCH ×4 (06:47→21:25)
[2020-01-29] MEDS: LEVOTHYROXINE 0.025 MG TAB PO SCH (06:47)
[2020-01-29] MEDS: INSULIN LISPRO SLIDING SCALE 100 UNITS/ML VIAL SUBQ PRN ×2 (06:48→21:34)
[2020-01-29 06:57] LABS: EOSINOPHILS # (AUTO) 0.2 K/uL (0-0.4); EOSINOPHILS % (AUTO) 4.6 % (0.0-4.0); HEMATOCRIT 31.6 % (36-48); HEMOGLOBIN 10.3 g/dL (12.0-16.0); LYMPHOCYTES # (AUTO) 0.9 K/uL (2.5-16.5); LYMPHOCYTES % (AUTO) 27.3 % (20.5-51.1); MEAN CORPUSCULAR HEMOGLOBIN 30 pg (27-31); MEAN CORPUSCULAR HGB CONC 33 g/dL (33-37); MEAN CORPUSCULAR VOLUME 91.8 fL (80-94); MONOCYTES # (AUTO) 0.2 K/uL (0.8-1.0); MONOCYTES % (AUTO) 7.1 % (1.7-9.3); PLATELET COUNT (AUTO) 246 K/uL (140-450); RED BLOOD CELL COUNT(AUTO) 3.45 MIL/uL (4.20-5.40); RED CELL DISTRIBUTION WIDTH 16.9 % (11.6-13.7); WHITE BLOOD COUNT (AUTO) 3.4 K/uL (4.8-10.8)
[2020-01-29 06:58] LABS: ANION GAP 12.8 (8-16); CARBON DIOXIDE 26.4 mmol/L (21-32); POTASSIUM 5.2 mmol/L (3.5-5.1)
[2020-01-29 07:14] LABS: CREATININE 6.9 mg/dL (0.6-1.3)
--- NOTE | 2020-01-29 07:30 | NUR ---
RECEIVED REPORT FROM NIGHT NURSE PT IS AAOX4, SITTING AND ON ROOM AIR, AMBULATORY, WITH IV SITES INTACT AND PATENT ON RIGHT HAND AND LEFT AV SHUNT FOR HEMODIALYSIS(TTHSAT). SKIN NON INTACT S/P RIGHT BIG TOE AMPUTATION. SCHEDULED FOR SUPPLIER QUALITY ENGINEER CONSULT TODAY OR TOMORROW FOR BONE BIOPSY/SKIN COVER ON RIGHT FOOT. SAFETY MEASURES IN PLACE AND CALL LIGHT WITHIN REACH.WILL CONTINUE TO MONITOR.
[2020-01-29 08:00] VITALS: BP 138/73
[2020-01-29] MEDS: ATORVASTATIN 20 MG TAB PO SCH (08:30)
[2020-01-29] MEDS: ASPIRIN 81 MG TAB.CHEW PO SCH (08:30)
[2020-01-29] MEDS: CALCIUM ACETATE 667 MG TAB PO SCH ×3 (08:30→16:47)
[2020-01-29] MEDS: hydrALAZINE 10 MG TAB PO SCH ×3 (08:31→16:47)
[2020-01-29] MEDS: amLODIPine 5 MG TAB PO SCH (08:31)
[2020-01-29] MEDS: atenoloL 50 MG TAB PO SCH (08:31)
[2020-01-29] MEDS: CLONIDINE HYDROCHLORIDE 0.1 MG TAB PO SCH ×2 (08:33→21:26)
--- NOTE | 2020-01-29 08:40 | NUR ---
MEDICATION DUE GIVEN CHECK VITAL SIGNS PRIOR TO BP MEDICATION BP 138/73 AK 61. NO DISTRESS NOTED AND PATIENT DENIES PAIN , NAUSEA OR DIARRHEA. SAFETY MEASURES IN PLACE AND CALL LIGHT WITH IN REACH. WILL CONTINUE TO MONITOR.
--- NOTE | 2020-01-29 09:48 | NUR ---
RECEIVED ORDER PATIENT IS FOR EXCISIONAL DEBRIDEMENT, GRAFT APPLICATION AND POSSIBLE BONE BIOPSY ALL OF THE RIGHT FOOT AT 1400 TODAY. CONSENT GIVEN BY THE PATIENT. PATIENT IS ON NPO EXCEPT MEDICATION.
[2020-01-29] MEDS: MORPHINE SULFATE 2 MG/ML SYR IVP PRN ×2 (12:01→23:41)
--- NOTE | 2020-01-29 12:03 | NUR ---
BLOOD SUGAR LEVEL AT 109 NO INSULIN COVERAGE AND PT COMPLAIN OF PAIN /10 ON THE FOOT MEDICATION GIVEN
[2020-01-29] MEDS ORDERED: LIDOCAINE 1% 500 MG/50 ML VIAL ONE (13:10)
--- NOTE | 2020-01-29 13:50 | NUR ---
PATIENT OUT OF HER ROOM FOR EXCISIONAL DEBRIDEMENT GRAFT APPLICATION AND POSSIBLE BONE BIOPSY ALL OF THE RIGHT FOOT.
[2020-01-29] MEDS ORDERED: MIDAZOLAM 2 MG/2 ML VIAL ONE (14:30)
[2020-01-29] MEDS ORDERED: SEVOFLURANE 250 ML BTL INH ONE (14:30)
[2020-01-29] MEDS ORDERED: METOCLOPRAMIDE 10 MG/2 ML INJ VIAL ONE (14:30)
[2020-01-29] MEDS ORDERED: fentaNYL citrate 0.05 MG/ML VIAL ONE (14:30)
[2020-01-29] MEDS ORDERED: ONDANSETRON 4 MG/2 ML VIAL ONE (14:30)
[2020-01-29] MEDS ORDERED: PROPOFOL 200 MG/20 ML VIAL IV ONE (14:30)
[2020-01-29] MEDS ORDERED: DEXAMETHASONE 4 MG/ML VIAL ONE (14:30)
[2020-01-29] MEDS ORDERED: HYDROmorphone 1 MG/ML AMP IVP PRN (15:05)
[2020-01-29 16:00] VITALS: BP 131/69
--- NOTE | 2020-01-29 16:13 | NUR ---
PATIENT BACK IN HER ROOM VIA [facility] AND RECEIVED REPORT FROM OR NURSE JUSTA PATIENT HAD I&D , FOOT CULTURE OF THE RIGHT FOOT. VITAL SIGNS TAKEN BP 131/69 DC 60 TEMP 97.5 RR 20 AND OXYGEN SATURATION 99. PT IS STABLE AND ALERT..
--- NOTE | 2020-01-29 16:48 | NUR ---
BLOOD SUGAR LEVEL AT 122 NO INSULIN COVERAGE AND BP MEDICATIONS GIVEN AND VITAL SIGNS TAKEN PRIOR TO MEDICATION BP 131/69 NH 60. PT IS STABLE AND EATING.
--- NOTE | 2020-01-29 19:24 | NUR ---
ENDORSED TO NIGHT NURSE FOR CONTINUITY OF CARE PT IS STABLE
--- NOTE | 2020-01-29 19:25 | NUR ---
RECEIVED REPORT AND CONTINUITY OF CARE FROM AM NURSE.
[2020-01-29] MEDS: GABAPENTIN 100 MG CAP PO SCH (21:27)
[2020-01-29] MEDS: tiZANidine 4 MG TAB PO SCH (21:27)
--- NOTE | 2020-01-29 23:40 | NUR ---
REASSESSED BLOOD PRESSURE AND RECEIVED 141/74, PULSE 60. PT IS WATCHING TV. NO SIGNS OF DISTRESS AT THIS TIME.
[2020-01-30] VITALS: BP 141/71
--- NOTE | 2020-01-30 01:13 | NUR ---
PT IS SLEEPING. VISIBLE CHEST RISE NOTED.
--- NOTE | 2020-01-30 03:12 | NUR ---
PT IS SLEEPING.
[2020-01-30] MEDS: ACETAMINOPHEN 325 MG TAB PO PRN (03:35)
--- NOTE | 2020-01-30 05:46 | NUR ---
ADMINISTERED SCHEDULED MEDICATION. EDUCATION RENDERED. PT TOLERATED IT WELL.
[2020-01-30 06:08] LABS: BASOPHILS % (AUTO) 0.4 % (0.0-2.0); HEMATOCRIT 33.4 % (36-48); HEMOGLOBIN 10.8 g/dL (12.0-16.0); LYMPHOCYTES # (AUTO) 0.6 K/uL (2.5-16.5); LYMPHOCYTES % (AUTO) 12.7 % (20.5-51.1); MEAN CORPUSCULAR HEMOGLOBIN 30 pg (27-31); MEAN CORPUSCULAR HGB CONC 32 g/dL (33-37); MEAN CORPUSCULAR VOLUME 91.9 fL (80-94); MONOCYTES # (AUTO) 0.1 K/uL (0.8-1.0); MONOCYTES % (AUTO) 2.9 % (1.7-9.3); NEUTROPHILS # (AUTO) 3.8 K/uL (1.8-7.7); PLATELET COUNT (AUTO) 287 K/uL (140-450); RED BLOOD CELL COUNT(AUTO) 3.64 MIL/uL (4.20-5.40); RED CELL DISTRIBUTION WIDTH 17.2 % (11.6-13.7); WHITE BLOOD COUNT (AUTO) 4.5 K/uL (4.8-10.8)
[2020-01-30] MEDS: CLINDAMYCIN 600 MG in DEXTROSE 5% 50 ML IV SCH ×2 (06:08→12:55)
[2020-01-30] MEDS: LEVOTHYROXINE 0.025 MG TAB PO SCH (06:08)
[2020-01-30 06:25] LABS: ANION GAP 16.5 (8-16); CARBON DIOXIDE 24.7 mmol/L (21-32); POTASSIUM 5.2 mmol/L (3.5-5.1)
[2020-01-30 06:29] LABS: CREATININE 7.6 mg/dL (0.6-1.3)
[2020-01-30] MEDS: BLOOD GLUCOSE MONITORING 1 DEV DEV FS SCH ×3 (06:49→16:56)
[2020-01-30] MEDS: INSULIN LISPRO SLIDING SCALE 100 UNITS/ML VIAL SUBQ PRN ×3 (07:11→17:02)
--- NOTE | 2020-01-30 07:15 | NUR ---
RECEIVED ENDORSEMENT FROM TECHNICAL ASSOCIATE, AWAKE,ALERT, ORIENTEDx4, BREATHING SPONTANEOUSLY AT ROOM AIR, NON LABORED NOTED. WITH IV CANNULA G22 AT RT HAND ON SALINE LOCK NOTED. WITH LEFT UPPER ARM AV FISTULA ACCESS FOR HEMODIALYSIS WITH BRUIT NOTED. WITH RT BIG TOE DIABETIC ULCER, DRY AND INTACT DRESSING NOTED.
--- NOTE | 2020-01-30 07:51 | NUR ---
ENDORSED CARE TO AM NURSE. PT IS IN STABLE CONDITION.
[2020-01-30 08:00] VITALS: BP 162/62
[2020-01-30] MEDS: CALCIUM ACETATE 667 MG TAB PO SCH ×3 (08:46→16:57)
[2020-01-30] MEDS: hydrALAZINE 10 MG TAB PO SCH ×3 (08:46→16:58)
[2020-01-30] MEDS: ASPIRIN 81 MG TAB.CHEW PO SCH (08:47)
[2020-01-30] MEDS: CLONIDINE HYDROCHLORIDE 0.1 MG TAB PO SCH (08:52)
[2020-01-30] MEDS: ATORVASTATIN 20 MG TAB PO SCH (08:52)
[2020-01-30] MEDS: amLODIPine 5 MG TAB PO SCH (08:53)
[2020-01-30] MEDS: atenoloL 50 MG TAB PO SCH (08:54)
[2020-01-30] MEDS: LEVOFLOXACIN 500 MG/D5W PREMIX 100 ML IV SCH (08:56)
--- NOTE | 2020-01-30 09:01 | NUR ---
FULLY WAKE AND ALERT, SITTING BESIDE THE BED. DUE MEDICATION GIVEN. ATENOLOL NON ADMINISTER, HR-61BPM.
[2020-01-30] MEDS: EPOETIN ALFA 10,000 UNITS/ML VIAL SUBQ SCH (09:04)
--- NOTE | 2020-01-30 10:01 | NUR ---
IV CANNULA AT RT HAND IS LEAKING AND WITH MILD PAIN, REMOVED AND DRESSING APPLIED. IV CANNULA G24 INSERTED AT RT WRIST, ASYMPTOMATIC AND PATENT.
[2020-01-30] MEDS ORDERED: CALC667C3 PO (10:05)
[2020-01-30] MEDS ORDERED: CLIN300C2 PO (10:05)
[2020-01-30] MEDS ORDERED: APR10 PO (10:05)
[2020-01-30] MEDS ORDERED: LEVO500T98 PO (10:05)
--- NOTE | 2020-01-30 10:05 | NUR ---
CALLED BARRIE NOW AND ASKED THE TIME OF DIALYSIS FOR THE PT, AND BARRIE SAID THAT SHE WILL CALL THE DIALYSIS NURSE, AND WILL CALL ME BACK FOR THE ETA OF DIALYSIS NURSE.
[2020-01-30] MEDS ORDERED: LEVO0.0512 PO (10:07)
[2020-01-30] MEDS: MORPHINE SULFATE 2 MG/ML SYR IVP PRN (10:36)
--- NOTE | 2020-01-30 10:36 | NUR ---
COMPLAINED OF RT FOOT PAIN 10/10, MORPHINE 2MG IV ORDERED PRN GIVEN.
--- NOTE | 2020-01-30 12:13 | NUR ---
GLUCOSE-249 HUMALOG 4UNITS SUBCUTANEOUS PER SLIDING SCALE GIVEN. LUNCH SERVED
--- NOTE | 2020-01-30 13:01 | NUR ---
HEMODIALYSIS STARTED AT BEDSIDE BY HD NURSE.
[2020-01-30] MEDS ORDERED: HYDR-5123 PO (13:12)
--- NOTE | 2020-01-30 14:43 | NUR ---
ONGOING HD, STABLE VITAL SIGNS NOTED. NOT IN DISTRESS.
--- NOTE | 2020-01-30 15:16 | NUR ---
01/30/20 RD FOLLOW UP COMPLETED PLEASE REFER TO NUTRITION ASSESSMENT UNDER CARE ACTIVITY FOR ESTIMATED NUTRITIONAL NEEDS. 1. CONTINUE RENAL AND CCHO 60GM DIET TOLERATED 2. CONTINUE GILBERTO BID 3. RD PROVIDED NUTRITION EDUCATION ON RENAL DIET WITH RECIPES 4. RD TO FOLLOW-UP 3-5 DAYS, MODERATE RISK SHELBIE BERKOWITZ RD
--- NOTE | 2020-01-30 16:15 | NUR ---
HEMODIALYSIS FINISHED, REMOVED 2200ML OF FLUID PER HD NURSE, STABLE VITAL SIGNS
--- NOTE | 2020-01-30 16:56 | NUR ---
GLUCOSE-161, HUMALOG 2UNITS SUBQ PER SLIDING SCALE GIVEN.
[2020-01-30 17:09] VITALS: BP 141/72
--- NOTE | 2020-01-30 17:15 | NUR ---
DISCHARGE PACKET INSTRUCTION GIVEN AND INSTRUCTED TO FOLLOW UP THE PIZZAMAKER FOR WOUND CARE. VERBALIZED UNDERSTANDING.IV CANNULA REMOVED AND DRESSING APPLIED, NO BLEEDING NOTED.
--- NOTE | 2020-01-30 18:09 | NUR ---
DISCHARGED IN STABLE CONDITION PER WHEELCHAIR ACCOMPANIED TO HOSPITAL ENTRANCE AND MATERIAL MANAGER BY HER .
== END 2020-01-30 18:05 | disposition home health service (06) | DRG 463 ==
LOC: MED 20:38 → MTU 22:43
PROVIDERS: ADMIT Family Medicine; ATTEND Family Medicine
PROC: 0JBQ0ZZ Excision of Right Foot Subcutaneous Tissue and Fascia, Open Approach (ICD-10-PCS; principal; 2020-01-21)
PROC: 5A1D70Z Performance of Urinary Filtration, Intermittent, Less than 6 Hours Per Day (ICD-10-PCS; 2020-01-22)
PROC: 5A1D70Z Performance of Urinary Filtration, Intermittent, Less than 6 Hours Per Day (ICD-10-PCS; 2020-01-24)
PROC: 0W9G3ZZ Drainage of Peritoneal Cavity, Percutaneous Approach (ICD-10-PCS; 2020-01-25)
PROC: 5A1D70Z Performance of Urinary Filtration, Intermittent, Less than 6 Hours Per Day (ICD-10-PCS; 2020-01-26)
PROC: 0JBQ0ZZ Excision of Right Foot Subcutaneous Tissue and Fascia, Open Approach (ICD-10-PCS; 2020-01-29)
PROC: 0HRMXK3 Replacement of Right Foot Skin with Nonautologous Tissue Substitute, Full Thickness, External Approach (ICD-10-PCS; 2020-01-29)
PROC: 5A1D70Z Performance of Urinary Filtration, Intermittent, Less than 6 Hours Per Day (ICD-10-PCS; 2020-01-29)
DX: T87.43 Infection of amputation stump, right lower extremity (principal); A41.59 Other Gram-negative sepsis; I50.43 Acute on chronic combined systolic (congestive) and diastolic (congestive) heart failure; N18.6 End stage renal disease; N17.0 Acute kidney failure with tubular necrosis; E44.1 Mild protein-calorie malnutrition; I13.2 Hypertensive heart and chronic kidney disease with heart failure and with stage 5 chronic kidney disease, or end stage renal disease; J98.11 Atelectasis; L03.115 Cellulitis of right lower limb; R18.8 Other ascites; M86.8X7 Other osteomyelitis, ankle and foot; L03.031 Cellulitis of right toe; Z68.24 Body mass index [BMI] 24.0-24.9, adult; E11.22 Type 2 diabetes mellitus with diabetic chronic kidney disease; E83.42 Hypomagnesemia; E83.39 Other disorders of phosphorus metabolism; E87.6 Hypokalemia; Z99.2 Dependence on renal dialysis; D63.1 Anemia in chronic kidney disease; E03.9 Hypothyroidism, unspecified; E11.51 Type 2 diabetes mellitus with diabetic peripheral angiopathy without gangrene; E78.5 Hyperlipidemia, unspecified; I25.10 Atherosclerotic heart disease of native coronary artery without angina pectoris; Z20.828 Contact with and (suspected) exposure to other viral communicable diseases; E11.621 Type 2 diabetes mellitus with foot ulcer; L97.519 Non-pressure chronic ulcer of other part of right foot with unspecified severity; Y83.5 Amputation of limb(s) as the cause of abnormal reaction of the patient, or of later complication, without mention of misadventure at the time of the procedure; N20.0 Calculus of kidney; Z80.0 Family history of malignant neoplasm of digestive organs; Z80.3 Family history of malignant neoplasm of breast; Z82.49 Family history of ischemic heart disease and other diseases of the circulatory system; Z83.3 Family history of diabetes mellitus; Z95.0 Presence of cardiac pacemaker; Z79.82 Long term (current) use of aspirin; Z79.899 Other long term (current) drug therapy; Z79.4 Long term (current) use of insulin; Z98.51 Tubal ligation status; Z89.411 Acquired absence of right great toe
CPT/HCPCS: 36415; 49083; 71045; 73630; 76705; 80048; 80053; 82150; 82945; 82948; 83036; 83605; 83615; 83690; 83735; 83880; 84100; 84157; 84439; 84443; 84484; 84703; 85025; 85610; 85730; 87040; 87070; 87075; 87081; 87205; 89051; 93005; 99285; J0696; J0885; J1100; J1956; J2001; J2060; J2250; J2270; J2405; J2543; J2704; J2765; J3010; J3475; J3480; J3490; J7030; J7060; Q0092; Q4148

== ENCOUNTER 2020-03-08 16:30 | Emergency (ER) | payer OTHER, SELFPAY ==
[~2020-03-08] VITALS: Ht 152.4 cm; Wt 58.1 kg
[~2020-03-08 16:30] MED LIST changes: +APR10 PO; +CALC667C3 PO; +CLIN300C2 PO; -LEVO0.024 PO; +LEVO0.0512 PO; +LEVO500T98 PO
[2020-03-08 16:53] VITALS: BP 188/88
--- NOTE | 2020-03-08 16:53 | NUR ---
PT W/C ASSISTED TO BED 5.
[2020-03-08] MEDS ORDERED: KETOROLAC 60 MG/2 ML VIAL IM ONE (17:00)
--- NOTE | 2020-03-08 17:00 | NUR ---
44 YO F BIB SELF FOR C/C OF R KNEE PAIN POST FALL X30 MIN AGO. PT STATES SHE ALSO HIT R FACE AND R LIP, DENIES LOSS OF CONSIOUSNESS. PT IS TEARFUL AND STATES 10/10 PAIN, DENIES OTC MEDS. PT WEARING DIMITRI WRAP PLACED AT HOME, AND R FOOT BOOT FROM A GREAT TOE AMPUTATION 1 MONTH AGO. PT HAS LIMITED ROM AND UNABLE TO BARE WEIGHT. BED LCOKED AND IN LOWEST POSITION. PULSE OX AND BP CUFF IN PLACE. MED HX: ESRD, DIALYSIS ON /WED, L UPPER ARM SHUNT, R FOOT GREAT TOE AMPUTATION. HTN. PACEMAKER NKA
--- NOTE | 2020-03-08 17:11 | NUR ---
RAD AT BEDSIDE
[2020-03-08] MEDS ORDERED: HYDROcodone/APAP 5/325 MG 1 TAB TAB PO ONE (17:35)
--- NOTE | 2020-03-08 17:35 | NUR ---
EMT AT BEDSIDE CLEANING ABRAISIONS.
--- NOTE | 2020-03-08 17:35 | NUR ---
PT STATES 10/10 PAIN POST IM TORODOL. PA MADE AWARE.
--- NOTE | 2020-03-08 18:17 | NUR ---
PT TAKEN TO RAD VIA RAMSES
--- NOTE | 2020-03-08 18:54 | NUR ---
CALLED PTS TO COME SHOULDER PAD MOLDER PT
--- NOTE | 2020-03-08 19:00 | NUR ---
Coreen clarkekleber in EDM - 03/08/20 at 1916 by [email or web address] PT RETURNED FROM CT, A&O X4 AT THIS TIME. PT DENIES SI AND STATES HE TOOK RISPERIDONE, BENZTROPINE, KLONOPIN OF UNKNOWN MG
--- NOTE | 2020-03-08 19:06 | NUR ---
EMT AT BEDSIDE GIVING CRUTCHES
[2020-03-08 19:22] VITALS: BP 133/74
--- NOTE | 2020-03-08 19:22 | NUR ---
Patient discharged with v/s stable. Written and verbal after care instructions given and explained. Patient alert, oriented and verbalized understanding of instructions. Wheel Chair Assisted with to car. All questions addressed prior to discharge. ID band removed. Patient advised to follow up with PMD. Rx of MOTRIN, NORCO given. Patient educated on indication of medication including possible reaction and side effects. Opportunity to ask questions provided and answered.
[2020-03-13] MEDS ORDERED: HYDR-5092 PO (10:34)
== END 2020-03-08 19:22 | disposition home or self-care (01) ==
LOC: MED 16:30
DX: S00.83XA Contusion of other part of head, initial encounter (principal); S80.211A Abrasion, right knee, initial encounter; S82.001A Unspecified fracture of right patella, initial encounter for closed fracture; E11.9 Type 2 diabetes mellitus without complications; I10 Essential (primary) hypertension; I51.89 Other ill-defined heart diseases; N28.9 Disorder of kidney and ureter, unspecified; R56.9 Unspecified convulsions; Z79.899 Other long term (current) drug therapy; Z95.0 Presence of cardiac pacemaker; Z89.411 Acquired absence of right great toe; Z98.51 Tubal ligation status
CPT/HCPCS: 70150; 73562; 96372; 99284; J1885

== ENCOUNTER 2020-04-18 07:12 | Emergency (ER) | payer OTHER, SELFPAY ==
[~2020-04-18] VITALS: Ht 152.4 cm; Wt 58.1 kg
[~2020-04-18 07:12] MED LIST changes: -AZIT250T3 PO; -DEC4 PO; +HYDR-5092 PO; -LEVO500T98 PO; -Linezolid IV
[2020-04-18 07:40] VITALS: BP 196/82
--- NOTE | 2020-04-18 07:47 | NUR ---
TENT 1
--- NOTE | 2020-04-18 07:57 | NUR ---
BIB SELF C/O COUGH,LEUNG,BODY ACHES, VOMITING,WEAKNESS X 4 DAYS. BLOOS SUGAR 124 AT THIS TIME. COVID TESTED YESTERDAY: NEGATIVE. SHANEL SHUNT. ANURIAX4 YEARS. PMH: HTN, ESRD WITH HEMODIALYSIS (,,SAT) LAST DIALYSIS: TUE, DM
--- NOTE | 2020-04-18 08:18 | NUR ---
COVID SWAB COLLECTED.
--- NOTE | 2020-04-18 09:21 | NUR ---
Patient discharged with v/s stable. Written and verbal after care instructions given and explained. Patient alert, oriented and verbalized understanding of instructions. Ambulatory with steady gait. All questions addressed prior to discharge. ID band removed. Patient advised to follow up with PMD. Rx of ZOFRAN, AZITHRO &TYLENOL given. Patient educated on indication of medication including possible reaction and side effects. Opportunity to ask questions provided and answered.
[2020-04-18 09:22] VITALS: BP 196/82
== END 2020-04-18 09:21 | disposition home or self-care (01) ==
LOC: MED 07:12
DX: R05 Cough (principal); M79.10 Myalgia, unspecified site; R09.89 Other specified symptoms and signs involving the circulatory and respiratory systems; I13.11 Hypertensive heart and chronic kidney disease without heart failure, with stage 5 chronic kidney disease, or end stage renal disease; E11.22 Type 2 diabetes mellitus with diabetic chronic kidney disease; N18.6 End stage renal disease; Z95.0 Presence of cardiac pacemaker; Z20.828 Contact with and (suspected) exposure to other viral communicable diseases; Z79.899 Other long term (current) drug therapy; Z79.82 Long term (current) use of aspirin; Z79.84 Long term (current) use of oral hypoglycemic drugs
CPT/HCPCS: 71045; 99284; U0003

== ENCOUNTER 2020-04-21 22:56 | Emergency (ER) | payer OTHER, SELFPAY ==
[~2020-04-21] VITALS: Ht 152.4 cm; Wt 58.1 kg
[2020-04-21 23:16] VITALS: BP 174/79
--- NOTE | 2020-04-21 23:16 | NUR ---
to tent ambulatory
[2020-04-21] MEDS ORDERED: NACL 0.9% 1,000 ML IV ONE (23:55)
[2020-04-21] MEDS ORDERED: DEXAMETHASONE 10 MG/ML VIAL IVP ONE (23:55)
[2020-04-22] MEDS ORDERED: ONDANSETRON 4 MG ODT PO ONE (00:10)
[2020-04-22] MEDS ORDERED: HYDROcodone/APAP 5/325 MG 1 TAB TAB PO ONE (00:10)
--- NOTE | 2020-04-22 00:15 | NUR ---
4MG ZOFRAN ODT DROPPED ONTO GROUND. MEDICATION PULLED FOR SECOND TIME AND ADMINISTERED
--- NOTE | 2020-04-22 00:25 | NUR ---
EKG PERFORMED IN TENT WITH SCREEN. EKG READS SINUS RHYTHM @ 93
[2020-04-22 00:31] LABS: BASOPHILS # (AUTO) 0.1 K/uL (0.00-0.22); EOSINOPHILS # (AUTO) 0.2 K/uL (0-0.4); EOSINOPHILS % (AUTO) 3.6 % (0.0-4.0); HEMATOCRIT 32.5 % (36-48); HEMOGLOBIN 10.5 g/dL (12.0-16.0); LYMPHOCYTES # (AUTO) 0.9 K/uL (2.5-16.5); LYMPHOCYTES % (AUTO) 16.8 % (20.5-51.1); MEAN CORPUSCULAR HEMOGLOBIN 28 pg (27-31); MEAN CORPUSCULAR HGB CONC 32 g/dL (33-37); MEAN CORPUSCULAR VOLUME 85.5 fL (80-94); MONOCYTES # (AUTO) 0.3 K/uL (0.8-1.0); MONOCYTES % (AUTO) 5.2 % (1.7-9.3); NEUTROPHILS # (AUTO) 4.1 K/uL (1.8-7.7); NEUTROPHILS % (AUTO) 73.4 % (42.2-75.2); PLATELET COUNT (AUTO) 416 K/uL (140-450); RED CELL DISTRIBUTION WIDTH 17.7 % (11.6-13.7); WHITE BLOOD COUNT (AUTO) 5.6 K/uL (4.8-10.8)
[2020-04-22 00:57] LABS: ALBUMIN 2.5 g/dL (3.4-5.0); ANION GAP 18.6 (8-16); CARBON DIOXIDE 28.3 mmol/L (21-32); POTASSIUM 4.9 mmol/L (3.5-5.1); TOTAL BILIRUBIN 0.4 mg/dL (0.0-1.0)
[2020-04-22 01:02] LABS: CREATININE 10.4 mg/dL (0.6-1.3)
--- NOTE | 2020-04-22 01:15 | NUR ---
ALL RESULTS BACK AND NOTED BY ERMD AND FOR D/C
[2020-04-22 01:35] VITALS: BP 142/72
--- NOTE | 2020-04-22 01:35 | NUR ---
Patient discharged with v/s stable. Written and verbal after care instructions given and explained. Patient alert, oriented and verbalized understanding of instructions. Ambulatory with steady gait. All questions addressed prior to discharge. ID band removed. Patient advised to follow up with PMD. Rx of NORCO 5/325 given. Patient educated on indication of medication including possible reaction and side effects. Opportunity to ask questions provided and answered.
== END 2020-04-22 01:35 | disposition home or self-care (01) ==
LOC: MED 22:56
DX: R07.9 Chest pain, unspecified (principal); R05 Cough; R06.02 Shortness of breath; I11.9 Hypertensive heart disease without heart failure; E11.9 Type 2 diabetes mellitus without complications; Z95.0 Presence of cardiac pacemaker; Z20.828 Contact with and (suspected) exposure to other viral communicable diseases
CPT/HCPCS: 36415; 71045; 80053; 84484; 85025; 93005; 99285; Q0162

== ENCOUNTER 2020-04-30 13:10 | Emergency (ER) | payer OTHER, SELFPAY ==
[~2020-04-30] VITALS: Ht 152.4 cm; Wt 58.1 kg
[~2020-04-30 13:10] MED LIST changes: -CLON0.2T43 PO; +[UNRECOGNIZED DRUG - CODE] PO
[2020-04-30 13:14] VITALS: BP 180/77
--- NOTE | 2020-04-30 13:50 | NUR ---
Note undone in EDM - 04/30/20 at 1352 by [email or web address] 44 y/o female from home c/o right knee pain s/p fall last night. Pt states her knee "gave out" when reaching for medication. + swelling, + bruising noted to right knee cap. Pt unable to bear weight on leg. Pt states she hit face upon falling, denies LOC. 01/12 constant pain. No open wound to leg. medhx: DM, ESRD, HTN
--- NOTE | 2020-04-30 13:52 | NUR ---
44 Y/O FEMALE PT C/O KNEE PAIN AND SWELLING TAHT STARTED LAST NIGHT. PT HAD HEADACHE LAST NIGHT AND FELT DIZZY. PT GOT UP, HER LEGS FELT WEAK AND FELL ON RIGHT SIDE AND HIT SIDE OF FACE AND KNEE. 10/10 PAIN, PAIN UPON PALPATION, PATELLA IS HARD WITH SWELLING GOING UP EXTREMITY. PT CAME IN FOR PNEUMONIA LAST WEEK 04/21, IS MED COMPLIANT, TESTED NEGATIVE FOR COVID. ATE THIS MORNING 0900, ACCUCHECK OF 123 AT 1332. MEDICAL HX OF DM2, HTN, PACEMAKER PLACED ON R SIDE OF CHEST, AND DIALYSIS TUES, TH AND SAT. NKDA.
--- NOTE | 2020-04-30 13:59 | NUR ---
X-Ray at bedside.
[2020-04-30] MEDS ORDERED: MORPHINE SULFATE 4 MG/ML SYR IM ONE ×2 (14:45→16:50)
[2020-04-30] MEDS ORDERED: ONDANSETRON 4 MG ODT PO ONE (14:45)
[2020-04-30] MEDS ORDERED: LIDOCAINE 2% 1000 MG/50 ML VIAL INJ ONE (15:30)
--- NOTE | 2020-04-30 17:09 | NUR ---
applied knee immobilizer to right knee without any issues
--- NOTE | 2020-04-30 17:25 | NUR ---
Patient discharged with v/s stable. Written and verbal after care instructions given and explained. Patient alert, oriented and verbalized understanding of instructions. Wheel Chair Assisted with to home. All questions addressed prior to discharge. ID band removed. Patient advised to follow up with PMD. Rx of NORCO given. Patient educated on indication of medication including possible reaction and side effects. Opportunity to ask questions provided and answered.
[2020-04-30 17:27] VITALS: BP 180/77
== END 2020-04-30 17:25 | disposition home or self-care (01) ==
LOC: MED 13:10
DX: S82.091A Other fracture of right patella, initial encounter for closed fracture (principal); E11.22 Type 2 diabetes mellitus with diabetic chronic kidney disease; I13.10 Hypertensive heart and chronic kidney disease without heart failure, with stage 1 through stage 4 chronic kidney disease, or unspecified chronic kidney disease; N18.9 Chronic kidney disease, unspecified; Z59.0 Homelessness; Z79.899 Other long term (current) drug therapy; W18.39XA Other fall on same level, initial encounter; Y93.89 Activity, other specified; Y92.89 Other specified places as the place of occurrence of the external cause; Y99.8 Other external cause status
CPT/HCPCS: 20610; 73562; 96372; 99284; J2001; J2270; Q0162; 99285

== ENCOUNTER 2020-09-06 13:20 | Emergency (ER) | payer OTHER ==
[~2020-09-06] VITALS: Ht 152.4 cm; Wt 58.1 kg
[2020-09-06 13:20] VITALS: BP 149/63
[~2020-09-06 13:20] MED LIST changes: -ATEN50TA2 PO; +CARV25TA PO; -CLIN300C2 PO; +CLON-1170 PO; -DEXT118S25 PO; -[UNRECOGNIZED DRUG - CODE] PO
--- NOTE | 2020-09-06 13:28 | NUR ---
PT W/C ASSISTED TO BED 6.
--- NOTE | 2020-09-06 13:38 | NUR ---
45 y/o feamle c/o generalized weakness, chest pain, abdominal pain, vomiting since last night. denies fever, diarrhea, cough, runny nose. pt was tested for covid last wednesday, results came put negative. pt completed 2 doses of vaccine last july. pt states sharp, constant mid abd pain 10/10. abd soft non tender. pmh: dm, htn, ckd on dialysis (t, th, s) meds: amlodipine, clonidine, zofran nka
[2020-09-06] MEDS ORDERED: NACL 0.9% 500 ML IV ONE (14:05)
[2020-09-06] MEDS ORDERED: ONDANSETRON 4 MG/2 ML VIAL IVP ONE ×2 (14:05→15:00)
[2020-09-06] MEDS ORDERED: MORPHINE SULFATE 4 MG/ML SYR IVP ONE (14:05)
[2020-09-06 14:17] LABS: BASOPHILS % (AUTO) 0.7 % (0.0-2.0); EOSINOPHILS # (AUTO) 0.1 K/uL (0-0.4); EOSINOPHILS % (AUTO) 1.3 % (0.0-4.0); HEMATOCRIT 24.6 % (36-48); LYMPHOCYTES # (AUTO) 0.8 K/uL (2.5-16.5); LYMPHOCYTES % (AUTO) 12.8 % (20.5-51.1); MEAN CORPUSCULAR HEMOGLOBIN 30 pg (27-31); MEAN CORPUSCULAR HGB CONC 33 g/dL (33-37); MEAN CORPUSCULAR VOLUME 91.1 fL (80-94); MONOCYTES # (AUTO) 0.2 K/uL (0.8-1.0); MONOCYTES % (AUTO) 3.9 % (1.7-9.3); NEUTROPHILS # (AUTO) 4.9 K/uL (1.8-7.7); NEUTROPHILS % (AUTO) 81.3 % (42.2-75.2); PLATELET COUNT (AUTO) 348 K/uL (140-450); RED CELL DISTRIBUTION WIDTH 16.6 % (11.6-13.7); WHITE BLOOD COUNT (AUTO) 6.1 K/uL (4.8-10.8)
[2020-09-06 14:49] LABS: ANION GAP 18.6 (8-16); CARBON DIOXIDE 28.5 mmol/L (21-32); POTASSIUM 4.1 mmol/L (3.5-5.1)
[2020-09-06 14:51] LABS: CREATININE 6.2 mg/dL (0.6-1.3)
[2020-09-06 14:54] LABS: ALBUMIN 2.4 g/dL (3.4-5.0); TOTAL BILIRUBIN 0.4 mg/dL (0.0-1.0)
--- NOTE | 2020-09-06 15:08 | NUR ---
PT STATES NAUSEA AND 8/10 PAIN. ERMD MADE AWARE.
[2020-09-06] MEDS ORDERED: METOCLOPRAMIDE 10 MG/2 ML INJ VIAL IVP ONE (15:10)
[2020-09-06] MEDS ORDERED: diphenhydrAMINE 50 MG/ML VIAL IVP ONE (15:10)
--- NOTE | 2020-09-06 15:19 | NUR ---
PT TAKEN TO CT SCAN VIA RAMSES
--- NOTE | 2020-09-06 15:31 | NUR ---
PT RETURNED FROM CT
--- NOTE | 2020-09-06 15:45 | NUR ---
PT DESATURATING TO 77% O2. PLACED ON NASAL CANNULA 3L
[2020-09-06] MEDS ORDERED: ONDA-24 SL ×2 (17:00→17:22)
[2020-09-06 17:28] VITALS: BP 150/75
== END 2020-09-06 17:28 | disposition home or self-care (01) ==
LOC: MED 13:20
DX: R10.9 Unspecified abdominal pain (principal); R11.2 Nausea with vomiting, unspecified; I13.10 Hypertensive heart and chronic kidney disease without heart failure, with stage 1 through stage 4 chronic kidney disease, or unspecified chronic kidney disease; E11.22 Type 2 diabetes mellitus with diabetic chronic kidney disease; N18.9 Chronic kidney disease, unspecified; Z79.899 Other long term (current) drug therapy
CPT/HCPCS: 36415; 71045; 74176; 80053; 83690; 84484; 84702; 85025; 93005; 96361; 96374; 96375; 96376; 99285; J1200; J2270; J2405; J2765; J7030

== ENCOUNTER 2020-10-01 13:01 | Inpatient (IN) | payer OTHER, SELFPAY ==
[~2020-10-01] VITALS: Ht 152.4 cm; Wt 54.0 kg
[~2020-10-01 13:01] MED LIST changes: +ONDA-24 SL
[2020-10-01 13:06] VITALS: BP 183/78
[2020-10-01] MEDS ORDERED: ONDANSETRON 4 MG/2 ML VIAL IVP ONE ×2 (13:45→14:35)
[2020-10-01] MEDS ORDERED: MORPHINE SULFATE 4 MG/ML SYR IVP ONE ×2 (13:45→14:35)
[2020-10-01] MEDS ORDERED: ONDANSETRON 4 MG/2 ML VIAL ONE (13:47)
[2020-10-01] MEDS ORDERED: MORPHINE SULFATE 4 MG/ML SYR ONE (13:47)
[2020-10-01 14:03] LABS: BASOPHILS # (AUTO) 0.1 K/uL (0.00-0.22); BASOPHILS % (AUTO) 0.9 % (0.0-2.0); EOSINOPHILS # (AUTO) 0.1 K/uL (0-0.4); EOSINOPHILS % (AUTO) 1.4 % (0.0-4.0); HEMATOCRIT 27.9 % (36-48); HEMOGLOBIN 9.2 g/dL (12.0-16.0); LYMPHOCYTES # (AUTO) 1.3 K/uL (2.5-16.5); LYMPHOCYTES % (AUTO) 14.9 % (20.5-51.1); MEAN CORPUSCULAR HEMOGLOBIN 30 pg (27-31); MEAN CORPUSCULAR HGB CONC 33 g/dL (33-37); MEAN CORPUSCULAR VOLUME 90.1 fL (80-94); MONOCYTES # (AUTO) 0.2 K/uL (0.8-1.0); MONOCYTES % (AUTO) 2.5 % (1.7-9.3); NEUTROPHILS # (AUTO) 7.1 K/uL (1.8-7.7); NEUTROPHILS % (AUTO) 80.3 % (42.2-75.2); PLATELET COUNT (AUTO) 318 K/uL (140-450); RED BLOOD CELL COUNT(AUTO) 3.09 MIL/uL (4.20-5.40); RED CELL DISTRIBUTION WIDTH 16.6 % (11.6-13.7); WHITE BLOOD COUNT (AUTO) 8.9 K/uL (4.8-10.8)
[2020-10-01 14:18] LABS: ALBUMIN 2.7 g/dL (3.4-5.0); ANION GAP 21.2 (8-16); CARBON DIOXIDE 22.6 mmol/L (21-32); POTASSIUM 5.8 mmol/L (3.5-5.1); TOTAL BILIRUBIN 0.3 mg/dL (0.0-1.0)
[2020-10-01 14:22] LABS: CREATININE 10.1 mg/dL (0.6-1.3)
[2020-10-01] MEDS ORDERED: ACETAMINOPHEN 325 MG TAB PO PRN (15:10)
[2020-10-01] MEDS ORDERED: DOCUSATE SODIUM 100 MG GELCAP PO PRN (15:10)
[2020-10-01] MEDS ORDERED: MORPHINE SULFATE 2 MG/ML SYR IVP PRN (15:10)
[2020-10-01] MEDS ORDERED: HYDROcodone/APAP 5/325 MG 1 TAB TAB PO PRN (15:10)
[2020-10-01] MEDS ORDERED: LORazepam 2 MG/ML VIAL IM/IVP PRN (15:10)
[2020-10-01] MEDS ORDERED: SODIUM ZIRCONIUM CYCLOSILICATE 10 GM POWD.PACK PO SCH (15:30)
[2020-10-01] MEDS: NACL 0.9% 500 ML IV SCH (15:46)
[2020-10-01] MEDS ORDERED: INSULIN LISPRO SLIDING SCALE 100 UNITS/ML VIAL SUBQ PRN (15:50)
[2020-10-01] MEDS ORDERED: ONDANSETRON 4 MG ODT SL PRN (15:50)
[2020-10-01] MEDS ORDERED: DEXTROSE 50% 50 ML SYR IVP PRN (16:05)
[2020-10-01 16:10] VITALS: BP 193/78
[2020-10-01 16:21] LABS: CHOL/HDL RATIO 2.1 (1-4.5); FREE T4 (FREE THYROXINE) 1.06 ng/dL (0.76-1.46); MAGNESIUM 2.5 mg/dL (1.8-2.4); THYROID STIMULATING HORMONE 8.19 uIU/mL (0.34-3.74)
[2020-10-01] MEDS: hydrALAZINE 10 MG TAB PO SCH (16:25)
[2020-10-01] MEDS: CALCIUM ACETATE 667 MG TAB PO SCH (16:25)
[2020-10-01] MEDS ORDERED: BLOOD GLUCOSE MONITORING 1 DEV DEV FS SCH ×2 (16:30→21:00)
[2020-10-01 16:59] LABS: PROTHROMBIN TIME 9.8 secs (10.8-13.4)
[2020-10-01 17:01] LABS: PHOSPHORUS 9.2 mg/dL (2.5-4.9)
[2020-10-01] MEDS ORDERED: hydrALAZINE 20 MG/ML VIAL IVP PRN (17:20)
[2020-10-01] MEDS: BLOOD GLUCOSE MONITORING 1 DEV DEV FS SCH ×2 (17:25→20:32)
[2020-10-01 20:00] VITALS: BP 193/80
[2020-10-01] MEDS: ONDANSETRON 4 MG/2 ML VIAL IVP PRN (20:41)
[2020-10-01] MEDS: GABAPENTIN 100 MG CAP PO SCH (20:42)
[2020-10-01] MEDS: CLONIDINE HYDROCHLORIDE 0.1 MG TAB PO SCH (20:45)
[2020-10-01] MEDS: tiZANidine 4 MG TAB PO SCH (20:45)
[2020-10-01] MEDS: carvediloL 12.5 MG TAB PO SCH (20:46)
[2020-10-02] VITALS: BP 151/69
[2020-10-02 04:00] VITALS: BP 153/66
[2020-10-02] MEDS: LEVOTHYROXINE 0.05 MG TAB PO SCH (06:40)
[2020-10-02] MEDS: BLOOD GLUCOSE MONITORING 1 DEV DEV FS SCH ×4 (06:45→21:24)
[2020-10-02 06:59] LABS: BASOPHILS % (AUTO) 0.8 % (0.0-2.0); EOSINOPHILS # (AUTO) 0.1 K/uL (0-0.4); EOSINOPHILS % (AUTO) 2.6 % (0.0-4.0); HEMATOCRIT 25.9 % (36-48); HEMOGLOBIN 8.3 g/dL (12.0-16.0); LYMPHOCYTES # (AUTO) 0.7 K/uL (2.5-16.5); LYMPHOCYTES % (AUTO) 15.2 % (20.5-51.1); MEAN CORPUSCULAR HEMOGLOBIN 29 pg (27-31); MEAN CORPUSCULAR HGB CONC 32 g/dL (33-37); MEAN CORPUSCULAR VOLUME 91.4 fL (80-94); MONOCYTES # (AUTO) 0.2 K/uL (0.8-1.0); MONOCYTES % (AUTO) 3.5 % (1.7-9.3); NEUTROPHILS # (AUTO) 3.8 K/uL (1.8-7.7); NEUTROPHILS % (AUTO) 77.9 % (42.2-75.2); PLATELET COUNT (AUTO) 244 K/uL (140-450); RED BLOOD CELL COUNT(AUTO) 2.83 MIL/uL (4.20-5.40); RED CELL DISTRIBUTION WIDTH 16.7 % (11.6-13.7); WHITE BLOOD COUNT (AUTO) 4.8 K/uL (4.8-10.8)
[2020-10-02 07:04] LABS: ANION GAP 12.3 (8-16); POTASSIUM 4.3 mmol/L (3.5-5.1)
[2020-10-02 07:09] LABS: MAGNESIUM 2.1 mg/dL (1.8-2.4); PHOSPHORUS 6.6 mg/dL (2.5-4.9)
[2020-10-02 07:35] LABS: CREATININE 6.3 mg/dL (0.6-1.3)
[2020-10-02 08:00] VITALS: BP 158/65
[2020-10-02] MEDS: ONDANSETRON 4 MG/2 ML VIAL IVP PRN ×2 (08:48→17:27)
[2020-10-02] MEDS: ASPIRIN 81 MG TAB.CHEW PO SCH (08:48)
[2020-10-02] MEDS: VIT-B COMP/VIT-C/FOLIC ACID 1 TAB PO SCH (08:48)
[2020-10-02] MEDS: ATORVASTATIN 20 MG TAB PO SCH (08:48)
[2020-10-02] MEDS: CALCIUM ACETATE 667 MG TAB PO SCH ×3 (08:49→17:27)
[2020-10-02] MEDS: amLODIPine 5 MG TAB PO SCH (10:01)
[2020-10-02] MEDS: CLONIDINE HYDROCHLORIDE 0.1 MG TAB PO SCH ×2 (10:01→21:23)
[2020-10-02] MEDS: carvediloL 12.5 MG TAB PO SCH ×2 (10:01→21:24)
[2020-10-02] MEDS: hydrALAZINE 10 MG TAB PO SCH ×3 (10:02→17:27)
[2020-10-02 12:00] VITALS: BP 145/66
[2020-10-02] MEDS: NACL 0.9% 500 ML IV SCH (15:20)
[2020-10-02 16:00] VITALS: BP 132/69
[2020-10-02] MEDS ORDERED: METOCLOPRAMIDE 10 MG/2 ML INJ VIAL IVP PRN (16:40)
[2020-10-02] MEDS ORDERED: PANTOPRAZOLE 40 MG INJ VIAL IVP SCH (17:00)
[2020-10-02 20:00] VITALS: BP 140/74
[2020-10-02] MEDS: tiZANidine 4 MG TAB PO SCH (21:23)
[2020-10-02] MEDS: GABAPENTIN 100 MG CAP PO SCH (21:23)
[2020-10-02] MEDS: INSULIN LISPRO SLIDING SCALE 100 UNITS/ML VIAL SUBQ PRN (21:29)
[2020-10-03] VITALS (7 sets, daily range): BP systolic 117–173; BP diastolic 54–75
[2020-10-03] MEDS: ONDANSETRON 4 MG/2 ML VIAL IVP PRN ×2 (00:08→23:48)
[2020-10-03] MEDS: ZOLPIDEM 5 MG TAB PO PRN ×2 (00:08→23:48)
[2020-10-03] MEDS: LEVOTHYROXINE 0.05 MG TAB PO SCH (06:36)
[2020-10-03 06:52] LABS: ANION GAP 14.3 (8-16); CARBON DIOXIDE 27.7 mmol/L (21-32)
[2020-10-03 06:54] LABS: PHOSPHORUS 7.5 mg/dL (2.5-4.9)
[2020-10-03 07:03] LABS: BASOPHILS % (AUTO) 0.6 % (0.0-2.0); EOSINOPHILS # (AUTO) 0.2 K/uL (0-0.4); EOSINOPHILS % (AUTO) 3.2 % (0.0-4.0); HEMATOCRIT 24.6 % (36-48); LYMPHOCYTES # (AUTO) 0.9 K/uL (2.5-16.5); LYMPHOCYTES % (AUTO) 16.1 % (20.5-51.1); MEAN CORPUSCULAR HEMOGLOBIN 30 pg (27-31); MEAN CORPUSCULAR HGB CONC 33 g/dL (33-37); MEAN CORPUSCULAR VOLUME 90.4 fL (80-94); MONOCYTES # (AUTO) 0.3 K/uL (0.8-1.0); MONOCYTES % (AUTO) 4.8 % (1.7-9.3); NEUTROPHILS # (AUTO) 4.1 K/uL (1.8-7.7); NEUTROPHILS % (AUTO) 75.3 % (42.2-75.2); PLATELET COUNT (AUTO) 243 K/uL (140-450); RED BLOOD CELL COUNT(AUTO) 2.72 MIL/uL (4.20-5.40); RED CELL DISTRIBUTION WIDTH 16.6 % (11.6-13.7); WHITE BLOOD COUNT (AUTO) 5.4 K/uL (4.8-10.8)
[2020-10-03] MEDS: BLOOD GLUCOSE MONITORING 1 DEV DEV FS SCH ×4 (07:11→21:43)
[2020-10-03 07:18] LABS: MAGNESIUM 2.1 mg/dL (1.8-2.4)
[2020-10-03 07:45] LABS: CREATININE 7.7 mg/dL (0.6-1.3)
[2020-10-03] MEDS ORDERED: EPOETIN ALFA-EPBX 10,000 UNITS/ML VIAL SUBQ SCH (09:00)
[2020-10-03] MEDS: CLONIDINE HYDROCHLORIDE 0.1 MG TAB PO SCH ×3 (09:00→21:44)
[2020-10-03] MEDS: carvediloL 12.5 MG TAB PO SCH ×2 (09:00→21:44)
[2020-10-03] MEDS: amLODIPine 5 MG TAB PO SCH (09:00)
[2020-10-03] MEDS: CALCIUM ACETATE 667 MG TAB PO SCH ×3 (09:07→16:24)
[2020-10-03] MEDS: ASPIRIN 81 MG TAB.CHEW PO SCH (09:08)
[2020-10-03] MEDS: ATORVASTATIN 20 MG TAB PO SCH (09:08)
[2020-10-03] MEDS: VIT-B COMP/VIT-C/FOLIC ACID 1 TAB PO SCH (09:09)
[2020-10-03] MEDS: hydrALAZINE 10 MG TAB PO SCH ×3 (09:10→16:24)
[2020-10-03] MEDS: PANTOPRAZOLE 40 MG INJ VIAL IVP SCH (09:20)
[2020-10-03] MEDS: INSULIN LISPRO SLIDING SCALE 100 UNITS/ML VIAL SUBQ PRN ×2 (12:06→21:51)
[2020-10-03] MEDS: NACL 0.9% 500 ML IV SCH (15:20)
[2020-10-03] MEDS: tiZANidine 4 MG TAB PO SCH (21:44)
[2020-10-03] MEDS: GABAPENTIN 100 MG CAP PO SCH (21:44)
[2020-10-04] VITALS: BP 163/65
[2020-10-04] MEDS: BLOOD GLUCOSE MONITORING 1 DEV DEV FS SCH ×2 (07:03→12:11)
[2020-10-04] MEDS: INSULIN LISPRO SLIDING SCALE 100 UNITS/ML VIAL SUBQ PRN (07:04)
[2020-10-04] MEDS: LEVOTHYROXINE 0.05 MG TAB PO SCH (07:05)
[2020-10-04 08:00] VITALS: BP 157/67
[2020-10-04] MEDS: CALCIUM ACETATE 667 MG TAB PO SCH (08:00)
[2020-10-04] MEDS: PANTOPRAZOLE 40 MG INJ VIAL IVP SCH (09:17)
[2020-10-04] MEDS: CLONIDINE HYDROCHLORIDE 0.1 MG TAB PO SCH (09:18)
[2020-10-04] MEDS: carvediloL 12.5 MG TAB PO SCH (09:18)
[2020-10-04] MEDS: VIT-B COMP/VIT-C/FOLIC ACID 1 TAB PO SCH (09:19)
[2020-10-04] MEDS: hydrALAZINE 10 MG TAB PO SCH ×2 (09:19→12:13)
[2020-10-04] MEDS: amLODIPine 5 MG TAB PO SCH (09:19)
[2020-10-04] MEDS: ASPIRIN 81 MG TAB.CHEW PO SCH (09:20)
[2020-10-04] MEDS: ATORVASTATIN 20 MG TAB PO SCH (09:20)
[2020-10-04 10:48] VITALS: BP 148/68
[2020-10-04] MEDS ORDERED: CALCIUM ACETATE 667 MG TAB PO SCH (12:00)
== END 2020-10-04 14:45 | disposition home or self-care (01) | DRG 682 ==
LOC: MED 13:01 → MTU 15:10
PROVIDERS: ADMIT Family Medicine; ATTEND Family Medicine
PROC: 5A1D70Z Performance of Urinary Filtration, Intermittent, Less than 6 Hours Per Day (ICD-10-PCS; principal; 2020-10-01)
PROC: 5A1D70Z Performance of Urinary Filtration, Intermittent, Less than 6 Hours Per Day (ICD-10-PCS; 2020-10-02)
PROC: 5A1D70Z Performance of Urinary Filtration, Intermittent, Less than 6 Hours Per Day (ICD-10-PCS; 2020-10-04)
DX: N17.0 Acute kidney failure with tubular necrosis (principal); I50.43 Acute on chronic combined systolic (congestive) and diastolic (congestive) heart failure; E43 Unspecified severe protein-calorie malnutrition; I13.2 Hypertensive heart and chronic kidney disease with heart failure and with stage 5 chronic kidney disease, or end stage renal disease; R18.8 Other ascites; E87.1 Hypo-osmolality and hyponatremia; J98.11 Atelectasis; N18.6 End stage renal disease; Z20.822 Contact with and (suspected) exposure to COVID-19; E11.22 Type 2 diabetes mellitus with diabetic chronic kidney disease; I25.10 Atherosclerotic heart disease of native coronary artery without angina pectoris; E03.9 Hypothyroidism, unspecified; E11.40 Type 2 diabetes mellitus with diabetic neuropathy, unspecified; E87.5 Hyperkalemia; E11.51 Type 2 diabetes mellitus with diabetic peripheral angiopathy without gangrene; E78.00 Pure hypercholesterolemia, unspecified; K29.70 Gastritis, unspecified, without bleeding; E83.39 Other disorders of phosphorus metabolism; D64.9 Anemia, unspecified; Z68.23 Body mass index [BMI] 23.0-23.9, adult; Z79.82 Long term (current) use of aspirin; Z79.899 Other long term (current) drug therapy; Z83.3 Family history of diabetes mellitus; Z82.49 Family history of ischemic heart disease and other diseases of the circulatory system; Z80.3 Family history of malignant neoplasm of breast; Z80.0 Family history of malignant neoplasm of digestive organs; Z95.0 Presence of cardiac pacemaker; Z86.16 Personal history of COVID-19; E87.6 Hypokalemia
CPT/HCPCS: 36415; 36600; 71045; 80048; 80053; 82150; 82948; 83036; 83690; 83735; 83880; 84100; 84439; 84443; 84484; 85025; 85610; 85730; 87081; 93005; 96374; 96375; 96376; 99285; C9113; J0360; J1815; J2270; J2405; Q5106

== ENCOUNTER 2020-10-14 12:59 | Emergency (ER) | payer OTHER ==
[~2020-10-14] VITALS: Ht 152.4 cm; Wt 58.1 kg
[2020-10-14 13:21] VITALS: BP 145/79
--- NOTE | 2020-10-14 13:30 | NUR ---
Patient ambualted to bed 05 with steady/even gait.
--- NOTE | 2020-10-14 13:40 | NUR ---
45 y/o F BIB self from home with c/c headache, abdominal pain, cough, N/V. Patient A&Ox4, ambulatory, states cough, abdominal and chest pain d/t coughing x 1 week. Also states 1 day of nausea, vomiting x 5 episodes today green/yellow phlegm. Patient reports epigastric pain 10/10, sharp/constant, non-radiating pain. States Tylenol 250mg 0700 without relief; patient states she vomited right after medication. Patient denies any illness at home; denies fever/chills, dysuria, urinary or bladder symptoms, back pain, fatigue. Patient reports paracentesis appointment tomorrow; and completed last Dialysis treatment on Wednesday. Dialysis shunt SHANEL. Patietn noted with distended abdomen, round/firm. Bowel sounds normoactive x 4 quadrants; last BM today brown/semi-formed. Pt placed onto media monitor. BP 184/86, HR 65 strong/regular, SpO2 98% on room air. Bed locked in lowest position, side rails x 1, call light in reach. PMH: HTN, DM, ESRD, dialysis T/Tr/Sat, hypothyroidism Meds: Gabapentin, Clonadine, Amlodipine, atenolol, gabapentin, calcium, levyothyroxine NKA Sx: Denies
--- NOTE | 2020-10-14 13:50 | NUR ---
Blood sample collected, walked to lab and handed to CPT. Daria
--- NOTE | 2020-10-14 14:58 | NUR ---
RAD at bedside.
--- NOTE | 2020-10-14 15:00 | NUR ---
Dewayne black swab collected, handed to CPT Daria at ER bedside.
--- NOTE | 2020-10-14 15:02 | NUR ---
Pt to CT via wheelchair.
[2020-10-14] MEDS: ONDANSETRON 4 MG/2 ML VIAL IVP ONE (15:11)
[2020-10-14] MEDS: MORPHINE SULFATE 4 MG/ML SYR IVP ONE (15:12)
--- NOTE | 2020-10-14 15:12 | NUR ---
Coreen rodrgiuez in [facility], [place] - 10/14/20 at 1518 by BRYAN Pat[address]n to CT via wheelchair.
--- NOTE | 2020-10-14 15:12 | NUR ---
Patient returned from CT via wheelchair, placed back onto scalder.
[2020-10-14 15:28] LABS: BASOPHILS # (AUTO) 0.1 K/uL (0.00-0.22); BASOPHILS % (AUTO) 0.8 % (0.0-2.0); EOSINOPHILS # (AUTO) 0.2 K/uL (0-0.4); EOSINOPHILS % (AUTO) 3.3 % (0.0-4.0); HEMOGLOBIN 9.1 g/dL (12.0-16.0); LYMPHOCYTES % (AUTO) 14.8 % (20.5-51.1); MEAN CORPUSCULAR HEMOGLOBIN 29 pg (27-31); MEAN CORPUSCULAR HGB CONC 31 g/dL (33-37); MONOCYTES # (AUTO) 0.2 K/uL (0.8-1.0); MONOCYTES % (AUTO) 3.7 % (1.7-9.3); NEUTROPHILS % (AUTO) 77.4 % (42.2-75.2); PLATELET COUNT (AUTO) 439 K/uL (140-450); RED BLOOD CELL COUNT(AUTO) 3.18 MIL/uL (4.20-5.40); RED CELL DISTRIBUTION WIDTH 16.5 % (11.6-13.7); WHITE BLOOD COUNT (AUTO) 6.4 K/uL (4.8-10.8)
--- NOTE | 2020-10-14 15:29 | NUR ---
Patient resting in position of comfort. States relief after Morphine IVP; rates pain 7/10; denies any nausea.
[2020-10-14 15:59] LABS: ALBUMIN 2.9 g/dL (3.4-5.0); ANION GAP 18.8 (8-16); CARBON DIOXIDE 26.9 mmol/L (21-32); POTASSIUM 4.7 mmol/L (3.5-5.1); TOTAL BILIRUBIN 0.3 mg/dL (0.0-1.0)
[2020-10-14 16:01] LABS: CREATININE 7.4 mg/dL (0.6-1.3)
[2020-10-14] MEDS: KETOROLAC 15 MG/ML VIAL IVP ONE (16:31)
--- NOTE | 2020-10-14 16:45 | NUR ---
Patient resting with both eyes open laying on left side in position of comfort. desk monitor remains in place. Bed locked in lowest position, side rails x 2 for pt safety, call light in reach.
[2020-10-14] MEDS ORDERED: ONDA-24 PO (16:51)
[2020-10-14] MEDS ORDERED: ACET-8386 PO (16:51)
[2020-10-14] MEDS ORDERED: ALBU0.0912 INH (17:03)
[2020-10-14] MEDS ORDERED: PROM118S5 PO (17:03)
[2020-10-14 17:04] VITALS: BP 187/84
--- NOTE | 2020-10-14 17:05 | NUR ---
Patient discharged with v/s stable. Written and verbal after care instructions given N/V, AND GENERAL HEADACHE. and explained. Patient alert, oriented and verbalized understanding of instructions. Ambulatory with steady gait. All questions addressed prior to discharge. ID band removed. Patient advised to follow up with PMD. Rx of NORCO 5MG-325MG PO Q6-8H PRN PAIN, ZOFRAN 4MG ODT PRN N/V given. Patient educated on indication of medication including possible reaction and side effects. Opportunity to ask questions provided and answered.
== END 2020-10-14 17:05 | disposition home or self-care (01) ==
LOC: MED 12:59
DX: R51.9 Headache, unspecified (principal); R11.2 Nausea with vomiting, unspecified; R05 Cough; E11.9 Type 2 diabetes mellitus without complications; Z87.448 Personal history of other diseases of urinary system; Z79.899 Other long term (current) drug therapy; Z20.822 Contact with and (suspected) exposure to COVID-19
CPT/HCPCS: 36415; 70450; 71045; 80053; 85025; 87426; 96374; 96375; 99284; J1885; J2270; J2405

== ENCOUNTER 2020-10-18 10:09 | Inpatient (IN) | payer OTHER, SELFPAY ==
[~2020-10-18] VITALS: Ht 152.4 cm; Wt 57.2 kg
[~2020-10-18 10:09] MED LIST changes: +ACET-8386 PO; +ALBU0.0912 INH; +ONDA-24 PO; +PROM118S5 PO
[2020-10-18 10:11] VITALS: BP 178/77
--- NOTE | 2020-10-18 10:16 | NUR ---
PATIENT AMBULATED WITH ASSISTANCE TO BED 6.
--- NOTE | 2020-10-18 10:25 | NUR ---
Dr. Zapata at pt bedside for further evaluation.
[2020-10-18] MEDS ORDERED: MORPHINE SULFATE 4 MG/ML SYR IVP ONE ×2 (10:30→12:45)
[2020-10-18] MEDS ORDERED: ONDANSETRON 4 MG/2 ML VIAL IVP ONE (10:30)
[2020-10-18 10:48] LABS: BASOPHILS % (AUTO) 0.7 % (0.0-2.0); EOSINOPHILS # (AUTO) 0.2 K/uL (0-0.4); EOSINOPHILS % (AUTO) 2.9 % (0.0-4.0); HEMATOCRIT 28.7 % (36-48); HEMOGLOBIN 9.2 g/dL (12.0-16.0); LYMPHOCYTES # (AUTO) 1.2 K/uL (2.5-16.5); LYMPHOCYTES % (AUTO) 22.6 % (20.5-51.1); MEAN CORPUSCULAR HEMOGLOBIN 29 pg (27-31); MEAN CORPUSCULAR HGB CONC 32 g/dL (33-37); MEAN CORPUSCULAR VOLUME 89.8 fL (80-94); MONOCYTES # (AUTO) 0.3 K/uL (0.8-1.0); MONOCYTES % (AUTO) 5.6 % (1.7-9.3); NEUTROPHILS # (AUTO) 3.6 K/uL (1.8-7.7); NEUTROPHILS % (AUTO) 68.2 % (42.2-75.2); PLATELET COUNT (AUTO) 322 K/uL (140-450); RED CELL DISTRIBUTION WIDTH 16.3 % (11.6-13.7); WHITE BLOOD COUNT (AUTO) 5.3 K/uL (4.8-10.8)
[2020-10-18 11:03] LABS: ALBUMIN 2.5 g/dL (3.4-5.0); ANION GAP 16.6 (8-16); POTASSIUM 4.6 mmol/L (3.5-5.1); TOTAL BILIRUBIN 0.3 mg/dL (0.0-1.0)
[2020-10-18 11:04] LABS: CREATININE 7.3 mg/dL (0.6-1.3)
--- NOTE | 2020-10-18 11:09 | NUR ---
45 YEAR OLD FEMALE COMPLAINS OF ABDOMINAL PAIN X 2 WEEKS. PT ALSO STATES FOR PAST 2 WEEKS SHE HAS HAD NAUSEA, VOMITTING, NONRADIATING PRESSURE CHEST PAIN, AND A HEADACHE. PT BOWEL SOUNDS NORMOACTIVE ALL QUADRANTS, NONTENDER. '' PT AOX4, BREATHING EVEN AND UNLABORED, SKIN WARM AND DRY. BED IN LOWEST POSITION, LOCKED, BED RAIL UPX1. PMH - HTN, DM2, DIALYSIS (LEFT SHUNT; //SAT), PACEMAKER ALLERGIES - NKA
[2020-10-18] MEDS ORDERED: diphenhydrAMINE 50 MG/ML VIAL IVP ONE (11:25)
[2020-10-18] MEDS ORDERED: METOCLOPRAMIDE 10 MG/2 ML INJ VIAL IVP ONE (11:25)
--- NOTE | 2020-10-18 11:40 | NUR ---
PT TAKEN TO CT SCAN VIA RAMSES
--- NOTE | 2020-10-18 12:42 | NUR ---
PT AOX4, BREATHING EVEN AND UNLABORED. NO DISTRESS NOTED. PT STATES SHE IS STARTING TO HAVE PAIN COME BACK IN ABDOMEN, DENIES NAUSEA
--- NOTE | 2020-10-18 15:04 | NUR ---
PT CONTINUES TO HAVE HEADACHE BUT ABDOMINAL PAIN AND NAUSEA RESOLVED. DR KAY MADE AWARE
[2020-10-18] MEDS ORDERED: SUMAtriptan succinate 50 MG TAB PO ONE (15:30)
[2020-10-18] MEDS ORDERED: ONDANSETRON 4 MG/2 ML VIAL ONE (15:46)
--- NOTE | 2020-10-18 16:10 | NUR ---
PT CONTINUES TO HAVE VOMITTING AND HEADACHE, DR KAY MADE AWARE
[2020-10-18] MEDS: ONDANSETRON 4 MG/2 ML VIAL IVP PRN (16:52)
--- NOTE | 2020-10-18 17:00 | NUR ---
Patient will be admitted to care of Dr Jc. [facility]. Will go to room 114. Belongings list completed. Report to Indigo CARY.
--- NOTE | 2020-10-18 17:20 | NUR ---
PATIENT BROUGHT TO PROCIOUS VIA [employer]. PATIENT STABLE ALL VS WITHIN NORMAL LIMITS. PATIENT REMAINS ON ROOM AIR NO DISTRESS NOTED. BREATHING IS EVEN AN UNLABORED. SKIN I WARM TO TOUCH. SKIN IS INTACT. SCAR TO RIGHT KNEE FROM PERVIOUS KNEE SURGERY. PATIENT DENIES PAIN AT THIS TIME. PATENT DENIES FEELING N/V. CALL LIGHT WITHIN REACH. ALL SAFETY MEASURES IN PLACE. WILL CONTINUE TO MONITOR.
--- NOTE | 2020-10-18 19:20 | NUR ---
ENDORSED TO [employer] NURSE FOR CONTINUITY OF CARE. PATIENT STABLE. ALL SAFETY MEASURES IN PLACE.
[2020-10-18 20:00] VITALS: BP 162/76
--- NOTE | 2020-10-18 20:00 | NUR ---
RECEIVED BEDSIDE REPORT EARLIER REGARDING THE PT FOR CONTINUITY OF CARE. PT A/A/OX4, SITTING UP ON BED WATCHING TV. PT NOT IN ANY DISTRESS. NO COMPLAIN OF CHEST PAIN, PALPITATIONS AND DIZZINESS. IVF INFUSING ORDERED. CALL LIGHT WITHIN REACH. WILL CONTINUE POC.
[2020-10-18] MEDS: MORPHINE SULFATE 4 MG/ML SYR IVP PRN (21:11)
--- NOTE | 2020-10-18 22:00 | NUR ---
ADMINISTERED ALL THE SCHEDULED MEDICATIONS ORDERED. PT TOLERATED IT WELL NO ADVERSE DRUG REACTION NOTED. NO COMPLAIN FROM THE PATIENT. WILL CONTINUE POC.
--- NOTE | 2020-10-19 | NUR ---
PATIENT STILL AWAKE AND ALERT ,LAYING IN BED WATCHING TV. NOT IN ANY DISTRESS AND NO COMPLAIN AT THIS TIME.
[2020-10-19] MEDS: ONDANSETRON 4 MG/2 ML VIAL IVP PRN ×3 (01:01→20:26)
[2020-10-19] MEDS: MORPHINE SULFATE 2 MG/ML SYR IVP PRN ×2 (01:02→05:31)
--- NOTE | 2020-10-19 02:00 | NUR ---
PATIENT ASLEEP AT THIS TIME. VISIBLE CHEST RISE AND FALL NOTED. SITTER AT THE BEDSIDE. WILL CONTINUE OBSERVATION.
[2020-10-19 04:00] VITALS: BP 149/89
--- NOTE | 2020-10-19 04:00 | NUR ---
PATIENT VITALS SIGNS STABLE, AFEBRILE, SATING 97% ON RA. NOT IN ANY DISTRESS NO COMPLAIN AT THIS TIME. SAFETY MEASURES IN PLACED.
--- NOTE | 2020-10-19 06:02 | NUR ---
MESSAGE DR KAY TO GET AN ORDERE FOR ,TYLENOL PRN, BLOOD SUGAR CHECK PLUS THE HUMALOG SLIDING SCALE AND HEMODIALYSIS ORDER. AWAITING FOR MD TO CALL BACK OR REPLY.
--- NOTE | 2020-10-19 06:13 | NUR ---
NO ACUTE EVENT THROUGHOUT THE NIGHT. PATIENT STABLE. PATIENT NOT IN ANY DISTRESS. NO COMPLAIN AT THIS TIME. ALL NEEDS ATTENDED. CALL LIGHT WITHIN REACH. WILL ENDORSE THE PATIENT TO THE ONCOMING RN FOR CONTINUITY OF CARE.
[2020-10-19] MEDS: BLOOD GLUCOSE MONITORING 1 DEV DEV FS SCH ×4 (06:45→20:33)
[2020-10-19] MEDS ORDERED: ACETAMINOPHEN 325 MG TAB PO PRN (06:50)
--- NOTE | 2020-10-19 06:50 | NUR ---
DR KAY TEXTED BACK AND NEW ORDERS GIVEN AND ALSO ORDERED TO CALL DR CLARK FOR THE DIALYSIS ORDER. MESSAGED DR CLARK AND ALSO MESSAGED BACK AND STATED THAT HE ALREADY INFORMED THE DIALYSIS NURSE ABOUT TODAY'S PT HD SCHEDULE AND PER DR CLARK HE WILL SEE THE PATIENT LATER. NO FURTHER ORDER GIVEN.
--- NOTE | 2020-10-19 07:25 | NUR ---
RECEIVED BEDSIDE REPORT FROM ENERGY CONSERVATION ENGINEER NURSE FOR CONTINUITY OF CARE. PT A/A/OX4, SITTING UP ON BED WATCHING TV. RESPIRATIONS EVEN AND UNLABORED. PT NOT IN ANY DISTRESS. NO COMPLAIN OF CHEST PAIN, PALPITATIONS AND DIZZINESS. IV SITE ON RFA 22 G INTACT AND PATENT. IVF INFUSING ORDERED. AWAITING FOR HD TREATMENT TODAY. PLAN OF CARE DISCUSSED. SAFETY PRECAUTIONS IN PLACE. CALL LIGHT WITHIN REACH. WILL CONTINUE TO MONITOR.
--- NOTE | 2020-10-19 07:27 | NUR ---
ENDORSED THE PATIENT TO RAEANN NATARAJAN FOR CONTINUITY OF CARE. PT STABLE. SIGNING OFF.
--- NOTE | 2020-10-19 07:30 | NUR ---
RECEIVED BEDSIDE REPORT FROM ARTIST SUSPECT NURSE FOR CONTINUITY OF CARE. PT A/A/OX4, SITTING UP ON BED WATCHING TV. RESPIRATIONS EVEN AND UNLABORED. PT NOT IN ANY DISTRESS. NO COMPLAIN OF CHEST PAIN, PALPITATIONS AND DIZZINESS. IV SITE ON RFA 22 G INTACT AND PATENT. IVF INFUSING ORDERED. AWAITING FOR HD TREATMENT TODAY. PLAN OF CARE DISCUSSED. SAFETY PRECAUTIONS IN PLACE. CALL LIGHT WITHIN REACH. WILL CONTINUE TO MONITOR.
--- NOTE | 2020-10-19 07:49 | NUR ---
PATIENT HAS BEEN SCREENED AND CATEGORIZED HIGH NUTRITION RISK. PATIENT WILL BE SEEN WITHIN 1-2 DAYS OF ADMISSION. 10/19/2020-10/20/[address]
[2020-10-19 08:00] VITALS: BP 161/77
--- NOTE | 2020-10-19 08:50 | NUR ---
HD NURSE AT BEDSIDE PREPARING PATIENT FOR HD TREATMENT.
--- NOTE | 2020-10-19 10:06 | NUR ---
NO SCHEDULED MEDS GIVEN. PT IS STABLE. NO DISTRESS NOTED. CURRENTLY UNDERGOING HD TREATMENT. WILL CONTINUE TO MONITOR.
[2020-10-19] MEDS ORDERED: POTASSIUM CHLORIDE 10 MEQ TABER PO PRN (10:45)
[2020-10-19] MEDS ORDERED: ALBUTEROL HFA MDI 90 MCG/ACTUATION 8 GM INH PRN (10:45)
[2020-10-19] MEDS ORDERED: PROMETHAZINE DM 6.25/15MG-5ML ORASYR PO PRN (10:45)
[2020-10-19] MEDS ORDERED: ONDANSETRON 4 MG ODT PO PRN (10:45)
[2020-10-19] MEDS ORDERED: MAG SULF 2000 MG/WATER PREMIX 50 ML IV PRN (10:45)
--- NOTE | 2020-10-19 10:55 | NUR ---
HD NURSE STOPPED THE TREATMENT DUE TO PATIENT'S SHUNT HAVING MULTIPLE CLOTS. DR. CLARK IS AWARE AND HAS SEEN THE CONDITION OF THE AV SHUNT. WILL RESTART HD TOMORROW.
[2020-10-19 11:32] LABS: EOSINOPHILS # (AUTO) 0.2 K/uL (0-0.4); EOSINOPHILS % (AUTO) 4.8 % (0.0-4.0); HEMATOCRIT 29.7 % (36-48); HEMOGLOBIN 9.4 g/dL (12.0-16.0); LYMPHOCYTES # (AUTO) 0.9 K/uL (2.5-16.5); MEAN CORPUSCULAR HEMOGLOBIN 29 pg (27-31); MEAN CORPUSCULAR HGB CONC 32 g/dL (33-37); MEAN CORPUSCULAR VOLUME 90.3 fL (80-94); MONOCYTES # (AUTO) 0.2 K/uL (0.8-1.0); MONOCYTES % (AUTO) 4.2 % (1.7-9.3); NEUTROPHILS # (AUTO) 2.7 K/uL (1.8-7.7); PLATELET COUNT (AUTO) 278 K/uL (140-450); RED BLOOD CELL COUNT(AUTO) 3.29 MIL/uL (4.20-5.40); RED CELL DISTRIBUTION WIDTH 16.5 % (11.6-13.7); WHITE BLOOD COUNT (AUTO) 3.9 K/uL (4.8-10.8)
[2020-10-19] MEDS: carvediloL 12.5 MG TAB PO SCH ×2 (11:40→20:55)
[2020-10-19 11:43] LABS: ANION GAP 13.3 (8-16); POTASSIUM 4.3 mmol/L (3.5-5.1)
[2020-10-19] MEDS: MORPHINE SULFATE 4 MG/ML SYR IVP PRN (11:51)
--- NOTE | 2020-10-19 11:51 | NUR ---
PATIENT COMPLAINED OF ABD PAIN 10/10. ADMINISTERED PRN PAIN MEDICATIONS PER MD ORDERED.
[2020-10-19] MEDS: CALCIUM ACETATE 667 MG TAB PO SCH ×2 (11:52→17:03)
[2020-10-19 11:55] LABS: CREATININE 6.9 mg/dL (0.6-1.3)
--- NOTE | 2020-10-19 11:55 | NUR ---
BLOOD GLUCOSE CHECK WAS 99. NO INSULIN COVERAGE NEEDED.
--- NOTE | 2020-10-19 12:18 | NUR ---
10/19/20 RD INITIAL ASSESSMENT COMPLETED PLEASE REFER TO NUTRITION ASSESSMENT UNDER CARE ACTIVITY FOR ESTIMATED NUTRITIONAL NEEDS. RD RECOMMENDATIONS: 1. CONTINUE RENAL DIET. 2. CONSIDER ADDING 60 GM CCHO IF GLUCOSE LEVELS TRENDS UP. 3 RENAL DIET EDUCATION PROVIDED TO PT. 4. RD WILL F/U 7 DAYS; LOW RISK. BHASKAR PEREZ, RD
[2020-10-19] MEDS: hydrALAZINE 10 MG TAB PO SCH ×2 (12:50→17:03)
--- NOTE | 2020-10-19 12:56 | NUR ---
PATIENT COMPLAINED OF NAUSEA AFTER EATING LUNCH. ADMINISTERED ZOFRAN PRN PER MD ORDERED.
[2020-10-19] MEDS: METOCLOPRAMIDE 10 MG/2 ML INJ VIAL IVP PRN (14:33)
--- NOTE | 2020-10-19 14:33 | NUR ---
PATIENT STILL COMPLAINED OF NAUSEA. ADMINISTERED REGLAN IV PRN PER MD ORDERED.
[2020-10-19 16:00] VITALS: BP 153/78
--- NOTE | 2020-10-19 16:00 | NUR ---
OBTAINED COVID SPECIMEN. WILL TURN IN TO LAB.
--- NOTE | 2020-10-19 17:09 | NUR ---
BLOOD GLUCOSE CHECK WAS 107. NO INSULIN COVERAGE NEEDED.
--- NOTE | 2020-10-19 19:30 | NUR ---
ENDORSED TO SUPERVISOR DOCK NURSE FOR CONTINUITY OF CARE. PT IS STABLE.
--- NOTE | 2020-10-19 19:31 | NUR ---
RECEIVED PATIENT FROM AM NURSE FOR CONTINUITY OF CARE. PATIENT A/A/O X4. RESTING IN BED, RESPIRATORY EVEN AND UNLABORED, ON ROOM AIR, NO SIGN OF DISTRESS NOTED. ABDOMEN DISTENDED, TENDERNESS TO PALPATE ON RIGHT UPPER QUADRANT. BOWEL SOUND ACTIVE TO 4 QUADRANTS. SKIN WARM, DRY, NON DIAPHORETIC. IV ON RIGHT HAND 22G, INTACT AND PATENT, SALINE LOCK. LEFT AV SHUNT FOR HD. PATIENT DENIES ANY PAIN OR DISCOMFORT. ABLE TO MAKE NEED KNOWN. PLAN OF CARE DISCUSSED, PATIENT VERBALIZED UNDERSTANDING. PRECAUTION IN PLACE. CALL LIGHT WITHIN REACH. WILL CONTINUE TO MONITOR.
[2020-10-19 20:00] VITALS: BP 174/83
--- NOTE | 2020-10-19 20:26 | NUR ---
PATIENT COMPLAINS OF NAUSEA, ZOFRAN PRN GIVEN WITH EDUCATION, PATIENT VERBALIZED UNDERSTANDING. BLOOD SUGAR CHECK 104, NO INSULIN NEEDS TO COVER. PRECAUTION IN PLACE. CALL LIGHT WITHIN REACH. WILL CONTINUE TO MONITOR.
[2020-10-19] MEDS: tiZANidine 4 MG TAB PO SCH (20:53)
[2020-10-19] MEDS: GABAPENTIN 100 MG CAP PO SCH (20:53)
--- NOTE | 2020-10-19 20:53 | NUR ---
PATIENT REPORTS FEELING BETTER. SCHEDULE MEDICATIONS GIVEN WITH EDUCATION. PATIENT VERBALIZED UNDERSTANDING. CALL LIGHT WITHIN REACH. WILL CONTINUE TO MONITOR.
[2020-10-19] MEDS: CLONIDINE HYDROCHLORIDE 0.1 MG TAB PO SCH (20:54)
[2020-10-19] MEDS: ATORVASTATIN 20 MG TAB PO SCH (20:55)
--- NOTE | 2020-10-19 21:15 | NUR ---
RESPONSE TO PATIENT'S CALL LIGHT, PATIENT VOMIT 700CC, BROWNISH, LIQUID NOTED. PATIENT IS SITTING UP, NO SIGN OF DISTRESS NOTED. PRECAUTION IN PLACE. CALL LIGHT WITHIN REACH. WILL CONTINUE TO MONITOR.
--- NOTE | 2020-10-19 22:24 | NUR ---
BP CHECK 154/74, HR 64. PATIENT DENIES ANY PAIN OR DISCOMFORT. ABLE TO MAKE NEEDS KNOWN. NO SIGN OF DISTRESS NOTED. PRECAUTION IN PLACE. CALL LIGHT WITHIN REACH. WILL CONTINUE TO MONITOR.
--- NOTE | 2020-10-20 | NUR ---
PATIENT IS AWAKE, SITTING IN CHAIR. NO SIGN OF DISTRESS NOTED. PRECAUTION IN PLACE. CALL LIGHT WITHIN REACH. WILL CONTINUE TO MONITOR.
[2020-10-20] MEDS: ONDANSETRON 4 MG/2 ML VIAL IVP PRN ×3 (01:06→20:10)
[2020-10-20] MEDS: MORPHINE SULFATE 2 MG/ML SYR IVP PRN (01:10)
--- NOTE | 2020-10-20 01:10 | NUR ---
PATIENT COMPLAINS OF ABDOMEN PAIN 09/12. PRN MEDICATION GIVEN WITH EDUCATION. PATIENT VERBALIZED UNDERSTANDING. CALL LIGHT WITHIN REACH. WILL CONTINUE TO MONITOR.
--- NOTE | 2020-10-20 02:10 | NUR ---
ROUND CHECK. PATIENT IS SLEEPING, CHEST RISE AND FALL NOTED. NO SIGN OF RESPIRATORY DISTRESS. PRECAUTION IN PLACE. CALL LIGHT WITHIN REACH. WILL CONTINUE TO MONITOR.
[2020-10-20 04:00] VITALS: BP 149/71
--- NOTE | 2020-10-20 04:00 | NUR ---
PATIENT IS RESTING IN BED. NO SIGN OF DISTRESS NOTED. PRECAUTION IN PLACE. CALL LIGHT WITHIN REACH. WILL CONTINUE TO MONITOR.
[2020-10-20] MEDS: BLOOD GLUCOSE MONITORING 1 DEV DEV FS SCH ×4 (06:35→21:59)
[2020-10-20] MEDS: LEVOTHYROXINE 0.05 MG TAB PO SCH (06:35)
--- NOTE | 2020-10-20 06:35 | NUR ---
BLOOD SUGAR CHECK 88, NO INSULIN NEED TO COVER. SCHEDULE MEDICATION GIVEN WITH EDUCATION. PATIENT VERBALIZED UNDERSTANDING. PRECAUTION IN PLACE. CALL LIGHT WITHIN REACH. WILL CONTINUE TO MONITOR.
[2020-10-20 06:39] LABS: BASOPHILS % (AUTO) 1.3 % (0.0-2.0); EOSINOPHILS # (AUTO) 0.2 K/uL (0-0.4); EOSINOPHILS % (AUTO) 5.8 % (0.0-4.0); HEMATOCRIT 25.7 % (36-48); HEMOGLOBIN 8.1 g/dL (12.0-16.0); LYMPHOCYTES # (AUTO) 1.1 K/uL (2.5-16.5); LYMPHOCYTES % (AUTO) 28.7 % (20.5-51.1); MEAN CORPUSCULAR HEMOGLOBIN 29 pg (27-31); MEAN CORPUSCULAR HGB CONC 32 g/dL (33-37); MEAN CORPUSCULAR VOLUME 90.4 fL (80-94); MONOCYTES # (AUTO) 0.3 K/uL (0.8-1.0); MONOCYTES % (AUTO) 7.8 % (1.7-9.3); NEUTROPHILS # (AUTO) 2.1 K/uL (1.8-7.7); NEUTROPHILS % (AUTO) 56.4 % (42.2-75.2); PLATELET COUNT (AUTO) 276 K/uL (140-450); RED BLOOD CELL COUNT(AUTO) 2.84 MIL/uL (4.20-5.40); RED CELL DISTRIBUTION WIDTH 16.5 % (11.6-13.7); WHITE BLOOD COUNT (AUTO) 3.8 K/uL (4.8-10.8)
[2020-10-20 07:00] LABS: ANION GAP 15.7 (8-16); CARBON DIOXIDE 28.5 mmol/L (21-32); POTASSIUM 5.2 mmol/L (3.5-5.1)
[2020-10-20 07:04] LABS: MAGNESIUM 2.4 mg/dL (1.8-2.4); PHOSPHORUS 6.8 mg/dL (2.5-4.9)
[2020-10-20 07:15] LABS: CREATININE 8.4 mg/dL (0.6-1.3)
--- NOTE | 2020-10-20 07:24 | NUR ---
ENDORSED PATIENT TO AM NURSE FOR CONTINUITY OF CARE. PATIENT IS STABLE.
--- NOTE | 2020-10-20 07:30 | NUR ---
RECEIVED BEDSIDE REPORT FROM PEA VINER MECHANIC NURSE FOR CONTINUITY OF CARE. PT A/A/OX4, SITTING UP ON BED WATCHING TV. RESPIRATIONS EVEN AND UNLABORED. PT NOT IN ANY DISTRESS. NO COMPLAIN OF CHEST PAIN, PALPITATIONS AND DIZZINESS. IV SITE ON RFA 22 G INTACT AND PATENT. IVF INFUSING ORDERED. AWAITING FOR HD TREATMENT TODAY. PLAN OF CARE DISCUSSED. SAFETY PRECAUTIONS IN PLACE. CALL LIGHT WITHIN REACH. WILL CONTINUE TO MONITOR.
[2020-10-20 08:00] VITALS: BP 182/78
--- NOTE | 2020-10-20 08:30 | NUR ---
HD NURSE AT BEDSIDE PREPARING PATIENT FOR HD TREATMENT
[2020-10-20] MEDS: CLONIDINE HYDROCHLORIDE 0.1 MG TAB PO SCH ×2 (08:47→21:59)
[2020-10-20] MEDS: amLODIPine 5 MG TAB PO SCH (08:47)
[2020-10-20] MEDS: hydrALAZINE 10 MG TAB PO SCH ×3 (08:47→16:53)
[2020-10-20] MEDS: carvediloL 12.5 MG TAB PO SCH ×2 (08:47→21:59)
[2020-10-20] MEDS: ASPIRIN 81 MG TAB.CHEW PO SCH (08:47)
[2020-10-20] MEDS: VIT-B COMP/VIT-C/FOLIC ACID 1 TAB PO SCH (08:54)
[2020-10-20] MEDS: CALCIUM ACETATE 667 MG TAB PO SCH ×3 (08:54→16:53)
--- NOTE | 2020-10-20 09:19 | NUR ---
PATIENT COMPLAINED OF NAUSEA. ADMINISTERED ZOFRAN PRN PER MD ORDERED.
[2020-10-20] MEDS: MORPHINE SULFATE 4 MG/ML SYR IVP PRN ×2 (09:21→16:55)
--- NOTE | 2020-10-20 09:23 | NUR ---
PATIENT ALSO COMPLAINED OF 10/10 ABD PAIN. ADMINISTERED PRN PAIN MEDICATIONS PER MD ORDERED.
--- NOTE | 2020-10-20 11:49 | NUR ---
BLOOD GLUCOSE CHECK WAS 70. NO INSULIN COVERAGE NEEDED.
[2020-10-20] MEDS: METOCLOPRAMIDE 10 MG/2 ML INJ VIAL IVP PRN (11:53)
--- NOTE | 2020-10-20 11:53 | NUR ---
PATIENT STILL COMPLAINING OF NAUSEA. ADMINISTERED REGLAN IVP PER MD ORDERED.
--- NOTE | 2020-10-20 12:00 | NUR ---
PATIENT COMPLETED HD TREATMENT. 2.3 L OF FLUIDS WERE REMOVED. PT IS STABLE. NO DISTRESS NOTED. WILL CONTINUE TO MONITOR.
--- NOTE | 2020-10-20 15:45 | NUR ---
COLLECTED MARK SPECIMEN AND TURNED TO LAB.
[2020-10-20 16:00] VITALS: BP 162/75
[2020-10-20] MEDS ORDERED: SUMAtriptan succinate 6 MG/0.5 ML VIAL SUBQ ONE (16:00)
--- NOTE | 2020-10-20 16:55 | NUR ---
PATIENT COMPLAINED OF ABD PAIN 10/10. ADMINISTERED PRN PAIN MEDICATIONS PER MD ORDERED.
--- NOTE | 2020-10-20 19:30 | NUR ---
ENDORSED TO SHOW OPERATIONS SUPERVISOR NURSE FOR CONTINUITY OF CARE. PT IS STABLE. NO DISTRESS NOTED. WILL CONTINUE TO MONITOR.
--- NOTE | 2020-10-20 19:31 | NUR ---
RECEIVED PATIENT FROM AM NURSE FOR CONTINUITY OF CARE. PATIENT IS RESTING IN BED, A/A/O X4. RESPIRATORY EVEN AND UNLABORED, ON ROOM AIR, NO SIGN OF DISTRESS NOTED. SKIN WARM, DRY, NON DIAPHORETIC. IV ON RIGHT HAND 22G, INTACT AND PATENT, SALINE LOCK. LEFT AC SHUNT FOR HD, LAST HD 10/20 WITH 2.3L OUTPUT. PACEMAKER NOTED ON RIGHT UPPER CHEST. S1/S2 NOTED. ABDOMEN ROUND, DISTENDED, NON TENDER. PATIENT COMPLAINS OF NAUSEA, WILL MEDICATE ORDER. ABLE TO MAKE NEED KNOWN. PLAN OF CARE DISCUSSED, PATIENT VERBALIZED UNDERSTANDING. PRECAUTION IN PLACE. CALL LIGHT WITHIN REACH. WILL CONTINUE TO MONITOR.
[2020-10-20 20:00] VITALS: BP 186/71
--- NOTE | 2020-10-20 20:10 | NUR ---
ZOFRAN PRN GIVEN FOR NAUSEA/VOMITING WITH EDUCATION. PATIENT VERBALIZED UNDERSTANDING. TOLERATED WELL. PRECAUTION IN PLACE. CALL LIGHT WITHIN REACH. WILL CONTINUE TO MONITOR.
--- NOTE | 2020-10-20 20:22 | NUR ---
BLOOD SUGAR CHECK 62. PATIENT DENIES ANY HEADACHE, DIZZINESS, BLURRY VISION. 2 BOTTLES OF APPLE JUICE GIVEN. PATIENT TOLERATED WELL. WILL CONTINUE TO MONITOR.
[2020-10-20] MEDS: ATORVASTATIN 20 MG TAB PO SCH (21:58)
[2020-10-20] MEDS: tiZANidine 4 MG TAB PO SCH (21:59)
--- NOTE | 2020-10-20 21:59 | NUR ---
SCHEDULE MEDICATIONS GIVEN WITH EDUCATION. PATIENT VERBALIZED UNDERSTANDING. RE CHECK BLOOD SUGAR 65, NO INSULIN GIVEN, ENCOURAGE PATIENT TAKE APPLE JUICE, 2 BOTTLE OF APPLE JUICE GIVEN. WILL CONTINUE TO MONITOR.
[2020-10-20] MEDS: GABAPENTIN 100 MG CAP PO SCH (22:00)
--- NOTE | 2020-10-21 00:34 | NUR ---
BLOOD SUGAR CHECK 86. PATIENT IS SLEEPING, AROUSABLE TO VOICE. DENIES ANY PAIN OR DISCOMFORT AT THIS TIME. DENIES ANY N/V. PRECAUTION IN PLACE. CALL LIGHT WITHIN REACH. HOB ELEVATED. WILL CONTINUE TO MONITOR.
[2020-10-21] MEDS: MORPHINE SULFATE 2 MG/ML SYR IVP PRN (01:14)
--- NOTE | 2020-10-21 01:14 | NUR ---
PATIENT COMPLAINS OF ABDOMEN PAIN 6/10, PRN MEDICATION GIVEN WITH EDUCATION. PATIENT VERBALIZED UNDERSTANDING. PATIENT TOLERATED WELL. PRECAUTION IN PLACE. CALL LIGHT WITHIN REACH. WILL CONTINUE TO MONITOR.
--- NOTE | 2020-10-21 02:20 | NUR ---
PATIENT IS AWAKE, STATES FEELING BETTER. NO SIGN OF RESPIRATORY DISTRESS NOTE. PRECAUTION IN PLACE. CALL LIGHT WITHIN REACH. WILL CONTINUE TO MONITOR.
[2020-10-21 04:00] VITALS: BP 149/70
[2020-10-21] MEDS: METOCLOPRAMIDE 10 MG/2 ML INJ VIAL IVP PRN ×2 (04:41→17:06)
--- NOTE | 2020-10-21 04:41 | NUR ---
PATIENT COMPLAINS OF NAUSEA, REGLAN PRN MEDICATION GIVEN WITH EDUCATION, PATIENT VERBALIZED UNDERSTANDING. NO SIGN OF DISTRESS NOTED. PRECAUTION IN PLACE. HOB ELEVATED. CALL LIGHT WITHIN REACH. WILL CONTINUE TO MONITOR.
[2020-10-21] MEDS: LEVOTHYROXINE 0.05 MG TAB PO SCH (06:16)
--- NOTE | 2020-10-21 06:16 | NUR ---
SCHEDULE MEDICATION GIVEN WITH EDUCATION. PATIENT TOLERATED WELL. REPORT NAUSEA RELIEF. PRECAUTION IN PLACE. CALL LIGHT WITHIN REACH. HOB ELEVATED. WILL CONTINUE TO MONITOR.
[2020-10-21] MEDS: BLOOD GLUCOSE MONITORING 1 DEV DEV FS SCH ×4 (06:49→21:00)
--- NOTE | 2020-10-21 06:50 | NUR ---
BLOOD SUGAR CHECK 80. NO INSULIN NEED TO GIVEN. PATIENT DENIES ANY DISCOMFORT. NO SIGN OF DISTRESS NOTE. PRECAUTION IN PLACE. CALL LIGHT WITHIN REACH. WILL CONTINUE TO MONITOR.
[2020-10-21 07:03] LABS: BASOPHILS % (AUTO) 0.7 % (0.0-2.0); EOSINOPHILS # (AUTO) 0.1 K/uL (0-0.4); EOSINOPHILS % (AUTO) 4.7 % (0.0-4.0); HEMATOCRIT 28.9 % (36-48); HEMOGLOBIN 9.1 g/dL (12.0-16.0); LYMPHOCYTES % (AUTO) 33.6 % (20.5-51.1); MEAN CORPUSCULAR HEMOGLOBIN 28 pg (27-31); MEAN CORPUSCULAR HGB CONC 32 g/dL (33-37); MEAN CORPUSCULAR VOLUME 89.9 fL (80-94); MONOCYTES # (AUTO) 0.2 K/uL (0.8-1.0); MONOCYTES % (AUTO) 5.6 % (1.7-9.3); NEUTROPHILS # (AUTO) 1.7 K/uL (1.8-7.7); NEUTROPHILS % (AUTO) 55.4 % (42.2-75.2); PLATELET COUNT (AUTO) 254 K/uL (140-450); RED BLOOD CELL COUNT(AUTO) 3.22 MIL/uL (4.20-5.40); RED CELL DISTRIBUTION WIDTH 15.9 % (11.6-13.7); WHITE BLOOD COUNT (AUTO) 3.1 K/uL (4.8-10.8)
[2020-10-21 07:13] LABS: ANION GAP 11.3 (8-16); CARBON DIOXIDE 29.9 mmol/L (21-32); PHOSPHORUS 5.5 mg/dL (2.5-4.9); POTASSIUM 4.2 mmol/L (3.5-5.1)
--- NOTE | 2020-10-21 07:30 | NUR ---
ENDORSED PATIENT TO AM NURSE FOR CONTINUITY OF CARE. PATIENT IS STABLE.
--- NOTE | 2020-10-21 07:32 | NUR ---
RECEIVED REPORT FROM NIGHT NURSE PATIENT IS AAOX4 ON ROOM AIR, ON RENAL DIET, LAST BLOOD SUGAR 80 MG/DL,IV INTACT ON LEFT HAND SALINE LOCK, WITH LEFT AV SHUNT, HEMODIALYSIS ON 10/20/20 WITH 2.3 OUTPUT, HEAD CT DONE NEGATIVE, WITH PACEMAKER ON RIGHT UPPER CHEST, CT ABD/PELVIS RESULTED WITH MILD ASCITES, STARTED ON IMITREX SQ FOR MIGRAINE/HEADACHE ONCE, AMBULATORY,PT IS ANURIC. SAFETY MEASURES IN PLACE AND CALL LIGHT WITHIN REACH. WILL CONTINUE TO MONITOR.
[2020-10-21] MEDS ORDERED: ALBUTEROL 0.083% 2.5 MG/3 ML NEBU INH PRN (07:35)
[2020-10-21 07:45] LABS: CREATININE 6.2 mg/dL (0.6-1.3)
--- NOTE | 2020-10-21 07:45 | NUR ---
RECEIVED CRITICAL VALUE FROM LAB CREATININE 6.2. DR ELIZA DAVIES.
[2020-10-21 08:00] VITALS: BP 136/68
[2020-10-21] MEDS: CALCIUM ACETATE 667 MG TAB PO SCH ×3 (08:45→16:26)
[2020-10-21] MEDS: hydrALAZINE 10 MG TAB PO SCH ×3 (08:46→16:26)
[2020-10-21] MEDS: ASPIRIN 81 MG TAB.CHEW PO SCH (08:47)
[2020-10-21] MEDS: carvediloL 12.5 MG TAB PO SCH ×2 (08:48→21:59)
[2020-10-21] MEDS: VIT-B COMP/VIT-C/FOLIC ACID 1 TAB PO SCH (08:48)
[2020-10-21] MEDS: CLONIDINE HYDROCHLORIDE 0.1 MG TAB PO SCH ×2 (09:00→21:58)
--- NOTE | 2020-10-21 09:00 | NUR ---
ADMINISTERED SCHEDULED MEDICATION AND CHECK VITAL SIGNS PRIOR TO MEDICATION BP 136/68 ME 70. ZOFRAN GIVEN PER PATIENT REQUEST FOR VOMITING,AND HELD CLONIDINE 0.2 MG AND HYDRALAZINE 30 MG PT VITAL SIGNS STABLE AND WITHIN NORMAL LIMITS. NO DISTRESS NOTED. SAFETY MEASURES IN PLACE AND CALL LIGHT WITHIN REACH.WILL CONTINUE TO MONITOR.
[2020-10-21] MEDS: ONDANSETRON 4 MG/2 ML VIAL IVP PRN (09:05)
[2020-10-21] MEDS: amLODIPine 5 MG TAB PO SCH (09:13)
--- NOTE | 2020-10-21 11:47 | NUR ---
BLOOD SUGAR 110 MG/DL NO INSULIN COVERAGE GIVEN AND ADMINISTERED SCHEDULED MEDICATION CALCIUM ACETATE PT TOLERATED WELL AND NOT FEELING NAUSEOUS. WILL CONTINUE TO MONITOR.
[2020-10-21] MEDS: MORPHINE SULFATE 4 MG/ML SYR IVP PRN (13:52)
[2020-10-21] MEDS: TOPIRAMATE 25 MG TAB PO SCH ×2 (13:52→22:00)
--- NOTE | 2020-10-21 13:52 | NUR ---
ADMINISTERED SCHEDULED MEDICATION TOPIRAMATE 25 MG AND PT COMPLAINS OF ABDOMINAL PAIN 01/12 CHECK VITAL SIGNS BP 145/73 WY 70. PT TOLERATED WELL.
[2020-10-21 16:00] VITALS: BP 152/71
--- NOTE | 2020-10-21 16:25 | NUR ---
BVLOOD SUGAR 105 MG/DL NO INSULIN COVERAGE GIVEN, ADMINISTERED SCHEDULED MEDICATION BP 152/71 KS 69 PT TOLERATED WELL.
--- NOTE | 2020-10-21 16:48 | NUR ---
GAVE REPORT TO NELY PRICE IS STABLE
--- NOTE | 2020-10-21 17:06 | NUR ---
PT WAS GIVEN REGLAN FOR NAUSEA. MEDICATION EDUCATION WAS PROVIDED AND PT VERBALIZED UNDERSTANDING. WILL CONTINUE TO MONITOR FOR NAUSEA.
--- NOTE | 2020-10-21 19:15 | NUR ---
ENDORSED PT TO GUIDE DELEGATE NURSE FOR CONTINUITY OF CARE. PT IS STABLE AT THIS TIME. PLAN OF CARE DISCUSSED.
--- NOTE | 2020-10-21 19:30 | NUR ---
RECEIVED REPORT FROM RN DAYSHIFT NURSE AT BEDSIDE FOR CONTINUITY OF CARE, PT IN STABLE CONDITION.
--- NOTE | 2020-10-21 20:00 | NUR ---
PT SITTING UP IN BED AWAKE AND ALERT, SHE HAS A 22G IN RIGHT HAND IV SITE INTACT AND SALINE LOCKED. IT WAS FLUSHED PATENT. V/S FOLLOWS; T 97.2 P 69 R 16 B/P 131/63 02 100% ON ROOM AIR. PT HAS LAV SHUNT ON UPPER ARM, THRILL AND BRUIT FELT. ALL UNIVERSAL FALLS PRECAUTIONS IN PLACE.
--- NOTE | 2020-10-21 21:35 | NUR ---
PT FINGERSTICK IS 155, SHE WAS GIVEN 2 UNITS OF HUMALOG PER S/S WILL FOLLOWS UP WITH A SNACK. PT WAS ALSO GIVEN ORDERED COREG, CATAPRES, LIPITOR, NEURONTIN, TOPAMAX AND ZANAFLEX. EDUCATION REGARDING MEDICATION PROVIDED AT BEDSIDE, PT VERBALIZED UNDERSTANDING.
[2020-10-21] MEDS: GABAPENTIN 100 MG CAP PO SCH (21:59)
[2020-10-21] MEDS: ATORVASTATIN 20 MG TAB PO SCH (21:59)
[2020-10-21] MEDS: tiZANidine 4 MG TAB PO SCH (22:00)
--- NOTE | 2020-10-21 22:00 | NUR ---
PT GIVEN TUNA SANDWICH AND SMALL APPLE JUICE SNACK. ALL ORDERED PRECAUTIONS IN PLACE.
[2020-10-21] MEDS: INSULIN LISPRO SLIDING SCALE 100 UNITS/ML VIAL SUBQ PRN (22:15)
--- NOTE | 2020-10-21 23:00 | NUR ---
RE ASSES OF CLONIDINE B/P IS 125/77 P 65. ALL UNIVERSAL FALLS PRECAUTIONS IN PLACE,.
[2020-10-22] MEDS: ONDANSETRON 4 MG/2 ML VIAL IVP PRN ×2 (00:19→17:54)
[2020-10-22] MEDS: SUMAtriptan succinate 6 MG/0.5 ML VIAL SUBQ PRN (00:59)
--- NOTE | 2020-10-22 01:00 | NUR ---
PT C/O OF SEVERE HEADACHE AND WAS GIVEN IM IMETRIX ORDERED. WILL MONITOR FOR REIELF.
--- NOTE | 2020-10-22 02:00 | NUR ---
ROUNDS DONE, PT IN BED ASLEEP. ALL ORDERED PRECAUTIONS IN PLACE.
[2020-10-22] MEDS: MORPHINE SULFATE 4 MG/ML SYR IVP PRN ×4 (03:26→20:03)
--- NOTE | 2020-10-22 03:30 | NUR ---
PT AGAIN C/O OF HEADACHE, SHE WAS GIVEN IVP MORPHINE 4 MG FOR SEVERE PAIN. WILL MONITOR FOR EFFECT. ALL UNIVERSAL FALLS PRECAUTIONS IN PLACE.
[2020-10-22 04:00] VITALS: BP 152/60
--- NOTE | 2020-10-22 06:30 | NUR ---
PT SITTING UP IN BED NO C/O VOICED, PT GIVEN ORDERED SYNTHROID. FINGERSTICK IS 149, NO HUMALOG COVERAGE NEEDED. ALL UNIVERSAL FALLS IN PLACE.
[2020-10-22] MEDS: LEVOTHYROXINE 0.05 MG TAB PO SCH (06:35)
[2020-10-22] MEDS: BLOOD GLUCOSE MONITORING 1 DEV DEV FS SCH ×4 (06:36→20:58)
[2020-10-22 07:03] LABS: ANION GAP 8.9 (8-16); CARBON DIOXIDE 32.5 mmol/L (21-32); POTASSIUM 5.4 mmol/L (3.5-5.1)
[2020-10-22 07:05] LABS: PHOSPHORUS 5.9 mg/dL (2.5-4.9)
[2020-10-22 07:13] LABS: BASOPHILS % (AUTO) 1.1 % (0.0-2.0); EOSINOPHILS # (AUTO) 0.2 K/uL (0-0.4); EOSINOPHILS % (AUTO) 4.2 % (0.0-4.0); HEMATOCRIT 27.1 % (36-48); HEMOGLOBIN 8.7 g/dL (12.0-16.0); LYMPHOCYTES % (AUTO) 25.9 % (20.5-51.1); MEAN CORPUSCULAR HEMOGLOBIN 28 pg (27-31); MEAN CORPUSCULAR HGB CONC 32 g/dL (33-37); MEAN CORPUSCULAR VOLUME 88.9 fL (80-94); MONOCYTES # (AUTO) 0.3 K/uL (0.8-1.0); NEUTROPHILS # (AUTO) 2.4 K/uL (1.8-7.7); NEUTROPHILS % (AUTO) 61.8 % (42.2-75.2); PLATELET COUNT (AUTO) 258 K/uL (140-450); RED BLOOD CELL COUNT(AUTO) 3.05 MIL/uL (4.20-5.40); RED CELL DISTRIBUTION WIDTH 15.8 % (11.6-13.7); WHITE BLOOD COUNT (AUTO) 3.9 K/uL (4.8-10.8)
--- NOTE | 2020-10-22 07:55 | NUR ---
RECEIVED REPORT FROM NIGHT NURSE. ACCORDING TO NIGHT NURSE PT IS A&0X4. PT IS BREATHING ON RA AND HAS A PACEMAKER. PT IS ON A RENAL DIET AND RECEIVES DIALYSIS T,TH, AND SAT. PT HAS A LAV SHUNT AND HAS AN IV 22G ON RH. PT RECEIVED MORPHINE LAST AT 0330 FOR PAIN. LAST BG WAS 149. HEAD CT WAS -. LAST DIALYSIS THEY TOOK 2.3L OF WATER.PT IS ANURIC. SAFETY PRECAUTIONS ARE IN PLACE. CALL LIGHT IS WITHIN REACH. WILL CONTINUE PLAN OF CARE.
[2020-10-22 08:00] VITALS: BP 137/75
--- NOTE | 2020-10-22 08:47 | NUR ---
NOTIFIED DR. KAY OF CRITICAL LAB VALUE OF CREATININE 7.5H.
--- NOTE | 2020-10-22 08:47 | NUR ---
RECEIVED CRITICAL LAB VALUE FROM NHUNG AT LAB. PT HAS A CREATININE LEVEL OF 7.5H. WILL NOTIFY
[2020-10-22 08:48] LABS: CREATININE 7.5 mg/dL (0.6-1.3)
--- NOTE | 2020-10-22 08:51 | NUR ---
DC PLANNING: CM SPOKE WITH PATIENT AT BEDSIDE, CONFIRMED DEMOGRAPHIC INFORMATION. PATIENT LIVES IN A SECOND STORY APARTMENT WITH HER 4 DAUGHTERS, STATES WHEN SHE IS SICK THEY ASSIST WITH ADL'S AND AMBULATION. ACCESS TO APARTMENT IS BY STAIRS. PATIENT IS INDEPENDENT IN ACTIVITIES WHEN NOT SICK. NO PRIOR HOME HEALTH, HAS DME OF CANE, WC, FWW, O2, SHOWER BENCH AND GLUCOMETER. GOES TO [facility] FOR HD ([phone]), USES [employer] ([phone]) FOR HD TRANSPORT. DAYS ARE WEDNESDAY, WEDNESDAY AND WEDNESDAY, CHAIR TIME 8:30. HAS INCOME SOURCE OF DISABILITY AND [employer]. CM WILL PROVIDE RESOURCES FOR IHSS TO PATIENT, PLAN IS FOR PATIENT TO RETURN HOME WHEN STABLE. CARLA SPOKE WITH SHANTI AT [facility], WILL FAX H&P AND DC SUMMARY TO RESUME SERVICES WITH THEM. CARLA WILL CONTINUE TO FOLLOW FOR NEEDS. Addendum: 10/22/20 at 1448 by Winter Mina CM DC PLANNING: CARLA SPOKE WITH CARLA STEELE FOR [facility] ([phone]). UPDATED CLINICAL INFORMATION ENDORSED TO [facility]. Addendum: 10/24/20 at 1040 by Winter Mina CM DC PLANNING: SPOKE WITH THE COORDINATOR FOR [facility] ([phone]), ORDER FOR TRANSFER TO [facility] FAXED ([phone]). COORDINATOR STATES THAT THE CM WILL WORK ON TRANSFER AND WILL CONTACT ME FOR TRANSFER. CM WILL CONTINUE TO FOLLOW FOR NEEDS. Addendum: 10/24/20 at 1216 by Winter Mina CM DC PLANNING: MESSAGE LEFT FOR [facility] CARLA CHAMBERS ([phone]) TO DISCUSS PATIENT TRANSFER, MK LEFT. ALSO SPOKE WITH COORDINATOR YULISSA, STATES CASE HAS NOT YET BEEN LOADED BY STAFF, CM ENDORSED URGENCY OF TRANSFERRING PATIENT FOR DIALYSIS ACCESS. WILL WAIT TO HEAR FROM CARLA JOLLEYTY. CM WILL FOLLOW FOR NEEDS. Addendum: 10/24/20 at 1510 by Winter Mina CM DC PLANNING CM RECEIVED A CALL FROM CARLA STEELE AT [facility] FOR TRANSPORT AND [facility] GIVEN, [phone]. PER [facility] INSURANCE WILL EXPECT PATIENT TO STAY AT [facility], TRANSPORT BACK TO [facility] WILL NOT BE COVERED. CARLA SPOKE WITH GISELLE IN THE [facility] TRANSFER CENTER ([phone]), GISELLE STATES THAT THE HOSPITAL IS AT MAXIMUM CAPACITY AND THAT THE ER IS FULL AND WILL WANT A RETURN AGREEMENT. ASKED IF [facility] WILL TAKE PATIENT BACK, CARLA STATED YES AND LET GISELLE KNOW ABOUT SCAN COVERAGE OF TRANSPORT. CLINICALS FAXED TO GISELLE AT [phone]. CARLA WILL FOLLOW UP. Addendum: 10/24/20 at 1511 by Winter Mina CM DC PLANNING MESSAGE LEFT FOR CARLA CHAMBERS AT [facility] ASKING FOR OTHER HOSPITAL OPTIONS IF [facility] CAN'T ACCEPT PATIENT. CARLA WILL FOLLOW UP. Addendum: 10/24/20 at 1628 by Winter Mina CM DC PLANNING SPOKE WITH GISELLE AT [facility] TRANSFER CENTER, ENDORSED THAT PATIENT IS M/S LOC. [facility] MAY BE ABLE TO ACCOMMODATE, GISELLE WILL CALL [facility] WHEN A BED BECOMES AVAILABLE. ABOVE ENDORSED TO PATIENTS RAEANN ALFREDO CM WILL CONTINUE TO FOLLOW. Addendum: 10/24/20 at 1642 by Winter Mina CM DC PLANNING PATIENT PLACED ON WILL CALL WITH [facility] NUMBER FOR TRANSPORT PROVIDE [phone]. [facility] TRANSPORT ARRANGED, ENDORSED TO [facility] [place]. CARLA WILL CONTINUE TO FOLLOW.
--- NOTE | 2020-10-22 08:52 | NUR ---
ACKNOWLEDGED CRITICAL LAB VALUE OF CREATININE. NO CHANGE IN ORDERS WAS DONE.
[2020-10-22] MEDS: hydrALAZINE 10 MG TAB PO SCH ×3 (09:00→16:34)
[2020-10-22] MEDS: amLODIPine 5 MG TAB PO SCH (09:00)
[2020-10-22] MEDS: CLONIDINE HYDROCHLORIDE 0.1 MG TAB PO SCH ×4 (09:00→21:53)
[2020-10-22] MEDS: carvediloL 12.5 MG TAB PO SCH ×2 (09:00→21:52)
[2020-10-22] MEDS: ASPIRIN 81 MG TAB.CHEW PO SCH (09:00)
[2020-10-22] MEDS: EPOETIN ALFA-EPBX 10,000 UNITS/ML VIAL SUBQ SCH (09:11)
[2020-10-22] MEDS: VIT-B COMP/VIT-C/FOLIC ACID 1 TAB PO SCH (09:12)
[2020-10-22] MEDS: CALCIUM ACETATE 667 MG TAB PO SCH ×3 (09:12→17:05)
--- NOTE | 2020-10-22 09:24 | NUR ---
ADMINISTERED SCHEDULED MEDICATIONS PER MD ORDER EXPECT ANTI-HTN MEDS DUE TO PT RECEIVING DIALYSIS. CHARRER IS AT BEDSIDE. EDUCATED PT ON MEDICATIONS MOA AND SIDE EFFECTS. PT VERBALIZED UNDERSTANDING. CHARRER IS AT BEDSIDE. CALL LIGHT IS WITHIN REACH AND SAFETY PRECAUTIONS ARE IN PLACE. WILL CONTINUE TO MONITOR.
[2020-10-22] MEDS: TOPIRAMATE 25 MG TAB PO SCH ×2 (09:30→21:56)
--- NOTE | 2020-10-22 11:05 | NUR ---
CHARGE NURSE JOVAN INSTRUCTED ME TO PLACE PT NPO FOR POSSIBLE PROCEDURE FROM MD SALAZAR.
--- NOTE | 2020-10-22 11:20 | NUR ---
HEMODIALYSIS COMPLETE WITH 2.5 LITERS OUT.VITAL SIGNS STABLE AND NO DISTRESS NOTED.
--- NOTE | 2020-10-22 11:41 | NUR ---
BLOOD SUGAR 153 MG/DL INSULIN COVERAGE GIVEN 2 UNITS AND SCHEDULED MEDICATION GIVEN.
--- NOTE | 2020-10-22 12:03 | NUR ---
NOTIFIED PT THAT SHE WAS NPO FOR POSSIBLE PROCEDURE. PT VERBALIZED UNDERSTANDING. SAFETY PRECAUTIONS ARE IN PLACE. WILL CONTINUE TO MONITOR.
--- NOTE | 2020-10-22 13:25 | NUR ---
PT COMPLAINED OF PAIN RATED A 10/10 AT ABDOMEN THAT IS CONSTANT AND IS WORSENED WITH MOVEMENT AND IT BECOMES MORE TOLERABLE WITH PAIN MEDICATIONS. IT RADIATES ALL OVER ABDOMEN. WILL COMMENCE PAIN MANAGEMENT WITH MEDICATIONS.
--- NOTE | 2020-10-22 13:56 | NUR ---
ADMINISTERED 4MG OF MORPHINE IVP. BP:157/77, NC:65 RR:21. EDUCATED PT ON MEDICATIONS MOA AND SIDE EFFECTS. PT VERBALIZED UNDERSTANDING AND HAD NO FURTHER QUESTIONS. SAFETY PRECAUTIONS ARE IN PLACE. CALL LIGHT IS WITHIN REACH WILL CONTINUE TO MONITOR.
--- NOTE | 2020-10-22 14:05 | NUR ---
ADMINSITERED SCHEDULED MEDICATIONS PER MD ORDER. BP WAS 157/77 MO:76. EDUCATION WAS GIVEN ABOUT MEDICATIONS. PT VERBALIZED UNDERSTANDING. WILL CONTINUE TO MONITOR.
--- NOTE | 2020-10-22 16:37 | NUR ---
ADMINISTERED 30MG OF HYDRALIZINE ORDERED BY . PT'S BP WAS 203/99, IA IS 71. WILL NOTIFY DOCTOR. Addendum: 10/22/20 at 1640 by Raquel Forte RN RN PTS SPOUSE IS AT BEDSIDE. THERE IS NO DISTRESS NOTED. CALL LIGHT IS WITHIN REACH. WILL RE ASSESS BP IN 30 MINUTES.
--- NOTE | 2020-10-22 16:43 | NUR ---
DR. KAY ACKNOWLEDGED BP OF 203/99, MT 71. WILL CONTINUE TO REASSESS PT.
--- NOTE | 2020-10-22 17:11 | NUR ---
ADMINISTERED SCHEDULED MEDICATIONS PER MD ORDER. EDUCATED PT AND SPOUSE ON MOA AND SIDE EFFECTS. PT VERBALIZED UNDERSTANDING. CALL LIGHT IS WITHIN REACH. SAFETY PRECAUTIONS ARE IN PLACE. WILL CONTINUE TO MONITOR.
[2020-10-22] MEDS ORDERED: MAGNESIUM CITRATE 300 ML BTL PO SCH (17:17)
[2020-10-22] MEDS ORDERED: SENNA 8.6 MG TAB PO SCH (17:18)
--- NOTE | 2020-10-22 17:36 | NUR ---
REASSESSED BP AND BP WAS 151/[address] WAS 67. HYDRALAZINE INTERVENTION WAS EFFECTIVE. WILL CONTINUE TO MONITOR.
--- NOTE | 2020-10-22 17:42 | NUR ---
AUTHORIZATION LETTER SIGNED BY PATIENT AND FAXED TO [facility] FAX # [phone] REQUESTING PATIENT EGD AND COLONOSCOPY REPORT DONE ON August. Addendum: 10/22/20 at 1744 by Mari Candelario RN REQUESTED BY DR FORTUNE
--- NOTE | 2020-10-22 17:47 | NUR ---
ADMINISTERED SCHEDULED MEDICATIONS PER MD ORDER. PT AND SPOUSE WERE EDUCATED ON MOA AND SIDE EFFECTS OF MEDICATIONS. PT VERBALIZED UNDERSTANDING AND HAD NO FURTHER QUESTIONS. PT IS NOT UNDER DISTRESS. WILL CONTINUE TO MONITOR.
--- NOTE | 2020-10-22 17:52 | NUR ---
PT REQUESTED ZOFRAN FOR NAUSEA. WILL ADMINISTER ZOFRAN.
[2020-10-22] MEDS: ERYTHROMYCIN 100 MG in NACL 0.9% 100 ML IV SCH (18:15)
--- NOTE | 2020-10-22 19:24 | NUR ---
ENDORSED PT TO NIGHT NURSE FOR CONTINUITY OF CARE.
--- NOTE | 2020-10-22 19:30 | NUR ---
RECEIVED REPORT FROM RN DAYSHIFT NURSE AT BEDSIDE FOR CONTINUITY OF CARE, PT IN STABLE CONDITION. SHE IS AOX4 ON ROOM AIR WITH SKIN INTACT. SHE HAS A LEFT UPPER AV SHUNT INTACT. PT HAS A 22G ON RIGHT HAND WHICH IS RUNNING ERYTHROMYCIN AT 100MLS/HR ORDERED.ALL UNIVERSAL FALLS PRECAUTIONS IN PLACE.
[2020-10-22 20:00] VITALS: BP 145/74
--- NOTE | 2020-10-22 20:05 | NUR ---
PT LYING IN BED FINGERSTICK IS 132. PT C/O OF VOMITING X1. WELL FEELING NAUSEA. IV ABT COMPLETED. V/S FOLLOWS: T 97.7 P 65 R 20 B/P 145/74 02 98% ON ROOM AIR . PT ALSO C/O OF HEADACHE AND PAIN IN THE ABDOMEN. /10 PAIN MEDICATED WITH MORPHINE 4 MG IVP.
[2020-10-22] MEDS: METOCLOPRAMIDE 10 MG/2 ML INJ VIAL IVP PRN (20:51)
--- NOTE | 2020-10-22 21:00 | NUR ---
SPOKE WITH MD PURCELL WHO WAS IN CALL FOR ROQUE CONNELLY TO RENEW ORDER OF REGLAN. PT GIVEN REGLAN FOR C/O OF NAUSEA AND VOMITING. WILL MONITOR FOR EFFECT.
--- NOTE | 2020-10-22 21:45 | NUR ---
PT WAS GIVEN ALL DUE MEDS AT THIS TIME. PT WANTED TO WAIT A WHILE TO LET THE REGLAN WORK BEFORE ATTEMPTING TO TAKE MEDS FOR FEAR OF VOMITING THEM. PT VERBALIZED UNDERSTANDING OF ALL SCHEDULED MEDS.
[2020-10-22] MEDS: AMITRIPTYLINE 25 MG TAB PO SCH (21:54)
[2020-10-22] MEDS: ATORVASTATIN 20 MG TAB PO SCH (21:55)
[2020-10-22] MEDS: tiZANidine 4 MG TAB PO SCH (21:56)
[2020-10-22] MEDS: GABAPENTIN 100 MG CAP PO SCH (21:56)
[2020-10-22] MEDS: POLYETHYLENE GLYCOL 17 GM/PKT PO SCH (21:57)
--- NOTE | 2020-10-23 00:15 | NUR ---
B/P REASSESSED IT IS 153/79. ALON LATHAM, WILL CONTINUE TO MONITOR PT FOR ANY REACTION,
--- NOTE | 2020-10-23 01:00 | NUR ---
PT UP AND AWAKE AND SITTING IN CHAIR, BOWEL PREP MEDS WERE GIVEN . PT STILL AWAITING TO HAVE BOWEL MOVEMENT.
[2020-10-23 04:00] VITALS: BP 177/100
--- NOTE | 2020-10-23 05:00 | NUR ---
VITAL SIGNS TAKEN, FOLLOWS: T 98.3 P 64 R 20 B/P 177/100 CONTACTED MD FOR PRN HTN ORDER. INTERIOR WIRER MD ORDERED HYDRALAZINE IVP FOR SBP OVER 160.
[2020-10-23] MEDS: SUMAtriptan succinate 6 MG/0.5 ML VIAL SUBQ PRN ×2 (05:35→16:15)
--- NOTE | 2020-10-23 05:35 | NUR ---
LAB CALLED CRITICAL REPORTED CREATINE 5.2. THIS IS TRENDING DOWN FROM 7.5.SHE IS A DIALYSIS PT .
[2020-10-23 05:49] LABS: BASOPHILS % (AUTO) 0.5 % (0.0-2.0); EOSINOPHILS # (AUTO) 0.1 K/uL (0-0.4); EOSINOPHILS % (AUTO) 3.8 % (0.0-4.0); HEMATOCRIT 28.2 % (36-48); HEMOGLOBIN 8.9 g/dL (12.0-16.0); LYMPHOCYTES # (AUTO) 1.2 K/uL (2.5-16.5); MEAN CORPUSCULAR HEMOGLOBIN 29 pg (27-31); MEAN CORPUSCULAR HGB CONC 32 g/dL (33-37); MEAN CORPUSCULAR VOLUME 89.9 fL (80-94); MONOCYTES # (AUTO) 0.2 K/uL (0.8-1.0); MONOCYTES % (AUTO) 6.7 % (1.7-9.3); NEUTROPHILS # (AUTO) 1.7 K/uL (1.8-7.7); PLATELET COUNT (AUTO) 257 K/uL (140-450); RED BLOOD CELL COUNT(AUTO) 3.13 MIL/uL (4.20-5.40); WHITE BLOOD COUNT (AUTO) 3.2 K/uL (4.8-10.8)
[2020-10-23 05:58] LABS: ANION GAP 8.7 (8-16); POTASSIUM 3.7 mmol/L (3.5-5.1)
[2020-10-23] MEDS: BLOOD GLUCOSE MONITORING 1 DEV DEV FS SCH ×4 (06:00→20:54)
[2020-10-23] MEDS: LEVOTHYROXINE 0.05 MG TAB PO SCH (06:00)
--- NOTE | 2020-10-23 06:00 | NUR ---
FINGERSTICK IS 94, NO HUMALOG COVERAGE NEEDED.
[2020-10-23] MEDS: ERYTHROMYCIN 100 MG in NACL 0.9% 100 ML IV SCH ×4 (06:01→12:40)
[2020-10-23] MEDS ORDERED: hydrALAZINE 20 MG/ML VIAL IVP PRN (06:25)
[2020-10-23 06:28] LABS: CREATININE 5.2 mg/dL (0.6-1.3)
[2020-10-23 06:41] LABS: MAGNESIUM 2.1 mg/dL (1.8-2.4); PHOSPHORUS 4.4 mg/dL (2.5-4.9)
--- NOTE | 2020-10-23 06:50 | NUR ---
PT GIVEN HYDRALAZINE IVP FOR SBP OVER 160.
--- NOTE | 2020-10-23 07:15 | NUR ---
RECEIVED REPORT FROM PUBLIC BATH ATTENDANT NURSE FOR CONTINUITY OF CARE. PT IS AWAKE AND ALERT, A&OX4. ON RA WITH BREATHING UNLABORED. PACEMAKER IN PLACE. PT IS AMBULATORY INDEPENDENTLY. PT IS ANURIC. SKIN IS WARM AND DRY. AV SHUNT IN THE LEFT UPPER ARM. IV IS IN THE RIGHT HAND 22 GAUGE SALINE LOCKED. PT IS STABLE. PLAN OF CARE DISCUSSED.
[2020-10-23 08:00] VITALS: BP 144/68
--- NOTE | 2020-10-23 08:13 | NUR ---
SPOKE TO TECH ON THE PHONE. SHE INFORMED ME THAT THERE NEEDED TO BE A SPECIFIC ORDER FOR US ABD LIMITED WITH ELISEO OF FLUID EVALUATION. SHE ALSO STATED THAT WE NEEDED TO DRAW LABS FOR PT/PTT/INR. ORDERS WERE PLACED. CALLED LAB TO DRAW LABS.
[2020-10-23] MEDS: METOCLOPRAMIDE 10 MG/2 ML INJ VIAL IVP PRN (08:30)
--- NOTE | 2020-10-23 08:30 | NUR ---
PT STATES SHE IS NAUSEOUS. PT WAS GIVEN REGLAN PRN FOR NAUSEA VIA IVP. NO EPISODES OF EMESIS THIS AM. WILL CONTINUE TO MONITOR FOR NAUSEA.
[2020-10-23] MEDS: POLYETHYLENE GLYCOL 17 GM/PKT PO SCH ×2 (08:33→16:16)
[2020-10-23] MEDS: carvediloL 12.5 MG TAB PO SCH ×2 (08:34→20:46)
[2020-10-23] MEDS: TOPIRAMATE 25 MG TAB PO SCH ×2 (08:34→20:45)
[2020-10-23] MEDS: VIT-B COMP/VIT-C/FOLIC ACID 1 TAB PO SCH (08:35)
[2020-10-23] MEDS: CALCIUM ACETATE 667 MG TAB PO SCH ×3 (08:35→16:13)
[2020-10-23] MEDS: CLONIDINE HYDROCHLORIDE 0.1 MG TAB PO SCH ×2 (08:35→20:44)
[2020-10-23] MEDS: ASPIRIN 81 MG TAB.CHEW PO SCH (08:39)
--- NOTE | 2020-10-23 08:40 | NUR ---
DID NOT ADMINISTER ASPIRIN OR HEPARIN FOR PARACENTESIS PROCEDURE TO BE DONE IN THE AM. WILL MONITOR FOR BLEEDING.
--- NOTE | 2020-10-23 08:52 | NUR ---
US TECH AT BEDSIDE TO PERFORM US ABD LIMITED FOR FLUID EVALUATION.
[2020-10-23] MEDS ORDERED: SENNA 8.6 MG TAB PO SCH (09:00)
[2020-10-23 09:52] LABS: PROTHROMBIN TIME 10.4 secs (10.8-13.4)
--- NOTE | 2020-10-23 10:30 | NUR ---
ROUNDED ON PT. SHE AMBULATED TO THE RESTROOM. GAIT WAS STEADY. NO RESPIRATORY DISTRESS NOTED ON RA. IV IS PATENT AND INTACT. DENIES PAIN OR HEADACHE AT THIS TIME.
[2020-10-23] MEDS: hydrALAZINE 10 MG TAB PO SCH ×3 (10:33→16:13)
[2020-10-23] MEDS: amLODIPine 5 MG TAB PO SCH (10:34)
--- NOTE | 2020-10-23 12:25 | NUR ---
US GUIDED PARACENTESIS IS COMPLETE. 5700 ML OF FLUID WAS COLLECTED. PT IS STABLE AT THIS TIME. STATES SHE IS HAVING SOME PAIN AT THE SITE ON THE RIGHT LOWER QUADRANT. NO BLEEDING, DRESSING INTACT. WILL MONITOR.
[2020-10-23] MEDS: MORPHINE SULFATE 4 MG/ML SYR IVP PRN (12:41)
--- NOTE | 2020-10-23 12:41 | NUR ---
PT STATES SHE IS HAVING PAIN IN HER ABDOMEN AT A SCALE OF 8/10. PT SAYS IT IS AN ACHING PAIN. PT WAS GIVEN MORPHINE ORDERED FOR PAIN. BP WAS 140/69 PRIOR TO ADMINISTRATION OF MEDICATION. WILL MONITOR PAIN.
--- NOTE | 2020-10-23 15:15 | NUR ---
PARACENTESIS FLUID SENT TO LAB. FOUR CONTAINERS WITH 4L TOTAL. CLEAR, YELLOW FLUID.
--- NOTE | 2020-10-23 15:30 | NUR ---
PT IS ASLEEP. CHEST RISE AND FALL IS SYMMETRICAL. NO PAIN OR DISTRESS NOTED. WILL CONTINUE TO MONITOR.
--- NOTE | 2020-10-23 15:58 | NUR ---
SPOKE TO DIALYSIS NURSE ON UNIT. INFORMED HER THAT PT IS SCHEDULED FOR DIALYSIS TOMORROW. SHE STATED SHE WOULD NOTIFY [facility].
[2020-10-23 16:00] VITALS: BP 133/57
--- NOTE | 2020-10-23 16:15 | NUR ---
PT STATED SHE WAS HAVING A MIGRAINE. PT WAS GIVEN IMITREX FOR HEADACHE. WILL MONITOR FOR HEADACHE.
--- NOTE | 2020-10-23 16:58 | NUR ---
[facility] NOTIFIED FOR PT'S HD SCHED FOR TOMORROW.
--- NOTE | 2020-10-23 18:00 | NUR ---
PT DENIES N/V OR ABD PAIN. PT ALSO DENIES HEADACHE AT THIS TIME. BREATHING IS UNLABORED. NO DISTRESS AT THIS TIME.
[2020-10-23 18:18] LABS: APPEARANCE,UNSPUN,BODY FLUID SLIGHTLY CLOUDY (CLEAR); SPECIMENTYPE,BODY FLUID THORACENTESIS
[2020-10-23 18:19] LABS: APPEARANCE,SPUN,BODY FLUID HAZY (CLEAR); COLOR,BODY FLUID LT YELLOW (LT YELLOW); TOTAL VOLUME,BODY FLUID 5700 mL
[2020-10-23 18:32] LABS: RBC, BODY FLUID 1 /cu. mm.; WBC, BODY FLUID 5 /cu. mm.
[2020-10-23 18:46] LABS: ALBUMIN,BODY FLUID 1.6 g/dL; GLUCOSE,BODY FLUID 106 mg/dL
[2020-10-23 18:47] LABS: LDH,BODY FLUID 108 U/L
--- NOTE | 2020-10-23 19:05 | NUR ---
ENDORSED PT TO BATTERY MECHANIC NURSE FOR CONTINUITY OF CARE. PT IS STABLE AT THIS TIME. PLAN OF CARE DISCUSSED.
--- NOTE | 2020-10-23 19:06 | NUR ---
RECD, RESTING IN BED, AWAKE, A/OX4. RESPIRATION EVEN AND UNLABORED. IV SALINE LOCK AT THE RIGHT HAND, PATENT AND INTACT. WITH AV SHUNT AT THE LEFT UPPER ARM. AMBULATES TO THE BR BY HERSELF. MEDICATIONS FOR THE NIGHT DISCUSSED WITH PATIENT, VERBALIZED UNDERSTANDING. DENIES PAIN 0/10.
[2020-10-23 19:25] LABS: LIPASE,BODY FLUID 35 U/L
[2020-10-23 20:00] VITALS: BP 118/57
--- NOTE | 2020-10-23 20:00 | NUR ---
Patient's Plan of Care was discussed and reviewed with TEXTILE CUTTING MACHINE OPERATOR: NEVAEH VERA LVN
[2020-10-23] MEDS: ATORVASTATIN 20 MG TAB PO SCH (20:43)
[2020-10-23] MEDS: GABAPENTIN 100 MG CAP PO SCH (20:43)
[2020-10-23] MEDS: tiZANidine 4 MG TAB PO SCH (20:43)
[2020-10-23] MEDS: AMITRIPTYLINE 25 MG TAB PO SCH (20:45)
[2020-10-23] MEDS: INSULIN LISPRO SLIDING SCALE 100 UNITS/ML VIAL SUBQ PRN (20:54)
--- NOTE | 2020-10-23 20:54 | NUR ---
SCHEDULED MEDICATIONS FOR THE NIGHT GIVEN. BS CHECKED - 157, INSULIN SLIDING SCALE COVERAGE GIVEN. SNACK FOR THE NIGHT GIVEN.
[2020-10-24] VITALS: BP 120/57
--- NOTE | 2020-10-24 | NUR ---
SLEEPING COMFORTABLY IN BED, RESPIRATION EVEN AND UNLABORED.
[2020-10-24] MEDS: MORPHINE SULFATE 2 MG/ML SYR IVP PRN ×4 (01:44→19:45)
--- NOTE | 2020-10-24 01:45 | NUR ---
PATIENT COMPLAINS ACHING PAIN /, BP 120/55, HR 62, PRN PAIN MEDICATION GIVEN ORDER. PATIENT TOLERATED WELL. PRECAUTION IN PLACE. CALL LIGHT WITHIN REACH. WILL CONTINUE TO MONITOR.
--- NOTE | 2020-10-24 02:00 | NUR ---
APPLE JUICE GIVEN REQUESTED. CALL LIGHT IN REACH.
[2020-10-24 04:00] VITALS: BP 132/65
[2020-10-24] MEDS: SUMAtriptan succinate 6 MG/0.5 ML VIAL SUBQ PRN (04:25)
--- NOTE | 2020-10-24 04:25 | NUR ---
COMPLAINED OF MIGRAINE 10, MEDICATED WITH IMITREX SUB-Q PER MD ORDER.
--- NOTE | 2020-10-24 05:25 | NUR ---
NO COMPLAINT OF MIGRAINE, PATIENT AT THE SINK DOING HER ORAL CARE.
[2020-10-24] MEDS: BLOOD GLUCOSE MONITORING 1 DEV DEV FS SCH ×4 (06:22→21:00)
[2020-10-24 07:04] LABS: CARBON DIOXIDE 30.4 mmol/L (21-32); POTASSIUM 4.4 mmol/L (3.5-5.1)
[2020-10-24 07:10] LABS: BASOPHILS % (AUTO) 1.1 % (0.0-2.0); EOSINOPHILS # (AUTO) 0.2 K/uL (0-0.4); EOSINOPHILS % (AUTO) 4.4 % (0.0-4.0); HEMATOCRIT 29.8 % (36-48); HEMOGLOBIN 9.5 g/dL (12.0-16.0); LYMPHOCYTES # (AUTO) 1.2 K/uL (2.5-16.5); MEAN CORPUSCULAR HEMOGLOBIN 29 pg (27-31); MEAN CORPUSCULAR HGB CONC 32 g/dL (33-37); MEAN CORPUSCULAR VOLUME 90.3 fL (80-94); MONOCYTES # (AUTO) 0.2 K/uL (0.8-1.0); MONOCYTES % (AUTO) 5.8 % (1.7-9.3); NEUTROPHILS # (AUTO) 1.9 K/uL (1.8-7.7); NEUTROPHILS % (AUTO) 54.7 % (42.2-75.2); PLATELET COUNT (AUTO) 270 K/uL (140-450); WHITE BLOOD COUNT (AUTO) 3.5 K/uL (4.8-10.8)
[2020-10-24 07:14] LABS: MAGNESIUM 2.4 mg/dL (1.8-2.4); PHOSPHORUS 5.4 mg/dL (2.5-4.9)
--- NOTE | 2020-10-24 07:29 | NUR ---
RECEIVE REPORT FROM PAINTER AIRBRUSH NURSE FOR CONTINUITY OF CARE. PATIENT IN BED TALKING ON PHONE. BREATHING IS EVEN AND UNLABORED. ALL SAFETY MEASURES IN PLACE WILL CONTINUE TO MONITOR.
[2020-10-24 07:47] LABS: CREATININE 6.9 mg/dL (0.6-1.3)
--- NOTE | 2020-10-24 07:58 | NUR ---
DIALYSIS NURSE AT BEDSIDE.
[2020-10-24] MEDS: LEVOTHYROXINE 0.05 MG TAB PO SCH (08:07)
[2020-10-24] MEDS: CALCIUM ACETATE 667 MG TAB PO SCH ×3 (08:13→17:36)
--- NOTE | 2020-10-24 08:30 | NUR ---
DIALYSIS NURSE STATED THAT SHE IS NOT ABLE TO DO DIALYSIS AT AV SHUNT WAS CLOGGED.
--- NOTE | 2020-10-24 08:35 | NUR ---
NOTIFY DR. CLARK OF AV SHUNT NOT WORK REQUEST FOR VASCULAR SURGEON. WILL NOTIFY DR. POWELL NEXT.
--- NOTE | 2020-10-24 08:38 | NUR ---
NOTIFY OF SITUATION AND DR. CLARK RECOMMENDATION. DR. POWELL REQUEST IR CONSULT.
[2020-10-24] MEDS: hydrALAZINE 10 MG TAB PO SCH ×3 (09:00→17:37)
[2020-10-24] MEDS: POLYETHYLENE GLYCOL 17 GM/PKT PO SCH (09:00)
--- NOTE | 2020-10-24 09:00 | NUR ---
DR. POWELL REQUEST FOR PATIENT TO BE TRANSFERRED TO [facility] FOR FURTHER EVALUATION.
[2020-10-24] MEDS: carvediloL 12.5 MG TAB PO SCH ×2 (10:10→21:00)
[2020-10-24] MEDS: CLONIDINE HYDROCHLORIDE 0.1 MG TAB PO SCH ×2 (10:11→11:41)
[2020-10-24] MEDS: TOPIRAMATE 25 MG TAB PO SCH ×2 (10:11→21:00)
[2020-10-24] MEDS: amLODIPine 5 MG TAB PO SCH (10:11)
[2020-10-24] MEDS: ASPIRIN 81 MG TAB.CHEW PO SCH (10:12)
[2020-10-24] MEDS: EPOETIN ALFA-EPBX 10,000 UNITS/ML VIAL SUBQ SCH (10:12)
[2020-10-24] MEDS: VIT-B COMP/VIT-C/FOLIC ACID 1 TAB PO SCH (10:12)
--- NOTE | 2020-10-24 11:15 | NUR ---
SOCIAL WORK CALLED TO NOTIFY THAT SHE WAS WORKING ON AUTHORIZATION TO [facility].
[2020-10-24 12:00] VITALS: BP 117/72
[2020-10-24] MEDS: INSULIN LISPRO SLIDING SCALE 100 UNITS/ML VIAL SUBQ PRN ×2 (12:27→17:35)
--- NOTE | 2020-10-24 14:00 | NUR ---
PATIENT IN BED WATCHING TV. BREATHING EVEN AND UNLABORED. ALL SAFETY MEASURES IN PLACE. WILL CONTINUE TO MONITOR.
--- NOTE | 2020-10-24 16:15 | NUR ---
PATIENT IN BED WATCHING TV. NO ACUTE DISTRESS NOTED. ALL SAFETY MEASURES IN PLACE. WILL CONTINUE TO MONITOR.
--- NOTE | 2020-10-24 18:40 | NUR ---
GISELLE CALLED FROM [facility] TO NOTIFY THAT THERE WAS A BED FOR PATIENT 591A. GISELLE STATED THAT PATIENT IS TO ENTER THROUGH ER TO REGISTER. Addendum: 10/24/20 at 2045 by Indigo Deluna RN RN [facility] NUMBER [phone]
--- NOTE | 2020-10-24 18:50 | NUR ---
JUNG NOTIFIED TO MEDICINE ASSISTANT PATIENT TO TRANSPORT TO [facility]. SPOKE WITH [place] WHICH GAVE AN ETA OF 1930 FOR PICKUP.
--- NOTE | 2020-10-24 19:25 | NUR ---
ENDORSED TO BAILIFF NURSE FOR CONTINUITY OF CARE. PATIENT STABLE. ALL SAFETY MEASURE IN PLACE.
--- NOTE | 2020-10-24 19:30 | NUR ---
RECEIVED BEDSIDE ENDORSEMENT FROM AM SHIFT RN. PATIENT IS AAOX4, ON ROOM AIR, C/O ABD PAIN 10/12, ENCOURAGED TO RELAX, WILL GIVE PAIN MED ORDERED, SAFETY MEASURES IN PLACE, PLAN OF CARE DISCHARGED, CALL LIGHT WITHIN REACH.
--- NOTE | 2020-10-24 19:50 | NUR ---
PT ON ROOM AIR WITH SPO2 OF 98%. PT IS IN NO RESPIRATORY DISTRESS AT THIS TIME.
--- NOTE | 2020-10-24 19:53 | NUR ---
PATIENT PICKED UP BY JUNG, NO DISTRESS, MORPHINE GIVEN AT 194 FOR C/O ABD PAIN 10/12. PATIENT TOOK HER CELLPHONE AND BLANKET. PT IS STABLE ON TRANSFER.
[2020-10-24 20:00] VITALS: BP 105/57
[2020-10-24] MEDS: AMITRIPTYLINE 25 MG TAB PO SCH (21:00)
[2020-10-24] MEDS: ATORVASTATIN 20 MG TAB PO SCH (21:00)
[2020-10-24] MEDS: GABAPENTIN 100 MG CAP PO SCH (21:00)
[2020-10-24] MEDS: tiZANidine 4 MG TAB PO SCH (21:00)
--- NOTE | 2020-10-24 21:00 | NUR ---
ALL SCHEDULED 21OO MEDS WERE NOT GIVEN BECAUSE THE PATIENT IS NOT IN THE UNIT/[facility], PATIENT WAS IN [facility] FOR DECLOGGING OF AV SHUNT.
[2020-10-25] MEDS: LEVOTHYROXINE 0.05 MG TAB PO SCH (06:30)
[2020-10-25] MEDS: BLOOD GLUCOSE MONITORING 1 DEV DEV FS SCH ×2 (07:17→11:30)
--- NOTE | 2020-10-25 07:30 | NUR ---
PATIENT IS NOT BACK FROM [facility], ENDORSED TO AM SHIFT RN.
--- NOTE | 2020-10-25 07:32 | NUR ---
RECEIVED PATIENT REPORT FROM TOUR COORDINATOR NURSE FOR CONTINUITY OF CARE. PATIENT IS STILL IN [facility].
[2020-10-25] MEDS: CALCIUM ACETATE 667 MG TAB PO SCH ×2 (08:00→12:00)
[2020-10-25] MEDS: hydrALAZINE 10 MG TAB PO SCH (08:44)
[2020-10-25] MEDS: VIT-B COMP/VIT-C/FOLIC ACID 1 TAB PO SCH (08:44)
[2020-10-25] MEDS: carvediloL 12.5 MG TAB PO SCH (08:44)
[2020-10-25] MEDS: ASPIRIN 81 MG TAB.CHEW PO SCH (08:44)
[2020-10-25] MEDS: POLYETHYLENE GLYCOL 17 GM/PKT PO SCH (08:44)
[2020-10-25] MEDS: TOPIRAMATE 25 MG TAB PO SCH (08:45)
[2020-10-25] MEDS: amLODIPine 5 MG TAB PO SCH (08:45)
--- NOTE | 2020-10-25 08:46 | NUR ---
UNABLE TO ASSESS PATIENT'S CONDITION AND GIVE SCHEDULED MEDICATIONS SINCE PT IS STILL OFF THE UNIT.
[2020-10-25] MEDS: CLONIDINE HYDROCHLORIDE 0.1 MG TAB PO SCH (09:00)
--- NOTE | 2020-10-25 10:29 | NUR ---
PT STILL OFF UNIT.
--- NOTE | 2020-10-25 12:17 | NUR ---
10/25/20 RD FOLLOW UP COMPLETED PLEASE REFER TO NUTRITION ASSESSMENT UNDER CARE ACTIVITY FOR ESTIMATED NUTRITIONAL NEEDS. 1. CURRENTLY OUT OF UNIT, DIET ORDER IS RENAL DIET 2. RD TO FOLLOW-UP 5-7 DAYS, LOW RISK SHELBIE BERKOWITZ, RD
--- NOTE | 2020-10-25 12:37 | NUR ---
PER INDUSTRIAL TECHNOLOGY TEACHER THAT PATIENT WILL NOT BE COMING BACK. PATIENT WILL BE DISCHARGED.
== END 2020-10-24 19:53 | disposition short-term general hospital (02) | DRG 393 ==
LOC: MED 10:09 → MMU 14:10 → MTU 17:00
PROC: 5A1D70Z Performance of Urinary Filtration, Intermittent, Less than 6 Hours Per Day (ICD-10-PCS; 2020-10-19)
PROC: 5A1D70Z Performance of Urinary Filtration, Intermittent, Less than 6 Hours Per Day (ICD-10-PCS; 2020-10-21)
PROC: 0W9G3ZZ Drainage of Peritoneal Cavity, Percutaneous Approach (ICD-10-PCS; principal; 2020-10-23)
PROC: 5A1D70Z Performance of Urinary Filtration, Intermittent, Less than 6 Hours Per Day (ICD-10-PCS; 2020-10-23)
DX: T18.2XXA Foreign body in stomach, initial encounter (principal); N17.0 Acute kidney failure with tubular necrosis; I50.43 Acute on chronic combined systolic (congestive) and diastolic (congestive) heart failure; E43 Unspecified severe protein-calorie malnutrition; N18.6 End stage renal disease; I13.2 Hypertensive heart and chronic kidney disease with heart failure and with stage 5 chronic kidney disease, or end stage renal disease; R18.8 Other ascites; E87.1 Hypo-osmolality and hyponatremia; T82.868A Thrombosis due to vascular prosthetic devices, implants and grafts, initial encounter; E03.9 Hypothyroidism, unspecified; E10.22 Type 1 diabetes mellitus with diabetic chronic kidney disease; E10.40 Type 1 diabetes mellitus with diabetic neuropathy, unspecified; E10.51 Type 1 diabetes mellitus with diabetic peripheral angiopathy without gangrene; E78.00 Pure hypercholesterolemia, unspecified; E83.39 Other disorders of phosphorus metabolism; E87.5 Hyperkalemia; G89.29 Other chronic pain; I25.10 Atherosclerotic heart disease of native coronary artery without angina pectoris; Z20.822 Contact with and (suspected) exposure to COVID-19; K72.90 Hepatic failure, unspecified without coma; J45.909 Unspecified asthma, uncomplicated; K92.9 Disease of digestive system, unspecified; G43.909 Migraine, unspecified, not intractable, without status migrainosus; M62.838 Other muscle spasm; E87.8 Other disorders of electrolyte and fluid balance, not elsewhere classified; E78.5 Hyperlipidemia, unspecified; D63.8 Anemia in other chronic diseases classified elsewhere; X58.XXXA Exposure to other specified factors, initial encounter; Y83.2 Surgical operation with anastomosis, bypass or graft as the cause of abnormal reaction of the patient, or of later complication, without mention of misadventure at the time of the procedure; Y92.239 Unspecified place in hospital as the place of occurrence of the external cause; Z79.4 Long term (current) use of insulin; Z79.891 Long term (current) use of opiate analgesic; Z86.16 Personal history of COVID-19; Z95.0 Presence of cardiac pacemaker; Y93.89 Activity, other specified; Y92.89 Other specified places as the place of occurrence of the external cause; Y99.8 Other external cause status; Z68.24 Body mass index [BMI] 24.0-24.9, adult
CPT/HCPCS: 36415; 49083; 70450; 74018; 76705; 80048; 80053; 82140; 82150; 82945; 82948; 83615; 83690; 83735; 83880; 84100; 84157; 84443; 84484; 84703; 85025; 85610; 85730; 87070; 87075; 87081; 87116; 87190; 87205; 87206; 88104; 88305; 88313; 88342; 89051; 90935; 93005; 96374; 96375; 96376; 99285; J0360; J1200; J1364; J1644; J1815; J2001; J2270; J2405; J2765; J3030; Q5106; U0003

== ENCOUNTER 2020-10-26 11:12 | Emergency (ER) | payer OTHER ==
[~2020-10-26] VITALS: Ht 152.4 cm; Wt 52.6 kg
[2020-10-26 11:19] VITALS: BP 129/55
[2020-10-26 13:41] LABS: BASOPHILS # (AUTO) 0.2 K/uL (0.00-0.22); BASOPHILS % (AUTO) 3.1 % (0.0-2.0); EOSINOPHILS # (AUTO) 0.1 K/uL (0-0.4); EOSINOPHILS % (AUTO) 2.6 % (0.0-4.0); HEMATOCRIT 27.8 % (36-48); HEMOGLOBIN 8.7 g/dL (12.0-16.0); LYMPHOCYTES # (AUTO) 0.5 K/uL (2.5-16.5); MEAN CORPUSCULAR HEMOGLOBIN 29 pg (27-31); MEAN CORPUSCULAR HGB CONC 31 g/dL (33-37); MEAN CORPUSCULAR VOLUME 90.8 fL (80-94); MONOCYTES # (AUTO) 0.3 K/uL (0.8-1.0); MONOCYTES % (AUTO) 5.7 % (1.7-9.3); NEUTROPHILS # (AUTO) 4.6 K/uL (1.8-7.7); NEUTROPHILS % (AUTO) 80.6 % (42.2-75.2); PLATELET COUNT (AUTO) 265 K/uL (140-450); RED BLOOD CELL COUNT(AUTO) 3.06 MIL/uL (4.20-5.40); WHITE BLOOD COUNT (AUTO) 5.7 K/uL (4.8-10.8)
[2020-10-26 13:54] LABS: ALBUMIN 2.3 g/dL (3.4-5.0); ANION GAP 7.9 (8-16); CARBON DIOXIDE 28.2 mmol/L (21-32); POTASSIUM 5.1 mmol/L (3.5-5.1); TOTAL BILIRUBIN 0.2 mg/dL (0.0-1.0)
[2020-10-26] MEDS ORDERED: MORPHINE SULFATE 2 MG/ML SYR IVP ONE (13:55)
[2020-10-26 13:57] LABS: CREATININE 6.1 mg/dL (0.6-1.3)
[2020-10-26] MEDS ORDERED: MORPHINE SULFATE 2 MG/ML SYR IM ONE (14:25)
[2020-10-26] MEDS ORDERED: IBUP-426 PO (15:11)
[2020-10-26 15:23] VITALS: BP 129/55
== END 2020-10-26 15:24 | disposition home or self-care (01) ==
LOC: MED 11:12
DX: G43.909 Migraine, unspecified, not intractable, without status migrainosus (principal); R10.9 Unspecified abdominal pain; J45.909 Unspecified asthma, uncomplicated; E11.9 Type 2 diabetes mellitus without complications; I10 Essential (primary) hypertension; Z98.890 Other specified postprocedural states; Z79.899 Other long term (current) drug therapy; Z79.82 Long term (current) use of aspirin
CPT/HCPCS: 36415; 80053; 83690; 84702; 84703; 85025; 96372; 99283; J2270

== ENCOUNTER 2020-10-28 17:14 | Emergency (ER) | payer OTHER ==
[~2020-10-28] VITALS: Ht 152.4 cm; Wt 58.1 kg
[~2020-10-28 17:14] MED LIST changes: +IBUP-426 PO
[2020-10-28 17:26] VITALS: BP 170/64
[2020-10-28] MEDS ORDERED: IMI25 PO ×2 (18:39→19:00)
[2020-10-28] MEDS ORDERED: MORPHINE SULFATE 2 MG/ML SYR IM ONE (18:40)
[2020-10-28] MEDS ORDERED: ONDANSETRON 4 MG ODT PO ONE (18:40)
[2020-10-28] MEDS ORDERED: TOP25 PO (19:00)
[2020-10-28] MEDS ORDERED: ONDANSETRON 4 MG ODT ONE (20:34)
[2020-10-28] MEDS ORDERED: MORPHINE SULFATE 2 MG/ML SYR ONE (20:34)
--- NOTE | 2020-10-28 20:34 | NUR ---
d/c with VSS. d/c education given. opportunity to ask questions given and answered. rx of imitrex and topamax
== END 2020-10-28 20:34 | disposition home or self-care (01) ==
LOC: MED 17:14
DX: G43.909 Migraine, unspecified, not intractable, without status migrainosus (principal); I10 Essential (primary) hypertension; J45.909 Unspecified asthma, uncomplicated; Z79.899 Other long term (current) drug therapy; E11.22 Type 2 diabetes mellitus with diabetic chronic kidney disease; N18.6 End stage renal disease; Z99.2 Dependence on renal dialysis; Z79.4 Long term (current) use of insulin
CPT/HCPCS: 96372; 99283; J2270; Q0162

== ENCOUNTER 2020-12-11 13:03 | Inpatient (IN) | payer OTHER ==
[~2020-12-11] VITALS: Ht 152.4 cm; Wt 56.2 kg
[~2020-12-11 13:03] MED LIST changes: +IMI25 PO; +TOP25 PO
[2020-12-11 13:49] VITALS: BP 153/85
--- NOTE | 2020-12-11 13:53 | NUR ---
PT TO AWAIT IN LOBBY
--- NOTE | 2020-12-11 14:00 | NUR ---
45 Y/O FEMALE C/O N/V X3 DAYS. WITH WATERY DIARRHEA. DENIES BLOOD IN STOOL. PT STATES 10/10 PAIN. ABD SOFT NON TENDER. ACTIVE BOWEL SOUNDS. DENIES ANY RECENT FEVER OR COUGH MEDHX: DIALYSIS TTHS, HTN, LT ARM SHUNT NKA
[2020-12-11] MEDS ORDERED: ONDANSETRON 4 MG/2 ML VIAL IVP ONE ×3 (14:25→21:30)
[2020-12-11] MEDS ORDERED: NACL 0.9% 1,000 ML IV SCH (14:25)
[2020-12-11 16:19] LABS: BASOPHILS % (AUTO) 1.1 % (0.0-2.0); EOSINOPHILS # (AUTO) 0.1 K/uL (0-0.4); HEMATOCRIT 29.3 % (36-48); HEMOGLOBIN 9.2 g/dL (12.0-16.0); LYMPHOCYTES # (AUTO) 0.9 K/uL (2.5-16.5); LYMPHOCYTES % (AUTO) 39.4 % (20.5-51.1); MEAN CORPUSCULAR HEMOGLOBIN 27 pg (27-31); MEAN CORPUSCULAR HGB CONC 31 g/dL (33-37); MEAN CORPUSCULAR VOLUME 84.5 fL (80-94); MONOCYTES # (AUTO) 0.2 K/uL (0.8-1.0); MONOCYTES % (AUTO) 9.4 % (1.7-9.3); NEUTROPHILS % (AUTO) 46.1 % (42.2-75.2); PLATELET COUNT (AUTO) 287 K/uL (140-450); RED BLOOD CELL COUNT(AUTO) 3.47 MIL/uL (4.20-5.40); RED CELL DISTRIBUTION WIDTH 18.1 % (11.6-13.7); WHITE BLOOD COUNT (AUTO) 2.3 K/uL (4.8-10.8)
[2020-12-11 16:44] LABS: ALBUMIN 1.9 g/dL (3.4-5.0); ANION GAP 10.7 (8-16); CARBON DIOXIDE 33.3 mmol/L (21-32); TOTAL BILIRUBIN 0.2 mg/dL (0.0-1.0)
--- NOTE | 2020-12-11 16:45 | NUR ---
Patient appears to be resting comfortably in bed. Vital Signs within normal limits. Respirations even and unlabored.
[2020-12-11 16:46] LABS: CREATININE 5.9 mg/dL (0.6-1.3)
--- NOTE | 2020-12-11 17:01 | NUR ---
PT TAKEN TO CT SCAN VIA W/C
[2020-12-11] MEDS ORDERED: MORPHINE SULFATE 4 MG/ML SYR IVP ONE ×2 (18:00→21:15)
[2020-12-11] MEDS ORDERED: ONDANSETRON 4 MG/2 ML VIAL ONE ×2 (18:02→21:30)
[2020-12-11] MEDS ORDERED: MORPHINE SULFATE 4 MG/ML SYR ONE (18:02)
[2020-12-11] MEDS ORDERED: LIDOCAINE/EPI 1% 1:100000 20 ML VIAL INJ ONE (18:40)
[2020-12-11] MEDS ORDERED: amLODIPine 5 MG TAB PO ONE (18:55)
[2020-12-11] MEDS ORDERED: CLONIDINE HYDROCHLORIDE 0.1 MG TAB PO ONE (18:55)
--- NOTE | 2020-12-11 19:00 | NUR ---
DR FANG AT BEDSIDE PERFORMING PROCEDURE
--- NOTE | 2020-12-11 19:30 | NUR ---
Pt report given to SHELBIE CARY. Transfer of care at this time.
--- NOTE | 2020-12-11 19:30 | NUR ---
REPORT RECIEVED FROM RAEANN ASH FOR CONTINUITY OF CARE.
--- NOTE | 2020-12-11 19:35 | NUR ---
BODY FLUID CELL COUNT AND CULTURE OF PARACENTESIS COLLECTED AND TAKEN TO LAB.
[2020-12-11 20:14] LABS: GLUCOSE,BODY FLUID 78 mg/dL
[2020-12-11 20:43] LABS: APPEARANCE,SPUN,BODY FLUID CLEAR (CLEAR); APPEARANCE,UNSPUN,BODY FLUID HAZY (CLEAR); COLOR,BODY FLUID LT YELLOW (LT YELLOW); SPECIMENTYPE,BODY FLUID PARACENTESIS
[2020-12-11 20:44] LABS: POLYNUCLEAR, BODY FLUID 29 %; RBC, BODY FLUID 40 /cu. mm.; WBC, BODY FLUID 200 /cu. mm.
[2020-12-11 20:45] LABS: TOTAL VOLUME,BODY FLUID 20 mL
[2020-12-11 21:31] LABS: FREE T4 (FREE THYROXINE) 1.14 ng/dL (0.76-1.46); THYROID STIMULATING HORMONE 3.93 uIU/mL (0.34-3.74)
[2020-12-11] MEDS ORDERED: POTASSIUM CHLORIDE 10 MEQ TABER PO PRN (22:05)
[2020-12-11] MEDS ORDERED: INSULIN LISPRO SLIDING SCALE 100 UNITS/ML VIAL SUBQ PRN (22:05)
[2020-12-11] MEDS ORDERED: guaiFENesin DM 200/20 MG-10 ML 10 ML UDC PO PRN (22:05)
[2020-12-11] MEDS ORDERED: ZOLPIDEM 5 MG TAB PO PRN (22:05)
[2020-12-11] MEDS ORDERED: ACETAMINOPHEN 325 MG TAB PO PRN (22:05)
[2020-12-11] MEDS ORDERED: DEXTROSE 50% 50 ML SYR IVP PRN (22:05)
[2020-12-11] MEDS ORDERED: DOCUSATE SODIUM 100 MG GELCAP PO PRN (22:05)
[2020-12-11] MEDS ORDERED: SUMAtriptan succinate 25 MG TAB PO PRN (22:05)
--- NOTE | 2020-12-11 22:05 | NUR ---
PT AMBULATED TO RESTROOM AND BACK TO BED WITH STEADY ANG EVEN GAIT. DENIES DIZZINESS OR LIGHTHEADEDNESS.
[2020-12-11] MEDS ORDERED: hydrALAZINE 20 MG/ML VIAL IVP PRN (22:10)
[2020-12-11 22:24] LABS: PROTHROMBIN TIME 10.5 secs (10.8-13.4)
--- NOTE | 2020-12-11 22:33 | NUR ---
XRAY AT BEDSIDE.
[2020-12-11] MEDS: carvediloL 12.5 MG TAB PO SCH (22:41)
[2020-12-11 22:45] LABS: AMYLASE 15 U/L (25-115); HDL CHOLESTEROL 23 mg/dL (40-60); PHOSPHORUS 5.4 mg/dL (2.5-4.9); TRIGLYCERIDES 151 mg/dL (30-150)
[2020-12-11 23:15] LABS: CHOL/HDL RATIO 3.9 (1-4.5); LDL (CALC) 36 mg/dL (60-100)
--- NOTE | 2020-12-12 01:08 | NUR ---
Patient appears to be resting comfortably in bed, EYES CLOSED. Vital Signs within normal limits. Respirations even and unlabored. NO NOTED SIGNS OF DISTRESS. WILL CONTINUE TO MONITOR.
[2020-12-12] MEDS: HYDROcodone/APAP 7.5/325 MG 1 TAB PO PRN ×3 (01:28→16:46)
--- NOTE | 2020-12-12 05:06 | NUR ---
MRSA OF NARES SWAB COLLECTED AND TAKEN TO LAB.
[2020-12-12] MEDS: BLOOD GLUCOSE MONITORING 1 DEV DEV FS SCH ×4 (06:33→20:58)
--- NOTE | 2020-12-12 06:34 | NUR ---
ACCUCHECK 63. PROVIDED PT APPLE JUICE X 2 PER CLEAR LIQUID DIET ORDERS.
[2020-12-12 06:46] LABS: EOSINOPHILS # (AUTO) 0.1 K/uL (0-0.4); EOSINOPHILS % (AUTO) 5.7 % (0.0-4.0); HEMATOCRIT 28.7 % (36-48); HEMOGLOBIN 9.3 g/dL (12.0-16.0); LYMPHOCYTES # (AUTO) 0.9 K/uL (2.5-16.5); LYMPHOCYTES % (AUTO) 37.3 % (20.5-51.1); MEAN CORPUSCULAR HEMOGLOBIN 27 pg (27-31); MEAN CORPUSCULAR HGB CONC 32 g/dL (33-37); MEAN CORPUSCULAR VOLUME 82.5 fL (80-94); MONOCYTES # (AUTO) 0.2 K/uL (0.8-1.0); NEUTROPHILS # (AUTO) 1.2 K/uL (1.8-7.7); PLATELET COUNT (AUTO) 248 K/uL (140-450); RED BLOOD CELL COUNT(AUTO) 3.48 MIL/uL (4.20-5.40); RED CELL DISTRIBUTION WIDTH 18.2 % (11.6-13.7); WHITE BLOOD COUNT (AUTO) 2.4 K/uL (4.8-10.8)
--- NOTE | 2020-12-12 07:06 | NUR ---
PT REPORTS RETURN OF PAIN, 09/12. WILL ADMINISTER PRN MEDICATION ORDERED.
[2020-12-12 07:10] LABS: ANION GAP 11.6 (8-16); CARBON DIOXIDE 29.9 mmol/L (21-32); POTASSIUM 4.5 mmol/L (3.5-5.1)
--- NOTE | 2020-12-12 07:16 | NUR ---
REPORT GIVEN TO RAEANN ARELLANO FOR CONTINUITY OF CARE.
--- NOTE | 2020-12-12 07:20 | NUR ---
Report received from Alice CARY, assume care at this time.
[2020-12-12 07:23] LABS: CREATININE 6.3 mg/dL (0.6-1.3)
--- NOTE | 2020-12-12 07:39 | NUR ---
Patient appears to be resting comfortably in bed, audible snoring noted. Arousable to voice, VSS within normal limits. Respirations even and unlabored. Will continue to monitor.
--- NOTE | 2020-12-12 08:10 | NUR ---
Blood sugar rechecked, 98.
--- NOTE | 2020-12-12 08:14 | NUR ---
Patient will be admitted to care of Dr. Apodaca. Admited to Med/Surg. Will go to room 104B. Belongings list completed. Report to Kj.
--- NOTE | 2020-12-12 08:25 | NUR ---
RECEIVED REPORT FROM ER NURSE, PT IS 45 YEARS OLD FEMALE, CAME WITH COMPLAIN OF NAUSEA, VOMITING, DIARRHEA. DENIES SOB OR DISTRESS. HX OF HTN, HEART PROBLEM, KIDNEY FAILURE, ON DIALYSIS. PT HAS AV SHUNT ON LEFT UPPER ARM. HX OF DIABETES. MENTAL STATUS X 4 CLEAR DIET. IV ACCESS ON RIGHT AC 20 GAUGE.
--- NOTE | 2020-12-12 08:40 | NUR ---
PT CAME TO THE UNIT VIA WHEEL CHAIR, DIRECTED TO THE ROOM ALL BELONGING GIVEN TO THE PT, CHANGE THE GOWN, BLANKET AND PILLOW GIVEN. ASSESS VITALS, PT DENIES PAIN OR DISCOMFORT. MRSA SAMPLE TAKEN, CALL LIGHT WITH IN REACH ALL SAFETY MEASURES IN PLACED.
[2020-12-12] MEDS: CLONIDINE HYDROCHLORIDE 0.1 MG TAB PO SCH ×2 (09:00→20:58)
[2020-12-12] MEDS: amLODIPine 5 MG TAB PO SCH (09:00)
[2020-12-12] MEDS: hydrALAZINE 10 MG TAB PO SCH ×3 (09:00→16:52)
[2020-12-12] MEDS: carvediloL 12.5 MG TAB PO SCH ×2 (09:00→21:00)
[2020-12-12] MEDS: ASPIRIN 81 MG TAB.CHEW PO SCH (09:00)
--- NOTE | 2020-12-12 09:05 | NUR ---
PATIENT HAS BEEN SCREENED AND CATEGORIZED HIGH NUTRITION RISK. PATIENT WILL BE SEEN WITHIN 1-2 DAYS OF ADMISSION. 12/12/20-12/13/[address]
--- NOTE | 2020-12-12 10:00 | NUR ---
DIALYSIS NURSE CAME TO DO DIALYSIS ON PT. PT WAS INFORMED OF DIALYSIS NURSE ARRIVAL, GIVEN ALL SUPPLIES TO DIALYSIS NURSE. PT IS READY FOR DIALYSIS.
--- NOTE | 2020-12-12 10:19 | NUR ---
HELD BLOOD PRESSURE MEDICATIONS PT IS HAVING DIALYSIS.
[2020-12-12] MEDS: ATORVASTATIN 20 MG TAB PO SCH (10:31)
[2020-12-12] MEDS: LEVOTHYROXINE 0.05 MG TAB PO SCH (10:31)
[2020-12-12] MEDS: PANTOPRAZOLE 40 MG TABEC PO SCH (10:31)
--- NOTE | 2020-12-12 10:35 | NUR ---
ADMINISTERED ALL OTHER SCHEDULE MEDICATION EXCEPT FOR BP MEDICATIONS.
--- NOTE | 2020-12-12 11:30 | NUR ---
BLOOD SUGAR 96 NO INSULIN COVERAGE NEED. PT IS HAVING DIALYSIS AT THE MOMENT.
--- NOTE | 2020-12-12 13:19 | NUR ---
HELD BLOOD PRESSURE MEDICATIONS PT IS HAVING DIALYSIS AT THE MOMENT.
--- NOTE | 2020-12-12 14:30 | NUR ---
DIALYSIS WAS DONE 2.5 LITTER OF FLUID TAKEN OUT, PT IS SLEEPING IN THE BED NO S/S OF PAIN NOTED, NO SOB NOTED. AV SHUNT SITE IS DRESSED BY THE DIALYSIS NURSE, NO BLEEDING OR DRAINAGE NOTED AROUND THE SHUNT SITE. WILL CONTINUE TO ASSESS THE PT FOR S/S OF BLEEDING.
--- NOTE | 2020-12-12 14:44 | NUR ---
12/12/20 RD INITIAL ASSESSMENT COMPLETED PLEASE REFER TO NUTRITION ASSESSMENT UNDER CARE ACTIVITY FOR ESTIMATED NUTRITIONAL NEEDS. 1. CONTINUE CLEAR LIQUID DIET TOLERATED 2. IF AND WHEN MEDICALLY CLEAR ADVANCE TO RENAL AND CCHO DIET. 3. RD TO FOLLOW-UP 3-5 DAYS, MODERATE RISK SHELBIE BERKOWITZ, RD
--- NOTE | 2020-12-12 15:30 | NUR ---
PT IS SLEEPING IN THE BED APPLE JUICE GIVEN.
[2020-12-12 16:15] VITALS: BP 137/83
[2020-12-12] MEDS: ONDANSETRON 4 MG/2 ML VIAL IM/IVP PRN (16:41)
--- NOTE | 2020-12-12 16:55 | NUR ---
PT REPORTED PAIN 6/10 MEDICATED WITH NORCO, BLOOD SUGAR IS 70 APPLE JUICE GIVEN. PT REPORTED NAUSEA MEDICATED WITH ZOFRAN. BLOOD PRESSURE 155/89 HR 101. MEDICATED WITH BLOOD PRESSURE MEDICATION.
[2020-12-12 17:34] VITALS: BP 155/89
--- NOTE | 2020-12-12 19:31 | NUR ---
endorsed the night nurse for continuity of care. pt is stable
--- NOTE | 2020-12-12 19:32 | NUR ---
RECEIVED PT AWAKE ON BED, AAOX4, ABLE TO MAKE NEEDS KNOWN, DENIES ANY PAIN, NO N/V AT THIS TIME, PLAN OF CARE DISCUSSED, SAFETY MEASURES IN PLACE, CALL LIGHT WITHIN REACH.
[2020-12-12 20:00] VITALS: BP 104/64
[2020-12-12] MEDS: GABAPENTIN 100 MG CAP PO SCH (20:31)
--- NOTE | 2020-12-12 20:35 | NUR ---
BLOOD SUGAR CHECKED WITH 78 RESULT, CRANBERRY JUICE PROVIDED, TOLERATED WELL, DUE MEDICATION ADMINISTERED, ALL NEEDS ATTENDED.
--- NOTE | 2020-12-13 01:00 | NUR ---
PT SLEEPING, NO SIGNS OF DISTRESS, CONTINUE TO MONITOR CLOSELY.
[2020-12-13 04:00] VITALS: BP 162/71
[2020-12-13] MEDS: ONDANSETRON 4 MG/2 ML VIAL IM/IVP PRN (05:57)
[2020-12-13] MEDS: BLOOD GLUCOSE MONITORING 1 DEV DEV FS SCH ×4 (05:59→21:04)
--- NOTE | 2020-12-13 06:00 | NUR ---
PT WITH N/V NOTED, MEDICATED PRN WITH ZOFRAN IVP, PT ALSO COMPLAINING OF ABDOMINAL PAIN, WILL WAIT UNTIL N/V IS RESOLVED BEFORE GIVING NORCO, PT IS AWARE, MONITORED CLOSELY.
--- NOTE | 2020-12-13 07:27 | NUR ---
PT SLEEPING, NO SIGNS OF DISTRESS, REPORT GIVEN TO RAEANN ALDANA FOR CONTINUITY OF CARE.
[2020-12-13 07:48] LABS: BASOPHILS % (AUTO) 0.4 % (0.0-2.0); EOSINOPHILS # (AUTO) 0.1 K/uL (0-0.4); HEMATOCRIT 31.2 % (36-48); HEMOGLOBIN 9.9 g/dL (12.0-16.0); LYMPHOCYTES # (AUTO) 0.8 K/uL (2.5-16.5); LYMPHOCYTES % (AUTO) 32.6 % (20.5-51.1); MEAN CORPUSCULAR HEMOGLOBIN 27 pg (27-31); MEAN CORPUSCULAR HGB CONC 32 g/dL (33-37); MEAN CORPUSCULAR VOLUME 83.9 fL (80-94); MONOCYTES # (AUTO) 0.2 K/uL (0.8-1.0); MONOCYTES % (AUTO) 6.6 % (1.7-9.3); NEUTROPHILS # (AUTO) 1.3 K/uL (1.8-7.7); NEUTROPHILS % (AUTO) 54.4 % (42.2-75.2); PLATELET COUNT (AUTO) 252 K/uL (140-450); RED BLOOD CELL COUNT(AUTO) 3.72 MIL/uL (4.20-5.40); RED CELL DISTRIBUTION WIDTH 18.1 % (11.6-13.7); WHITE BLOOD COUNT (AUTO) 2.4 K/uL (4.8-10.8)
[2020-12-13 08:00] VITALS: BP 160/69
--- NOTE | 2020-12-13 08:00 | NUR ---
RECEIVED REPORT FROM FUR MIXER OPERATOR FOR CONTINUITY OF CARE. PATIENT ALERT AWAKE ORIENTED X4, NOT IN DISTRESS NOTED. WITH NAUSEA NOTED. HEPLOCK ON THE RIGHT AC G. 20 DRY AND INTACT. MEDICATION FOR NAUSEA GIVEN BY FUR MIXER OPERATOR, MADE AWARE THAT IT'S NOT DUE YET. NEEDS ATTENDED, WILL CONTINUE TO MONITOR.
[2020-12-13] MEDS: ATORVASTATIN 20 MG TAB PO SCH (09:08)
[2020-12-13] MEDS: carvediloL 12.5 MG TAB PO SCH ×2 (09:08→21:08)
[2020-12-13] MEDS: CLONIDINE HYDROCHLORIDE 0.1 MG TAB PO SCH ×2 (09:10→21:07)
[2020-12-13] MEDS: TOPIRAMATE 25 MG TAB PO PRN (09:11)
[2020-12-13] MEDS: hydrALAZINE 10 MG TAB PO SCH ×3 (09:11→18:25)
[2020-12-13] MEDS: PANTOPRAZOLE 40 MG TABEC PO SCH (09:11)
[2020-12-13] MEDS: LEVOTHYROXINE 0.05 MG TAB PO SCH (09:11)
[2020-12-13] MEDS: amLODIPine 5 MG TAB PO SCH (09:11)
[2020-12-13] MEDS: ASPIRIN 81 MG TAB.CHEW PO SCH (09:12)
[2020-12-13] MEDS: VIT-B COMP/VIT-C/FOLIC ACID 1 TAB PO SCH (09:12)
[2020-12-13] MEDS ORDERED: METOCLOPRAMIDE 10 MG/2 ML INJ VIAL IVP PRN (10:25)
[2020-12-13 10:35] LABS: ANION GAP 13.1 (8-16); CARBON DIOXIDE 28.8 mmol/L (21-32); POTASSIUM 3.9 mmol/L (3.5-5.1)
[2020-12-13 10:37] LABS: CREATININE 4.9 mg/dL (0.6-1.3)
[2020-12-13] MEDS: MORPHINE SULFATE 2 MG/ML SYR IVP PRN (11:56)
[2020-12-13 12:10] LABS: T4 (THYROXINE) 6.5 ug/dL (4.5-12.0)
--- NOTE | 2020-12-13 13:43 | NUR ---
SEEN BY DR. CLARK, WITH ORDER FOR DIALYSIS TMW. NOTIFIED SOOD AND MADE AWARE.
[2020-12-13 16:00] VITALS: BP 117/99
[2020-12-13] MEDS: HYDROcodone/APAP 7.5/325 MG 1 TAB PO PRN (18:25)
--- NOTE | 2020-12-13 19:30 | NUR ---
REPORT GIVEN TO RAEANN GOFF FOR CONTINUITY OF CARE. PATIENT IN STABLE CONDITION.
--- NOTE | 2020-12-13 19:36 | NUR ---
RECEIVED PT AWAKE ON BED, AAOX4, ABLE TO MAKE NEEDS KNOWN, DENIES ANY PAIN, NO N/V AT THIS TIME, TOLERATING RENAL DIET, PLAN OF CARE DISCUSSED, SAFETY MEASURES IN PLACE, CALL LIGHT WITHIN REACH.
[2020-12-13 20:00] VITALS: BP 138/64
[2020-12-13] MEDS: GABAPENTIN 100 MG CAP PO SCH (21:08)
--- NOTE | 2020-12-13 21:10 | NUR ---
BLOOD SUGAR CHECKED WITH 91 RESULT, BEDTIME SNACK PROVIDED, TOLERATED WELL, DUE MEDS ADMINISTERED, ALL NEEDS ATTENDED.
[2020-12-14] MEDS: MORPHINE SULFATE 2 MG/ML SYR IVP PRN ×2 (02:49→10:41)
--- NOTE | 2020-12-14 02:49 | NUR ---
PT COMPLAINING OF ABDOMINAL PAIN, OFFERED NORCO BUT PT PREFER MORPHINE, MORPHINE IVP GIVEN, NO N/V AT THIS TIME, MONITORED CLOSELY.
[2020-12-14 04:00] VITALS: BP 145/58
--- NOTE | 2020-12-14 06:00 | NUR ---
PT SLEEPING, EASILY AROUSABLE, BLOOD SUGAR CHECK WITH 84 RESULT, DENIES ANY PAIN AND NO N/V NOTED, FOR HEMODIALYSIS TODAY, MONITORED CLOSELY.
[2020-12-14] MEDS: BLOOD GLUCOSE MONITORING 1 DEV DEV FS SCH ×2 (06:42→12:11)
--- NOTE | 2020-12-14 07:25 | NUR ---
PT SLEEPING, NO SIGNS OF DISTRESS, REPORT GIVEN TO RN YUNI FOR CONTINUITY OF CARE.
[2020-12-14 07:28] LABS: BASOPHILS % (AUTO) 0.4 % (0.0-2.0); EOSINOPHILS # (AUTO) 0.2 K/uL (0-0.4); EOSINOPHILS % (AUTO) 6.7 % (0.0-4.0); HEMATOCRIT 30.5 % (36-48); HEMOGLOBIN 9.6 g/dL (12.0-16.0); LYMPHOCYTES # (AUTO) 0.8 K/uL (2.5-16.5); LYMPHOCYTES % (AUTO) 32.7 % (20.5-51.1); MEAN CORPUSCULAR HEMOGLOBIN 26 pg (27-31); MEAN CORPUSCULAR HGB CONC 32 g/dL (33-37); MEAN CORPUSCULAR VOLUME 83.5 fL (80-94); MONOCYTES # (AUTO) 0.2 K/uL (0.8-1.0); NEUTROPHILS # (AUTO) 1.3 K/uL (1.8-7.7); NEUTROPHILS % (AUTO) 53.2 % (42.2-75.2); PLATELET COUNT (AUTO) 249 K/uL (140-450); RED BLOOD CELL COUNT(AUTO) 3.66 MIL/uL (4.20-5.40); RED CELL DISTRIBUTION WIDTH 17.9 % (11.6-13.7); WHITE BLOOD COUNT (AUTO) 2.5 K/uL (4.8-10.8)
--- NOTE | 2020-12-14 07:30 | NUR ---
received pt AAOx4. no SOB noted. no c/o pain at this time. instructed pt to call for assistance, call light within reach, pt verbalized understanding.
[2020-12-14 08:00] VITALS: BP 150/71
[2020-12-14 08:59] LABS: ANION GAP 16.2 (8-16); CARBON DIOXIDE 25.2 mmol/L (21-32); POTASSIUM 4.4 mmol/L (3.5-5.1)
[2020-12-14] MEDS: CLONIDINE HYDROCHLORIDE 0.1 MG TAB PO SCH (09:00)
[2020-12-14] MEDS: amLODIPine 5 MG TAB PO SCH (09:00)
[2020-12-14] MEDS: carvediloL 12.5 MG TAB PO SCH (09:00)
[2020-12-14] MEDS: hydrALAZINE 10 MG TAB PO SCH (09:00)
[2020-12-14] MEDS ORDERED: EPOETIN ALFA-EPBX 10,000 UNITS/ML VIAL SUBQ SCH (09:00)
[2020-12-14 09:13] LABS: CREATININE 6.1 mg/dL (0.6-1.3)
--- NOTE | 2020-12-14 09:25 | NUR ---
HD on going at the bedside as ordered.
[2020-12-14] MEDS: PANTOPRAZOLE 40 MG TABEC PO SCH (09:27)
[2020-12-14] MEDS: ATORVASTATIN 20 MG TAB PO SCH (09:27)
[2020-12-14] MEDS: ASPIRIN 81 MG TAB.CHEW PO SCH (09:27)
[2020-12-14] MEDS: LEVOTHYROXINE 0.05 MG TAB PO SCH (09:28)
[2020-12-14] MEDS: TOPIRAMATE 25 MG TAB PO PRN (09:28)
[2020-12-14] MEDS: VIT-B COMP/VIT-C/FOLIC ACID 1 TAB PO SCH (09:32)
[2020-12-14] MEDS ORDERED: METO-485 PO (12:48)
[2020-12-14] MEDS ORDERED: NEP PO (12:48)
--- NOTE | 2020-12-14 13:30 | NUR ---
HD COMPLETED, 2.6 LITERS OUT. PT TOLERATED PROCEDURE WELL.
--- NOTE | 2020-12-14 14:30 | NUR ---
DISCHARGE INSTRUCTIONS GIVEN TO PT WHICH VERBALIZED FULL UNDERSTANDING OF THE INSTRUCTIONS AND THE NEED TO FOLLOW UP WITH ON PCP IN 3-5 DAYS. PT ALSO MADE AWARE THAT HER SCRIPTS WERE SENT TO PREFERRED PHARMACY. ARM BANDS AND IV REMOVED, CANNULA TIP INTACT. PT WHEELED TO THE FRONT LOBBY IN STABLE CONDITION. NO SOB NOTED NO COMPLAINTS MADE. PT IS D/C HOME WITH FAMILY.
== END 2020-12-14 14:20 | disposition home or self-care (01) | DRG 393 ==
LOC: MED 13:03 → MMU 21:52 → MTU 12-12 04:50
PROVIDERS: ADMIT Family Medicine; ATTEND Family Medicine
PROC: 0W9G3ZZ Drainage of Peritoneal Cavity, Percutaneous Approach (ICD-10-PCS; principal; 2020-12-11)
PROC: 5A1D70Z Performance of Urinary Filtration, Intermittent, Less than 6 Hours Per Day (ICD-10-PCS; 2020-12-12)
PROC: 5A1D70Z Performance of Urinary Filtration, Intermittent, Less than 6 Hours Per Day (ICD-10-PCS; 2020-12-13)
DX: K92.89 Other specified diseases of the digestive system (principal); N18.6 End stage renal disease; E43 Unspecified severe protein-calorie malnutrition; N17.0 Acute kidney failure with tubular necrosis; I13.2 Hypertensive heart and chronic kidney disease with heart failure and with stage 5 chronic kidney disease, or end stage renal disease; R18.8 Other ascites; E11.51 Type 2 diabetes mellitus with diabetic peripheral angiopathy without gangrene; I25.10 Atherosclerotic heart disease of native coronary artery without angina pectoris; I50.9 Heart failure, unspecified; E78.5 Hyperlipidemia, unspecified; E78.00 Pure hypercholesterolemia, unspecified; J45.909 Unspecified asthma, uncomplicated; E11.22 Type 2 diabetes mellitus with diabetic chronic kidney disease; E03.9 Hypothyroidism, unspecified; Z99.2 Dependence on renal dialysis; Z86.16 Personal history of COVID-19; Z95.0 Presence of cardiac pacemaker; Z68.24 Body mass index [BMI] 24.0-24.9, adult; Z90.49 Acquired absence of other specified parts of digestive tract; Z79.899 Other long term (current) drug therapy; Z79.82 Long term (current) use of aspirin; Z98.891 History of uterine scar from previous surgery; Z89.422 Acquired absence of other left toe(s); Z98.51 Tubal ligation status
CPT/HCPCS: 36415; 71045; 80048; 80053; 82150; 82945; 82948; 83036; 83690; 83735; 83880; 84100; 84157; 84436; 84439; 84443; 84479; 84484; 84703; 85025; 85610; 85730; 87070; 87075; 87081; 87205; 89051; 90935; 93005; 96374; 96375; 96376; 99285; J1815; J2001; J2270; J2405; Q0092; Q5106; Q9967

== ENCOUNTER 2021-02-20 10:26 | Inpatient (IN) | payer OTHER, SELFPAY ==
[~2021-02-20] VITALS: Ht 152.4 cm; Wt 59.0 kg
[~2021-02-20 10:26] MED LIST changes: -ACET-8386 PO; -HUMSLIDE SUBQ; -HYDR-5092 PO; -IBUP-426 PO; +METO-485 PO; +NEP PO; +ONDA-188 PO; -ONDA-24 PO; -ONDA-24 SL; -PROM118S5 PO; -TIZA4TAB11 PO
[2021-02-20 10:38] VITALS: BP 152/104
--- NOTE | 2021-02-20 10:48 | NUR ---
PT AMBULATED TO ER BED 2 WITH A STEADY GAIT USING CANE ASSISTANCE.
--- NOTE | 2021-02-20 10:55 | NUR ---
45 Y/O FEMALE C/O COUGH, FACIAL PAIN RADIATING TO LEFT SIDE JAW, SORETHROAT [id number]. PT STATES SHE HAS ABD PAIN X4DAYS WITH +N/ X2DAYS. PT STATES SHE TOOK TYNENOL WITH NO RELIEF. DENIES FEVER/CHILLS. ABDOMEN IS SOFT, ROUND, NON-TENDER TO PALPATION, BOWEL SOUNDS ACTIVE X4, LAST BM 02/18/21. PT HAD PCP APPT FOR TOOTH PAIN AND PARACENTESIS, MISSED DIALYSIS. PMH: DM, HTN, ESRD (DIALYSIS T Wed) AV FISTULA TO LEFT UPPER ARM NKA
[2021-02-20] MEDS ORDERED: ONDANSETRON 4 MG/2 ML VIAL IVP ONE (11:40)
[2021-02-20] MEDS ORDERED: MORPHINE SULFATE 4 MG/ML SYR IVP ONE ×2 (11:40→15:25)
--- NOTE | 2021-02-20 11:53 | NUR ---
SYSTEM MANAGER AT PT BEDSIDE.
--- NOTE | 2021-02-20 12:08 | NUR ---
MASTER AT ARMS AT PT BEDSIDE.
--- NOTE | 2021-02-20 12:15 | NUR ---
PT STATES SHE IS ANURIC, MADE AWARE. UA TO BE CANCELLED PER DR. GIBSON.
[2021-02-20 12:35] LABS: BASOPHILS # (AUTO) 0.1 K/uL (0.00-0.22); BASOPHILS % (AUTO) 0.8 % (0.0-2.0); EOSINOPHILS # (AUTO) 0.2 K/uL (0-0.4); EOSINOPHILS % (AUTO) 2.5 % (0.0-4.0); HEMATOCRIT 29.9 % (36-48); HEMOGLOBIN 9.4 g/dL (12.0-16.0); LYMPHOCYTES # (AUTO) 0.8 K/uL (2.5-16.5); MEAN CORPUSCULAR HEMOGLOBIN 29 pg (27-31); MEAN CORPUSCULAR HGB CONC 32 g/dL (33-37); MEAN CORPUSCULAR VOLUME 90.5 fL (80-94); MONOCYTES # (AUTO) 0.3 K/uL (0.8-1.0); NEUTROPHILS # (AUTO) 5.1 K/uL (1.8-7.7); NEUTROPHILS % (AUTO) 78.7 % (42.2-75.2); PLATELET COUNT (AUTO) 288 K/uL (140-450); RED CELL DISTRIBUTION WIDTH 19.3 % (11.6-13.7); WHITE BLOOD COUNT (AUTO) 6.4 K/uL (4.8-10.8)
[2021-02-20 12:46] LABS: PROTHROMBIN TIME 10.3 secs (10.8-13.4)
--- NOTE | 2021-02-20 12:48 | NUR ---
PT SPO2 89% ON RA, DR. GIBSON MADE AWARE. PER MD ORDERS KEEP PT ON RA, CONTINUE TO MONITOR. KEEP SPO2 >88% ON RA.
[2021-02-20 12:51] LABS: ALBUMIN 2.4 g/dL (3.4-5.0); ANION GAP 18.4 (8-16); TOTAL BILIRUBIN 0.3 mg/dL (0.0-1.0)
[2021-02-20 13:21] LABS: POTASSIUM 7.4 mmol/L (3.5-5.1)
[2021-02-20] MEDS ORDERED: CALCIUM GLUCONATE 10% 1000 MG/10 ML VIAL IVP ONE ×2 (13:25→14:35)
[2021-02-20] MEDS ORDERED: ALBUTEROL 0.083% 2.5 MG/3 ML NEBU INH ONE (13:25)
[2021-02-20] MEDS ORDERED: DEXTROSE 50% 50 ML SYR IVP ONE ×2 (13:25→16:59)
[2021-02-20] MEDS ORDERED: SODIUM BICARBONATE 8.4% PFS 50 MEQ/50 ML SYR IVP ONE (13:25)
[2021-02-20] MEDS ORDERED: SODIUM ZIRCONIUM CYCLOSILICATE 10 GM POWD.PACK PO ONE (13:25)
[2021-02-20] MEDS ORDERED: INSULIN REGULAR, HUMAN 100 UNIT/ML VIAL IVP ONE (13:25)
--- NOTE | 2021-02-20 14:20 | NUR ---
PT SLEEPING EASILY AROUSABLE, VSS, WILL CONTINUE TO MONITOR.
[2021-02-20] MEDS ORDERED: MORPHINE SULFATE 4 MG/ML SYR ONE (15:20)
[2021-02-20] MEDS ORDERED: DOCUSATE SODIUM 100 MG GELCAP PO PRN (15:20)
[2021-02-20] MEDS ORDERED: MAGNESIUM OXIDE 400 MG TAB PO PRN (15:20)
[2021-02-20] MEDS ORDERED: ONDANSETRON 4 MG/2 ML VIAL IM/IVP PRN (15:20)
[2021-02-20] MEDS ORDERED: ACETAMINOPHEN 325 MG TAB PO PRN (15:20)
[2021-02-20] MEDS ORDERED: HYDROcodone/APAP 5/325 MG 1 TAB TAB PO PRN (15:20)
[2021-02-20] MEDS ORDERED: ONDANSETRON 4 MG/2 ML VIAL ONE (15:23)
[2021-02-20] MEDS ORDERED: TOPIRAMATE 25 MG TAB PO PRN (15:25)
[2021-02-20] MEDS ORDERED: SUMAtriptan succinate 25 MG TAB PO PRN (15:25)
[2021-02-20] MEDS ORDERED: ALBUTEROL SULFATE/IPRATROPIU 3 ML SOL IH PRN (15:30)
[2021-02-20 15:43] LABS: MAGNESIUM 2.4 mg/dL (1.8-2.4)
--- NOTE | 2021-02-20 15:57 | NUR ---
US TECH AT PT BEDSIDE.
--- NOTE | 2021-02-20 16:42 | NUR ---
RECEIVED TELEPHONE REPORT FROM SECURITY ESCORTRAEANN KOCH.
--- NOTE | 2021-02-20 16:42 | NUR ---
GAVE REPORT TO DESIRE IN ICU FOR PENDING ADMISSION. ETA 10MINUTES.
--- NOTE | 2021-02-20 16:56 | NUR ---
Patient will be admitted to care of DR. ADAN. Admited to TELE. Will go to ICU BED 8 . Belongings list completed. Report to RAEANN PHIPPS.
[2021-02-20 17:00] VITALS: BP 136/80
[2021-02-20] MEDS: hydrALAZINE 10 MG TAB PO SCH (17:00)
--- NOTE | 2021-02-20 17:00 | NUR ---
PT ARRIVED AT UNIT, DIAPHORETIC, VSS, IV TO RIGHT HAND 20G, PATENT INTACT SL. PT AMBULATED TO BED, TOLERATED WELL, ORIENT PT TO ROOM, BED, CALL LIGHT, MRSA SWAB TAKEN. PT BLOOD SUGAR TAKEN 23, D50 GIVEN, PT TOLERATED WELL, THEN WAS AWAKE ALERT ORIENTED. NOTED PACEMAKER TO RIGHT CHEST, AV SHUNT TO LEFT UPPER ARM. INITIAL ASSESSMENT DONE, ALL SAFETY PRECAUTION MET, CALL LIGHT WITHIN REACH, WILL CONTINUE TO MONITOR.
[2021-02-20] MEDS ORDERED: DEXTROSE 50% 50 ML SYR IVP PRN (17:10)
--- NOTE | 2021-02-20 17:40 | NUR ---
RECHECKED BLOOD SUGAR 145. S/P D50.
--- NOTE | 2021-02-20 17:45 | NUR ---
DR CLARK AT BEDSIDE ASSESSING PT
--- NOTE | 2021-02-20 17:50 | NUR ---
DIALYSIS STARTED, DIALYSIS NURSE AT BEDSIDE
--- NOTE | 2021-02-20 18:00 | NUR ---
PT ARRIVED AT UNIT, DIAPHORETIC, VSS, IV TO RIGHT HAND 20G, PATENT INTACT SL. PT AMBULATED TO BED, TOLERATED WELL, ORIENT PT TO ROOM, BED, CALL LIGHT, MRSA SWAB TAKEN. PT BLOOD SUGAR TAKEN 23, D50 GIVEN, PT TOLERATED WELL, THEN WAS AWAKE ALERT ORIENTED. NOTED PACEMAKER TO RIGHT CHEST, AV SHUNT TO LEFT UPPER ARM. INITIAL ASSESSMENT DONE, ALL SAFETY PRECAUTION MET, CALL LIGHT WITHIN REACH, WILL CONTINUE TO MONITOR. Addendum: 02/20/21 at 1811 by Chrissy Hartman RN WRONG TIME
--- NOTE | 2021-02-20 18:02 | NUR ---
HYDRALAZINE HELD DUE TO PT IS SCHEDULED FOR DIALYSIS.
[2021-02-20] MEDS: CALCIUM ACETATE 667 MG TAB PO SCH (18:07)
--- NOTE | 2021-02-20 19:02 | NUR ---
ENDORSED PT TO HOSPITAL MANAGER NURSE YURIY CARY FOR CONTINUOUS OF CARE
[2021-02-20 21:30] VITALS: BP 176/78
--- NOTE | 2021-02-20 21:30 | NUR ---
PT ARRIVED TO UNIT FROM ICU VIA WHEELCHAIR. PT IS A&OX4. NO S/S OF DISTRESS. BREATHING IS EVEN AND UNLABORED WITH O2 @2L VIA NC. STATED MILD HEADACHE. SKIN IS WARM, DRY AND NON DIAPHORETIC. IV ON RIGHT FA 20G AND R HAND 20G SALINE LOCKED. FISTULA ON LEFT UPPER ARM. PT HAS A PACEMAKER ON RIGHT UPPER CHEST. PT ABDOMEN IS DISTENDED NON TENDER. CALL LIGHT WITHIN REACH. ALL SAFETY MEASURES IN PLACE. WILL CONTINUE TO MONITOR.
[2021-02-20] MEDS: CLONIDINE HYDROCHLORIDE 0.1 MG TAB PO SCH (22:29)
--- NOTE | 2021-02-20 22:29 | NUR ---
SCHEDULED MEDS GIVEN ORDERED. BLOOD GLUCOSE CHECK 158, INSULIN COVERAGE ADMINISTERED. PT TOLERATED IT WELL. ALL SAFETY MEASURES IN PLACE. WILL CONTINUE TO MONITOR.
[2021-02-20] MEDS: carvediloL 12.5 MG TAB PO SCH (22:30)
[2021-02-20] MEDS: GABAPENTIN 100 MG CAP PO SCH (22:30)
[2021-02-20] MEDS: BLOOD GLUCOSE MONITORING 1 DEV DEV FS SCH (22:34)
[2021-02-20] MEDS: INSULIN LISPRO SLIDING SCALE 100 UNITS/ML VIAL SUBQ PRN (22:35)
--- NOTE | 2021-02-20 22:47 | NUR ---
PATIENT ALERT RESTING IN BED RECEIVING DIALYSIS NO C/O NO DISTRESS NOTED DIALYSIS FINISH AROUND 2100 2 LITERS TAKEN OUT.V/S 97.8 83, 12 168/76. PATIENT HAS A LEFT UPPER FISTULA PATENT, PATIENT LUNGS CLEAR HAS 02 ON 2 LITERS PATIENT STATES SHE IS A LITTLE SHORT OF BREATH. PATIENT ABDOMEN DISTENDED IS TO HAVE A PARACENTESIS. PATIENT HAS A PACEMAKER UPPER RIGHT CHEST..HAS MULTIPLE SOARS SARS OVER HER BODY. HAS HX OF RIGHT FX. KNEE. AND A PELVIC FX. ALSO A RIGHT FOOT WITH TWO TOES GONE. PATIENT HAD X1 WATERY GREEN STOOL. NO DISTRESS NOTED PATIENT TRANSFERED TO [facility]. 2120 REPORT GIVEN TO ALEXUS CARY
--- NOTE | 2021-02-20 23:59 | NUR ---
VITAL SIGNS FOLLOWS: BP- 159/75, AZ-83, RR-18, T-97.7, O2 SAT @96%. NO S/S OF DISTRESS. BREATHING IS EVEN AND UNLABORED. WILL CONTINUE TO MONITOR.
[2021-02-21] VITALS: BP 159/75
[2021-02-21] MEDS: MORPHINE SULFATE 2 MG/ML SYR IVP PRN ×3 (03:04→23:04)
--- NOTE | 2021-02-21 03:04 | NUR ---
PT COMPLAINS OF HEADACHE 12/13. REQUESTED PAIN MEDICATION. BP CHECKED 126/66. ADMINISTERED MORPHINE IV ORDERED. PT TOLERATED IT WELL. WILL CONTINUE TO MONITOR.
[2021-02-21 04:00] VITALS: BP 131/59
--- NOTE | 2021-02-21 05:10 | NUR ---
MADE ROUNDS ON PT, PT IS SLEEPING. NO S/S OF DISTRESS. RESPIRATIONS IS EVEN AND UNLABORED. CALL LIGHT WITHIN REACH. ALL SAFETY MEASURES IN PLACE
[2021-02-21] MEDS: BLOOD GLUCOSE MONITORING 1 DEV DEV FS SCH ×4 (06:48→21:20)
--- NOTE | 2021-02-21 06:48 | NUR ---
BLOOD GLUCOSE CHECKED 71, NO INSULIN NEEDED. PROVIDED PT WITH JUICE AND CRACKER. ALL SAFETY MEASURES IN PLACE. WILL CONTINUE TO MONITOR.
[2021-02-21 07:05] LABS: ANION GAP 15.2 (8-16); CARBON DIOXIDE 27.7 mmol/L (21-32); POTASSIUM 4.9 mmol/L (3.5-5.1)
[2021-02-21 07:06] LABS: BASOPHILS % (AUTO) 0.9 % (0.0-2.0); EOSINOPHILS # (AUTO) 0.2 K/uL (0-0.4); EOSINOPHILS % (AUTO) 4.7 % (0.0-4.0); HEMATOCRIT 27.6 % (36-48); HEMOGLOBIN 8.9 g/dL (12.0-16.0); LYMPHOCYTES # (AUTO) 0.7 K/uL (2.5-16.5); LYMPHOCYTES % (AUTO) 15.3 % (20.5-51.1); MEAN CORPUSCULAR HEMOGLOBIN 29 pg (27-31); MEAN CORPUSCULAR HGB CONC 32 g/dL (33-37); MEAN CORPUSCULAR VOLUME 90.1 fL (80-94); MONOCYTES # (AUTO) 0.2 K/uL (0.8-1.0); MONOCYTES % (AUTO) 5.1 % (1.7-9.3); NEUTROPHILS # (AUTO) 3.3 K/uL (1.8-7.7); PLATELET COUNT (AUTO) 281 K/uL (140-450); RED BLOOD CELL COUNT(AUTO) 3.06 MIL/uL (4.20-5.40); RED CELL DISTRIBUTION WIDTH 19.2 % (11.6-13.7); WHITE BLOOD COUNT (AUTO) 4.5 K/uL (4.8-10.8)
[2021-02-21 07:07] LABS: CREATININE 4.6 mg/dL (0.6-1.3)
--- NOTE | 2021-02-21 07:20 | NUR ---
RECEIVED REPORT FROM [employer] NURSE FOR CONTINUITY OF CARE. PT IS AWAKE AND ALERT. A&OX4. ON RA WITH BREATHING UNLABORED. ON TELE MONITOR. AMBULATORY INDEPENDENTLY. SKIN IS WARM, DRY, AND INTACT. IV IS IN THE RIGHT HAND 20 GAUGE SALINE LOCKED AND RIGHT FOREARM 20 GAUGE SALINE LOCKED. PT IS STABLE. PLAN OF CARE DISCUSSED.
--- NOTE | 2021-02-21 07:36 | NUR ---
ENDORSED PT TO AM SHIFT NURSE FOR CONTINUITY OF CARE. PT IS STABLE.
[2021-02-21 08:00] VITALS: BP 145/71
--- NOTE | 2021-02-21 08:33 | NUR ---
PATIENT HAS BEEN SCREENED AND CATEGORIZED MODERATE NUTRITION RISK. PATIENT WILL BE SEEN WITHIN 3-5 DAYS OF ADMISSION. 02/21/21 02/25/[address]
--- NOTE | 2021-02-21 08:48 | NUR ---
RECEIVED CALL FROM DR. CLARK AND REPORTED THE BMP RESULTS FOR TODAY. NO NEW ORDERS AT THIS TIME.
[2021-02-21] MEDS: hydrALAZINE 10 MG TAB PO SCH ×3 (09:00→16:48)
--- NOTE | 2021-02-21 09:03 | NUR ---
PT IS STATING SHE HAS PAIN IN THE NECK AND HEAD AT A SCALE OF 6/10. PT WAS GIVEN NORCO FOR PAIN. WILL CONTINUE TO MONITOR PAIN.
[2021-02-21] MEDS: ASPIRIN 81 MG TAB.CHEW PO SCH (09:04)
[2021-02-21] MEDS: LORATADINE 10 MG TAB PO SCH (09:04)
[2021-02-21] MEDS: LEVOTHYROXINE 0.05 MG TAB PO SCH (09:05)
[2021-02-21] MEDS: ATORVASTATIN 20 MG TAB PO SCH (09:05)
[2021-02-21] MEDS: CALCIUM ACETATE 667 MG TAB PO SCH ×3 (09:05→16:48)
[2021-02-21] MEDS: amLODIPine 5 MG TAB PO SCH (09:05)
[2021-02-21] MEDS: VIT-B COMP/VIT-C/FOLIC ACID 1 TAB PO SCH (09:05)
[2021-02-21] MEDS: carvediloL 12.5 MG TAB PO SCH ×2 (09:06→21:11)
[2021-02-21] MEDS: CLONIDINE HYDROCHLORIDE 0.1 MG TAB PO SCH ×2 (09:07→21:13)
[2021-02-21] MEDS: PANTOPRAZOLE 40 MG INJ VIAL IVP SCH (09:08)
--- NOTE | 2021-02-21 11:00 | NUR ---
PT IS AWAKE, SITTING UP IN BED. ON RA WITH BREATHING UNLABORED. PT DENIES PAIN OR HEADACHE AT THIS TIME. IV'S ARE PATENT AND INTACT. WILL CONTINUE TO MONITOR.
--- NOTE | 2021-02-21 11:24 | NUR ---
DC PLANNING: THE PATIENT ADMITTED THROUGH THE ED FROM HOME WITH C/O COUGH, LEUNG, ABDOMINAL PAIN AND VOMITING X 2 WEEKS. SHE WAS SCHEDULED FOR A PARACENTESIS AT [facility] YESTERDAY BUT CAME TO OUR ED INSTEAD. THE PATIENT HAS A H/O ESRD AND GOES TO [facility] ON AND SAT AT 9 AM. HER DAUGHTER CASTRO GRANDA TRANSPORTS HER AND IS ALSO HER [facility] WORK[facility]. CM SPOKE WITH THE PATIENT AT BEDSIDE REGARDING DCP AND CONFIRMED THE PATIENT ADDRESS AND PHONE NUMBER PER HER FACE SHEET. THE PATIENT LIVES IN A SECOND FLOOR APARTMENT WITH HER 4 DAUGHTERS, AND AMBULATES USING A CANE. SHE ALSO HAS DME OF A FWW, GLUCOMETER AND WC, NO H/O HOME HEALTH. THE PATIENTS RECEIVES DISABILITY. THE PATIENT ALSO HAD A THROAT CULTURE TO R/O STEP, BLOOD AND URINE CULTURES ORDERED. THE DC PLAN IS FOR THE PATIENT TO RETURN HOME WITH FAMILY WHEN CLINICALLY STABLE, CM WILL FOLLOW FOR NEEDS. Addendum: 02/21/21 at 1447 by Lorri Demarco RN DC PLANNING: RECEIVED A CALL FROM [facility] SPOKE WITH MARCELO SOLARES PT'S CLINICAL. SHE STATED IF PATIENT IS DISCHARGE OVER THE WEEKEND NO ONE IS WORKING OVER THE WEEKEND HOWEVER SHE WILL FAX THE CONTRACTED HOME HEALTH AND SNF FOR HOME HEALTH NO AUTH NEEDED. TO GET [facility] TO CALL [phone] OPT 4. CM TO FOLLOW
[2021-02-21 12:00] VITALS: BP 146/74
--- NOTE | 2021-02-21 12:49 | NUR ---
PT IS AWAKE. CLEANING SELF AT BEDSIDE. NEW GOWN WAS PLACED. NO DISTRESS NOTED. PT IS STABLE.
--- NOTE | 2021-02-21 13:03 | NUR ---
PT STATES SHE IS IN PAIN AT A SCALE OF 10/10. PT WAS GIVEN MORPHINE FOR PAIN IVP ORDERED. BP WAS 146/74 PRIOR TO ADMINISTRATION OF MEDICATION. WILL CONTINUE TO MONITOR PAIN.
--- NOTE | 2021-02-21 13:52 | NUR ---
ITEMS WERE DROPPED OFF AT LOBBY FROM FAMILY MEMBER AND THEY WERE GIVEN TO PT BY SOFTWARE ENGINEER DEVELOPER.
[2021-02-21] MEDS: FLUTICASONE NASAL 50 MCG/ACTUATION 16 GM BTL NS SCH (14:40)
[2021-02-21] MEDS ORDERED: BENZOCAINE/MENTHOL 1 LOZ MM PRN (14:40)
--- NOTE | 2021-02-21 15:00 | NUR ---
PT ON BED WITH VISITOR ON STABLE CONDITION NOT ON ANY DISTRESS DENIES PAIN.
[2021-02-21 16:00] VITALS: BP 136/69
--- NOTE | 2021-02-21 16:59 | NUR ---
BLOOD SUGAR CHECKED WITH RESULT OF 128 NO COVERAGE GIVEN, AND MEDICATION GIVEN TOLERATED WELL.
--- NOTE | 2021-02-21 19:27 | NUR ---
ENDORSED PT TO CHIEF MECHANICAL OFFICER NURSE FOR CONTINUITY OF CARE. PT IS STABLE AT THIS TIME. PLAN OF CARE DISCUSSED.
--- NOTE | 2021-02-21 19:28 | NUR ---
RECEIVED REPORT FROM AM NURSE. PATIENT IN BED RESTING COMFORTABLY. ABDOMEN ROUND AND DISTENDED. NO SOB NOTED. BREATHING REGULAR NON LABORED. NO COMPLAINTS OF PAIN. ALL SAFETY PRECAUTIONS ARE IN PLACE. CALL LIGHT WITHIN REACH. WILL CONTINUE TO MONITOR.
[2021-02-21] MEDS: GABAPENTIN 100 MG CAP PO SCH (21:11)
--- NOTE | 2021-02-21 21:21 | NUR ---
ADMINISTERED SCHEDULED 2100 MEDS ORDERED
[2021-02-21 22:01] VITALS: BP 137/70
--- NOTE | 2021-02-21 22:15 | NUR ---
ALL NEEDS MET
[2021-02-22] VITALS: BP 148/70
[2021-02-22 04:00] VITALS: BP 141/71
[2021-02-22 06:53] LABS: BASOPHILS % (AUTO) 0.8 % (0.0-2.0); EOSINOPHILS # (AUTO) 0.2 K/uL (0-0.4); EOSINOPHILS % (AUTO) 5.9 % (0.0-4.0); HEMATOCRIT 29.3 % (36-48); HEMOGLOBIN 9.3 g/dL (12.0-16.0); LYMPHOCYTES # (AUTO) 0.8 K/uL (2.5-16.5); MEAN CORPUSCULAR HEMOGLOBIN 29 pg (27-31); MEAN CORPUSCULAR HGB CONC 32 g/dL (33-37); MEAN CORPUSCULAR VOLUME 89.9 fL (80-94); MONOCYTES # (AUTO) 0.1 K/uL (0.8-1.0); NEUTROPHILS # (AUTO) 2.3 K/uL (1.8-7.7); NEUTROPHILS % (AUTO) 67.3 % (42.2-75.2); PLATELET COUNT (AUTO) 314 K/uL (140-450); RED BLOOD CELL COUNT(AUTO) 3.26 MIL/uL (4.20-5.40); RED CELL DISTRIBUTION WIDTH 19.2 % (11.6-13.7); WHITE BLOOD COUNT (AUTO) 3.5 K/uL (4.8-10.8)
[2021-02-22] MEDS: BLOOD GLUCOSE MONITORING 1 DEV DEV FS SCH ×2 (06:53→12:12)
--- NOTE | 2021-02-22 06:53 | NUR ---
BLOOD GLUCOSE 132, NO COVERAGE GIVEN.
[2021-02-22 07:03] LABS: ANION GAP 16.4 (8-16); CARBON DIOXIDE 28.1 mmol/L (21-32); POTASSIUM 5.5 mmol/L (3.5-5.1)
--- NOTE | 2021-02-22 07:17 | NUR ---
ENDORSED TO AM NURSE FOR CONTINUITY OF CARE. PATIENT IS STABLE.
[2021-02-22 08:00] VITALS: BP 141/71
[2021-02-22 08:31] LABS: CREATININE 6.1 mg/dL (0.6-1.3)
[2021-02-22] MEDS ORDERED: SODIUM ZIRCONIUM CYCLOSILICATE 10 GM POWD.PACK PO ONE (08:50)
[2021-02-22] MEDS: carvediloL 12.5 MG TAB PO SCH (09:00)
[2021-02-22] MEDS: PANTOPRAZOLE 40 MG INJ VIAL IVP SCH (09:00)
[2021-02-22] MEDS: hydrALAZINE 10 MG TAB PO SCH ×2 (09:00→12:49)
[2021-02-22] MEDS ORDERED: EPOETIN ALFA-EPBX 10,000 UNITS/ML VIAL SUBQ SCH (09:00)
[2021-02-22] MEDS: CLONIDINE HYDROCHLORIDE 0.1 MG TAB PO SCH (09:00)
[2021-02-22] MEDS: amLODIPine 5 MG TAB PO SCH (09:00)
[2021-02-22] MEDS: CALCIUM ACETATE 667 MG TAB PO SCH ×2 (09:30→12:17)
[2021-02-22] MEDS: VIT-B COMP/VIT-C/FOLIC ACID 1 TAB PO SCH (09:31)
[2021-02-22] MEDS: ATORVASTATIN 20 MG TAB PO SCH (09:31)
[2021-02-22] MEDS: ASPIRIN 81 MG TAB.CHEW PO SCH (09:32)
[2021-02-22] MEDS: LORATADINE 10 MG TAB PO SCH (09:32)
[2021-02-22] MEDS: LEVOTHYROXINE 0.05 MG TAB PO SCH (09:32)
[2021-02-22] MEDS: FLUTICASONE NASAL 50 MCG/ACTUATION 16 GM BTL NS SCH (09:34)
--- NOTE | 2021-02-22 09:38 | NUR ---
ADMINISTERED SCHEDULED MEDICATIONS. PATIENT REFUSED MEDICATIONS LUKELMA, AND PROTONIX. ALSO, MEDICATIONS HYDRALAZINE, COLODINE, COREG, AND NORVASC HELD DUE TO DIALYSIS.
--- NOTE | 2021-02-22 09:50 | NUR ---
DIALYSIS STARTED. VS 150/70, 14, 70, 97.9, 99%. WILL CONTINUE TO MONITOR.
--- NOTE | 2021-02-22 11:52 | NUR ---
PATIENT MOVED TO ROOM 112. PATIENT TOLERATED WELL. Addendum: 02/22/21 at 1346 by Alice Colmenares LVN PATIENT NOT MOVED. PATIENT REMAINS IN ROOM 117.
[2021-02-22 12:00] VITALS: BP 149/66
[2021-02-22] MEDS: INSULIN LISPRO SLIDING SCALE 100 UNITS/ML VIAL SUBQ PRN (12:17)
--- NOTE | 2021-02-22 12:50 | NUR ---
DIALYSIS COMPLETE. 2.6L OUT PER DIALYSIS NURSE. PATIENT TOLERATED WELL. PATIENT COMPLAIN OF PAIN. WILL MEDICATE PER MD ORDER.
[2021-02-22] MEDS: MORPHINE SULFATE 2 MG/ML SYR IVP PRN (12:58)
--- NOTE | 2021-02-22 12:58 | NUR ---
PATIENT STATED SHE WAS IN PAIN, RATED PAIN 7/10. MEDICATION MORPHINE ADMINISTERED BY RN. WILL CONTINUE TO MONITOR.
--- NOTE | 2021-02-22 16:19 | NUR ---
PATIENT ASKING IF SHE IS ABLE TO DISCHARGE HOME TODAY. STATES HER DAUGHTER IS WAITING FOR HER. SPOKE WITH DR GUZMAN, PER DR NEVAREZ TO DISCHARGE HOME TODAY. PATIENT STATES SHE WILL CALL DAUGHTER AND WILL MOST LIKELY GO HOME IN AN HOUR.
[2021-02-22] MEDS ORDERED: Benzocaine/Menthol MM (16:24)
[2021-02-22] MEDS ORDERED: ROB PO (16:26)
--- NOTE | 2021-02-22 17:45 | NUR ---
PATIENT DISCHARGED HOME WITH FAMILY. ALL DISCHARGE PAPERWORK SIGNED. BOTH IV REMOVED. BOTH IV CATHETERS INTACT. WRIST BAND REMOVED. PATIENT WHEELED OFF UNIT WITH STAFF. ALL BELONGINGS TAKEN UPON DISCHARGE.
== END 2021-02-22 17:55 | disposition home health service (06) | DRG 70 ==
LOC: MED 10:26 → MTU 15:23 → MIC 15:23 → MTU 21:33
PROVIDERS: ADMIT Hospitalist; ATTEND Hospitalist
PROC: 5A1D70Z Performance of Urinary Filtration, Intermittent, Less than 6 Hours Per Day (ICD-10-PCS; principal; 2021-02-20)
PROC: 5A1D70Z Performance of Urinary Filtration, Intermittent, Less than 6 Hours Per Day (ICD-10-PCS; 2021-02-21)
DX: G93.41 Metabolic encephalopathy (principal); N18.6 End stage renal disease; N17.0 Acute kidney failure with tubular necrosis; E43 Unspecified severe protein-calorie malnutrition; R18.8 Other ascites; I13.2 Hypertensive heart and chronic kidney disease with heart failure and with stage 5 chronic kidney disease, or end stage renal disease; E87.1 Hypo-osmolality and hyponatremia; E87.5 Hyperkalemia; E03.9 Hypothyroidism, unspecified; Z20.822 Contact with and (suspected) exposure to COVID-19; I25.10 Atherosclerotic heart disease of native coronary artery without angina pectoris; E78.5 Hyperlipidemia, unspecified; E11.51 Type 2 diabetes mellitus with diabetic peripheral angiopathy without gangrene; G43.909 Migraine, unspecified, not intractable, without status migrainosus; E83.51 Hypocalcemia; D63.1 Anemia in chronic kidney disease; J02.9 Acute pharyngitis, unspecified; E11.40 Type 2 diabetes mellitus with diabetic neuropathy, unspecified; I50.9 Heart failure, unspecified; E11.22 Type 2 diabetes mellitus with diabetic chronic kidney disease; E78.00 Pure hypercholesterolemia, unspecified; Z95.0 Presence of cardiac pacemaker; Z86.16 Personal history of COVID-19; Z99.2 Dependence on renal dialysis; Z79.82 Long term (current) use of aspirin; Z79.890 Hormone replacement therapy; Z79.899 Other long term (current) drug therapy; Z68.25 Body mass index [BMI] 25.0-25.9, adult
CPT/HCPCS: 36415; 71045; 76705; 80048; 80053; 82140; 83605; 83690; 83735; 83880; 84100; 84484; 85025; 85610; 87040; 87081; 87804; 93005; 96374; 96375; 96376; 99291; C9113; J0610; J1644; J1815; J2270; J2405; J7613; Q0092; Q5106

== ENCOUNTER 2021-04-11 18:53 | Emergency (ER) | payer OTHER ==
[~2021-04-11] VITALS: Ht 152.4 cm; Wt 58.1 kg
[~2021-04-11 18:53] MED LIST changes: +Benzocaine/Menthol MM; +NORC10 PO; +ROB PO; +[UNRECOGNIZED DRUG - CODE] IV
[2021-04-11 19:05] VITALS: BP 179/77
--- NOTE | 2021-04-11 23:45 | NUR ---
PT BIBA FOR MIDLINE REPLACEMENT
--- NOTE | 2021-04-12 | NUR ---
RAEANN GTZ AT BEDSIDE TO INSERT MIDLINE. CONSENT SIGNED AND TIMEOUT COMPLETE
[2021-04-12] MEDS ORDERED: HYDROcodone/APAP 5/325 MG 1 TAB TAB PO ONE (00:20)
[2021-04-12 00:26] VITALS: BP 179/77
--- NOTE | 2021-04-12 00:27 | NUR ---
Patient discharged with v/s stable. Written and verbal after care instructions given and explained. Patient verbalized understanding. Ambulatory with steady gait. All questions addressed prior to discharge. Advised to follow up with PMD.
== END 2021-04-12 00:23 | disposition home or self-care (01) ==
LOC: MED 18:53
DX: T82.594A Other mechanical complication of infusion catheter, initial encounter (principal); E13.22 Other specified diabetes mellitus with diabetic chronic kidney disease; I12.9 Hypertensive chronic kidney disease with stage 1 through stage 4 chronic kidney disease, or unspecified chronic kidney disease; N18.9 Chronic kidney disease, unspecified
CPT/HCPCS: 99283

== ENCOUNTER 2021-07-02 12:55 | Emergency (ER) | payer OTHER ==
[~2021-07-02] VITALS: Ht 152.4 cm; Wt 58.1 kg
[2021-07-02 13:02] VITALS: BP 142/84
[2021-07-02] MEDS ORDERED: ACET-8386 PO (15:20)
[2021-07-02] MEDS ORDERED: HYDROcodone/APAP 5/325 MG 1 TAB TAB PO ONE (15:25)
[2021-07-02 15:45] VITALS: BP 164/71
== END 2021-07-02 15:45 | disposition home or self-care (01) ==
LOC: MED 12:55
DX: S80.02XA Contusion of left knee, initial encounter (principal); E11.22 Type 2 diabetes mellitus with diabetic chronic kidney disease; I12.0 Hypertensive chronic kidney disease with stage 5 chronic kidney disease or end stage renal disease; N18.6 End stage renal disease; Z99.2 Dependence on renal dialysis; Z79.82 Long term (current) use of aspirin; Z79.899 Other long term (current) drug therapy; W19.XXXA Unspecified fall, initial encounter; Y93.89 Activity, other specified; Y92.89 Other specified places as the place of occurrence of the external cause; Y99.8 Other external cause status
CPT/HCPCS: 73562; 99283

== ENCOUNTER 2021-09-01 18:31 | Emergency (ER) | payer OTHER ==
[~2021-09-01] VITALS: Ht 152.4 cm; Wt 61.3 kg
[~2021-09-01 18:31] MED LIST changes: +ACET-8386 PO
[2021-09-01 18:35] VITALS: BP 145/96
--- NOTE | 2021-09-01 20:15 | NUR ---
CALLED PT FOR UA. PT STATES SHE DOES NOT MAKE URINE
[2021-09-01 21:34] LABS: BASOPHILS % (AUTO) 0.7 % (0.0-2.0); EOSINOPHILS # (AUTO) 0.2 K/uL (0-0.4); EOSINOPHILS % (AUTO) 3.5 % (0.0-4.0); HEMATOCRIT 36.6 % (36-48); HEMOGLOBIN 11.6 g/dL (12.0-16.0); LYMPHOCYTES # (AUTO) 1.5 K/uL (2.5-16.5); LYMPHOCYTES % (AUTO) 31.8 % (20.5-51.1); MEAN CORPUSCULAR HEMOGLOBIN 29 pg (27-31); MEAN CORPUSCULAR HGB CONC 32 g/dL (33-37); MEAN CORPUSCULAR VOLUME 92.8 fL (80-94); MONOCYTES # (AUTO) 0.3 K/uL (0.8-1.0); MONOCYTES % (AUTO) 5.6 % (1.7-9.3); NEUTROPHILS # (AUTO) 2.7 K/uL (1.8-7.7); NEUTROPHILS % (AUTO) 58.4 % (42.2-75.2); PLATELET COUNT (AUTO) 189 K/uL (140-450); RED BLOOD CELL COUNT(AUTO) 3.94 MIL/uL (4.20-5.40); RED CELL DISTRIBUTION WIDTH 18.4 % (11.6-13.7); WHITE BLOOD COUNT (AUTO) 4.7 K/uL (4.8-10.8)
--- NOTE | 2021-09-01 21:44 | NUR ---
46 YO/F PRESENTS TO ED W C/O FEELING TIRED XTODAY AFTER CLEANING ALOT. PT DENIES ANY PAIN, CHEST PAIN, SOB, FEVERS, CHILLS, N/V/D, LOC, DIZZYNESS. PT REPORTS SHE FEELS BETTER NOW AND THINKS SHE JUST OVER CLEANED. NO LONGER MAKES URINE. DIALYSIS PORT TO L ARM. PMH: KIDNEY FAILURE (DIALYSIS TUES, THURS, SAT) ALLERGIES: DENIES
[2021-09-01 21:48] LABS: ALBUMIN 3.3 g/dL (3.4-5.0); ANION GAP 26.3 (8-16); CARBON DIOXIDE 22.1 mmol/L (21-32); TOTAL BILIRUBIN 0.3 mg/dL (0.0-1.0)
[2021-09-01 21:56] LABS: POTASSIUM 6.4 mmol/L (3.5-5.1)
[2021-09-01] MEDS ORDERED: SODIUM POLYSTYRENE 15 GM/60 ML UDBTL PO ONE (22:00)
[2021-09-01] MEDS ORDERED: DEXTROSE 50% 50 ML SYR IVP ONE (22:00)
[2021-09-01] MEDS ORDERED: INSULIN REGULAR, HUMAN 100 UNIT/ML VIAL IVP ONE (22:00)
[2021-09-01] MEDS ORDERED: SODIUM BICARBONATE 8.4% PFS 50 MEQ/50 ML SYR IVP ONE (22:00)
--- NOTE | 2021-09-01 23:10 | NUR ---
PT HR 170S. ERMD AWARE.
[2021-09-01 23:39] VITALS: BP 154/81
--- NOTE | 2021-09-02 00:01 | NUR ---
PT HR IMPROVED TO 66
--- NOTE | 2021-09-02 00:33 | NUR ---
PT DISCHARGE DONE BY ELIZABETH KURTZ.
== END 2021-09-02 00:33 | disposition home or self-care (01) ==
LOC: MED 18:31
DX: R53.1 Weakness (principal); E87.5 Hyperkalemia; E11.9 Type 2 diabetes mellitus without complications; I10 Essential (primary) hypertension; Z87.448 Personal history of other diseases of urinary system; Z98.890 Other specified postprocedural states; Z79.891 Long term (current) use of opiate analgesic; Z79.2 Long term (current) use of antibiotics; Z79.899 Other long term (current) drug therapy; Z79.82 Long term (current) use of aspirin
CPT/HCPCS: 36415; 71045; 80053; 83605; 85025; 87040; 93005; 96374; 96375; 99285; J1815

== ENCOUNTER 2021-09-30 10:29 | Emergency (ER) | payer OTHER ==
[~2021-09-30] VITALS: Ht 152.4 cm; Wt 59.0 kg
[2021-09-30 10:34] VITALS: BP 189/85
--- NOTE | 2021-09-30 11:04 | NUR ---
PATIENT IN ROOM 5 IN GOWN AND ON BEDSIDE MONITOR
--- NOTE | 2021-09-30 11:29 | NUR ---
46YR OLD FEMALE BIB SELF C/O COUGH THROAT PAIN X 3 DAYS. CHEST HEAVYNESS/PRESSURE . NON CARDIAC PAIN/ PRESSURE. PT STATES SHE HAS BEEN SICK WITH A UPPER RESP SX. DENIES SOB OR FEVER. PHELGM COUGHING UP X3 DAYS. PT HAS A CARDIAC HX OF PEACEMAKER HTN. PT ON BEDSIDE MONITOR. SIDE RAILS UP X 1 BED AT LOWEST POSITION NKDA HTN DM RENAL FAILURE PACEMAKER
[2021-09-30] MEDS ORDERED: MOLN200C PO (13:50)
[2021-09-30] MEDS ORDERED: ONDA-188 PO (14:00)
[2021-09-30] MEDS ORDERED: TAM75 PO (14:00)
[2021-09-30 14:20] VITALS: BP 171/68
--- NOTE | 2021-09-30 14:20 | NUR ---
Patient discharged with v/s stable. Written and verbal after care instructions given and explained. Patient alert, oriented and verbalized understanding of instructions. Ambulatory with steady gait. All questions addressed prior to discharge. ID band removed. Patient advised to follow up with PMD. Rx of MOLNUPIRAVIR ZOFRAN TAMIFLU given. Patient educated on indication of medication including possible reaction and side effects. Opportunity to ask questions provided and answered.
== END 2021-09-30 14:20 | disposition home or self-care (01) ==
LOC: MED 10:29
DX: J10.1 Influenza due to other identified influenza virus with other respiratory manifestations (principal); Z20.822 Contact with and (suspected) exposure to COVID-19; E11.22 Type 2 diabetes mellitus with diabetic chronic kidney disease; N18.6 End stage renal disease; Z99.2 Dependence on renal dialysis; I10 Essential (primary) hypertension; Z79.4 Long term (current) use of insulin; Z79.899 Other long term (current) drug therapy; Z98.890 Other specified postprocedural states
CPT/HCPCS: 99283

== ENCOUNTER 2021-12-25 17:43 | Emergency (ER) | payer OTHER ==
[~2021-12-25] VITALS: Ht 152.4 cm; Wt 47.2 kg
[~2021-12-25 17:43] MED LIST changes: +MOLN200C PO
--- NOTE | 2021-12-25 17:43 | NUR ---
PT AMBULATED TO BED 03.
[2021-12-25 17:50] VITALS: BP 93/57
--- NOTE | 2021-12-25 17:53 | NUR ---
walked in c/o bleeding dialysis shunt onset less than 1 hr ago. pt had dialysis completed today 5 hours prior to bleeding. denies pain. bleeding controlled with pressure to site. dialysis site is to the left upper arm. aaox4, ambulatory pmh: dialysis, htn, pacemaker nka
[2021-12-25 17:57] VITALS: BP 93/57
--- NOTE | 2021-12-25 18:42 | NUR ---
4X4 GAUZE AND WRAP APPLIED WITHOUT COMPLICATION
== END 2021-12-25 18:45 | disposition home or self-care (01) ==
LOC: MED 17:43
DX: T82.838A Hemorrhage due to vascular prosthetic devices, implants and grafts, initial encounter (principal); I10 Essential (primary) hypertension; E11.9 Type 2 diabetes mellitus without complications; N18.6 End stage renal disease; Z99.2 Dependence on renal dialysis; Z79.4 Long term (current) use of insulin; Z79.899 Other long term (current) drug therapy; Y92.89 Other specified places as the place of occurrence of the external cause
CPT/HCPCS: 99281

== ENCOUNTER 2022-04-22 08:05 | Inpatient (IN) | payer OTHER ==
[~2022-04-22] VITALS: Ht 149.9 cm; Wt 54.4 kg
[~2022-04-22 08:05] MED LIST changes: -ACET-8386 PO; -Benzocaine/Menthol MM; -IMI25 PO; -METO-485 PO; -MOLN200C PO; -NORC10 PO; -ONDA-188 PO; +PANT40EC56 PO; -ROB PO; -[UNRECOGNIZED DRUG - CODE] IV
[2022-04-22 08:09] VITALS: BP 205/93
--- NOTE | 2022-04-22 08:13 | NUR ---
pt ambulated to bed 8
--- NOTE | 2022-04-22 08:19 | NUR ---
69F presents to ED with c/o generalized upper ABD pain, N/V and headache x 3 days. Pt reports a constant sharp, 10/10 pain. Pt reports 2 episodes of emesis this morning. Pt denies fevers, diarrhea, vision changes or dizziness. Pt reports taking Tylenol at 0500 this moring with no relief. Pt changed into gown and placed on bedside monitor.
[2022-04-22] MEDS ORDERED: FAMOTIDINE 20 MG TAB PO ONE (08:30)
[2022-04-22] MEDS ORDERED: KETOROLAC 60 MG/2 ML VIAL IM ONE (08:30)
[2022-04-22] MEDS ORDERED: DICYCLOMINE HCL LIQUID 20 MG, ALUMINUM HYD/MAG/SIMETHICONE 30 ML, LIDOCAINE VISCOUS 2% ... PO ONE ×3 (08:30)
[2022-04-22] MEDS ORDERED: ALUMINUM HYD/MAG/SIMETHICONE 30 ML UDC ONE (08:37)
[2022-04-22] MEDS ORDERED: DICYCLOMINE HCL LIQUID 10 MG/5 ML UDC ONE (08:38)
[2022-04-22] MEDS ORDERED: carvediloL 6.25 MG TAB PO ONE (08:45)
[2022-04-22] MEDS ORDERED: amLODIPine 5 MG TAB PO ONE (08:45)
[2022-04-22 09:22] LABS: BASOPHILS % (AUTO) 0.8 % (0.0-2.0); EOSINOPHILS # (AUTO) 0.2 K/uL (0-0.4); EOSINOPHILS % (AUTO) 5.2 % (0.0-4.0); HEMOGLOBIN 11.1 g/dL (12.0-16.0); MEAN CORPUSCULAR HEMOGLOBIN 31 pg (27-31); MEAN CORPUSCULAR HGB CONC 33 g/dL (33-37); MEAN CORPUSCULAR VOLUME 96.2 fL (80-94); MONOCYTES # (AUTO) 0.2 K/uL (0.8-1.0); MONOCYTES % (AUTO) 5.1 % (1.7-9.3); NEUTROPHILS # (AUTO) 3.1 K/uL (1.8-7.7); NEUTROPHILS % (AUTO) 66.9 % (42.2-75.2); PLATELET COUNT (AUTO) 179 K/uL (140-450); RED BLOOD CELL COUNT(AUTO) 3.54 MIL/uL (4.20-5.40); RED CELL DISTRIBUTION WIDTH 16.2 % (11.6-13.7); WHITE BLOOD COUNT (AUTO) 4.6 K/uL (4.8-10.8)
[2022-04-22 09:32] LABS: ALBUMIN 4.1 g/dL (3.4-5.0); ANION GAP 24.2 (8-16); CARBON DIOXIDE 23.2 mmol/L (21-32); TOTAL BILIRUBIN 0.7 mg/dL (0.0-1.0)
[2022-04-22 09:42] LABS: CREATININE 9.5 mg/dL (0.6-1.3); POTASSIUM 6.4 mmol/L (3.5-5.1)
[2022-04-22] MEDS ORDERED: NACL 0.9% 500 ML IV ONE (10:00)
[2022-04-22] MEDS ORDERED: INSULIN REGULAR, HUMAN 100 UNIT/ML VIAL IVP ONE (11:05)
[2022-04-22] MEDS ORDERED: DEXTROSE 50% 50 ML SYR IVP ONE ×3 (11:05→14:00)
[2022-04-22] MEDS ORDERED: AMLO10TA89 PO (13:15)
[2022-04-22] MEDS ORDERED: CLON-1170 PO (13:15)
--- NOTE | 2022-04-22 13:48 | NUR ---
Pt stating she feels diaphoretic with mild tremors, requesting to have an accu check.
[2022-04-22] MEDS ORDERED: TOPIRAMATE 25 MG TAB PO PRN (14:00)
[2022-04-22] MEDS ORDERED: MAG SULF 2000 MG/WATER PREMIX 50 ML IV PRN (14:00)
[2022-04-22] MEDS ORDERED: ONDANSETRON 4 MG/2 ML VIAL IVP PRN (14:00)
[2022-04-22] MEDS ORDERED: POTASSIUM CHLORIDE 10 MEQ TABER PO PRN (14:00)
[2022-04-22] MEDS ORDERED: HYDROcodone/APAP 7.5/325 MG 1 TAB PO PRN (14:00)
[2022-04-22] MEDS ORDERED: ALBUTEROL HFA MDI 90 MCG/ACTUATION 8 GM INH PRN (14:00)
[2022-04-22] MEDS ORDERED: ACETAMINOPHEN 325 MG TAB PO PRN (14:00)
--- NOTE | 2022-04-22 14:05 | NUR ---
Accu check showed a drop in blood sugar. Dr. Jc made aware, medication order given via telephone. Order placed and carried out.
[2022-04-22] MEDS ORDERED: ALBUTEROL 0.083% 2.5 MG/3 ML NEBU INH PRN (14:15)
[2022-04-22] MEDS ORDERED: SODIUM ZIRCONIUM CYCLOSILICATE 10 GM POWD.PACK PO SCH (14:30)
[2022-04-22 14:45] LABS: PROTHROMBIN TIME 11.3 secs (10.8-13.4)
[2022-04-22 14:58] LABS: AMYLASE 23 U/L (25-115); FREE T4 (FREE THYROXINE) 0.99 ng/dL (0.76-1.46); HDL CHOLESTEROL 41 mg/dL (40-60); LDL (CALC) 30 mg/dL (60-100); LIPASE 51 U/L (73-393); THYROID STIMULATING HORMONE 3.71 uIU/mL (0.34-3.74); TRIGLYCERIDES 46 mg/dL (30-150)
--- NOTE | 2022-04-22 15:48 | NUR ---
Coreen rodriguez in ED - 04/22/22 at 1841 by MEDSHAGUFTA Pt stating she feels diaphoretic with mild tremors, requesting to have an accu check.
--- NOTE | 2022-04-22 16:58 | NUR ---
PATIENT HAS BEEN SCREENED AND CATEGORIZED MODERATE NUTRITION RISK. PATIENT WILL BE SEEN WITHIN 3-5 DAYS OF ADMISSION. REVIEWED BY REYNA KEITA RD
[2022-04-22] MEDS: hydrALAZINE 10 MG TAB PO SCH (17:36)
[2022-04-22] MEDS: CALCIUM ACETATE 667 MG TAB PO SCH (17:37)
--- NOTE | 2022-04-22 18:50 | NUR ---
S/W Dr. Morrow regarding wanting to be placed as consult for his pt. Dr. Jc made aware and order was submitted.
--- NOTE | 2022-04-22 19:18 | NUR ---
Pt report given to RAEANN Venegas. Transfer of care at this time.
--- NOTE | 2022-04-22 20:00 | NUR ---
RECEIVED PT A/OX4. VS HAVE BEEN STABLE. PT HAS LEFT ARM AVG WITH GOOD BRUIT/THRILL. PT DENIES PAIN. PT IS ANURIC. RESPS REG/UNLAB. IV I/P VIA RIGHT ARM.
[2022-04-22] MEDS ORDERED: PANTOPRAZOLE 40 MG TABEC PO SCH (21:00)
[2022-04-22] MEDS: DOCUSATE SODIUM 100 MG GELCAP PO SCH (21:00)
[2022-04-22] MEDS: GABAPENTIN 100 MG CAP PO SCH (21:17)
[2022-04-22] MEDS: carvediloL 12.5 MG TAB PO SCH (21:18)
--- NOTE | 2022-04-23 | NUR ---
PT HAS BEEN SLEEPING OFF AND ON. PT REMAINS A/OX4 WITH STABLE VS. ACCUCHECK IS 94. LEFT ARM VG HAS GOOD BRUIT/THRILL. PT HAS DISPO FOR ADMIT BUT NO BED AVAIL. YET. PT INFORMED. PT STATES SHE HAS A PACEMAKER. HR HAS BEEN 60-59.
--- NOTE | 2022-04-23 04:00 | NUR ---
VS REMAIN STABLE. PT SLEEPING AT THIS TIME. MANAGER QUANTITATIVE SHOWS PACING/HR 60. NO S/S OF ACUTE DISTRESS.
--- NOTE | 2022-04-23 06:00 | NUR ---
PT REMAINS A/OX4 WITH STABLE VS. IV I/P. PT IS EASILY AROUSABLE. PT HAS DISPO FOR ADM TO TELE BUT NO BED AVAIL. YET. LEFT AVG HAS GOOD BRUIT/THRILL. METAL INSPECTOR SHOWS PACING WITH HR 59-60VIA METAL INSPECTOR. GEN COND HAS BEEN STABLE. PT ENDORSED TO DAY SHIFT RN IN [facility].
[2022-04-23] MEDS: LEVOTHYROXINE 0.05 MG TAB PO SCH (06:30)
[2022-04-23] MEDS ORDERED: PANTOPRAZOLE 40 MG INJ VIAL ONE (06:37)
[2022-04-23] MEDS: PANTOPRAZOLE 40 MG INJ VIAL IVP SCH (06:50)
--- NOTE | 2022-04-23 07:00 | NUR ---
[id number] REMAINS A/OX4. PT WOKE UP C/O SEVERE EPIGASTRIC PAIN. PT RATES PAIN AT 10/10. PT STATES THE PAIN IS IN THE UPPER MIDDLE OF ABD. CONTACTED AND GAVE ORDERS FOR MS 2MG IVP. PT ALSO REQUESTED MED FOR NAUSEA. PT ALSO MED WITH ZOFRAN 4MG IVP. TROP LEVEL ORDERED ALSO FOR THIS AM. PT STATES RELIEF AFTER MED FOR PAIN. AM LABS PENDING. PT CONT. WITH DISPO FOR ADMIT TO TELE BUT NO BED IS AVAIL YET. ANDRIY CUEVAS IS AWARE. PT ENDORSED TO RAEANN MONROE.
--- NOTE | 2022-04-23 07:05 | NUR ---
.FURTHER MORE-VS ARE STABLE. HR 60. BP 158/72-AFTER PAIN MED GIVEN
[2022-04-23] MEDS: MORPHINE SULFATE 2 MG/ML SYR IVP PRN (07:10)
[2022-04-23 07:20] LABS: BASOPHILS % (AUTO) 0.7 % (0.0-2.0); EOSINOPHILS # (AUTO) 0.2 K/uL (0-0.4); EOSINOPHILS % (AUTO) 5.3 % (0.0-4.0); HEMATOCRIT 30.3 % (36-48); LYMPHOCYTES % (AUTO) 28.7 % (20.5-51.1); MEAN CORPUSCULAR HEMOGLOBIN 32 pg (27-31); MEAN CORPUSCULAR HGB CONC 33 g/dL (33-37); MONOCYTES # (AUTO) 0.2 K/uL (0.8-1.0); MONOCYTES % (AUTO) 4.8 % (1.7-9.3); NEUTROPHILS # (AUTO) 2.2 K/uL (1.8-7.7); NEUTROPHILS % (AUTO) 60.5 % (42.2-75.2); PLATELET COUNT (AUTO) 151 K/uL (140-450); RED BLOOD CELL COUNT(AUTO) 3.16 MIL/uL (4.20-5.40); RED CELL DISTRIBUTION WIDTH 15.8 % (11.6-13.7); WHITE BLOOD COUNT (AUTO) 3.6 K/uL (4.8-10.8)
[2022-04-23 07:29] LABS: ANION GAP 20.8 (8-16); CARBON DIOXIDE 24.6 mmol/L (21-32)
[2022-04-23 07:32] LABS: CREATININE 10.1 mg/dL (0.6-1.3); POTASSIUM 6.4 mmol/L (3.5-5.1)
--- NOTE | 2022-04-23 07:35 | NUR ---
REPORT RECEIVED FROM LENNY CARY . ASSUMED CARE AT THIS TIME
--- NOTE | 2022-04-23 07:35 | NUR ---
Coreen rodriguez in [facility] - 04/23/22 at 0803 by PHSEP REPORT RECEIVED FROM ARGENIS Graham ASSUMED CARE AT THIS TIME
--- NOTE | 2022-04-23 07:40 | NUR ---
pt awake and at rest. states mild relief. on quality assurance monitor. bed at lowest position, bed rails upx2
--- NOTE | 2022-04-23 07:44 | NUR ---
Patient will be admitted to care of MD KAY. Admited to TELE. Will go to room 114. Belongings list completed. Report to JANN CARY.
[2022-04-23 07:47] LABS: PHOSPHORUS 10.2 mg/dL (2.5-4.9)
--- NOTE | 2022-04-23 07:50 | NUR ---
The patient's care was reviewed and supervised by Lashonda Magana, RN, RN.
[2022-04-23] MEDS ORDERED: DEXTROSE 25% 10 ML SYR IVP SCH (07:56)
[2022-04-23] MEDS ORDERED: INSULIN REGULAR, HUMAN 100 UNIT/ML VIAL IVP SCH (07:58)
[2022-04-23 08:00] VITALS: BP 152/70
[2022-04-23] MEDS ORDERED: CALCIUM GLUC 1 GM/50 mL NS BAG 50 ML IV SCH (08:00)
[2022-04-23] MEDS ORDERED: DEXTROSE 50% 50 ML SYR IVP SCH (08:10)
--- NOTE | 2022-04-23 08:12 | NUR ---
RECEIVE REPORT FROM ER NURSE THAT PATIENT IS COME FROM HOME FOR ABDOMINAL PAIN W/ NAUSEA & VOMITING X 3 DAYS; DIAGNOSIS W/ HYPERKALEMIA/ABD. PAIN; HX OF HTN, ANEMIA, ASTHMA, CAD WITH PACEMAKER, ESRD W/ DIALYSIS @T.TH.SAT. PATIENT HAS NKA, FULL CODE, AMBULATORY, ALERT X 4, ON STEWARD/STEWARDESS NIGHT, ROOM AIR, RENAL DIET, IV AT R. FOREARM 20G SALINE LOCK; SHUNT AT SHANEL. MRSA SCREEN SPACEMEN COLLECTED, VITAL WITHIN PATIENT'S BASELINE (T-P-R: 97.9-60-20, BP: 152/70, O2 SAT 96% IN RA). WILL CONTINUE TO MONITOR
[2022-04-23] MEDS: hydrALAZINE 10 MG TAB PO SCH ×3 (09:00→17:51)
[2022-04-23] MEDS: amLODIPine 5 MG TAB PO SCH (09:00)
[2022-04-23] MEDS: carvediloL 12.5 MG TAB PO SCH ×2 (09:00→20:58)
[2022-04-23] MEDS: CALCIUM ACETATE 667 MG TAB PO SCH ×3 (09:39→17:51)
[2022-04-23] MEDS: DOCUSATE SODIUM 100 MG GELCAP PO SCH ×2 (09:40→20:58)
[2022-04-23] MEDS: ASPIRIN 81 MG TAB.CHEW PO SCH (09:40)
[2022-04-23] MEDS: VIT-B COMP/VIT-C/FOLIC ACID 1 TAB PO SCH (09:41)
[2022-04-23] MEDS: ATORVASTATIN 20 MG TAB PO SCH (09:42)
[2022-04-23 12:00] VITALS: BP 168/75
--- NOTE | 2022-04-23 14:23 | NUR ---
DC PLANNING SW MET WITH PT AT BEDSIDE TO COMPLETE ASSESSMENT. PATIENT REPORTS RESIDING IN A SECOND FLOOR APT, WITH HER DAUGHTERS AT THE ADDRESS LISTED ON FILE. PATIENT IDENTIFIED CEDRIC BARROS,MOM, AND TARYN GRANDA, DAUGHTER, EMERGENCY CONTACT. PATIENT DENIES AD IN PLACE AND ACCEPTED AD OFFERED BY SW. PATIENT REPORTS MEETING WITH PCP EVERY TWO MONTHS, LAST VISIT; FEB 24 AND NEXT VISIT IN MAY 28. SW SPOKE WITH PATIENT ABOUT THE IMPORTANCE OF FOLLOW UP/PREVENTATIVE CARE, PATIENT RECEPTIVE. PATIENT REPORTS MEDIATION COMPLIANCE AND DENIES BARRIERS IN ACCESS TO MEDICATION. PATIENT REPORTS PICKING UP MEDICATION FROM [facility] ON [address] IN [place], WHEN NEEDED. PATIENT REPORTS BEING INDEPENDENT IN ALL ACTIVITIES AND DENIES USE OF DME. PATIENT COMPLETES ALL ADL'S INDEPENDENTLY. PT RECEIVES DIALYSIS TX WITH DIANN MICHAEL, CHAIR TIME, 8:30 AM -12PM ON . PATIENT UTILIZES [facility] TRANSPORTATION TO DIALYSIS TX.FOLLOWING NEPH; DR. CLARK. PT DENIES MH/SA HX. PATIENT DENIES REPORTS HX OF DIABETES THAT IS WELL MANAGED. PATIENT REPORTS ADEQUATE FOOD SOURCE AT HOME AND REPORTS RECEIVING [employer] BENEFITS OF $500/MONTHLY. PATIENT HAS ADEQUATE FRIEND AND FAMILY SUPPORT.PATIENT REPORTS HH SERVICES 1 YR AGO HOWEVER, COULD NOT RECALL NAME OF AGENCY. PATIENT REPORTS SNF PLACEMENT WITH [facility] FROM MAR 25- MAY 27. PATIENT REPORTS DC PLAN IS TO RETURN HOME WITH DAUGHTER PROVIDING TRANSPORTATION. DEL INQUIRED ON RESOURCES NEEDED, PATIENT DECLINED. Addendum: 04/23/22 at 1426 by Samuel ALFORD Amended: Links added.
[2022-04-23 16:00] VITALS: BP 178/73
--- NOTE | 2022-04-23 19:04 | NUR ---
ENDORSE PATIENT I STABLE CONDITION TO PM SHIFT NURSE AFTER DIALYSIS DONE WITH 3 LITER REMOVED. PIV AT R. FOREARM SALINE LOCK.
--- NOTE | 2022-04-23 19:30 | NUR ---
RECEIVED BEDSIDE REPORT FROM DAY SHIFT RN FOR CONTINUITY OF CARE. PT IS AAOX4 ON RA. PT IS SITTING BY BEDSIDE NOT IN ANY ACUTE DISTRESS. PT HAS RIGHT FOREARM 20 GAUGE SALINE LOCK. PT HAS SHANEL SHUNT. SAFETY PRECAUTIONS TAKEN. WILL CONTINUE TO MONITOR THE PT.
[2022-04-23 20:00] VITALS: BP 172/69
[2022-04-23] MEDS: GABAPENTIN 100 MG CAP PO SCH (20:58)
[2022-04-23] MEDS: CLONIDINE HYDROCHLORIDE 0.1 MG TAB PO PRN (20:59)
--- NOTE | 2022-04-23 21:00 | NUR ---
SCHEDULE MEDICATION GIVEN. NO ADVERSE REACTION NOTED. WILL CONTINUE TO MONITOR THE PT.
[2022-04-24] VITALS: BP 178/70
--- NOTE | 2022-04-24 | NUR ---
PT IS AWAKE AND RESTING IN BED. VITAL SIGNS TAKEN. PT BP IS STILL HIGH 178/70 EVEN AFTER GIVEN CATAPRES. PT HAS NO COMPLAINS. SAFETY MEASURES TAKEN. WILL CONTINUE TO MONITOR THE PT.
[2022-04-24 04:00] VITALS: BP 169/68
--- NOTE | 2022-04-24 04:21 | NUR ---
VITAL SIGNS TAKEN AND STABLE. PT IS NOT IN ANY DISTRESS. PT HAS NO COMPLAINS. WILL CONTINUE TO MONITOR THE PT.
[2022-04-24] MEDS: MORPHINE SULFATE 2 MG/ML SYR IVP PRN (04:32)
[2022-04-24] MEDS: LEVOTHYROXINE 0.05 MG TAB PO SCH (06:04)
[2022-04-24 07:19] LABS: MAGNESIUM 2.7 mg/dL (1.8-2.4); PHOSPHORUS 7.3 mg/dL (2.5-4.9)
--- NOTE | 2022-04-24 07:21 | NUR ---
ENDORSED PT TO DAY SHIFT RN FOR CONTINUITY OF CARE. PT IS STABLE.
[2022-04-24 07:27] LABS: BASOPHILS % (AUTO) 0.6 % (0.0-2.0); EOSINOPHILS # (AUTO) 0.2 K/uL (0-0.4); EOSINOPHILS % (AUTO) 6.8 % (0.0-4.0); HEMATOCRIT 30.5 % (36-48); HEMOGLOBIN 9.9 g/dL (12.0-16.0); LYMPHOCYTES # (AUTO) 0.9 K/uL (2.5-16.5); MEAN CORPUSCULAR HEMOGLOBIN 31 pg (27-31); MEAN CORPUSCULAR HGB CONC 33 g/dL (33-37); MEAN CORPUSCULAR VOLUME 95.7 fL (80-94); MONOCYTES # (AUTO) 0.2 K/uL (0.8-1.0); MONOCYTES % (AUTO) 6.7 % (1.7-9.3); NEUTROPHILS % (AUTO) 58.9 % (42.2-75.2); PLATELET COUNT (AUTO) 158 K/uL (140-450); RED BLOOD CELL COUNT(AUTO) 3.18 MIL/uL (4.20-5.40); RED CELL DISTRIBUTION WIDTH 16.2 % (11.6-13.7); WHITE BLOOD COUNT (AUTO) 3.3 K/uL (4.8-10.8)
--- NOTE | 2022-04-24 07:27 | NUR ---
GOT REPORT FROM THE NIGHT NURSE, PT IS AWAKE , DISCUSSED POC. [id number]
[2022-04-24 07:31] LABS: CREATININE 7.2 mg/dL (0.6-1.3)
[2022-04-24 08:00] VITALS: BP 152/60
[2022-04-24] MEDS: CALCIUM ACETATE 667 MG TAB PO SCH ×2 (08:00→11:53)
[2022-04-24] MEDS ORDERED: SODIUM ZIRCONIUM CYCLOSILICATE 10 GM POWD.PACK PO SCH (09:17)
[2022-04-24] MEDS: hydrALAZINE 10 MG TAB PO SCH ×2 (09:46→15:04)
[2022-04-24] MEDS: PANTOPRAZOLE 40 MG INJ VIAL IVP SCH (09:46)
[2022-04-24] MEDS: ASPIRIN 81 MG TAB.CHEW PO SCH (09:47)
[2022-04-24] MEDS: DOCUSATE SODIUM 100 MG GELCAP PO SCH (09:47)
[2022-04-24] MEDS: ATORVASTATIN 20 MG TAB PO SCH (09:47)
[2022-04-24] MEDS: carvediloL 12.5 MG TAB PO SCH (09:48)
[2022-04-24] MEDS: amLODIPine 5 MG TAB PO SCH (09:49)
[2022-04-24] MEDS: VIT-B COMP/VIT-C/FOLIC ACID 1 TAB PO SCH (09:49)
[2022-04-24] MEDS: CLONIDINE HYDROCHLORIDE 0.1 MG TAB PO PRN (09:55)
[2022-04-24 12:00] VITALS: BP 152/60
[2022-04-24 13:53] VITALS: BP 152/60
--- NOTE | 2022-04-24 16:09 | NUR ---
PT DISCHARGED HOME , DISCHARGE INSTRUCTION IS GIVEN, IV AND ID BAND REMOVED , PT WALKED OUT WITHOUT ANY DISCOMFORT.[id number]
== END 2022-04-24 16:30 | disposition home or self-care (01) | DRG 391 ==
LOC: MED 08:05 → MTU 12:55
PROC: 5A1D70Z Performance of Urinary Filtration, Intermittent, Less than 6 Hours Per Day (ICD-10-PCS; principal; 2022-04-23)
DX: A08.4 Viral intestinal infection, unspecified (principal); N17.0 Acute kidney failure with tubular necrosis; N18.6 End stage renal disease; E46 Unspecified protein-calorie malnutrition; S22.31XA Fracture of one rib, right side, initial encounter for closed fracture; E87.1 Hypo-osmolality and hyponatremia; I12.0 Hypertensive chronic kidney disease with stage 5 chronic kidney disease or end stage renal disease; R18.8 Other ascites; E10.22 Type 1 diabetes mellitus with diabetic chronic kidney disease; E78.5 Hyperlipidemia, unspecified; E87.5 Hyperkalemia; Z20.822 Contact with and (suspected) exposure to COVID-19; I16.0 Hypertensive urgency; E83.51 Hypocalcemia; E87.6 Hypokalemia; D63.8 Anemia in other chronic diseases classified elsewhere; I25.10 Atherosclerotic heart disease of native coronary artery without angina pectoris; X58.XXXA Exposure to other specified factors, initial encounter; D25.9 Leiomyoma of uterus, unspecified; E83.41 Hypermagnesemia; E83.39 Other disorders of phosphorus metabolism; J44.9 Chronic obstructive pulmonary disease, unspecified; E03.9 Hypothyroidism, unspecified; E10.51 Type 1 diabetes mellitus with diabetic peripheral angiopathy without gangrene; Z90.49 Acquired absence of other specified parts of digestive tract; Z79.4 Long term (current) use of insulin; Z95.0 Presence of cardiac pacemaker; Z99.2 Dependence on renal dialysis; Y93.89 Activity, other specified; Y92.89 Other specified places as the place of occurrence of the external cause; Y99.8 Other external cause status; Z68.24 Body mass index [BMI] 24.0-24.9, adult; Z83.3 Family history of diabetes mellitus; Z80.3 Family history of malignant neoplasm of breast; Z80.0 Family history of malignant neoplasm of digestive organs; Z82.49 Family history of ischemic heart disease and other diseases of the circulatory system
CPT/HCPCS: 36415; 71045; 80048; 80053; 82140; 82150; 83036; 83605; 83690; 83735; 83880; 84100; 84439; 84443; 84484; 85025; 85610; 85730; 87081; 93005; 94664; 96372; 96374; 96375; 99291; C9113; J0610; J1644; J1815; J1885; J2270; J2405

== ENCOUNTER 2022-07-23 13:27 | Inpatient (IN) | payer OTHER ==
[~2022-07-23] VITALS: Ht 149.9 cm; Wt 59.0 kg
[~2022-07-23 13:27] MED LIST changes: -AMLO10TA PO; +AMLO10TA89 PO; +HYDR-5080 PO
[2022-07-23 13:57] VITALS: BP 156/79
--- NOTE | 2022-07-23 14:19 | NUR ---
PT AMBULATED TO ER BED 8 WITH ASSISTANCE
--- NOTE | 2022-07-23 14:30 | NUR ---
47 y/o female bib mom for c/o syncope x today. Per patient, was walking out of car when she felt her legs give out and then had syncope episode. Patient's mom was at her side when incident happened. Denies hitting head. Patient also reports abdominal pain x 6 days, diarrhea, nausea and vomiting. Denies any new foods or sick contacts. Patient is Dialysis dependent. Medical History: Kidney Failure, Dialysis dependent (T, TH, Sat), DM, Pacemaker, HTN, Migraines NKDA
--- NOTE | 2022-07-23 15:31 | NUR ---
Dr. Whitten evaluating patient at bedside.
[2022-07-23] MEDS ORDERED: ONDANSETRON 4 MG ODT PO ONE (15:40)
[2022-07-23] MEDS ORDERED: MORPHINE SULFATE 4 MG/ML SYR IM ONE (15:40)
--- NOTE | 2022-07-23 15:51 | NUR ---
Lab at bedside.
[2022-07-23 16:23] LABS: BASOPHILS % (AUTO) 0.8 % (0.0-2.0); EOSINOPHILS # (AUTO) 0.1 K/uL (0-0.4); HEMATOCRIT 32.4 % (36-48); HEMOGLOBIN 10.7 g/dL (12.0-16.0); LYMPHOCYTES # (AUTO) 0.8 K/uL (2.5-16.5); MEAN CORPUSCULAR HEMOGLOBIN 32 pg (27-31); MEAN CORPUSCULAR HGB CONC 33 g/dL (33-37); MEAN CORPUSCULAR VOLUME 96.3 fL (80-94); MONOCYTES # (AUTO) 0.2 K/uL (0.8-1.0); MONOCYTES % (AUTO) 4.9 % (1.7-9.3); NEUTROPHILS # (AUTO) 2.9 K/uL (1.8-7.7); NEUTROPHILS % (AUTO) 72.3 % (42.2-75.2); PLATELET COUNT (AUTO) 172 K/uL (140-450); RED BLOOD CELL COUNT(AUTO) 3.37 MIL/uL (4.20-5.40); RED CELL DISTRIBUTION WIDTH 16.4 % (11.6-13.7); WHITE BLOOD COUNT (AUTO) 4.1 K/uL (4.8-10.8)
[2022-07-23 16:53] LABS: ALBUMIN 3.3 g/dL (3.4-5.0); ANION GAP 22.6 (8-16); CARBON DIOXIDE 22.1 mmol/L (21-32); MAGNESIUM 2.9 mg/dL (1.8-2.4)
[2022-07-23 16:56] LABS: CREATININE 12.5 mg/dL (0.6-1.3); PHOSPHORUS 13.1 mg/dL (2.5-4.9); POTASSIUM 6.7 mmol/L (3.5-5.1)
[2022-07-23] MEDS ORDERED: DEXTROSE 50% 50 ML SYR IVP ONE ×2 (17:05→18:31)
[2022-07-23] MEDS ORDERED: ALBUTEROL 0.083% 2.5 MG/3 ML NEBU INH ONE (17:05)
[2022-07-23] MEDS ORDERED: INSULIN REGULAR, HUMAN 100 UNIT/ML VIAL IV ONE (17:05)
[2022-07-23] MEDS ORDERED: ZOLP5TAB1 PO (17:05)
[2022-07-23] MEDS ORDERED: CALCIUM GLUC 1 GM/50 mL NS BAG 50 ML IV ONE (17:05)
[2022-07-23] MEDS ORDERED: SODIUM ZIRCONIUM CYCLOSILICATE 10 GM POWD.PACK PO ONE (17:05)
--- NOTE | 2022-07-23 17:05 | NUR ---
med rec complete
[2022-07-23 17:27] LABS: LIPASE 102 U/L (73-393)
[2022-07-23] MEDS ORDERED: ACETAMINOPHEN 325 MG TAB PO PRN (17:55)
[2022-07-23] MEDS ORDERED: ZOLPIDEM 10 MG TAB PO PRN (17:55)
[2022-07-23] MEDS ORDERED: MAG SULF 2000 MG/WATER PREMIX 50 ML IV PRN (17:55)
[2022-07-23] MEDS ORDERED: ONDANSETRON 4 MG/2 ML VIAL IVP PRN (17:55)
[2022-07-23] MEDS ORDERED: MORPHINE SULFATE 2 MG/ML SYR IVP PRN (17:55)
[2022-07-23] MEDS ORDERED: DOCUSATE SODIUM 100 MG GELCAP PO PRN (17:55)
[2022-07-23] MEDS ORDERED: POTASSIUM CHLORIDE 10 MEQ TABER PO PRN (17:55)
[2022-07-23] MEDS ORDERED: LORazepam 2 MG/ML VIAL IVP PRN (17:55)
[2022-07-23] MEDS: ALBUTEROL 0.083% 2.5 MG/3 ML NEBU INH PRN ×2 (18:21→18:26)
[2022-07-23] MEDS: CALCIUM ACETATE 667 MG TAB PO SCH (18:56)
--- NOTE | 2022-07-23 18:59 | NUR ---
Patient will be admitted to care of Dr. Salcedo. Admited to Telemetry. Will go to room 106-A. Belongings list completed. Report to RAEANN Bueno.
[2022-07-23] MEDS ORDERED: CALCIUM GLUC 1 GM/50 mL NS BAG 50 ML IV SCH (19:00)
--- NOTE | 2022-07-23 19:00 | NUR ---
PATIENT ARRIVED TO UNIT FROM ER AT 1900. PATIENT ALERT AND ORIENTED X 4. PATIENT HAD MALE FAMILY AT BEDSIDE. PATIENT COMPLAINED OF HUNGER AND ACCUHECK WILL BE COMPLETED AND DIET CHANGED ORDER BEFORE ANY FOOD. PATIENT UNDERSTOOD AND WILL AWAIT MD ORDERS. PATIENT IS AWARE OF REASON OR THE HOSPITAL STAY. BREATHING EVENLY WITHOUT DISTRESS. DENIES ANY PAIN AT THIS TIME. KEPT CLEAN AND DRY. PATIENT WAS ABLE TO GIVE HER ENTIRE MEDICAL HISTORY FOR ADMISSION RECORDS. COVERING RN WAS INFORMED OF PATIENT ARRIVAL. [email or web address]
--- NOTE | 2022-07-23 19:04 | NUR ---
The patient's care was reviewed and supervised by CLOVIS GOFF RN.
[2022-07-23 20:00] VITALS: BP 162/65
--- NOTE | 2022-07-23 20:00 | NUR ---
Patient's Plan of Care was discussed and reviewed with MAGO DAY:
[2022-07-23] MEDS: ZOLPIDEM 5 MG TAB PO SCH (21:00)
[2022-07-23] MEDS: CLONIDINE HYDROCHLORIDE 0.1 MG TAB PO SCH (21:00)
[2022-07-23] MEDS: GABAPENTIN 100 MG CAP PO SCH (21:00)
[2022-07-23] MEDS: carvediloL 12.5 MG TAB PO SCH (21:00)
--- NOTE | 2022-07-23 21:00 | NUR ---
PATIENT IS OFF UNIT FOR CT SCAN. [email or web address]
--- NOTE | 2022-07-23 21:00 | NUR ---
PATIENT HAS CHANGED ROOM TO 114 AND PATIENT IS BACK FROM [facility]. [email or web address]
--- NOTE | 2022-07-23 21:12 | NUR ---
[facility] HAS ARRIVED OR DIALYSIS. PATIENT REQUESTED FOR PAIN MANAGEMENT BEFORE DIALYSIS. RAEANN LOCO NURSE WAS INFORMED. [email or web address]
--- NOTE | 2022-07-23 21:28 | NUR ---
PT COMPLAINING OF 10/10 ABDOMINAL PAIN, MEDICATED WITH MORPHINE ORDERED.
--- NOTE | 2022-07-23 22:30 | NUR ---
PATIENT PAIN HAS BEEN RELIEVED. NOT NOTED S/S OF SIDE EFFECTS. [email or web address]
[2022-07-24] VITALS: BP 182/85
[2022-07-24] MEDS: CLONIDINE HYDROCHLORIDE 0.1 MG TAB PO SCH ×2 (00:33→09:00)
[2022-07-24] MEDS: ZOLPIDEM 5 MG TAB PO SCH (00:35)
[2022-07-24] MEDS: carvediloL 12.5 MG TAB PO SCH ×2 (00:35→09:00)
[2022-07-24] MEDS: GABAPENTIN 100 MG CAP PO SCH (00:36)
--- NOTE | 2022-07-24 00:58 | NUR ---
DIALYSIS COMPLETED. RESUMED MEDICATION D/T ELEVATED BLOOD PRESSURE. WILL REASSESS FOR CATAPRES. [email or web address]
--- NOTE | 2022-07-24 02:43 | NUR ---
PATIENT NOTED ASLEEP. NO NOTED S/S OF PAIN/DISCOMFORT. NO S/S OF RESPIRATORY DISTRESS. [email or web address]
[2022-07-24 04:00] VITALS: BP 164/70
--- NOTE | 2022-07-24 06:13 | NUR ---
PATIENT NOTED ASLEEP. NO NOTED S/S OF PAIN/DISCOMFORT. NO S/S OF RESPIRATORY DISTRESS. [email or web address]
[2022-07-24 06:48] LABS: BASOPHILS # (AUTO) 0.1 K/uL (0.00-0.22); BASOPHILS % (AUTO) 3.3 % (0.0-2.0); EOSINOPHILS # (AUTO) 0.2 K/uL (0-0.4); EOSINOPHILS % (AUTO) 4.9 % (0.0-4.0); HEMATOCRIT 29.8 % (36-48); HEMOGLOBIN 9.9 g/dL (12.0-16.0); LYMPHOCYTES # (AUTO) 0.7 K/uL (2.5-16.5); LYMPHOCYTES % (AUTO) 22.2 % (20.5-51.1); MEAN CORPUSCULAR HEMOGLOBIN 31 pg (27-31); MEAN CORPUSCULAR HGB CONC 33 g/dL (33-37); MEAN CORPUSCULAR VOLUME 94.4 fL (80-94); MONOCYTES # (AUTO) 0.3 K/uL (0.8-1.0); MONOCYTES % (AUTO) 8.2 % (1.7-9.3); NEUTROPHILS # (AUTO) 2.1 K/uL (1.8-7.7); NEUTROPHILS % (AUTO) 61.4 % (42.2-75.2); PLATELET COUNT (AUTO) 161 K/uL (140-450); RED BLOOD CELL COUNT(AUTO) 3.16 MIL/uL (4.20-5.40); RED CELL DISTRIBUTION WIDTH 16.1 % (11.6-13.7); WHITE BLOOD COUNT (AUTO) 3.3 K/uL (4.8-10.8)
[2022-07-24 07:27] LABS: ANION GAP 13.4 (8-16); CARBON DIOXIDE 29.9 mmol/L (21-32); POTASSIUM 4.3 mmol/L (3.5-5.1)
--- NOTE | 2022-07-24 07:28 | NUR ---
ENDORSED PATIENT CARE TO TALON CARY FOR CONTINUITY OF CARE. PATIENT WAS STABLE DURING CHANGE OF SHIFT. [email or web address]
--- NOTE | 2022-07-24 07:30 | NUR ---
RECEIVED REPORT FROM SERVICE DESK SPECIALIST NURSE. POC DISCUSSED. PT CURRENTLY RESTING WITH CHEST RISING AND FALLING. NO ACUTE S/S OF DISTRESS. ALL SAFETY MEASURES IN PLACE. CALL LIGHT WITHIN REACH.
[2022-07-24 07:45] LABS: CREATININE 6.6 mg/dL (0.6-1.3)
[2022-07-24 08:00] VITALS: BP 164/58
--- NOTE | 2022-07-24 08:55 | NUR ---
PATIENT HAS BEEN SCREENED AND CATEGORIZED MODERATE NUTRITION RISK. PATIENT WILL BE SEEN WITHIN 3-5 DAYS OF ADMISSION. 07/26/ REVIEWED BY REYNA KEITA RD
[2022-07-24] MEDS ORDERED: LEVOTHYROXINE 0.05 MG TAB PO SCH (09:00)
[2022-07-24] MEDS: hydrALAZINE 10 MG TAB PO SCH ×2 (09:00→13:00)
[2022-07-24] MEDS ORDERED: ASPIRIN 81 MG TAB.CHEW PO SCH (09:00)
[2022-07-24] MEDS ORDERED: ATORVASTATIN 20 MG TAB PO SCH (09:00)
[2022-07-24 09:32] VITALS: BP 106/40
--- NOTE | 2022-07-24 09:32 | NUR ---
REASSESSED PTS BLOOD PRESSURE PRIOR TO MEDICATION ADMINISTRATION FOR BP MEDS. BLOOD PRESSURE READING 106/40 HEART RATE 65. MD NOTIFIED, MD STATED TO HOLD BP MEDICATION AND ADMINISTER MIDODRINE 5MG ONCE. DR CLARK AT BEDSIDE AT 0937, NEW BLOOD PRESSURE READING 125/44 HEART RATE 71. STATED TO NOT ADMINISTERED MIDODRINE TO PREVENT A HYPERTENSIVE ISSUE BUT TO HOLD BLOOD PRESSURE MEDICATION, WHILE KEEPING A CLOSE EYE ON HER BLOOD PRESSURE.
[2022-07-24] MEDS ORDERED: MIDODRINE 5 MG TAB PO SCH (09:35)
[2022-07-24] MEDS: CALCIUM ACETATE 667 MG TAB PO SCH (09:40)
[2022-07-24 12:00] VITALS: BP 135/44
--- NOTE | 2022-07-24 12:03 | NUR ---
DR CLARK PAGED FOR CLARIFICATION REGARDING PT DISCHARGE. PT IS MEDICALLY CLEARED BY APPEALS REPRESENTATIVE STAND POINT FOR DISCHARGE.
--- NOTE | 2022-07-24 12:29 | NUR ---
DC PLANNING ASSESSMENT COMPLETE PLEASE REFER TO ASSESSMENT FOR ADDITIONAL DETAILS PT REPORTS TENTATIVE DC PLAN IS TO RETURN HOME WITH MOTHER PROVIDING TRANSPORTATION, WHEN MEDICALLY STABLE Addendum: 07/24/22 at 1230 by Samuel ALFORD Amended: Links added.
--- NOTE | 2022-07-24 15:35 | NUR ---
PT WAS DISCHARGED IN STABLE CONDITION. ALL BELONGINGS IN POSSESSION. IV REMOVED AND RN NEW GRADUATE REMOVED. ALL DISCHARGE EDUCATION PROVIDED. PT UNDERSTOOD TEACHINGS. PT WHEELCHAIR OUT IN STABLE CONDITION.
== END 2022-07-24 15:35 | disposition home or self-care (01) | DRG 640 ==
LOC: MED 13:27 → MTU 17:53
PROVIDERS: ADMIT Family Medicine; ATTEND Family Medicine
PROC: 5A1D70Z Performance of Urinary Filtration, Intermittent, Less than 6 Hours Per Day (ICD-10-PCS; principal; 2022-07-23)
DX: E87.5 Hyperkalemia (principal); N18.6 End stage renal disease; I12.0 Hypertensive chronic kidney disease with stage 5 chronic kidney disease or end stage renal disease; R65.10 Systemic inflammatory response syndrome (SIRS) of non-infectious origin without acute organ dysfunction; A08.4 Viral intestinal infection, unspecified; D63.1 Anemia in chronic kidney disease; E87.1 Hypo-osmolality and hyponatremia; K31.89 Other diseases of stomach and duodenum; E83.51 Hypocalcemia; E83.39 Other disorders of phosphorus metabolism; E83.41 Hypermagnesemia; E88.09 Other disorders of plasma-protein metabolism, not elsewhere classified; E11.22 Type 2 diabetes mellitus with diabetic chronic kidney disease; E03.9 Hypothyroidism, unspecified; Z20.822 Contact with and (suspected) exposure to COVID-19; E78.5 Hyperlipidemia, unspecified; I25.10 Atherosclerotic heart disease of native coronary artery without angina pectoris; E11.51 Type 2 diabetes mellitus with diabetic peripheral angiopathy without gangrene; K74.60 Unspecified cirrhosis of liver; Z90.49 Acquired absence of other specified parts of digestive tract; Z79.82 Long term (current) use of aspirin
CPT/HCPCS: 36415; 74022; 76700; 80048; 80053; 82948; 83690; 83735; 83880; 84100; 84484; 85025; 87081; 94640; 96372; 96374; 96375; 99285; J0610; J1815; J2270; J7613; Q0092; Q0162

== ENCOUNTER 2023-03-01 12:36 | Inpatient (IN) | payer OTHER ==
[~2023-03-01] VITALS: Ht 152.4 cm; Wt 55.3 kg
[~2023-03-01 12:36] MED LIST changes: -ALBU0.0912 INH; +ZOLP5TAB1 PO
[2023-03-01 13:11] VITALS: BP 123/65; PULSE 64; RESP 18; TEMP 97; O2SAT 98
[2023-03-01 13:35] LABS: BASOPHILS % (AUTO) 0.6 % (0.0-2.0); EOSINOPHILS # (AUTO) 0.2 K/uL (0-0.4); EOSINOPHILS % (AUTO) 2.3 % (0.0-4.0); HEMATOCRIT 32.4 % (36-48); HEMOGLOBIN 10.5 g/dL (12.0-16.0); LYMPHOCYTES # (AUTO) 1.2 K/uL (2.5-16.5); LYMPHOCYTES % (AUTO) 17.7 % (20.5-51.1); MEAN CORPUSCULAR HEMOGLOBIN 30 pg (27-31); MEAN CORPUSCULAR HGB CONC 32 g/dL (33-37); MEAN CORPUSCULAR VOLUME 91.7 fL (80-94); MONOCYTES # (AUTO) 0.3 K/uL (0.8-1.0); MONOCYTES % (AUTO) 5.2 % (1.7-9.3); NEUTROPHILS # (AUTO) 4.8 K/uL (1.8-7.7); NEUTROPHILS % (AUTO) 74.2 % (42.2-75.2); PLATELET COUNT (AUTO) 186 K/uL (140-450); RED BLOOD CELL COUNT(AUTO) 3.53 MIL/uL (4.20-5.40); WHITE BLOOD COUNT (AUTO) 6.5 K/uL (4.8-10.8)
[2023-03-01 14:09] LABS: ANION GAP 21.6 (8-16); CARBON DIOXIDE 21.5 mmol/L (21-32); TOTAL BILIRUBIN 0.4 mg/dL (0.0-1.0); TOTAL PROTEIN, SERUM 7.4 g/dL (6.4-8.2)
[2023-03-01 14:20] VITALS: O2SAT 98
[2023-03-01 14:43] LABS: POTASSIUM 8.1 mmol/L (3.5-5.1)
[2023-03-01 14:45] LABS: CREATININE 10.8 mg/dL (0.6-1.3)
[2023-03-01] MEDS: CALCIUM CHLORIDE 10% 100 MG/ML SYR IVP ONE (15:40)
[2023-03-01] MEDS: SODIUM ZIRCONIUM CYCLOSILICATE 10 GM POWD.PACK PO ONE (16:47)
[2023-03-01] MEDS ORDERED: SODIUM BICARBONATE 8.4% PFS 50 MEQ/50 ML SYR IVP ONE (16:49)
[2023-03-01] MEDS: MORPHINE SULFATE 4 MG/ML SYR IVP ONE ×2 (16:52→19:13)
[2023-03-01] MEDS: SODIUM BICARBONATE 8.4% PFS 50 MEQ/50 ML SYR IVP ONE (16:57)
[2023-03-01] MEDS: INSULIN REGULAR, HUMAN 100 UNIT/ML VIAL SUBQ ONE (17:00)
[2023-03-01] MEDS ORDERED: CALCIUM CHLORIDE 10% 100 MG/ML SYR IVP ONE (17:10)
[2023-03-01] MEDS ORDERED: EPINEPHrine 1 mg/mL 1 MG in DEXTROSE 5% 250 ML IV SCH (19:00)
[2023-03-01 19:38] VITALS: O2SAT 98
[2023-03-01 21:00] VITALS: PULSE 60; RESP 17; O2SAT 93
[2023-03-02] VITALS (7 sets, daily range): BP systolic 94–120; BP diastolic 45–94; PULSE 60–71; RESP 17–18; TEMP 97–97.9; O2SAT 97–98
[2023-03-02] MEDS: KETOROLAC 30 MG/ML VIAL IVP ONE (02:46)
[2023-03-02 06:29] LABS: ANION GAP 16.6 (8-16); CALCIUM 7.8 mg/dL (8.5-10.1); CARBON DIOXIDE 27.3 mmol/L (21-32); POTASSIUM 4.9 mmol/L (3.5-5.1)
[2023-03-02 06:35] LABS: CREATININE 7.3 mg/dL (0.6-1.3)
[2023-03-02] MEDS ORDERED: TOPIRAMATE 25 MG TAB PO PRN (10:40)
[2023-03-02] MEDS ORDERED: DEXTROSE 50% 50 ML SYR IVP PRN (10:45)
[2023-03-02] MEDS ORDERED: MECLIZINE 25 MG TAB PO PRN (10:45)
[2023-03-02] MEDS: BLOOD GLUCOSE MONITORING 1 DEV DEV FS SCH (11:49)
[2023-03-02] MEDS: hydrALAZINE 10 MG TAB PO SCH (12:13)
[2023-03-02] MEDS: CALCIUM ACETATE 667 MG TAB PO SCH (12:14)
[2023-03-02] MEDS ORDERED: HEPARIN PER PHARMACY MC PRN (14:50)
[2023-03-02] MEDS: CLOPIDOGREL 75 MG TAB PO SCH (15:51)
[2023-03-02] MEDS: ATORVASTATIN 80 MG TAB PO SCH (15:51)
[2023-03-02] MEDS: ASPIRIN 81 MG TAB.CHEW PO SCH (15:51)
[2023-03-02] MEDS: HYDROcodone/APAP 7.5/325 MG 1 TAB PO PRN (15:53)
[2023-03-02 17:08] LABS: INR 1.09 (0.8-1.2); PARTIAL THROMBOPLASTIN TIME 27.8 secs (22-35.6); PROTHROMBIN TIME 11.4 secs (10.8-13.4)
[2023-03-02] MEDS: hePARIN / DEXT 5% PREMIX 250 ML IV SCH (18:29)
[2023-03-02] MEDS ORDERED: carvediloL 12.5 MG TAB PO SCH (21:00)
[2023-03-02] MEDS ORDERED: CLONIDINE HYDROCHLORIDE 0.1 MG TAB PO SCH (21:00)
[2023-03-02] MEDS: ZOLPIDEM 5 MG TAB PO SCH (21:33)
[2023-03-02] MEDS: PANTOPRAZOLE 40 MG TABEC PO SCH (21:34)
[2023-03-02] MEDS: GABAPENTIN 100 MG CAP PO SCH (21:34)
[2023-03-03] VITALS: BP 120/58; PULSE 60; RESP 18; TEMP 97.4; O2SAT 99
[2023-03-03 04:00] VITALS: BP 119/60; PULSE 60; PULSE 64; RESP 18; TEMP 97.1; O2SAT 98
[2023-03-03] MEDS: LEVOTHYROXINE 0.05 MG TAB PO SCH (07:06)
[2023-03-03] MEDS: INSULIN LISPRO SLIDING SCALE 100 UNITS/ML VIAL SUBQ PRN (07:13)
[2023-03-03 08:00] VITALS: BP 149/61; PULSE 60; RESP 18; TEMP 98.3; O2SAT 100; O2SAT 97
[2023-03-03] MEDS: VIT-B COMP/VIT-C/FOLIC ACID 1 TAB PO SCH (09:00)
[2023-03-03] MEDS: CLOPIDOGREL 75 MG TAB PO SCH (09:00)
[2023-03-03] MEDS: ECOTRIN 81 MG TABEC PO SCH (09:00)
[2023-03-03] MEDS ORDERED: ATORVASTATIN 20 MG TAB PO SCH (09:00)
[2023-03-03] MEDS ORDERED: amLODIPine 5 MG TAB PO SCH (09:00)
[2023-03-03] MEDS ORDERED: ASPIRIN 81 MG TAB.CHEW PO SCH (09:00)
[2023-03-03 10:22] LABS: BASOPHILS % (AUTO) 0.8 % (0.0-2.0); EOSINOPHILS # (AUTO) 0.2 K/uL (0-0.4); EOSINOPHILS % (AUTO) 3.6 % (0.0-4.0); HEMATOCRIT 35.6 % (36-48); HEMOGLOBIN 11.2 g/dL (12.0-16.0); LYMPHOCYTES % (AUTO) 37.1 % (20.5-51.1); MEAN CORPUSCULAR HEMOGLOBIN 30 pg (27-31); MEAN CORPUSCULAR HGB CONC 32 g/dL (33-37); MEAN CORPUSCULAR VOLUME 93.7 fL (80-94); MONOCYTES # (AUTO) 0.4 K/uL (0.8-1.0); MONOCYTES % (AUTO) 6.7 % (1.7-9.3); NEUTROPHILS # (AUTO) 2.8 K/uL (1.8-7.7); NEUTROPHILS % (AUTO) 51.8 % (42.2-75.2); PLATELET COUNT (AUTO) 185 K/uL (140-450); RED CELL DISTRIBUTION WIDTH 16.1 % (11.6-13.7); WHITE BLOOD COUNT (AUTO) 5.5 K/uL (4.8-10.8)
[2023-03-03 12:00] VITALS: BP 117/57; PULSE 60; RESP 18; TEMP 97.4; O2SAT 98
[2023-03-03 16:00] VITALS: BP 115/70; PULSE 60; RESP 18; TEMP 98.3; O2SAT 100
[2023-03-03 20:00] VITALS: BP 156/49; PULSE 66; RESP 18; TEMP 97.1; O2SAT 99
== END 2023-03-03 20:56 | disposition short-term general hospital (02) | DRG 640 ==
LOC: MED 12:36 → MTU 17:00
PROC: 5A1D70Z Performance of Urinary Filtration, Intermittent, Less than 6 Hours Per Day (ICD-10-PCS; principal; 2023-03-01)
PROC: 5A1D70Z Performance of Urinary Filtration, Intermittent, Less than 6 Hours Per Day (ICD-10-PCS; 2023-03-02)
DX: E87.5 Hyperkalemia (principal); N17.0 Acute kidney failure with tubular necrosis; N18.6 End stage renal disease; I12.0 Hypertensive chronic kidney disease with stage 5 chronic kidney disease or end stage renal disease; E87.1 Hypo-osmolality and hyponatremia; I25.10 Atherosclerotic heart disease of native coronary artery without angina pectoris; D63.8 Anemia in other chronic diseases classified elsewhere; E03.9 Hypothyroidism, unspecified; E78.00 Pure hypercholesterolemia, unspecified; E83.39 Other disorders of phosphorus metabolism; K21.9 Gastro-esophageal reflux disease without esophagitis; K74.60 Unspecified cirrhosis of liver; D50.9 Iron deficiency anemia, unspecified; E11.51 Type 2 diabetes mellitus with diabetic peripheral angiopathy without gangrene; E11.22 Type 2 diabetes mellitus with diabetic chronic kidney disease; Z99.2 Dependence on renal dialysis; Z95.0 Presence of cardiac pacemaker; Z86.16 Personal history of COVID-19; Z83.3 Family history of diabetes mellitus; Z80.3 Family history of malignant neoplasm of breast; Z82.49 Family history of ischemic heart disease and other diseases of the circulatory system; Z79.82 Long term (current) use of aspirin; Z79.899 Other long term (current) drug therapy; Z68.23 Body mass index [BMI] 23.0-23.9, adult
CPT/HCPCS: 36415; 71045; 72072; 72110; 80048; 80053; 82948; 83880; 84100; 84484; 85025; 85610; 85730; 87081; 93005; 93880; 96372; 96374; 96375; 97116; 97163-GP; 99285; J0171; J1644; J1815; J1885; J2270; J7060; Q0092